=== PATIENT | female | born 1965 | race Two or more races ===

== ENCOUNTER 2023-10-01 22:18 | Emergency (ER) | payer MEDICAID, OTHER ==
[~2023-10-01] VITALS: Ht 149.9 cm; Wt 52.6 kg
[2023-10-02] MEDS ORDERED: DOCU-94 PO (01:00)
[2023-10-02 02:08] VITALS: BP 114/69; PULSE 72; RESP 16; TEMP 97.7; O2SAT 97
== END 2023-10-02 02:09 | disposition home or self-care (01) ==
LOC: ER 22:18
DX: K59.00 Constipation, unspecified (principal)
CPT/HCPCS: 74018

== ENCOUNTER 2025-05-17 14:15 | Inpatient (IN) | payer MEDICAID ==
[~2025-05-17] VITALS: Ht 147.3 cm; Wt 48.7 kg
[2025-05-17] VITALS (9 sets, daily range): BP systolic 80–98; BP diastolic 37–52; PULSE 87–103; RESP 15–16; TEMP 98.2–98.5; O2SAT 100
[~2025-05-17 14:15] MED LIST: DOCU-94 PO
--- NOTE | 2025-05-17 14:58 | ED.PDOC ---
GI ASSESSMENT HPI Comments 59 y.o female with PMHx of colon cancer, presents to the ED for a chief complaint of hematochezia x 3 weeks associated with lightheadedness and palpitations. Patient reports having radiation daily for the past 1.5 months, last session was 3 days ago but has yet to f/u with her oncologist. Patient denies any abdominal pain, nausea, vomiting, diarrhea, fever, or chills. Patient's BP read 100 systolic with a HR of 140 at rest. Chief Complaint: GI Bleed Time Seen by MD: 14:35 Reviewed Notes: Nurses Notes, Medications, Allergies Allergies: Coded Allergies: NO KNOWN ALLERGIES (Unverified , 10/01/23) Home Meds Active Scripts Docusate Sodium (Colace) 100 Mg Cap, 1 CAP PO BID, #30 CAP Prov:ALEAH DE JESUS PAC 10/02/23 Information Source: Patient Mode of Arrival: Ambulatory Timing: Weeks (3) Duration: Since onset Quality: None Stool: Blood Streaked Severity: Moderate Recent: Other (radiation x 3 days ago ) Recent Hx of: Other Pain Location: None Modifying Factors: Nothing Associated sign and symptoms: Hematochezia, Blood in Stool Past Medical History PAST MEDICAL HISTORY: Cancer (colon ) Surgical History: Denies all 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 [employer]IC History Family History Family History: Reviewed,noncontributory to illness, No family hx of Cancer, No family hx of DM, No family hx of Heart jaleel, No family hx of HTN, No family hx ofKidney jaleel, No family hx of Liver jaleel, No family hx of Lung jaleel, No family hx of Stroke Social History Smoker: Non-Smoker Alcohol: Denies ETOH Use Drugs: Denies Drug Use Lives In: Home Constitutional: denies: chills, diaphoresis, fatigue, fever, malaise, sweats, weakness, others EENTM: denies: blurred vision, double vision, ear bleeding, ear discharge, ear drainage, ear pain, ear ringing, eye pain, eye redness, hearing loss, mouth pain, mouth swelling, nasal discharge, nose bleeding, nose congestion, nose pain, photophobia, tearing, throat pain, throat swelling, voice changes, others Respiratory: denies: cough, hemoptysis, orthopnea, SOB at rest, shortness of breath, SOB with excertion, stridor, wheezing, others Cardiovascular: reports: lightheadedness, palpitations; denies: chest pain, dizzy spells, diaphoresis, Dyspnea on exertion, edema, irregular heart beat, left arm pain, PND, syncope, others Gastrointestinal: reports: rectal bleeding; denies: abdomen distended, abdominal pain, blood streaked bowels, constipated, diarrhea, dysphagia, difficulty swallowing, hematemesis, melena, nausea, poor appetite, poor fluid intake, rectal pain, vomiting, others Genitourinary: denies: abnormal vagina bleeding, burning, dyspareunia, dysuria, flank pain, frequency, hematuria, incontinence, pain, , vagina discharge, urgency, others Neurological: denies: dizziness, fainting, headache, left sided numbness, left sided weakness, numbness, paresthesia, pre-existing deficit, right sided numbness, right sided weakness, seizure, speech problems, tingling, tremors, weakness, others Musculoskeletal: denies: back pain, gout, joint pain, joint swelling, muscle pain, muscle stiffness, neck pain, others Integumetry: denies: bruises, change in color, change in hair/nails, dryness, laceration, lesions, lumps, rash, wounds, others Allergic/Immunocompromised: denies: Difficulty Healing, Frequent Infections, Hives, Itching, others Hematologic/Lymphatic: denies: anemia, blood clots, easy bleeding, easy bruising, swollen glands, others Endocrine: denies: excessive hunger, excessive sweating, excessive thirst, excessive urination, flushing, intolerance to cold, intolerance to heat, unexplained weight gain, unexplained weight loss, others Psychiatric: denies: anxiety, bipolar disorder, depression, hopeless, panic disorder, schizophrenia, sleepless, suicidal, others All Other Systems: Reviewed and Negative Physical Exam General Appearance: Moderate Distress HEENT: Normal ENT Inspection, Pharynx Normal, TMs Normal Neck: Full Range of Motion, Non-Tender, Normal, Normal Inspection Respiratory: Chest Non-Tender, Lungs Clear, No Accessory Muscle Use, No Res piratory Distress, Normal Breath Sounds Cardiovascular: No Edema, No JVD, No Murmur, No Gallop, Normal Peripheral Pulses, Tachycardia Breast Exam: Deferred Gastrointestinal: No Organomegaly, Non Tender, No Pulsatile Mass, Normal Bowel Sounds, Soft Genitalia: Deferred Pelvic: Deferred Rectal: Deferred Extremities: No calf tenderness, Normal capillary refill, Normal inspection, Normal range of motion, Non-tender, No pedal edema Musculoskeletal : Apperance: Normal Neurologic: Alert, writer technical publications II-XII nml as Tested, No Motor Deficits, Normal Affect, Normal Mood, No Sensory Deficits Cerebellar Function: Normal Reflexes: Normal Skin: Dry, Normal Color, Warm Peripheral Pulses: 3+ Radial (R), 3+ Radial (L) Lymphatic: No Adenopathy Was a procedure done? Was a procedure done?: No GI differential Dx Differential Diagnosis: Constipation, Diverticular disease, Esophagitis, Gastritis/PUD, Gastroenteritis, GI hemorrhage, UTI, Dehydration, Viral, Anemia, Esophageal Varicies X-Ray, Labs, Meds, VS Vital Signs Date Time Temp Pulse Resp B/P (MAP) Pulse Ox O2 Delivery O2 Flow Rate FiO2 05/17/25 16:27 100 Room Air* 0 21 05/17/25 16:20 103 16 100 Room Air* 0 21 05/17/25 16:19 97.7 103 16 152/99 (116) 100 97.7 05/17/25 14:30 123 05/17/25 14:18 98.8 138 16 107/56 96 98.8 Lab Test 05/17/25 14:46 Range/Units White Blood Count 6.0 4.4-10.8 10^3/uL Red Blood Count 1.46 L 4.0-5.20 10^6/uL Hemoglobin 4.8 *L 12.2-16.2 g/dL Hematocrit 14.8 L 36.0-46.0 % Mean Corpuscular Volume 101.5 H 80.0-100.0 fL Mean Corpuscular Hemoglobin 33.0 H 28.0-32.0 pg Mean Corpuscular Hemoglobin Concent 32.5 32.0-36.0 g/dL Red Cell Distribution Width 36.4 H 11.8-14.3 % Platelet Count 259 140-450 10^3/uL Mean Platelet Volume 6.5 L 6.9-10.8 fL Neutrophils (%) (Auto) 80.7 H 37.0-80.0 % Lymphocytes (%) (Auto) 6.8 L 10.0-50.0 % Monocytes (%) (Auto) 11.2 0.0-12.0 % Eosinophils (%) (Auto) 0.7 0.0-7.0 % Basophils (%) (Auto) 0.6 0.0-2.0 % Neutrophils # (Auto) 4.8 1.6-8.6 10 ^3/uL Lymphocytes # (Auto) 0.4 0.4-5.4 10 ^3/uL Monocytes # (Auto) 0.7 0-1.3 10 ^3/uL Eosinophils # (Auto) 0 0-0.8 10 ^3/uL Basophils # (Auto) 0 0-0.2 10 ^3/uL Nucleated Red Blood Cells 3.9 % Platelet Estimate Adequate Large Platelets Few Anisocytosis (manual) Moderate Macrocytosis Moderate Tear Drop Cells Few Schistocytes Few Sodium Level 139 136-145 mmol/L Potassium Level 4.2 3.5-5.1 mmol/L Chloride Level 106 98-107 mmol/L Carbon Dioxide Level 22 20-31 mmol/L Anion Gap 11 5-15 Blood Urea Nitrogen 10 9-23 mg/dL Creatinine 0.69 0.550-1.02 mg/dL Glomerular Filtration Rate Calc 101 >90 mL/min BUN/Creatinine Ratio 14.5 10.0-20.0 Serum Glucose 116 H 74-106 mg/dL Calcium Level 8.5 L 8.7-10.4 mg/dL Current Medications Medications (Trade) Dose Ordered Sig/Roni Route Start Time Stop Time Status Last Admin Sodium Chloride 1,000 ml @ 1,000 mls/hr Q1H ONCE IV 05/17/25 14:45 05/17/25 15:44 DC 05/17/25 16:02 Patient alert. Came in because of rectal bleeding. History of colon cancer that has been radiated. Vitals stable. Establish intravenous access. Was given fluids. WBC within normal limits. Hemoglobin is low. Blood transfusion. Possible radiation causing the bleeding. Explained to the patient. Continue monitoring. Time of 1ST Reevaluation: 14:54 Reevaluation 1ST: Unchanged Patient Education/Counseling: Diagnosis, Treatment, Prognosis Family Education/Counseling: No Family Present SEPSIS Sepsis Screen Date sepsis recognized/suspect: May 17, 2025 Time Sepsis recognized/suspect: 1420 Recent Procedure: No On Antibiotic Therapy: No Respiratory Rate >20: No Heart Rate >90: Yes Temp<36 C (96.8 F) or >38.3 C: No SBP <90 or MAP <65 mmHG: No New Acute Mental Status Change: No Is the patient on CPAP, BIPAP,: No Physician Orders Urinalysis (05/17/25 14:29) Electrocardigram (05/17/25 14:33) Ct Ab Pel Wo Con-No Oral Or Iv (05/17/25 14:41) Vital Signs Date Time Temp Pulse Resp B/P (MAP) Pulse Ox O2 Delivery O2 Flow Rate FiO2 05/17/25 16:27 100 Room Air* 0 21 05/17/25 16:20 103 16 100 Room Air* 0 21 05/17/25 16:19 97.7 103 16 152/99 (116) 100 97.7 05/17/25 14:30 123 05/17/25 14:18 98.8 138 16 107/56 96 98.8 Laboratory Tests Test 05/17/25 14:46 White Blood Count 6.0 10^3/uL (4.4-10.8) Medications Medications Dose Ordered Sig/Roni Route Start Time Stop Time Status Last Admin Dose Admin Sodium Chloride 1,000 ml @ 1,000 mls/hr Q1H ONCE IV 05/17/25 14:45 05/17/25 15:44 DC 05/17/25 16:02 Departure 1 Departure Time of Disposition: 16:31 Impression: Primary Impression: GI bleed Qualified Codes: K92.2 - Gastrointestinal hemorrhage, unspecified Additional Impression: Severe anemia Disposition: ADMITTED INPATIENT Admit to: Med Surg Condition: Guarded Critical Care Note Critical Care Time?: Yes (90 min-critical care time only) Stability Stability form required: No I personally scribed for NATAN GANN MD ([email or web address]) on 05/17/25 at 14:58. Electronically submitted by Janelle Angel ([facility]). NATAN GANN MD May 17, 2025 14:58
[2025-05-17 15:04] LABS: Hematocrit 14.8 % (36.0-46.0); Mean Corpuscular Hemoglobin 33.0 pg (28.0-32.0); Mean Corpuscular Volume 101.5 fL (80.0-100.0)
[2025-05-17 15:09] LABS: Nucleated Red Blood Cells % 3.9 %
[2025-05-17 15:14] LABS: Hemoglobin 4.8 g/dL (12.2-16.2)
[2025-05-17 15:16] LABS: Chloride 106 mmol/L (98-107); Potassium 4.2 mmol/L (3.5-5.1); Sodium 139 mmol/L (136-145)
[2025-05-17 15:17] LABS: Anion Gap 11 (5-15); Carbon Dioxide 22 mmol/L (20-31)
[2025-05-17 15:18] LABS: Calcium 8.5 mg/dL (8.7-10.4)
[2025-05-17 15:22] LABS: BUN/Creatinine Ratio 14.5 (10.0-20.0); Blood Urea Nitrogen 10 mg/dL (9-23); Glucose 116 mg/dL (74-106)
[2025-05-17 15:47] LABS: Anisocytosis Moderate; Macrocytosis Moderate; Tear Drop Cells FEW
--- NOTE | 2025-05-17 16:00 | DVH ---
Indication: gibleeding Technique: CT axial images of the abdomen and pelvis are obtained without contrast. Coronal and sagit todd reformats were obtained. Radiation Dose Information: CTDI volume is 5.1 mGy. Dose-length product is 253 mGy*cm Comparison: None FINDINGS: There is limited interpretation of the abdomen and pelvis without administration of intravenous contr ast. Lung bases demonstrate no pleural effusion. Adrenal glands, spleen, pancreas and liver unremarkable in shape. No CT evidence for cholelithiasis. There is no hydronephrosis / nephrolithiasis. Stomach partially distended. Small bowel loops are normal in caliber. Bowel wall thickening of the sigmoid colon with surrounding stranding. Moderate to large volume stool within the more proximal colon. Normal appendix. Abdominal aortic atherosclerotic disease. Bladder partially distended. No inguinal lymphadenopathy. Moderate bilateral sacroiliac degenerative joint disease. [id number] thoracolumbar degenerative disc disease. IMPRESSION: Limited evaluation without contrast. Sigmoidal wall colon thickening and surrounding stranding which can be seen with proctocolitis . Othe r considerations include inflammatory bowel disease. Recommend colonoscopy once acute symptoms resolv e to exclude underlying lesion / mass.
[2025-05-17] MEDS: SODIUM CHLORIDE 0.9% 1,000 ML IV ONE (16:02)
[2025-05-17 17:26] LABS: Urine Protein, UAD Negative (Negative)
[2025-05-17] MEDS ORDERED: NITROGLYCERIN 0.4 MG SL TAB SL PRN (17:45)
[2025-05-17] MEDS ORDERED: ACETAMINOPHEN 325 MG TAB PO PRN (17:45)
[2025-05-17] MEDS ORDERED: MORPHINE SULFATE INJ 2 MG/ml SYRG IV PRN ×2 (17:45)
[2025-05-17] MEDS: PANTOPRAZOLE 40 MG/10 ML VIAL INJ IV ONE ×2 (18:10→23:15)
[2025-05-17] MEDS: SODIUM CHLORIDE 0.9% 1,000 ML IV SCH (18:10)
[2025-05-17] MEDS: IRON SUCROSE COMPLEX 110 ML IV SCH (18:13)
[2025-05-17 18:26] LABS: Ferritin 179.3 ng/mL (10-291); INR 1.01 (0.9-1.15); Partial Thromboplastin Time 21.0 SEC (24.5-34.5); Prothrombin Time 10.7 sec (9.3-11.8)
[2025-05-17 18:27] LABS: Total Iron Binding Capacity 343.0 ug/dL (250-425)
[2025-05-17 18:28] LABS: Iron 36.0 ug/dL (50-170)
[2025-05-17 18:49] LABS: Alanine Aminotransferase 10.0 U/L (7-40); Alkaline Phosphatase 62.0 U/L (46-116); Bilirubin, Direct 0.2 mg/dL (<0.3); Bilirubin, Total 0.6 mg/dL (0.2-1.0)
[2025-05-17 18:56] LABS: Albumin 3.2 g/dL (3.2-4.8); Total Protein 5.0 g/dL (5.7-8.2)
--- NOTE | 2025-05-17 18:58 | DVHHPRES ---
History of Present Illness Resident Creating Document: BAY YEUNG RESIDENT History of Present Illness Alix Parks is a 59 years old female with a PMH of colorectal carcinoma diagnosed 1 year ago currently taking radiation ( more than 30 sessions) and chemotherapy (capecitabine) presented to the ED with severe rectal bleeding for past 3 weeks. Patient reported she has been having significant rectal bleeding for past 3 weeks which has been continued despite ongoing radiation and chemotherapy treatments. Patient also started experiencing feeling tired, having difficulty breathing, unable to walk due to weakness. Patient also experiencing pain when using bathroom. These symptoms have significantly impacted the daily living function so prompted her to visit ED. on my assessment patient denies fever, nausea, vomiting, chills, abdominal pain, diarrhea, constipation and other associated symptoms. PMH: Colorectal carcinoma, anemia required blood transfusion, thyroid tumor PSH: Hemithyroidectomy 5-6 years ago Family history: Grandmother colon cancer, cousin colon cancer, mother stomach cancer Social history: Lives with family. Denies smoking, alcohol and other drug abuse Allergies: No known allergies Review of Systems Review of Systems Patient seen and examined at the bedside. Patient currently feeling fatigue, tiredness and mild difficulty breathing no other symptoms at this time. We are transfusing 1 PRBC if need we will do 1 more. Continuously monitor lab. Constitutional: Yes: Weakness, Malaise Gastrointestinal: Hematochezia Allergies: Coded Allergies: NO KNOWN ALLERGIES (Unverified , 10/01/23) Medications Current Medications Medications Dose Ordered Sig/Roni Route Start Time Stop Time Status Last Admin Dose Admin Sodium Chloride 10 ml Q8HR IV 05/17/25 22:00 Sodium Chloride 1,000 ml @ 120 mls/hr Q8H20M IV 05/17/25 17:45 05/17/25 18:10 120 MLS/HR Acetaminophen/ Hydrocodone Bitart 1 tab Q4HP PRN PO 05/17/25 17:45 Ondansetron HCl 4 mg Q4HP PRN IV 05/17/25 17:45 Acetaminophen 650 mg Q6HP PRN PO 05/17/25 17:45 Morphine Sulfate 2 mg Q4HPRN PRN IV 05/17/25 17:45 Nitroglycerin 0.4 mg Q5MINP PRN SL 05/17/25 17:45 Morphine Sulfate 2 mg Q30M PRN IV 05/17/25 17:45 Iron Sucrose 110 ml @ 110 mls/hr DAILY@1200 IV 05/17/25 18:02 05/21/25 12:59 05/17/25 18:13 110 MLS/HR Pantoprazole Sodium 40 mg DAILY IV 05/18/25 10:00 Exam Vital Signs Vital Signs Date Time Temp Pulse Resp B/P (MAP) Pulse Ox O2 Delivery O2 Flow Rate FiO2 05/17/25 16:27 100 Room Air* 0 21 05/17/25 16:20 103 16 05/17/25 16:19 97.7 152/99 (116) 97.7 Exam Pt is lying on bed General Appearance: Alert, Oriented X3, Cooperative, Mild distress HEENT: Atraumatic, Mucous membranes pale Respiratory: Clear to auscultation, Normal air movement, No added sounds Cardiovascular: Regular rate, Normal S1, Normal S2, No murmurs Abdominal: Active bowel sounds, Soft, no distention, no tenderness Extremities: No edema, Normal pulses, No tenderness/swelling Skin: No Significant rash, except past surgical scars Neuro: Normal speech, sensorimotor deficits none Psych/Mental Status: Mental status NL, Mood NL Rectal exam: Rectal mass seen but no fresh blood appreciated Nurse was there as repairer and checker during examination Labs/Xrays Labs Test 05/17/25 18:29 05/17/25 18:26 05/17/25 18:16 05/17/25 17:06 Range/Units Lactic Acid Level 0.7 0.4-2.0 mmol/L Urine Color Colorless Yellow Urine Clarity Clear Clear Urine pH 5.5 5.0-9.0 Urine Specific [place] 1.005 1.001-1.035 Urine Protein Negative Negative Urine Ketones Trace Negative Urine Blood Negative Negative /uL Urine Nitrite Negative Negative Urine Bilirubin Negative Negative Urine Urobilinogen Normal Negative mg/dL Urine Leukocyte Esterase Negative Negative /uL Urine RBC None seen 0 - 4 /hpf Urine Microscopic WBC 2 0-5 /HPF Urine Squamous Epithelial Cells Few <5 /hpf Urine Bacteria None seen None Seen /hpf Urine Glucose Normal Normal mg/dL Test 05/17/25 14:46 Range/Units White Blood Count 6.0 4.4-10.8 10^3/uL Red Blood Count 1.46 L 4.0-5.20 10^6/uL Hemoglobin 4.8 *L 12.2-16.2 g/dL Hematocrit 14.8 L 36.0-46.0 % Mean Corpuscular Volume 101.5 H 80.0-100.0 fL Mean Corpuscular Hemoglobin 33.0 H 28.0-32.0 pg Mean Corpuscular Hemoglobin Concent 32.5 32.0-36.0 g/dL Red Cell Distribution Width 36.4 H 11.8-14.3 % Platelet Count 259 140-450 10^3/uL Mean Platelet Volume 6.5 L 6.9-10.8 fL Neutrophils (%) (Auto) 80.7 H 37.0-80.0 % Lymphocytes (%) (Auto) 6.8 L 10.0-50.0 % Monocytes (%) (Auto) 11.2 0.0-12.0 % Eosinophils (%) (Auto) 0.7 0.0-7.0 % Basophils (%) (Auto) 0.6 0.0-2.0 % Neutrophils # (Auto) 4.8 1.6-8.6 10 ^3/uL Lymphocytes # (Auto) 0.4 0.4-5.4 10 ^3/uL Monocytes # (Auto) 0.7 0-1.3 10 ^3/uL Eosinophils # (Auto) 0 0-0.8 10 ^3/uL Basophils # (Auto) 0 0-0.2 10 ^3/uL Nucleated Red Blood Cells 3.9 % Platelet Estimate Adequate Large Platelets Few Anisocytosis (manual) Moderate Macrocytosis Moderate Tear Drop Cells Few Schistocytes Few Reticulocyte Count (auto) 8.12 H 0.5-1.5 % Prothrombin Time 10.7 9.3-11.8 sec Prothrombin Time INR 1.01 0.9-1.15 Activated Partial Thromboplast Time 21.0 L 24.5-34.5 SEC Sodium Level 139 136-145 mmol/L Potassium Level 4.2 3.5-5.1 mmol/L Chloride Level 106 98-107 mmol/L Carbon Dioxide Level 22 20-31 mmol/L Anion Gap 11 5-15 Blood Urea Nitrogen 10 9-23 mg/dL Creatinine 0.69 0.550-1.02 mg/dL Glomerular Filtration Rate Calc 101 >90 mL/min BUN/Creatinine Ratio 14.5 10.0-20.0 Serum Glucose 116 H 74-106 mg/dL Calcium Level 8.5 L 8.7-10.4 mg/dL Iron Level 36 L 50-170 ug/dL Total Iron Binding Capacity 343 250-425 ug/dL Percent Iron Saturation 10.5 L 15-50 % Ferritin 179.3 10-291 ng/mL Total Bilirubin 0.6 0.2-1.0 mg/dL Direct Bilirubin 0.2 <0.3 mg/dL Aspartate Amino Transferase (AST) 17 13-40 U/L Alanine Aminotransferase (ALT) 10 7-40 U/L Alkaline Phosphatase 62 46-116 U/L B-Type Natriuretic Peptide 36.47 0-100 pg/mL Total Protein 5.0 L 5.7-8.2 g/dL Albumin 3.2 3.2-4.8 g/dL Vitamin B12 Level 946 H 211-911 pg/mL Folic Acid 14.99 >5.38 ng/mL SEPSIS Sepsis Screen Date sepsis recognized/suspect: May 17, 2025 Time Sepsis recognized/suspect: 1625 Recent Procedure: No On Antibiotic Therapy: No Respiratory Rate >20: No Heart Rate >90: No Temp<36 C (96.8 F) or >38.3 C: No SBP <90 or MAP <65 mmHG: No New Acute Mental Status Change: No Is the patient on CPAP, BIPAP,: No Physician Orders Electrocardigram (05/17/25 14:33) Type And Screen (05/17/25 14:41) Ct Ab Pel Wo Con-No Oral Or Iv (05/17/25 14:41) Admit (05/17/25 17:44) Allergies (05/17/25 17:44) Code Status (05/17/25 17:44) Sodium Chloride Lock (Saline Lock Ns) (05/17/25 22:00) Sodium Chloride 0.9% (05/17/25 17:45) Oxygen Per Hour (05/17/25 17:44) Hydrocodone-Acet 5/325mg Tab ([place] 5/32 (05/17/25 17:45) Ondansetron Hcl (Zofran) (05/17/25 17:45) Complete Blood Count (05/18/25 04:00) Comprehensive Metabolic Panel (05/18/25 04:00) Condition: Fair (05/17/25 17:44) Acetaminophen Tablet (Tylenol Tablet) (05/17/25 17:45) Clear Liq Diet (05/17/25 Dinner) Morphine Sulfate Injection (05/17/25 17:45) Sequential Compression Device (05/17/25 ) Nitroglycerin Sublingual (Ntrostat Subli (05/17/25 17:45) Morphine Sulfate Injection (05/17/25 17:45) Oxygen By Nasal Cannula (05/17/25 17:44) Stat Ekg For Chest Pain (05/17/25 17:44) Notify Md Of Changes From Base (05/17/25 17:44) Bike Assembler For 24 Hours (05/17/25 17:44) Emergency Dysrhythmia Protocol (05/17/25 17:44) Rhythm Strips Once Every Shift (05/17/25 17:44) Pantoprazole (Protonix) (05/18/25 10:00) Drug Screen (05/17/25 17:44) Magnesium (05/17/25 17:44) Thyroid Stimulating Hormone (05/17/25 17:44) Covid19 Antigen [place] (05/17/25 17:44) Rapid Influenza A&B (05/17/25 17:44) Iron Sucrose Complex (Venofer) (05/17/25 18:02) Vital Signs Date Time Temp Pulse Resp B/P (MAP) Pulse Ox O2 Delivery O2 Flow Rate FiO2 05/17/25 16:27 100 Room Air* 0 21 05/17/25 16:20 103 16 100 Room Air* 0 21 05/17/25 16:19 97.7 103 16 152/99 (116) 100 97.7 05/17/25 14:30 123 05/17/25 14:18 98.8 138 16 107/56 96 98.8 Laboratory Tests Test 05/17/25 14:46 05/17/25 18:16 White Blood Count 6.0 10^3/uL (4.4-10.8) Lactic Acid Level 0.7 mmol/L (0.4-2.0) Medications Medications Dose Ordered Sig/Roni Route Start Time Stop Time Status Last Admin Dose Admin Iron Sucrose 110 ml @ 110 mls/hr DAILY@1200 IV 05/17/25 18:02 05/21/25 12:59 05/17/25 18:13 110 MLS/HR Pantoprazole Sodium 40 mg ONCE ONCE IV 05/17/25 17:45 05/17/25 18:02 DC 05/17/25 18:10 40 MG Sodium Chloride 1,000 ml @ 120 mls/hr Q8H20M IV 05/17/25 17:45 05/17/25 18:10 120 MLS/HR Sodium Chloride 1,000 ml @ 1,000 mls/hr Q1H ONCE IV 05/17/25 14:45 05/17/25 15:44 DC 05/17/25 16:02 1,000 MLS/HR Assessment/Plan Assessment/Plan 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 # HX of colorectal carcinoma currently on radiotherapy and chemotherapy - admit to telemetry - continuously monitor H&H - transfers 1 PRBC, re transfuse ih H&H less than 7 - iron IVBP - iron panel, folic acid, B12 - GI consult if needed - rectal exam showed rectal mass, exophytic but no fresh blood appreciated - stool occult blood - CT abdominal pelvis showed Sigmoidal wall colon thickening and surrounding stranding which can be seen with proctocolitis - Continue following up with oncologist after discharge GI PPX: Protonix VTE ppx: SCDs Diet: clear liquids Goals of care addressed with the patient for more than 27 minutes: Full code status Case discussed with Dr. Boyce ,patient and nurse Plan discussed with: Patient My Orders Orders - BAY YEUNG RESIDENT Procedure Category Date Status Time Admit ADMIT 05/17/25 Transmitted 17:44 Allergies RAMON 05/17/25 In Process 17:44 Code Status CODE 05/17/25 Transmitted 17:44 Sodium Chloride Lock PHA 05/17/25 In Process (Saline Lock Ns) 22:00 Sodium Chloride 0.9% PHA 05/17/25 In Process 17:45 Oxygen Per Hour RT 05/17/25 Transmitted 17:44 Hydrocodone-Acet PHA 05/17/25 In Process 5/325mg Tab ([place] 17:45 Ondansetron Hcl PHA 05/17/25 In Process (Zofran) 17:45 Complete Blood Count LAB 05/18/25 Verified 04:00 Comprehensive LAB 05/18/25 Verified Metabolic Panel 04:00 Condition: Fair RAMON 05/17/25 In Process 17:44 Acetaminophen Tablet PHA 05/17/25 In Process (Tylenol Tablet) 17:45 Clear Liq Diet DIET 05/17/25 Transmitted Dinner Morphine Sulfate PHA 05/17/25 In Process Injection 17:45 Sequential RAMON 05/17/25 In Process Compression Device Nitroglycerin PHA 05/17/25 In Process Sublingual (Ntrostat 17:45 Morphine Sulfate PHA 05/17/25 In Process Injection 17:45 Oxygen By Nasal RT 05/17/25 Transmitted Cannula 17:44 Stat Ekg For Chest RAMON 05/17/25 In Process Pain 17:44 Notify Md Of Changes RAMON 05/17/25 In Process From Base 17:44 Bike Assembler For RAMON 05/17/25 In Process 24 Hours 17:44 Emergency Dysrhythmia RAMON 05/17/25 In Process Protocol 17:44 Rhythm Strips Once RAMON 05/17/25 In Process Every Shift 17:44 Pantoprazole PHA 05/18/25 In Process (Protonix) 10:00 Drug Screen LAB 05/17/25 In Process 17:44 Magnesium LAB 05/17/25 In Process 17:44 Thyroid Stimulating LAB 05/17/25 In Process Hormone 17:44 Covid19 Antigen [place] LAB 05/17/25 In Process 17:44 Rapid Influenza A&B LAB 05/17/25 In Process 17:44 Iron Sucrose Complex PHA 05/17/25 In Process (Venofer) 18:02 Date of Service: May 17, 2025 Billing Provider: CHARISSE HART MD Common Visit Codes: 85359-QOMATCA INP/OBS CARE (HIGH) Secondary Visit Codes: [id number] CARE PLAN 30 MINUTES BAY YEUNG RESIDENT May 17, 2025 18:58 CHARISSE HART MD May 26, 2025 18:40
[2025-05-17 19:12] LABS: Amphetamine Screen, Urine Neg (NEGATIVE); Barbiturate Scree,Urine Neg (NEGATIVE); Benzodiazephine Screen, Urine Neg (NEGATIVE); Cannabinoid Screen, Urine Neg (NEGATIVE); Cocaine Screen, Urine Neg (NEGATIVE); Opiate Scree,Urine Neg (NEGATIVE); Phencyclidine Screen, Urine Neg (NEGATIVE)
[2025-05-17 19:17] LABS: COVID19 ANTIGEN SOFIA FIA NEGATIVE (NEGATIVE)
[2025-05-17] MEDS: SODIUM CHLOR 0.9% PF (SALINE LOCK) 10ML VIAL/SYR IV SCH (22:15)
[2025-05-17 23:02] LABS: Hematocrit 17.8 % (36.0-46.0)
[2025-05-17 23:05] LABS: Hemoglobin 5.8 g/dL (12.2-16.2)
[2025-05-17] MEDS: SODIUM CHLORIDE 0.9% 500 ML IV ONE (23:15)
[2025-05-18] VITALS (14 sets, daily range): BP systolic 89–133; BP diastolic 44–80; PULSE 75–98; RESP 16–20; TEMP 98.1–98.6; O2SAT 96–98
--- NOTE | 2025-05-18 01:05 | DVH ---
CHEST RADIOGRAPH Indication: sob Technique: Single frontal view of the chest was obtained COMPARISON: None FINDINGS: Lines and Tubes: None Lungs: Clear Pleura: No effusion. No pneumothorax. Cardiomediastinal contours: Unremarkable Bones: Unremarkable IMPRESSION: 1. No acute disease.
[2025-05-18] MEDS: SODIUM CHLORIDE 0.9% 500 ML IV ONE (03:45)
--- NOTE | 2025-05-18 09:02 | DVHPN2 ---
Subjective History of Present Illness Alix Parks is a 59 years old female with a PMH of colorectal carcinoma diagnosed 1 year ago currently taking radiation ( more than 30 sessions) and chemotherapy (capecitabine) presented to the ED with severe rectal bleeding for past 3 weeks. Patient reported she has been having significant rectal bleeding for past 3 weeks which has been continued despite ongoing radiation and chemotherapy treatments. Patient also started experiencing feeling tired, having difficulty breathing, unable to walk due to weakness. Patient also experiencing pain when using bathroom. These symptoms have significantly impacted the daily living function so prompted her to visit ED. on my assessment patient denies fever, nausea, vomiting, chills, abdominal pain, diarrhea, constipation and other associated symptoms. Seen at bedside today, doing well,. Reviewed: H&P Changes from previous H/P or p: No Changes General: Per HPI Gastrointestinal: Hematochezia Objective Vitals Vital Signs Date Time Temp Pulse Resp B/P (MAP) Pulse Ox O2 Delivery O2 Flow Rate FiO2 05/18/25 05:40 115/80 (92) 05/18/25 05:30 98.1 94 20 98.1 05/18/25 02:46 99 05/17/25 16:27 Room Air* 0 21 Intake/Output Intake and Output 05/18/25 07:00 Intake Total 2910 ml Output Total 500 ml Balance 2410 ml Intake IV Total 1110 ml Blood Product 1200 ml Other 600 ml Output Urine Total 500 ml Exam General Appearance: Alert, Oriented X3, Cooperative, Mild distress HEENT: Atraumatic, Mucous membranes pale Respiratory: Clear to auscultation, Normal air movement, No added sounds Cardiovascular: Regular rate, Normal S1, Normal S2, No murmurs Abdominal: Active bowel sounds, Soft, no distention, no tenderness Extremities: No edema, Normal pulses, No tenderness/swelling Skin: No Significant rash, except past surgical scars Neuro: Normal speech, sensorimotor deficits none Psych/Mental Status: Mental status NL, Mood NL Rectal exam: Rectal mass seen but no fresh blood appreciated 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 Medications Current Medications Medications Dose Ordered Sig/Roni Route Start Time Stop Time Status Last Admin Dose Admin Sodium Chloride 10 ml Q8HR IV 05/17/25 22:00 05/18/25 05:34 10 ML Sodium Chloride 1,000 ml @ 120 mls/hr Q8H20M IV 05/17/25 17:45 05/18/25 08:26 120 MLS/HR Acetaminophen/ Hydrocodone Bitart 1 tab Q4HP PRN PO 05/17/25 17:45 Ondansetron HCl 4 mg Q4HP PRN IV 05/17/25 17:45 Acetaminophen 650 mg Q6HP PRN PO 05/17/25 17:45 Morphine Sulfate 2 mg Q4HPRN PRN IV 05/17/25 17:45 Nitroglycerin 0.4 mg Q5MINP PRN SL 05/17/25 17:45 Morphine Sulfate 2 mg Q30M PRN IV 05/17/25 17:45 Iron Sucrose 110 ml @ 110 mls/hr DAILY@1200 IV 05/17/25 18:02 05/21/25 12:59 05/17/25 18:13 110 MLS/HR Pantoprazole Sodium 40 mg DAILY IV 05/18/25 10:00 Laboratory Results Laboratory Tests 05/17/25 14:46 05/17/25 22:56 Chemistry Test 05/17/25 14:46 Albumin 3.2 g/dL (3.2-4.8) Calcium Level 8.5 mg/dL (8.7-10.4) L Magnesium Level 2.1 mg/dL (1.6-2.6) Total Protein 5.0 g/dL (5.7-8.2) L Coagulation Test 05/17/25 14:46 Prothrombin Time 10.7 sec (9.3-11.8) Prothrombin Time INR 1.01 (0.9-1.15) Activated Partial Thromboplast Time 21.0 SEC (24.5-34.5) L Cardiac Markers Test 05/17/25 14:46 B-Type Natriuretic Peptide 36.47 pg/mL (0-100) LFT Test 05/17/25 14:46 Alanine Aminotransferase (ALT) 10 U/L (7-40) Alkaline Phosphatase 62 U/L (46-116) Aspartate Amino Transferase (AST) 17 U/L (13-40) Direct Bilirubin 0.2 mg/dL (<0.3) Total Bilirubin 0.6 mg/dL (0.2-1.0) HgA1c, TSH Test 05/17/25 14:46 Thyroid Stimulating Hormone (TSH) 0.91 uIU/mL (0.55-4.78) Urinalysis Test 05/17/25 17:06 Urine Color Colorless (Yellow) Urine Clarity Clear (Clear) Urine pH 5.5 (5.0-9.0) Urine Specific [place] 1.005 (1.001-1.035) Urine Protein Negative (Negative) Urine Ketones Trace (Negative) Urine Blood Negative /uL (Negative) Urine Nitrite Negative (Negative) Urine Bilirubin Negative (Negative) Urine Urobilinogen Normal mg/dL (Negative) Urine Leukocyte Esterase Negative /uL (Negative) Urine RBC None seen /hpf (0 - 4) Urine Microscopic WBC 2 /HPF (0-5) Urine Squamous Epithelial Cells Few /hpf (<5) Urine Bacteria None seen /hpf (None Seen) Urine Glucose Normal mg/dL (Normal) Labs and/or images reviewed: Labs reviewed by me, Image(s) reviewed by me Assessment/Plan Assessment/Plan 05/18 - hx CA , rectal ca with radiation. 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 but right now had ABLA, low Hb required pRBC, with LGIB concern. waiting for repeat cbc for this am. --waiting for a.m. CBC repeat. We will need GI to see this case as patient continues to bleed. May need CT with IV contrast. 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 # HX of colorectal carcinoma currently on radiotherapy and chemotherapy - admit to telemetry - continuously monitor H&H - transfers 1 PRBC, re transfuse ih H&H less than 7 - iron IVBP - iron panel, folic acid, B12 - GI consult if needed - rectal exam showed rectal mass, exophytic but no fresh blood appreciated - stool occult blood - CT abdominal pelvis showed Sigmoidal wall colon thickening and surrounding stranding which can be seen with proctocolitis - Continue following up with oncologist after discharge GI PPX: Protonix VTE ppx: SCDs Diet: clear liquids Plan discussed with: Spouse Date of Service: May 18, 2025 Billing Provider: CHARISSE HART MD Common Visit Codes: [id number] INP/OBS CARE(HIGH) CHARISSE HART MD May 18, 2025 09:02
[2025-05-18] MEDS: PANTOPRAZOLE 40 MG/10 ML VIAL INJ IV SCH ×2 (09:12→21:02)
[2025-05-18 09:39] LABS: Hematocrit 30.4 % (36.0-46.0); Hemoglobin 10.3 g/dL (12.2-16.2); Mean Corpuscular Hemoglobin 31.8 pg (28.0-32.0); Mean Corpuscular Volume 93.6 fL (80.0-100.0)
[2025-05-18 09:57] LABS: Alanine Aminotransferase 10 U/L (7-40); Albumin 3.2 g/dL (3.2-4.8); Alkaline Phosphatase 62 U/L (46-116); Anion Gap 10 (5-15); Carbon Dioxide 23 mmol/L (20-31); Potassium 3.7 mmol/L (3.5-5.1); Sodium 144 mmol/L (136-145)
[2025-05-18 10:01] LABS: BUN/Creatinine Ratio 8.6 (10.0-20.0); Bilirubin, Total 1.2 mg/dL (0.2-1.0); Blood Urea Nitrogen < 5 mg/dL (9-23); Calcium 8.1 mg/dL (8.7-10.4); Chloride 111 mmol/L (98-107); Glucose 113 mg/dL (74-106); Total Protein 5.1 g/dL (5.7-8.2)
[2025-05-18 10:13] LABS: Anisocytosis Slight; Total Cells Counted 100.0 (100)
[2025-05-18 10:14] LABS: Macrocytosis Slight; Stomatocytes Few
[2025-05-18 18:37] LABS: Hematocrit 30.7 % (36.0-46.0); Hemoglobin 10.4 g/dL (12.2-16.2); Mean Corpuscular Hemoglobin 31.5 pg (28.0-32.0); Mean Corpuscular Volume 93.3 fL (80.0-100.0)
[2025-05-18 19:10] LABS: Anisocytosis Slight; Total Cells Counted 100.0 (100)
[2025-05-19] VITALS (8 sets, daily range): BP systolic 92–113; BP diastolic 53–64; PULSE 79–106; RESP 16–20; TEMP 97.7–99.7; O2SAT 97–100
[2025-05-19] MEDS: HYDROcodone-ACET 5/325MG TAB PO PRN (00:57)
[2025-05-19 07:20] LABS: Hematocrit 24.6 % (36.0-46.0); Hemoglobin 8.2 g/dL (12.2-16.2); Mean Corpuscular Hemoglobin 31.2 pg (28.0-32.0); Mean Corpuscular Volume 93.9 fL (80.0-100.0); Nucleated Red Blood Cells % 1.9 %
[2025-05-19 07:42] LABS: Alkaline Phosphatase 51 U/L (46-116); Anion Gap 10 (5-15); Carbon Dioxide 23 mmol/L (20-31); Glucose 87 mg/dL (74-106); Potassium 3.7 mmol/L (3.5-5.1)
[2025-05-19 07:43] LABS: Bilirubin, Total 0.8 mg/dL (0.2-1.0)
[2025-05-19 07:48] LABS: Chloride 112 mmol/L (98-107); Sodium 145 mmol/L (136-145)
[2025-05-19 07:49] LABS: Alanine Aminotransferase < 9 U/L (7-40); Albumin 2.7 g/dL (3.2-4.8); BUN/Creatinine Ratio 9.3 (10.0-20.0); Blood Urea Nitrogen < 5 mg/dL (9-23); Calcium 7.7 mg/dL (8.7-10.4); Total Protein 4.3 g/dL (5.7-8.2)
--- NOTE | 2025-05-19 12:58 | DVHINCON2 ---
Date of service: May 19, [address] Carmona Reason for Consultation Rectal bleeding History of Present Illness Alix Parks is a 59 years old female with a PMH of colorectal carcinoma diagnosed 1 year ago currently taking radiation ( more than 30 sessions) and chemotherapy (capecitabine) presented to the ED with severe rectal bleeding for past 3 weeks. Patient reported she has been having significant rectal bleeding for past 3 weeks which has been continued despite ongoing radiation and chemotherapy treatments. Patient also started experiencing feeling tired, having difficulty breathing, unable to walk due to weakness. Patient also experiencing pain when using bathroom. These symptoms have significantly impacted the daily living function so prompted her to visit ED. patient was found to have severe anemia with a hemoglobin of 5.8. She received 3 units PRBC and her current hemoglobin is 8.6 Past Medical History PMH: Colorectal carcinoma, anemia required blood transfusion, thyroid tumor Past Surgical History PSH: Hemithyroidectomy 5-6 years ago Family History: Colon cancer grandmother FH: stomach cancer Family History Family history: Grandmother colon cancer, cousin colon cancer, mother stomach cancer Social History Social history: Lives with family. Denies smoking, alcohol and other drug abuse Allergies: Coded Allergies: NO KNOWN ALLERGIES (Unverified , 10/01/23) Home Meds Active Scripts Docusate Sodium (Colace) 100 Mg Cap, 1 CAP PO BID, #30 CAP Prov:ALEAH DE JESUS PAC 10/02/23 Current Medications Current Medications Medications (Trade) Dose Ordered Sig/Roni Route PRN Reason Start Time Stop Time Status Last Admin Pantoprazole Sodium (Protonix) 40 mg BID IV 05/18/25 22:00 05/19/25 09:11 Vital Signs Vital Signs Date Time Temp Pulse Resp B/P (MAP) Pulse Ox O2 Delivery O2 Flow Rate FiO2 05/19/25 09:00 99.3 87 19 93/53 (66) 97 99.3 05/19/25 08:00 Room Air* 0 21 Physical Exam General Appearance: Alert, Oriented X3, Cooperative, Mild distress HEENT: Atraumatic, Mucous membranes pale Respiratory: Clear to auscultation, Normal air movement, No added sounds Cardiovascular: Regular rate, Normal S1, Normal S2, No murmurs Abdominal: Active bowel sounds, Soft, no distention, no tenderness Extremities: No edema, Normal pulses, No tenderness/swelling Skin: No Significant rash, except past surgical scars Neuro: Normal speech, sensorimotor deficits none Psych/Mental Status: Mental status NL, Mood NL Rectal exam: Rectal mass seen but no fresh blood appreciated Labs/Diagnostic Data Labs Test 05/19/25 05:58 05/18/25 18:14 05/18/25 15:10 05/18/25 09:20 Range/Units White Blood Count 2.6 L 4.4-10.8 10^3/uL Red Blood Count 2.62 L 4.0-5.20 10^6/uL Hemoglobin 8.2 #L 12.2-16.2 g/dL Hematocrit 24.6 #L 36.0-46.0 % Mean Corpuscular Volume 93.9 80.0-100.0 fL Mean Corpuscular Hemoglobin 31.2 28.0-32.0 pg Mean Corpuscular Hemoglobin Concent 33.2 32.0-36.0 g/dL Red Cell Distribution Width 21.3 H 11.8-14.3 % Platelet Count 158 140-450 10^3/uL Mean Platelet Volume 6.5 L 6.9-10.8 fL Neutrophils (%) (Auto) 69.8 37.0-80.0 % Lymphocytes (%) (Auto) 8.0 L 10.0-50.0 % Monocytes (%) (Auto) 16.5 H 0.0-12.0 % Eosinophils (%) (Auto) 5.3 0.0-7.0 % Basophils (%) (Auto) 0.4 0.0-2.0 % Neutrophils # (Auto) 1.8 1.6-8.6 10 ^3/uL Lymphocytes # (Auto) 0.2 L 0.4-5.4 10 ^3/uL Monocytes # (Auto) 0.4 0-1.3 10 ^3/uL Eosinophils # (Auto) 0.1 0-0.8 10 ^3/uL Basophils # (Auto) 0 0-0.2 10 ^3/uL Nucleated Red Blood Cells 1.9 % Sodium Level 145 136-145 mmol/L Potassium Level 3.7 3.5-5.1 mmol/L Chloride Level 112 H 98-107 mmol/L Carbon Dioxide Level 23 20-31 mmol/L Anion Gap 10 5-15 Blood Urea Nitrogen < 5 L 9-23 mg/dL Creatinine 0.54 L 0.550-1.02 mg/dL Glomerular Filtration Rate Calc 107 >90 mL/min BUN/Creatinine Ratio 9.3 L 10.0-20.0 Serum Glucose 87 74-106 mg/dL Calcium Level 7.7 L 8.7-10.4 mg/dL Total Bilirubin 0.8 0.2-1.0 mg/dL Aspartate Amino Transferase (AST) 15 13-40 U/L Alanine Aminotransferase (ALT) < 9 7-40 U/L Alkaline Phosphatase 51 46-116 U/L Total Protein 4.3 L 5.7-8.2 g/dL Albumin 2.7 L 3.2-4.8 g/dL Differential Total Cells Counted 100.0 100 Neutrophils % (Manual) 76 37.0-80.0 Band Neutrophils % (Manual) 7 Lymphocytes % (Manual) 8 L 10.0-50.0 Monocytes % (Manual) 7 0-12 Eosinophils % (Manual) 1 0-7 Basophils % (Manual) 0 0.0-2.0 Metamyelocytes % (manual) 0 Myelocytes % (Manual) 1 Promyelocytes % (Manual) 0 Blast Cells % (Manual) 0 Reactive Lymphocytes 0 Platelet Estimate Adequate Large Platelets Few Anisocytosis (manual) Slight Stool Occult Blood Positive Negative Stool Occult Blood Sample #3 Negative Macrocytosis Slight Stomatocytes Few Test 05/17/25 18:29 05/17/25 18:26 05/17/25 18:16 05/17/25 17:06 Range/Units Influenza Type A Antigen Negative Negative Influenza Type B Antigen Negative Negative SARS-CoV-2 Antigen (Rapid) Negative NEGATIVE Lactic Acid Level 0.7 0.4-2.0 mmol/L Urine Color Colorless Yellow Urine Clarity Clear Clear Urine pH 5.5 5.0-9.0 Urine Specific [place] 1.005 1.001-1.035 Urine Protein Negative Negative Urine Ketones Trace Negative Urine Blood Negative Negative /uL Urine Nitrite Negative Negative Urine Bilirubin Negative Negative Urine Urobilinogen Normal Negative mg/dL Urine Leukocyte Esterase Negative Negative /uL Urine RBC None seen 0 - 4 /hpf Urine Microscopic WBC 2 0-5 /HPF Urine Squamous Epithelial Cells Few <5 /hpf Urine Bacteria None seen None Seen /hpf Urine Glucose Normal Normal mg/dL Urine Opiates Screen Neg NEGATIVE Urine Fentanyl Screen Neg NEGATIVE Urine Barbiturates Screen Neg NEGATIVE Urine Phencyclidine Screen Neg NEGATIVE Urine Amphetamines Screen Neg NEGATIVE Urine Benzodiazepines Screen Neg NEGATIVE Urine Cocaine Screen Neg NEGATIVE Urine Cannabinoids Screen Neg NEGATIVE Test 05/17/25 14:46 Range/Units Tear Drop Cells Few Schistocytes Few Reticulocyte Count (auto) 8.12 H 0.5-1.5 % Prothrombin Time 10.7 9.3-11.8 sec Prothrombin Time INR 1.01 0.9-1.15 Activated Partial Thromboplast Time 21.0 L 24.5-34.5 SEC Magnesium Level 2.1 1.6-2.6 mg/dL Iron Level 36 L 50-170 ug/dL Total Iron Binding Capacity 343 250-425 ug/dL Percent Iron Saturation 10.5 L 15-50 % Ferritin 179.3 10-291 ng/mL Direct Bilirubin 0.2 <0.3 mg/dL B-Type Natriuretic Peptide 36.47 0-100 pg/mL Vitamin B12 Level 946 H 211-911 pg/mL Folic Acid 14.99 >5.38 ng/mL Thyroid Stimulating Hormone (TSH) 0.91 0.55-4.78 uIU/mL CT SCAN ABD PELVIS IMPRESSION: Limited evaluation without contrast. Sigmoidal wall colon thickening and surrounding stranding which can be seen with proctocolitis . Other considerations include inflammatory bowel disease. Recommend colonoscopy once acute symptoms resolve to exclude underlying lesion / mass. Problems(with codes): (1) Severe anemia (2) GI bleed (3) Constipation Plan/Recommendation Plan Patient is currently on a full liquid diet She is getting IV iron supplements Continue to monitor labs, check CEA level Supportive care for now Review patient's last colonoscopy and decide timing of a repeat sigmoidoscopy or colonoscopy pending clinical progress Once again thank you for allowing me to participate in the care of this patient Plan discussed with: Other (None) ALIZE KNUTSON MD May 19, 2025 12:58
[2025-05-19] MEDS: SODIUM CHLORIDE 0.9% 500 ML IV ONE (14:00)
[2025-05-19 15:20] LABS: Hematocrit 22.3 % (36.0-46.0); Hemoglobin 7.5 g/dL (12.2-16.2)
--- NOTE | 2025-05-19 15:40 | DVHPNRES ---
Progress Note Date Seen: May 19, 2025 Resident Creating Document: SUZANNE MILLER RESIDENT Medical Necessity Reason Pt with a Central, PICC or Fol: No Subjective Review of Systems Alix Parks is a 59 years old female with a PMH of colorectal carcinoma diagnosed 1 year ago currently taking radiation ( more than 30 sessions) and chemotherapy (capecitabine) who presented to the ED with severe rectal bleeding for past 3 weeks. Patient reported she has been having significant rectal bleeding for past 3 weeks which has continued despite ongoing radiation and chemotherapy treatments. Patient also started experiencing feeling tired, having difficulty breathing, unable to walk due to weakness. Patient also experiencing pain when using bathroom. These symptoms have significantly impacted the daily living function so prompted her to visit ED. On my assessment patient denies fever, nausea, vomiting, chills, abdominal pain, diarrhea, constipation and other associated symptoms. PMH: Colorectal carcinoma, anemia required blood transfusion, thyroid tumor PSH: Hemithyroidectomy 5-6 years ago Family history: Grandmother colon cancer, cousin colon cancer, mother stomach cancer Social history: Lives with family. Denies smoking, alcohol and other drug abuse Allergies: No known allergies Patient seen and examined at bedside. Patient is alert and oriented to time, place person and responding to all questions. Patient has generalised weakness. Eyes: No Pain, No Vision change, No Conjunctivae inflammation, No Eyelid inflammation, No Redness ENT: No Ear pain, No Ear discharge, No Nose pain, No Nose discharge, No Nose congestion, No Mouth pain, No Mouth swelling, No Throat pain, No Throat swelling Cardiovascular: No Chest Pain, No Palpitations, No Orthopnea, No Paroxysmal No Dyspnea, No Edema, No Lt Headedness Respiratory: No Cough, No Dry, No Shortness of breath, No SOB with exertion, No Wheezing, No Hemoptysis, No Pleuritic Pain, No Sputum Gastrointestinal: No Nausea, No Vomiting, No Abdominal Pain, No Diarrhea, No Constipation, No Melena, Hematochezia Genitourinary: No Dysuria, No Frequency, No Incontinence, No Hematuria, No Retention 05/19- On evaluation today, she says she feels better, although the rectal bleeding has continued. She has been transfused 3 units of PRBCs since admission. Hemoglobin this morning was 8.2 and it dropped to 7.5 later in the day. She was transitioned from clear liquids to full liquid diet and was given a 500 cc bolus of NS. GI was consulted who asked to Continue to monitor labs, check CEA level.Supportive care for now .Review patient's last colonoscopy and decide timing of a repeat sigmoidoscopy or colonoscopy pending clinical progress. Repeat order for H & H at 10:00 p.m. on 05/19/2025 was placed. Objective vital signs Vital Sign Date Time Temp Pulse Resp B/P (MAP) Pulse Ox O2 Delivery O2 Flow Rate FiO2 05/19/25 13:00 99.0 82 20 92/54 (67) 97 99.0 05/19/25 08:00 Room Air* 0 21 Total Intake and Output 05/18/25 05/18/25 05/19/25 15:00 23:00 07:00 Intake Total 110 ml 1250 ml 1400 ml Balance 110 ml 1250 ml 1400 ml medications Current Medications Medications Dose Ordered Sig/Roni Route Start Time Stop Time Status Last Admin Dose Admin Sodium Chloride 10 ml Q8HR IV 05/17/25 22:00 05/19/25 09:11 10 ML Sodium Chloride 1,000 ml @ 120 mls/hr Q8H20M IV 05/17/25 17:45 05/19/25 11:12 120 MLS/HR Acetaminophen/ Hydrocodone Bitart 1 tab Q4HP PRN PO 05/17/25 17:45 05/19/25 00:57 1 TAB Ondansetron HCl 4 mg Q4HP PRN IV 05/17/25 17:45 Acetaminophen 650 mg Q6HP PRN PO 05/17/25 17:45 Morphine Sulfate 2 mg Q4HPRN PRN IV 05/17/25 17:45 Nitroglycerin 0.4 mg Q5MINP PRN SL 05/17/25 17:45 Morphine Sulfate 2 mg Q30M PRN IV 05/17/25 17:45 Iron Sucrose 110 ml @ 110 mls/hr DAILY@1200 IV 05/17/25 18:02 05/21/25 12:59 05/19/25 11:12 110 MLS/HR Pantoprazole Sodium 40 mg BID IV 05/18/25 22:00 05/19/25 09:11 40 MG Examination General Appearance: Cooperative. Well developed. Well nourished. NAD Head Exam: Normal inspection Neck Exam: Normal inspection. Non-tender. Normal alignment Pulmonary/Respiratory: Chest non-tender. Clear bilateral breath sounds, no crackles, no wheezing. Cardiovascular/Chest: Regular rate and rhythm. No murmurs. No JVD. Peripheral Pulses: 2+ Radial (R). 2+ Radial (L). 2+ Pedal (R). 2+ Pedal (L) Abdominal Exam: Normal bowel sounds. Soft. normal abdomen, no visible veins, Nontender. No hepatospenomegaly. No masses Ankle Exam: Negative ankle edema Lower extremities: Negative lower extremity edema Neuro/Mental Status: A&O x4. Coherent. Thoughts/Psych: Normal thought pattern. Appropriate mood and affect. Good judgement and insight Rectal exam:Rectal mass seen but no fresh blood appreciated Skin Exam: Normal inspection. Normal color. Warm. Dry laboratory and microbiology Laboratory Tests 05/19/25 14:57 05/19/25 05:58 Test 05/19/25 05:58 Range/Units Serum Glucose 87 74-106 mg/dL Labs and/or images reviewed: Labs reviewed by me, Image(s) reviewed by me Problem List/Assessment/Plan Problem List/Assessment/Plan 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 HX of colorectal carcinoma currently on radiotherapy and chemotherapy - admit to telemetry - continuously monitor H&H - transferred 3 PRBC, re transfuse if H&H less than 7 - iron IVBP - iron panel, folic acid, B12 - GI consult-monitor labs, order CEA level, supportive management - rectal exam showed rectal mass, exophytic but no fresh blood appreciated - stool occult blood- positive - CT abdominal pelvis showed Sigmoidal wall colon thickening and surrounding stranding which can be seen with proctocolitis - Continue following up with oncologist after discharge GI PPX: Protonix VTE ppx: SCDs Diet: clear liquids Goals of care: Full code, discussed for >23 minutes Plan discussed with patient and spouse Plan discussed with DR Boyce Plan discussed with: Patient, Spouse My Orders My Orders Orders - SUZANNE MILLER RESIDENT Procedure Category Date Status Time Full Liq Diet DIET 05/19/25 Transmitted Lunch Hemoglobin & LAB 05/19/25 Logged Hematocrit 22:00 Dietary Evaluation Review Recommendations by RD: Protein Supplementation Comments: 1) Initiate Ensure Enlive bid 2) Encourage optimal PO intake 3) Advance to cardiac diet when medically feasible 4) Follow-up with gastroenterology and oncology 5) Continue to monitor I&O, labs, and skin integrity Expected Outcomes/Goals: 1) appetite and labs to improve 2) diet to advance 3) f/u in 3-5 days CC Plasma Assessment Blood Product Administration S: [id number] Date of Service: May 19, 2025 Billing Provider: CHARISSE HART MD Common Visit Codes: [id number] INP/OBS CARE(HIGH) SUZANNE MILLER RESIDENT May 19, 2025 15:40 CHARISSE HART MD May 26, 2025 18:24
[2025-05-19 21:59] LABS: Hemoglobin 8.4 g/dL (12.2-16.2)
[2025-05-19 22:01] LABS: Hematocrit 24.9 % (36.0-46.0)
[2025-05-20] VITALS (12 sets, daily range): BP systolic 88–107; BP diastolic 47–67; PULSE 88–106; RESP 16–18; TEMP 97.7–98.3; O2SAT 97–99
[2025-05-20 07:50] LABS: Hematocrit 20.0 % (36.0-46.0); Mean Corpuscular Hemoglobin 31.3 pg (28.0-32.0); Mean Corpuscular Volume 95.0 fL (80.0-100.0); Nucleated Red Blood Cells % 2.1 %
[2025-05-20 08:02] LABS: Potassium 3.6 mmol/L (3.5-5.1)
[2025-05-20 08:03] LABS: Hemoglobin 6.6 g/dL (12.2-16.2)
[2025-05-20 08:04] LABS: Anion Gap 9 (5-15); Carbon Dioxide 24 mmol/L (20-31)
[2025-05-20 08:09] LABS: Glucose 91 mg/dL (74-106)
[2025-05-20 08:10] LABS: BUN/Creatinine Ratio 11.6 (10.0-20.0); Blood Urea Nitrogen < 5 mg/dL (9-23); Calcium 7.3 mg/dL (8.7-10.4); Chloride 113 mmol/L (98-107); Sodium 146 mmol/L (136-145)
--- NOTE | 2025-05-20 10:44 | ECG ---
[facility] Test Date: 2025-05-17 Test Time: 14:30:55 Pat Name: ELVIA JOHNSON Department: ED Room: 0250T A Gender: F Lead Fabricator: delmar : 1965 Requested By: NATAN GANN Order Number: [id number] Reading MD: Sachin Sen Measurements Intervals [place] Rate: 123 P: 77 PA: 138 QRS: 76 QRSD: 85 T: 14 QT: 331 QTc: 474 Interpretive Statements Sinus tachycardia RSR' in V1 or V2, right VCD or RVH Baseline wander in lead(s) V3,V5 Electronically Signed On 05-22-2025 9:26:11 PDT by Sachin Sen Please click the below link to view image of tracing.
--- NOTE | 2025-05-20 14:44 | DVHPN2 ---
Progress Note Date Seen: May 20, 2025 Resident Creating Document: RILEY REINA RESIDENT Medical Necessity Reason Pt with a Central, PICC or Fol: No Subjective Review of Systems Patient seen and examined at bedside Denies any nausea or vomiting Continues to have diarrhea, last bowel movement 15 minutes ago bloody and bright Seven bowel movements in the past 24 hours all bloody Objective vital signs Vital Sign Date Time Temp Pulse Resp B/P (MAP) Pulse Ox O2 Delivery O2 Flow Rate FiO2 05/20/25 14:33 98.2 88 16 92/54 98.2 05/20/25 09:00 97 05/20/25 07:51 Room Air* 0 21 Total Intake and Output 05/19/25 05/19/25 05/20/25 15:00 23:00 07:00 Intake Total 610 ml 5750 ml 1400 ml Balance 610 ml 5750 ml 1400 ml medications Current Medications Medications Dose Ordered Sig/Roni Route Start Time Stop Time Status Last Admin Dose Admin Sodium Chloride 10 ml Q8HR IV 05/17/25 22:00 05/20/25 07:47 10 ML Sodium Chloride 1,000 ml @ 120 mls/hr Q8H20M IV 05/17/25 17:45 05/20/25 04:05 120 MLS/HR Acetaminophen/ Hydrocodone Bitart 1 tab Q4HP PRN PO 05/17/25 17:45 05/19/25 20:57 1 TAB Ondansetron HCl 4 mg Q4HP PRN IV 05/17/25 17:45 Acetaminophen 650 mg Q6HP PRN PO 05/17/25 17:45 Morphine Sulfate 2 mg Q4HPRN PRN IV 05/17/25 17:45 Nitroglycerin 0.4 mg Q5MINP PRN SL 05/17/25 17:45 Morphine Sulfate 2 mg Q30M PRN IV 05/17/25 17:45 Iron Sucrose 110 ml @ 110 mls/hr DAILY@1200 IV 05/17/25 18:02 05/21/25 12:59 05/20/25 11:08 110 MLS/HR Pantoprazole Sodium 40 mg BID IV 05/18/25 22:00 05/20/25 07:47 40 MG Examination General Appearance: Cooperative. Well developed. Well nourished. NAD. Patient looks pale. Head Exam: Normal inspection Neck Exam: Normal inspection. Non-tender. Normal alignment Pulmonary/Respiratory: Chest non-tender. Clear bilateral breath sounds, no crackles, no wheezing. Cardiovascular/Chest: Regular rate and rhythm. No murmurs. No JVD. Peripheral Pulses: 2+ Radial (R). 2+ Radial (L). 2+ Pedal (R). 2+ Pedal (L) Abdominal Exam: Normal bowel sounds. Soft. normal abdomen, no visible veins, Nontender. No hepatospenomegaly. No masses Ankle Exam: Negative ankle edema Lower extremities: Negative lower extremity edema Neuro/Mental Status: A&O x4. Coherent. Thoughts/Psych: Normal thought pattern. Appropriate mood and affect. Good judgement and insight Rectal exam (05/18/25) :Rectal mass seen but no fresh blood appreciated Skin Exam: Normal inspection. Normal color. Warm. Dry laboratory and microbiology Laboratory Tests 05/20/25 07:19 Test 05/20/25 07:19 Range/Units Serum Glucose 91 74-106 mg/dL Labs and/or images reviewed: Labs reviewed by me, Image(s) reviewed by me Problem List/Assessment/Plan Problem List/Assessment/Plan Lower GI bleed Severe anemia due to above History of colorectal carcinoma s/p chemotherapy and radiotherapy Plan: Currently on a liquid diet Receiving IV iron S/p for PRBCs Last colonoscopy February 2024 We will re-evaluate for colonoscopy tomorrow and schedule for procedure accordingly. Thank you so much for the opportunity to consult on your patient. GI team will follow the patient. In case of any questions or concerns please feel free to reach out. Plan discussed with Dr. Martinez Plan discussed with: Patient, Other (RN) Dietary Evaluation Review Recommendations by RD: Protein Supplementation Comments: 1) Initiate Ensure Enlive bid 2) Encourage optimal PO intake 3) Advance to cardiac diet when medically feasible 4) Follow-up with gastroenterology and oncology 5) Continue to monitor I&O, labs, and skin integrity Expected Outcomes/Goals: 1) appetite and labs to improve 2) diet to advance 3) f/u in 3-5 days CC Plasma Assessment Blood Product Administration S: [id number] RILEY REINA RESIDENT May 20, 2025 14:44
--- NOTE | 2025-05-20 16:34 | DVHPNRES ---
Progress Note Date Seen: May 20, 2025 Resident Creating Document: SUZANNE MILLER RESIDENT Medical Necessity Reason Pt with a Central, PICC or Fol: No Subjective Review of Systems Alix Parks is a 59 years old female with a PMH of colorectal carcinoma diagnosed 1 year ago currently taking radiation ( more than 30 sessions) and chemotherapy (capecitabine) who presented to the ED with severe rectal bleeding for past 3 weeks. Patient reported she has been having significant rectal bleeding for past 3 weeks which has continued despite ongoing radiation and chemotherapy treatments. Patient also started experiencing feeling tired, having difficulty breathing, unable to walk due to weakness. Patient also experiencing pain when using bathroom. These symptoms have significantly impacted the daily living function so prompted her to visit ED. On my assessment patient denies fever, nausea, vomiting, chills, abdominal pain, diarrhea, constipation and other associated symptoms. PMH: Colorectal carcinoma, anemia required blood transfusion, thyroid tumor PSH: Hemithyroidectomy 5-6 years ago Family history: Grandmother colon cancer, cousin colon cancer, mother stomach cancer Social history: Lives with family. Denies smoking, alcohol and other drug abuse Allergies: No known allergies Patient seen and examined at bedside. Patient is alert and oriented to time, place person and responding to all questions. Patient has generalised weakness. Eyes: No Pain, No Vision change, No Conjunctivae inflammation, No Eyelid inflammation, No Redness ENT: No Ear pain, No Ear discharge, No Nose pain, No Nose discharge, No Nose congestion, No Mouth pain, No Mouth swelling, No Throat pain, No Throat swelling Cardiovascular: No Chest Pain, No Palpitations, No Orthopnea, No Paroxysmal No Dyspnea, No Edema, No Lt Headedness Respiratory: No Cough, No Dry, No Shortness of breath, No SOB with exertion, No Wheezing, No Hemoptysis, No Pleuritic Pain, No Sputum Gastrointestinal: No Nausea, No Vomiting, No Abdominal Pain, No Diarrhea, No Constipation, No Melena, Hematochezia Genitourinary: No Dysuria, No Frequency, No Incontinence, No Hematuria, No Retention 05/19- On evaluation today, she says she feels better, although the rectal bleeding has continued. She has been transfused 3 units of PRBCs since admission. Hemoglobin this morning was 8.2 and it dropped to 7.5 later in the day. She was transitioned from clear liquids to full liquid diet and was given a 500 cc bolus of NS. GI was consulted who asked to Continue to monitor labs, check CEA level.Supportive care for now .Review patient's last colonoscopy and decide timing of a repeat sigmoidoscopy or colonoscopy pending clinical progress. Repeat order for H & H at 10:00 p.m. on 05/19/2025 was placed. 05/20- The patient was seen at bedside. Her hemoglobin this morning was 6.6, so she got transfused with another bag of PRBCs. The patient complains of ongoing per rectal bleeding which is concerning to her. Repeat GI consult was done, pending evaluation by them. Her diet was advanced from full liquid to soft mechanical diet. Objective vital signs Vital Sign Date Time Temp Pulse Resp B/P (MAP) Pulse Ox O2 Delivery O2 Flow Rate FiO2 05/20/25 14:33 98.2 88 16 92/54 98.2 05/20/25 09:00 97 05/20/25 07:51 Room Air* 0 21 Total Intake and Output 05/19/25 05/19/25 05/20/25 15:00 23:00 07:00 Intake Total 610 ml 5750 ml 1400 ml Balance 610 ml 5750 ml 1400 ml medications Current Medications Medications Dose Ordered Sig/Roni Route Start Time Stop Time Status Last Admin Dose Admin Sodium Chloride 10 ml Q8HR IV 05/17/25 22:00 05/20/25 07:47 10 ML Sodium Chloride 1,000 ml @ 120 mls/hr Q8H20M IV 05/17/25 17:45 05/20/25 04:05 120 MLS/HR Acetaminophen/ Hydrocodone Bitart 1 tab Q4HP PRN PO 05/17/25 17:45 05/19/25 20:57 1 TAB Ondansetron HCl 4 mg Q4HP PRN IV 05/17/25 17:45 Acetaminophen 650 mg Q6HP PRN PO 05/17/25 17:45 Morphine Sulfate 2 mg Q4HPRN PRN IV 05/17/25 17:45 Nitroglycerin 0.4 mg Q5MINP PRN SL 05/17/25 17:45 Morphine Sulfate 2 mg Q30M PRN IV 05/17/25 17:45 Iron Sucrose 110 ml @ 110 mls/hr DAILY@1200 IV 05/17/25 18:02 05/21/25 12:59 05/20/25 11:08 110 MLS/HR Pantoprazole Sodium 40 mg BID IV 05/18/25 22:00 05/20/25 07:47 40 MG Examination General Appearance: Cooperative. Well developed. Well nourished. NAD. Patient looks pale. Head Exam: Normal inspection Neck Exam: Normal inspection. Non-tender. Normal alignment Pulmonary/Respiratory: Chest non-tender. Clear bilateral breath sounds, no crackles, no wheezing. Cardiovascular/Chest: Regular rate and rhythm. No murmurs. No JVD. Peripheral Pulses: 2+ Radial (R). 2+ Radial (L). 2+ Pedal (R). 2+ Pedal (L) Abdominal Exam: Normal bowel sounds. Soft. normal abdomen, no visible veins, Nontender. No hepatospenomegaly. No masses Ankle Exam: Negative ankle edema Lower extremities: Negative lower extremity edema Neuro/Mental Status: A&O x4. Coherent. Thoughts/Psych: Normal thought pattern. Appropriate mood and affect. Good judgement and insight Rectal exam (05/18/25) :Rectal mass seen but no fresh blood appreciated Skin Exam: Normal inspection. Normal color. Warm. 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 HX of colorectal carcinoma currently on radiotherapy and chemotherapy - admit to telemetry - continuously monitor H&H - transferred 4 PRBC, re transfuse if H&H less than 7 - iron IVBP - iron panel, folic acid, B12 - GI consult-monitor labs, order CEA level, supportive management - rectal exam showed rectal mass, exophytic but no fresh blood appreciated - stool occult blood- positive - CT abdominal pelvis showed Sigmoidal wall colon thickening and surrounding stranding which can be seen with proctocolitis - Continue following up with oncologist after discharge GI PPX: Protonix VTE ppx: SCDs Diet: clear liquids Goals of care: Full code, discussed for >23 minutes Plan discussed with patient and spouse Plan discussed with Dr Cartwright Plan discussed with: Patient Dietary Evaluation Review Recommendations by RD: Protein Supplementation Comments: 1) Initiate Ensure Enlive bid 2) Encourage optimal PO intake 3) Advance to cardiac diet when medically feasible 4) Follow-up with gastroenterology and oncology 5) Continue to monitor I&O, labs, and skin integrity Expected Outcomes/Goals: 1) appetite and labs to improve 2) diet to advance 3) f/u in 3-5 days CC Plasma Assessment Blood Product Administration S: 0320 Date of Service: May 20, 2025 Billing Provider: LUCHO CARTWRIGHT MD Common Visit Codes: [id number] INP/OBS CARE(HIGH) SUZANNE MILLER RESIDENT May 20, 2025 16:34 LUCHO CARTWRIGHT MD May 28, 2025 20:31
[2025-05-21] VITALS (13 sets, daily range): BP systolic 90–105; BP diastolic 46–72; PULSE 83–117; RESP 15–20; TEMP 98.1–99.2; O2SAT 94–99
[2025-05-21 08:33] LABS: Hematocrit 20.8 % (36.0-46.0)
[2025-05-21 08:34] LABS: Anion Gap 8 (5-15); Carbon Dioxide 23 mmol/L (20-31)
[2025-05-21 08:39] LABS: Glucose 92 mg/dL (74-106)
[2025-05-21 08:40] LABS: BUN/Creatinine Ratio 14.3 (10.0-20.0); Blood Urea Nitrogen < 5 mg/dL (9-23); Calcium 7.1 mg/dL (8.7-10.4); Chloride 114 mmol/L (98-107); Potassium 3.3 mmol/L (3.5-5.1); Sodium 145 mmol/L (136-145)
[2025-05-21 08:43] LABS: Mean Corpuscular Hemoglobin 30.6 pg (28.0-32.0); Mean Corpuscular Volume 91.7 fL (80.0-100.0); Nucleated Red Blood Cells % 0.4 %
[2025-05-21 09:00] LABS: Hemoglobin 6.9 g/dL (12.2-16.2)
[2025-05-21 10:09] LABS: Alkaline Phosphatase 56 U/L (46-116); Bilirubin, Direct 0.3 mg/dL (<0.3); Bilirubin, Total 0.7 mg/dL (0.2-1.0)
[2025-05-21 10:19] LABS: Alanine Aminotransferase < 9 U/L (7-40); Albumin 2.4 g/dL (3.2-4.8); Total Protein 3.9 g/dL (5.7-8.2)
[2025-05-21] MEDS: POTASSIUM CHL 20MEQ/100ML 100 ML IV ONE (11:01)
[2025-05-21] MEDS: MAGNESIUM CITRATE SOLUTION 300 ML BTL PO ONE (17:23)
--- NOTE | 2025-05-21 19:34 | DVHPNRES ---
Progress Note Date Seen: May 21, 2025 Resident Creating Document: SUZANNE MILLER RESIDENT Medical Necessity Reason Pt with a Central, PICC or Fol: No Subjective Review of Systems Alix Parks is a 59 years old female with a PMH of colorectal carcinoma diagnosed 1 year ago currently taking radiation ( more than 30 sessions) and chemotherapy (capecitabine) who presented to the ED with severe rectal bleeding for past 3 weeks. Patient reported she has been having significant rectal bleeding for past 3 weeks which has continued despite ongoing radiation and chemotherapy treatments. Patient also started experiencing feeling tired, having difficulty breathing, unable to walk due to weakness. Patient also experiencing pain when using bathroom. These symptoms have significantly impacted the daily living function so prompted her to visit ED. On my assessment patient denies fever, nausea, vomiting, chills, abdominal pain, diarrhea, constipation and other associated symptoms. PMH: Colorectal carcinoma, anemia required blood transfusion, thyroid tumor PSH: Hemithyroidectomy 5-6 years ago Family history: Grandmother colon cancer, cousin colon cancer, mother stomach cancer Social history: Lives with family. Denies smoking, alcohol and other drug abuse Allergies: No known allergies Patient seen and examined at bedside. Patient is alert and oriented to time, place person and responding to all questions. Patient has generalised weakness. Eyes: No Pain, No Vision change, No Conjunctivae inflammation, No Eyelid inflammation, No Redness ENT: No Ear pain, No Ear discharge, No Nose pain, No Nose discharge, No Nose congestion, No Mouth pain, No Mouth swelling, No Throat pain, No Throat swelling Cardiovascular: No Chest Pain, No Palpitations, No Orthopnea, No Paroxysmal No Dyspnea, No Edema, No Lt Headedness Respiratory: No Cough, No Dry, No Shortness of breath, No SOB with exertion, No Wheezing, No Hemoptysis, No Pleuritic Pain, No Sputum Gastrointestinal: No Nausea, No Vomiting, No Abdominal Pain, No Diarrhea, No Constipation, No Melena, Hematochezia Genitourinary: No Dysuria, No Frequency, No Incontinence, No Hematuria, No Retention 05/19- On evaluation today, she says she feels better, although the rectal bleeding has continued. She has been transfused 3 units of PRBCs since admission. Hemoglobin this morning was 8.2 and it dropped to 7.5 later in the day. She was transitioned from clear liquids to full liquid diet and was given a 500 cc bolus of NS. GI was consulted who asked to Continue to monitor labs, check CEA level.Supportive care for now .Review patient's last colonoscopy and decide timing of a repeat sigmoidoscopy or colonoscopy pending clinical progress. Repeat order for H & H at 10:00 p.m. on 05/19/2025 was placed. 05/20- The patient was seen at bedside. Her hemoglobin this morning was 6.6, so she got transfused with another bag of PRBCs. The patient complains of ongoing per rectal bleeding which is concerning to her. Repeat GI consult was done, pending evaluation by them. Her diet was advanced from full liquid to soft mechanical diet. 05/21- the patient was seen at bedside today. Her hemoglobin was 6.9, so she was given another transfusion of PRBC. Potassium today was 3.3 so patient was given 20 mEq of potassium. She complains of continued rectal bleeding with every bowel movement. He was put on clear liquid diet and is scheduled for colonoscopy tomorrow. She will be given another bag of PRBCs later this evening as recommended by GI. Objective vital signs Vital Sign Date Time Temp Pulse Resp B/P (MAP) Pulse Ox O2 Delivery O2 Flow Rate FiO2 05/21/25 18:32 98.8 98 16 95/46 98.8 05/21/25 17:00 97 05/21/25 08:00 Room Air* 0 21 Total Intake and Output 05/20/25 05/20/25 05/21/25 15:00 23:00 07:00 Intake Total 410 ml 2500 ml 800 ml Balance 410 ml 2500 ml 800 ml medications Current Medications Medications Dose Ordered Sig/Roni Route Start Time Stop Time Status Last Admin Dose Admin Sodium Chloride 10 ml Q8HR IV 05/17/25 22:00 05/21/25 12:40 10 ML Sodium Chloride 1,000 ml @ 120 mls/hr Q8H20M IV 05/17/25 17:45 05/21/25 12:40 120 MLS/HR Acetaminophen/ Hydrocodone Bitart 1 tab Q4HP PRN PO 05/17/25 17:45 05/19/25 20:57 1 TAB Ondansetron HCl 4 mg Q4HP PRN IV 05/17/25 17:45 Acetaminophen 650 mg Q6HP PRN PO 05/17/25 17:45 Morphine Sulfate 2 mg Q4HPRN PRN IV 05/17/25 17:45 Nitroglycerin 0.4 mg Q5MINP PRN SL 05/17/25 17:45 Morphine Sulfate 2 mg Q30M PRN IV 05/17/25 17:45 Pantoprazole Sodium 40 mg BID IV 05/18/25 22:00 05/21/25 09:08 40 MG Examination General Appearance: Cooperative. Well developed. Well nourished. NAD. Patient looks pale. Head Exam: Normal inspection Neck Exam: Normal inspection. Non-tender. Normal alignment Pulmonary/Respiratory: Chest non-tender. Clear bilateral breath sounds, no crackles, no wheezing. Cardiovascular/Chest: Regular rate and rhythm. No murmurs. No JVD. Peripheral Pulses: 2+ Radial (R). 2+ Radial (L). 2+ Pedal (R). 2+ Pedal (L) Abdominal Exam: Normal bowel sounds. Soft. normal abdomen, no visible veins, Nontender. No hepatospenomegaly. No masses Ankle Exam: Negative ankle edema Lower extremities: Negative lower extremity edema Neuro/Mental Status: A&O x4. Coherent. Thoughts/Psych: Normal thought pattern. Appropriate mood and affect. Good judgement and insight Rectal exam (05/18/25) :Rectal mass seen but no fresh blood appreciated Skin Exam: Normal inspection. Normal color. Warm. 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 HX of colorectal carcinoma currently on radiotherapy and chemotherapy - admit to telemetry - continuously monitor H&H - transferred 5 PRBC, re transfuse if H&H less than 7 - iron IVBP - iron panel, folic acid, B12 - GI consult-monitor labs, order CEA level, supportive management - rectal exam showed rectal mass, exophytic but no fresh blood appreciated - stool occult blood- positive - CT abdominal pelvis showed Sigmoidal wall colon thickening and surrounding stranding which can be seen with proctocolitis - Continue following up with oncologist after discharge Hypokalemia, repleted -potassium was 3.3, given 20 mEq of potassium GI PPX: Protonix VTE ppx: SCDs Diet: clear liquids Goals of care: Full code, discussed for >23 minutes Plan discussed with patient and spouse Plan discussed with Dr Cartwright Plan discussed with: Patient, Spouse My Orders My Orders Orders - SUZANNE MILLER Procedure Category Date Status Time Type And Screen BBK 05/21/25 In Process 09:18 Dietary Evaluation Review Recommendations by RD: Protein Supplementation Comments: 1) Initiate Ensure Enlive bid 2) Encourage optimal PO intake 3) Advance to cardiac diet when medically feasible 4) Follow-up with gastroenterology and oncology 5) Continue to monitor I&O, labs, and skin integrity Expected Outcomes/Goals: 1) appetite and labs to improve 2) diet to advance 3) f/u in 3-5 days CC Plasma Assessment Blood Product Administration S: 0320 Date of Service: May 21, 2025 Billing Provider: LUCHO CARTWRIGHT MD Common Visit Codes: [id number] INP/OBS CARE(HIGH) SUZANNE MILLER RESIDENT May 21, 2025 19:34 LUCHO CARTWRIGHT MD May 28, 2025 20:32
[2025-05-22] VITALS (11 sets, daily range): BP systolic 90–106; BP diastolic 47–66; PULSE 69–109; RESP 14–18; TEMP 98.2–98.8; O2SAT 95–100
[2025-05-22] MEDS: MAGNESIUM CITRATE SOLUTION 300 ML BTL PO ONE (05:22)
[2025-05-22] MEDS ORDERED: MAGNESIUM CITRATE SOLUTION 300 ML BTL PO ONE (06:00)
[2025-05-22 08:30] LABS: Hematocrit 31.3 % (36.0-46.0); Hemoglobin 10.3 g/dL (12.2-16.2); Mean Corpuscular Hemoglobin 29.2 pg (28.0-32.0); Mean Corpuscular Volume 88.7 fL (80.0-100.0); Nucleated Red Blood Cells % 0.7 %
[2025-05-22 08:46] LABS: Alkaline Phosphatase 73 U/L (46-116); Anion Gap 10 (5-15); Carbon Dioxide 21 mmol/L (20-31); Glucose 99 mg/dL (74-106); Potassium 3.5 mmol/L (3.5-5.1); Sodium 145 mmol/L (136-145)
[2025-05-22 08:48] LABS: Alanine Aminotransferase < 9 U/L (7-40); BUN/Creatinine Ratio 13.5 (10.0-20.0); Blood Urea Nitrogen < 5 mg/dL (9-23); Calcium 7.7 mg/dL (8.7-10.4); Chloride 114 mmol/L (98-107)
[2025-05-22 08:49] LABS: Albumin 2.9 g/dL (3.2-4.8); Total Protein 4.7 g/dL (5.7-8.2)
[2025-05-22 08:53] LABS: Bilirubin, Total 1.2 mg/dL (0.2-1.0)
--- NOTE | 2025-05-22 09:42 | DVH ---
RIGHT Upper Extremity Venous Duplex Clinical History: edema Comparison: None Findings: Duplex Doppler evaluation of the venous system of the RIGHT lower neck and upper extremity including color Doppler and spectral/pulsed waveform analysis was performed. The internal jugular vein demonstrates appropriate compressibility and waveform variability. The subclavian vein is patent on color Doppler evaluation without intraluminal thrombus and demonstra dariana waveform variability. The visualized portion of the brachiocephalic vein is patent on color Doppler evaluation without intr aluminal thrombus and demonstrates waveform variability. The axillary vein demonstrates appropriate compressibility and waveform variability. The brachial veins demonstrate appropriate compressibility and patency on Doppler evaluation. The basilic vein demonstrates appropriate compressibility and patency on Doppler evaluation. Thrombus in the right cephalic vein. Impression: Superficial thrombus in the right cephalic vein If clinical concern/symptoms persist or worsen, short-interval follow-up study is suggested.
[2025-05-22] MEDS ORDERED: LIDOCAINE 2% (LOCAL ANESTH.) PF 5ml SDV ONE (13:13)
[2025-05-22] MEDS ORDERED: MIDAZOLAM HCL 2MG/2ML 2ml VIAL (1mg/ml) ONE (13:13)
[2025-05-22] MEDS ORDERED: GLYCOPYRROLATE 0.2 MG/ML 1ML VIAL ONE (13:13)
[2025-05-22] MEDS ORDERED: KETAMINE 50mg/ML 10ml Vial 10 ML ONE (13:13)
[2025-05-22] MEDS ORDERED: PROPOFOL 10 MG/ML 20 ML IV ONE (13:13)
[2025-05-22] MEDS ORDERED: ONDANSETRON HCL 4 MG/2 ML VIAL ONE (13:13)
[2025-05-22] MEDS ORDERED: HYDROmorphone HCL 2 MG/ML VL/or syr IV PRN (13:45)
--- NOTE | 2025-05-22 13:47 | DVHOP2 ---
Operative Report DATE OF OPERATION: 05/22/25 PROCEDURE: Incomplete colonoscopy/sigmoidoscopy with biopsy PREOPERATIVE INDICATION: The patient is a 59 -year-old female undergoing colonoscopy for history of colorectal cancer complaining of rectal bleeding S/P 6 units PRBC POSTOPERATIVE DIAGNOSES: 1. Patient had a narrowed ulcerated partially obstructing circumferential rectosigmoid mass with the distal margin at about 10 cm above the anal verge and I could not advance the colonoscope beyond this area There was formed stool stuck within the narrowed lumen and the colonoscope could not be advanced safely beyond this area. Biopsies were obtained from the distal edge of the mass 2. One to 2+ engorged internal hemorrhoids and some excoriation of the perianal area PROCEDURE PERFORMED BY: Alize Martinez M.D. SCOPE: Olympus videocolonoscope. ASA CLASS: 3. PREOPERATIVE MEDICATIONS: Luis Eduardo fuller, Dr. Membreno PROCEDURE IN DETAIL: After obtaining an informed consent, the patient was placed on left lateral decubitus position. She was then sedated with the above medications. A rectal examination was performed that was normal. The colonoscope was then passed through the anus into the rectosigmoid . Patient had a circumferential ulcerated partially obstructing narrowed masslike area with the distal edge at about 10 cm above the anal verge. There was brown stool stuck within the narrowed lumen Biopsies were obtained from the distal edge of the masslike area. There was no active visible vessel or spurting of blood noted On retroflexion and straight on view patient had 2+ engorged internal hemorrhoids which could also contributed to recent bleeding colonoscope was then withdrawn. The patient tolerated the procedure well without difficulty. WITHDRAWAL TIME: Not applicable QUALITY OF THE PREP: Eastern Bowel Prep score: Not applicable COMPLICATIONS : None SPECIMENS: Rectosigmoid mass biopsies DISPOSITION: Transfer back to the floor Stable PLAN: 1. Recommend surgical consult to consider low anterior resection worsens diverting colostomy 2. Pt is followed at [facility] and she told me that they are planning to put a P ort-A-Cath and give her another 16 weeks of chemo before considering surgery 3. However I am concerned because of recurrent bleeding and partially obstructive symptoms that patient may not be able to wait for any further chemotherapy or that much length of 4. Discussion needs to be ongoing with her oncologist Dr. Cha at [facility] and also surgical consult evaluate patient or refer back to [facility] for surgery 5. Start clear liquid diet and consider IV Clinimix 1 L per 24 hours ALIZE MARTINEZ MD May 22, 2025 13:47
[2025-05-22] MEDS: HYDROCORTISONE ACET 25 MG RECTAL SUPP PR SCH (13:51)
--- NOTE | 2025-05-22 15:11 | DVHPNRES ---
Progress Note Date Seen: May 22, 2025 Resident Creating Document: SUZANNE MILLER RESIDENT Medical Necessity Reason Pt with a Central, PICC or Fol: No Subjective Review of Systems Alix Parks is a 59 years old female with a PMH of colorectal carcinoma diagnosed 1 year ago currently taking radiation ( more than 30 sessions) and chemotherapy (capecitabine) who presented to the ED with severe rectal bleeding for past 3 weeks. Patient reported she has been having significant rectal bleeding for past 3 weeks which has continued despite ongoing radiation and chemotherapy treatments. Patient also started experiencing feeling tired, having difficulty breathing, unable to walk due to weakness. Patient also experiencing pain when using bathroom. These symptoms have significantly impacted the daily living function so prompted her to visit ED. On my assessment patient denies fever, nausea, vomiting, chills, abdominal pain, diarrhea, constipation and other associated symptoms. PMH: Colorectal carcinoma, anemia required blood transfusion, thyroid tumor PSH: Hemithyroidectomy 5-6 years ago Family history: Grandmother colon cancer, cousin colon cancer, mother stomach cancer Social history: Lives with family. Denies smoking, alcohol and other drug abuse Allergies: No known allergies Patient seen and examined at bedside. Patient is alert and oriented to time, place person and responding to all questions. Patient has generalised weakness. Eyes: No Pain, No Vision change, No Conjunctivae inflammation, No Eyelid inflammation, No Redness ENT: No Ear pain, No Ear discharge, No Nose pain, No Nose discharge, No Nose congestion, No Mouth pain, No Mouth swelling, No Throat pain, No Throat swelling Cardiovascular: No Chest Pain, No Palpitations, No Orthopnea, No Paroxysmal No Dyspnea, No Edema, No Lt Headedness Respiratory: No Cough, No Dry, No Shortness of breath, No SOB with exertion, No Wheezing, No Hemoptysis, No Pleuritic Pain, No Sputum Gastrointestinal: No Nausea, No Vomiting, No Abdominal Pain, No Diarrhea, No Constipation, No Melena, Hematochezia Genitourinary: No Dysuria, No Frequency, No Incontinence, No Hematuria, No Retention 05/19- On evaluation today, she says she feels better, although the rectal bleeding has continued. She has been transfused 3 units of PRBCs since admission. Hemoglobin this morning was 8.2 and it dropped to 7.5 later in the day. She was transitioned from clear liquids to full liquid diet and was given a 500 cc bolus of NS. GI was consulted who asked to Continue to monitor labs, check CEA level.Supportive care for now .Review patient's last colonoscopy and decide timing of a repeat sigmoidoscopy or colonoscopy pending clinical progress. Repeat order for H & H at 10:00 p.m. on 05/19/2025 was placed. 05/20- The patient was seen at bedside. Her hemoglobin this morning was 6.6, so she got transfused with another bag of PRBCs. The patient complains of ongoing per rectal bleeding which is concerning to her. Repeat GI consult was done, pending evaluation by them. Her diet was advanced from full liquid to soft mechanical diet. 05/21- the patient was seen at bedside today. Her hemoglobin was 6.9, so she was given another transfusion of PRBC. Potassium today was 3.3 so patient was given 20 mEq of potassium. She complains of continued rectal bleeding with every bowel movement. He was put on clear liquid diet and is scheduled for colonoscopy tomorrow. She will be given another bag of PRBCs later this evening as recommended by GI. 05/22- patient was seen at bedside today. Her hemoglobin today was 10.3. The patient went for colonoscopy today but it could not be completed as there was a narrowed ulcerated partially obstructing circumferential rectosigmoid mass with the distal margin at about 10 cm above the anal verge. Surgical consult was ordered by GI. Patient had swelling, redness and pain at the site of transfusion and was found to have a superficial thrombus in right cephalic vein. Objective vital signs Vital Sign Date Time Temp Pulse Resp B/P (MAP) Pulse Ox O2 Delivery O2 Flow Rate FiO2 05/22/25 13:00 98.6 93 17 106/62 (77) 98 98.6 05/21/25 19:39 Room Air* 0 21 Total Intake and Output 05/21/25 05/21/25 05/22/25 15:00 23:00 07:00 Intake Total 1450 ml 1230 ml Balance 1450 ml 1230 ml medications Current Medications Medications Dose Ordered Sig/Roni Route Start Time Stop Time Status Last Admin Dose Admin Sodium Chloride 10 ml Q8HR IV 05/17/25 22:00 05/22/25 05:22 10 ML Sodium Chloride 1,000 ml @ 120 mls/hr Q8H20M IV 05/17/25 17:45 05/22/25 05:24 120 MLS/HR Acetaminophen/ Hydrocodone Bitart 1 tab Q4HP PRN PO 05/17/25 17:45 05/21/25 21:16 1 TAB Ondansetron HCl 4 mg Q4HP PRN IV 05/17/25 17:45 Acetaminophen 650 mg Q6HP PRN PO 05/17/25 17:45 Morphine Sulfate 2 mg Q4HPRN PRN IV 05/17/25 17:45 Nitroglycerin 0.4 mg Q5MINP PRN SL 05/17/25 17:45 Morphine Sulfate 2 mg Q30M PRN IV 05/17/25 17:45 Pantoprazole Sodium 40 mg BID IV 05/18/25 22:00 05/22/25 09:10 40 MG Hydrocortisone Acetate 25 mg Q12HR WI 05/22/25 13:51 Examination General Appearance: Cooperative. Well developed. Well nourished. NAD. Patient looks pale. Head Exam: Normal inspection Neck Exam: Normal inspection. Non-tender. Normal alignment Pulmonary/Respiratory: Chest non-tender. Clear bilateral breath sounds, no crackles, no wheezing. Cardiovascular/Chest: Regular rate and rhythm. No murmurs. No JVD. Peripheral Pulses: 2+ Radial (R). 2+ Radial (L). 2+ Pedal (R). 2+ Pedal (L) Abdominal Exam: Normal bowel sounds. Soft. normal abdomen, no visible veins, Nontender. No hepatospenomegaly. No masses Ankle Exam: Negative ankle edema Lower extremities: Negative lower extremity edema Neuro/Mental Status: A&O x4. Coherent. Thoughts/Psych: Normal thought pattern. Appropriate mood and affect. Good judgement and insight Rectal exam (05/18/25) :Rectal mass seen but no fresh blood appreciated Skin Exam: Normal inspection. Normal color. Warm. 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 HX of colorectal carcinoma currently on radiotherapy and chemotherapy - admit to telemetry - continuously monitor H&H - transferred 6 PRBC, re transfuse if H&H less than 7 - iron IVBP - iron panel, folic acid, B12 - GI consult-monitor labs, order CEA level, supportive management - rectal exam showed rectal mass, exophytic but no fresh blood appreciated - stool occult blood- positive - CT abdominal pelvis showed Sigmoidal wall colon thickening and surrounding stranding which can be seen with proctocolitis - Continue following up with oncologist after discharge - surgical consult Hypokalemia, repleted -potassium was 3.3, given 20 mEq of potassium GI PPX: Protonix VTE ppx: SCDs Diet: clear liquids Goals of care: Full code, discussed for >23 minutes Plan discussed with patient and spouse Plan discussed with Dr Cartwright Plan discussed with: Patient My Orders My Orders Orders - SUZANNE MILLER Procedure Category Date Status Time Rt Upper Dvt US 05/22/25 Resulted 06:26 Dietary Evaluation Review Recommendations by RD: Protein Supplementation Comments: 1) Initiate Ensure Enlive bid 2) Encourage optimal PO intake 3) Advance to cardiac diet when medically feasible 4) Follow-up with gastroenterology and oncology 5) Continue to monitor I&O, labs, and skin integrity Expected Outcomes/Goals: 1) appetite and labs to improve 2) diet to advance 3) f/u in 3-5 days CC Plasma Assessment Blood Product Administration S: 0320 Date of Service: May 22, 2025 Billing Provider: LUCHO CARTWRIGHT MD Common Visit Codes: [id number] INP/OBS CARE(HIGH) SUZANNE MILLER May 22, 2025 15:11 LUCHO CARTWRIGHT MD May 28, 2025 20:32
--- NOTE | 2025-05-22 18:18 | DVHINCON2 ---
Consultation - Surgical Date Seen: May 22, 2025 Referring Physician Reason for Consultation Rectal ulcerated mass causing rectal bleeding and partial obstruction History of Present Illness History of Present Illness Mrs. Parks is a 59-year-old female who has been admitted to the hospital for the last 5 days, admission on 05/17. She has a diagnosis of rectal cancer currently undergoing neoadjuvant chemoradiation. Patient completed 6 weeks of treatment composed of 30 radiation and capecitabine. The 3 week kina post neoadjuvant commencement patient started having rectal bleeding with defecation. She had presented to the ED on 1 prior occasion where she got transfused and sent home. These occasions he is admitted for the same reason of rectal bleeding which started last Tuesday with every bowel movement. She was feeling weak at home and decided to come into the ED. Today she underwent colonoscopy with Dr. Martinez and she was not able to transverse the mass with the colonoscope. Per her dictation she was only able to advance the scope approximately 10 cm before encountering the mass, which she describes as ulcerated, biopsies were taken. Since admission to the hospital she has gotten 6 units transfused. I was consulted for the possibility of diversion due to possible impending obstruction and continued bleeding from the mass. Patient also states that on her colonoscopy a year ago when they discovered the mass the lumber bearer was not able to transverse the mass either. Her oncologist is at [facility]. Surgeon is Dr. Maria L Alvarez Past Medical/Surgical History Past Medical/Surgical History PMH: Colorectal carcinoma, anemia required blood transfusion, thyroid tumor PSH: Hemithyroidectomy 5-6 years ago Family history: Grandmother colon cancer, cousin colon cancer, mother stomach cancer Social history: Lives with family. Denies smoking, alcohol and other drug abuse Allergies and medications Allergies: Coded Allergies: NO KNOWN ALLERGIES (Unverified , 10/01/23) Home Meds Active Scripts Docusate Sodium (Colace) 100 Mg Cap, 1 CAP PO BID, #30 CAP Prov:KINA DE JESUS PAC 10/02/23 Review of systems Review of Systems: Deferred Examination Vital signs Vital Signs Date Time Temp Pulse Resp B/P (MAP) Pulse Ox O2 Delivery O2 Flow Rate FiO2 05/22/25 16:56 98.6 69 17 98/55 (69) 99 98.6 05/22/25 14:09 Room Air 0 100 Medications Current Medications Medications (Trade) Dose Ordered Sig/Roni Route PRN Reason Start Time Stop Time Status Last Admin Hydromorphone HCl (Dilaudid Injection) 0.5 mg Q10M PRN IV SEVERE PAIN (7-10 PAIN SCALE) 05/22/25 13:45 05/22/25 14:26 DC Hydrocortisone Acetate (Anucort-Hc Suppository) 25 mg Q12HR MD 05/22/25 13:51 Laboratory Labs Test 05/22/25 07:37 05/21/25 07:39 05/18/25 18:14 05/18/25 15:10 Range/Units White Blood Count 3.8 #L 4.4-10.8 10^3/uL Red Blood Count 3.53 L 4.0-5.20 10^6/uL Hemoglobin 10.3 #L 12.2-16.2 g/dL Hematocrit 31.3 #L 36.0-46.0 % Mean Corpuscular Volume 88.7 80.0-100.0 fL Mean Corpuscular Hemoglobin 29.2 28.0-32.0 pg Mean Corpuscular Hemoglobin Concent 33.0 32.0-36.0 g/dL Red Cell Distribution Width 18.6 H 11.8-14.3 % Platelet Count 144 140-450 10^3/uL Mean Platelet Volume 6.4 L 6.9-10.8 fL Neutrophils (%) (Auto) 72.8 37.0-80.0 % Lymphocytes (%) (Auto) 7.4 L 10.0-50.0 % Monocytes (%) (Auto) 16.1 H 0.0-12.0 % Eosinophils (%) (Auto) 3.3 0.0-7.0 % Basophils (%) (Auto) 0.4 0.0-2.0 % Neutrophils # (Auto) 2.7 1.6-8.6 10 ^3/uL Lymphocytes # (Auto) 0.3 L 0.4-5.4 10 ^3/uL Monocytes # (Auto) 0.6 0-1.3 10 ^3/uL Eosinophils # (Auto) 0.1 0-0.8 10 ^3/uL Basophils # (Auto) 0 0-0.2 10 ^3/uL Nucleated Red Blood Cells 0.7 % Sodium Level 145 136-145 mmol/L Potassium Level 3.5 3.5-5.1 mmol/L Chloride Level 114 H 98-107 mmol/L Carbon Dioxide Level 21 20-31 mmol/L Anion Gap 10 5-15 Blood Urea Nitrogen < 5 L 9-23 mg/dL Creatinine 0.37 L 0.550-1.02 mg/dL Glomerular Filtration Rate Calc 117 >90 mL/min BUN/Creatinine Ratio 13.5 10.0-20.0 Serum Glucose 99 74-106 mg/dL Calcium Level 7.7 L 8.7-10.4 mg/dL Total Bilirubin 1.2 H 0.2-1.0 mg/dL Aspartate Amino Transferase (AST) 14 13-40 U/L Alanine Aminotransferase (ALT) < 9 7-40 U/L Alkaline Phosphatase 73 46-116 U/L Total Protein 4.7 L 5.7-8.2 g/dL Albumin 2.9 L 3.2-4.8 g/dL Magnesium Level 2.0 1.6-2.6 mg/dL Direct Bilirubin 0.3 <0.3 mg/dL Differential Total Cells Counted 100.0 100 Neutrophils % (Manual) 76 37.0-80.0 Band Neutrophils % (Manual) 7 Lymphocytes % (Manual) 8 L 10.0-50.0 Monocytes % (Manual) 7 0-12 Eosinophils % (Manual) 1 0-7 Basophils % (Manual) 0 0.0-2.0 Metamyelocytes % (manual) 0 Myelocytes % (Manual) 1 Promyelocytes % (Manual) 0 Blast Cells % (Manual) 0 Reactive Lymphocytes 0 Platelet Estimate Adequate Large Platelets Few Anisocytosis (manual) Slight Stool Occult Blood Positive Negative Stool Occult Blood Sample #3 Negative Test 05/18/25 09:20 05/17/25 18:29 05/17/25 18:26 05/17/25 18:16 Range/Units Macrocytosis Slight Stomatocytes Few Influenza Type A Antigen Negative Negative Influenza Type B Antigen Negative Negative SARS-CoV-2 Antigen (Rapid) Negative NEGATIVE Lactic Acid Level 0.7 0.4-2.0 mmol/L Test 05/17/25 17:06 05/17/25 14:46 Range/Units Urine Color Colorless Yellow Urine Clarity Clear Clear Urine pH 5.5 5.0-9.0 Urine Specific [place] 1.005 1.001-1.035 Urine Protein Negative Negative Urine Ketones Trace Negative Urine Blood Negative Negative /uL Urine Nitrite Negative Negative Urine Bilirubin Negative Negative Urine Urobilinogen Normal Negative mg/dL Urine Leukocyte Esterase Negative Negative /uL Urine RBC None seen 0 - 4 /hpf Urine Microscopic WBC 2 0-5 /HPF Urine Squamous Epithelial Cells Few <5 /hpf Urine Bacteria None seen None Seen /hpf Urine Glucose Normal Normal mg/dL Urine Opiates Screen Neg NEGATIVE Urine Fentanyl Screen Neg NEGATIVE Urine Barbiturates Screen Neg NEGATIVE Urine Phencyclidine Screen Neg NEGATIVE Urine Amphetamines Screen Neg NEGATIVE Urine Benzodiazepines Screen Neg NEGATIVE Urine Cocaine Screen Neg NEGATIVE Urine Cannabinoids Screen Neg NEGATIVE Tear Drop Cells Few Schistocytes Few Reticulocyte Count (auto) 8.12 H 0.5-1.5 % Prothrombin Time 10.7 9.3-11.8 sec Prothrombin Time INR 1.01 0.9-1.15 Activated Partial Thromboplast Time 21.0 L 24.5-34.5 SEC Iron Level 36 L 50-170 ug/dL Total Iron Binding Capacity 343 250-425 ug/dL Percent Iron Saturation 10.5 L 15-50 % Ferritin 179.3 10-291 ng/mL B-Type Natriuretic Peptide 36.47 0-100 pg/mL Vitamin B12 Level 946 H 211-911 pg/mL Folic Acid 14.99 >5.38 ng/mL Thyroid Stimulating Hormone (TSH) 0.91 0.55-4.78 uIU/mL Examination: GENERAL:Normal, ABDOMEN:Normal (Nondistended, soft, depressible, nontender), Any Other System: (Rectal: Mass palpated anteriorly at approximately 9-10 cm from anal verge, no gross blood, tone intact) Problem List/Assessment/Plan Problems: (1) Rectal adenocarcinoma (2) GI bleed Assessment and Plan Mrs. Parks is a 59-year-old female who has an active diagnosis of rectal cancer, diagnosed a year ago, and who presented to the ED due to rectal bleeding since last Tuesday. She has required 6 units of blood since admission. Colonoscopy today by Dr. Martinez showed a mass at approximately 10 cm from the anal verge ulcerated, that was not an able to be transverse by the scope. I was consulted for possible palliative diversion due to the possible pending obstruction and continue rectal bleeding. I discussed the possibilities with the patient and family, and also explained that I wanted to touch base with the care team from [facility]. 1. Okay for clear liquid diet 2. We will further discuss possibilities with the patient tomorrow, she may benefit from diversion Plan discussed with Plan discussed with: Patient, Spouse, Daughter Visit Coding Surgery Date of Service if different f: May 22, 2025 Billing Provider: ANN WRIGHT MD Surgery Visit Codes: [id number] - INP CONSULT <110 MIN ANN WRIGHT MD May 22, 2025 18:18
[2025-05-23] VITALS (7 sets, daily range): BP systolic 95–102; BP diastolic 53–58; PULSE 84–104; RESP 16–17; TEMP 97.7–100; O2SAT 96–99
[2025-05-23 07:32] LABS: Potassium 3.7 mmol/L (3.5-5.1); Sodium 142 mmol/L (136-145)
[2025-05-23 07:33] LABS: Anion Gap 9 (5-15); Carbon Dioxide 23 mmol/L (20-31)
[2025-05-23 07:37] LABS: Hematocrit 23.6 % (36.0-46.0); Hemoglobin 7.9 g/dL (12.2-16.2); Mean Corpuscular Hemoglobin 30.0 pg (28.0-32.0); Mean Corpuscular Volume 89.0 fL (80.0-100.0); Nucleated Red Blood Cells % 0.1 %
[2025-05-23 07:38] LABS: Glucose 85 mg/dL (74-106)
[2025-05-23 07:41] LABS: BUN/Creatinine Ratio 12.8 (10.0-20.0); Blood Urea Nitrogen < 5 mg/dL (9-23); Calcium 7.1 mg/dL (8.7-10.4); Chloride 110 mmol/L (98-107)
--- NOTE | 2025-05-23 12:40 | DVHPN2 ---
Progress Note Date Seen: May 23, 2025 Resident Creating Document: RILEY REINA RESIDENT Medical Necessity Reason Pt with a Central, PICC or Fol: No Subjective Review of Systems Patient seen and examined at bedside S/p colonoscopy/sigmoidoscopy which was incomplete Notes having 2 bowel movements today which were bloody, bright red blood Denies any nausea or vomiting Tolerating clear liquid diet Objective vital signs Vital Sign Date Time Temp Pulse Resp B/P (MAP) Pulse Ox O2 Delivery O2 Flow Rate FiO2 05/23/25 09:00 98.1 91 16 95/53 (67) 98 98.1 05/23/25 08:00 Room Air* 0 21 Total Intake and Output 05/22/25 05/22/25 05/23/25 15:00 23:00 07:00 Intake Total 100 ml 0 ml 500 ml Balance 100 ml 0 ml 500 ml medications Current Medications Medications Dose Ordered Sig/Roni Route Start Time Stop Time Status Last Admin Dose Admin Sodium Chloride 10 ml Q8HR IV 05/17/25 22:00 05/23/25 05:13 10 ML Sodium Chloride 1,000 ml @ 120 mls/hr Q8H20M IV 05/17/25 17:45 05/23/25 06:53 120 MLS/HR Acetaminophen/ Hydrocodone Bitart 1 tab Q4HP PRN PO 05/17/25 17:45 05/23/25 10:01 1 TAB Ondansetron HCl 4 mg Q4HP PRN IV 05/17/25 17:45 Acetaminophen 650 mg Q6HP PRN PO 05/17/25 17:45 Morphine Sulfate 2 mg Q4HPRN PRN IV 05/17/25 17:45 Nitroglycerin 0.4 mg Q5MINP PRN SL 05/17/25 17:45 Morphine Sulfate 2 mg Q30M PRN IV 05/17/25 17:45 Pantoprazole Sodium 40 mg BID IV 05/18/25 22:00 05/23/25 09:48 40 MG Hydrocortisone Acetate 25 mg Q12HR AL 05/22/25 13:51 05/23/25 10:01 25 MG Examination General Appearance: Cooperative. Well developed. Well nourished. NAD. Patient looks pale. Pulmonary/Respiratory: Equal bilateral air entry Abdominal Exam: Normal bowel sounds. Soft. normal abdomen, no visible veins, Nontender. No hepatospenomegaly. No masses Neuro/Mental Status: A&O x4. Coherent. Thoughts/Psych: Normal thought pattern. Appropriate mood and affect. Good judgement and insight Rectal exam (05/18/25) :Rectal mass seen but no fresh blood appreciated Skin Exam: Normal inspection. Normal color. Warm. Dry laboratory and microbiology Laboratory Tests 05/23/25 06:41 Test 05/23/25 06:41 Range/Units Serum Glucose 85 74-106 mg/dL Problem List/Assessment/Plan Problem List/Assessment/Plan Lower GI bleed One to 2+ engorged internal hemorrhoids Severe anemia due to above History of colorectal carcinoma s/p chemotherapy and radiotherapy Rectal cancer with bowel obstruction Plan: Currently on a liquid diet Receiving IV iron S/p 6 PRBCs , transfuse as necessary to keep hemoglobin above 7 Last colonoscopy February 2024 Colonoscopy showed a narrowed ulcerated partially obstructing circumferential rectosigmoid mass with the distal margin at about 10 cm above the anal verge b eyond which the scope could not be advanced. There was formed stool stuck within the narrowed lumen in the colonoscope could not be advanced safely beyond this area. Biopsies were taken. One to 2+ engorged internal hemorrhoids and some excoriation of the perianal area. Patient will benefit from surgical intervention, surgical consult place and discussion held with Dr. Mehta as well as patient's oncologist Dr. Rocha Patient [place] [facility] [place], patient is at risk of impending bowel obstruction as well as requiring PRBC, may not be stable for discharge in might require surgical intervention within this hospitalization. Thank you so much for the opportunity to consult on your patient. GI team will follow the patient. In case of any questions or concerns please feel free to reach out. Plan discussed with Dr. Martinez Plan discussed with: Patient, Other (RN) My Orders My Orders Orders - RILEY REINA RESIDENT Procedure Category Date Status Time Propofol (Diprivan) PHA 05/22/25 In Process 13:13 Dietary Evaluation Review Recommendations by RD: Protein Supplementation Comments: 1) Initiate Ensure Enlive bid 2) Encourage optimal PO intake 3) Advance to cardiac diet when medically feasible 4) Follow-up with gastroenterology and oncology 5) Continue to monitor I&O, labs, and skin integrity Expected Outcomes/Goals: 1) appetite and labs to improve 2) diet to advance 3) f/u in 3-5 days CC Plasma Assessment Blood Product Administration S: 0320 RILEY REINA RESIDENT May 23, 2025 12:40
--- NOTE | 2025-05-23 12:49 | DVHPN2 ---
Progress Note - Surgical Date Seen: May 23, 2025 Post op day Post op day: 0 Subjective Patient reports: No new complaints (Patient is still having rectal bleeding with bowel movements.) Review of Systems: Deferred Objective Vital signs Vital Sign Date Time Temp Pulse Resp B/P (MAP) Pulse Ox O2 Delivery O2 Flow Rate FiO2 05/23/25 09:00 98.1 91 16 95/53 (67) 98 98.1 05/23/25 08:00 Room Air* 0 21 Total Intake and Output 05/22/25 05/22/25 05/23/25 15:00 23:00 07:00 Intake Total 100 ml 0 ml 500 ml Balance 100 ml 0 ml 500 ml Medications Current Medications Medications Dose Ordered Sig/Roni Route Start Time Stop Time Status Last Admin Dose Admin Sodium Chloride 10 ml Q8HR IV 05/17/25 22:00 05/23/25 05:13 10 ML Sodium Chloride 1,000 ml @ 120 mls/hr Q8H20M IV 05/17/25 17:45 05/23/25 06:53 120 MLS/HR Acetaminophen/ Hydrocodone Bitart 1 tab Q4HP PRN PO 05/17/25 17:45 05/23/25 10:01 1 TAB Ondansetron HCl 4 mg Q4HP PRN IV 05/17/25 17:45 Acetaminophen 650 mg Q6HP PRN PO 05/17/25 17:45 Morphine Sulfate 2 mg Q4HPRN PRN IV 05/17/25 17:45 Nitroglycerin 0.4 mg Q5MINP PRN SL 05/17/25 17:45 Morphine Sulfate 2 mg Q30M PRN IV 05/17/25 17:45 Pantoprazole Sodium 40 mg BID IV 05/18/25 22:00 05/23/25 09:48 40 MG Hydrocortisone Acetate 25 mg Q12HR ND 05/22/25 13:51 05/23/25 10:01 25 MG Laboratory Laboratory Tests 05/23/25 06:41 Test 05/23/25 06:41 Range/Units Serum Glucose 85 74-106 mg/dL Examination: GENERAL:Normal, ABDOMEN:Normal (Flat, soft, depressible, nontender) Labs and/or images reviewed: Labs reviewed by me (Hemoglobin 7.9 from 10.3) Problem List/Assessment/Plan Assessment and Plan Mrs. Parks is a 59-year-old female who has an active diagnosis of rectal cancer x1yr ago, and who presented to the ED due to rectal bleeding since last Tuesday. She has required 6 units of blood since admission. Colonoscopy (05/22) by Dr. Martinez showed a mass at approximately 10 cm from the anal verge ulcerated, that was not an able to be transverse by the scope. I was consulted for possible palliative diversion due to the possible pending obstruction and continued rectal bleeding. Interval: After blood transfusion yesterday her hemoglobin level was 10.3, this morning hemoglobin level is 7.9, patient states that she continues to have rectal bleeding with every bowel movement. I discussed with the patient and family members the reasons why a surgery of this nature becomes urgent and/or emergent. Those reasons are impending or developing bowel obstruction and or bleeding from the mass requiring multiple transfusions. I also discussed the case with my colleague Dr. Jose and he also agrees that the patient requires surgical intervention sooner rather than later. For this reason I offered surgery, low anterior resection and I also mentioned the possibilities of getting her transferred back to her surgeon at [facility] versus doing the surgery here. Patient and family want to get the surgery done here at this hospital with me and Dr. Jose. We will plan for possible LAR, next week possibly Tuesday or Tuesday. 1. Possible surgery next Tuesday or Tuesday 2. Continue transfusions as needed 3. Colace 100 mg t.i.d. to soften stools 4. Nutrition labs: Pre albumin/albumin 5. Please start the patient on TPN as nutritional adjunct prior to surgery 6. Maintain the patient on a full liquid diet, and supplement with ensure 7. She would need bowel prep the day prior to surgery, I will order those when the time comes. 8. CEA level ordered My Orders My Orders Orders - ANN WRIGHT MD Procedure Category Date Status Time Carcinoembryonic LAB 05/23/25 Transmitted Antigen 12:34 * Surgical Consult CONS 05/23/25 Transmitted Plan discussed with Plan discussed with: Patient Visit Coding Surgery Date of Service if different f: May 23, 2025 Billing Provider: ANN WRIGHT MD Surgery Visit Codes: [id number] INP/OBS CARE(HIGH) ANN WRIGHT MD May 23, 2025 12:49
[2025-05-23] MEDS ORDERED: TPN PER PHARMACY 0 ML IV SCH (17:15)
--- NOTE | 2025-05-23 18:12 | DVHPNRES ---
Progress Note Date Seen: May 23, 2025 Resident Creating Document: SUZANNE MILLER RESIDENT Medical Necessity Reason Pt with a Central, PICC or Fol: No Subjective Review of Systems Alix Parks is a 59 years old female with a PMH of colorectal carcinoma diagnosed 1 year ago currently taking radiation ( more than 30 sessions) and chemotherapy (capecitabine) who presented to the ED with severe rectal bleeding for past 3 weeks. Patient reported she has been having significant rectal bleeding for past 3 weeks which has continued despite ongoing radiation and chemotherapy treatments. Patient also started experiencing feeling tired, having difficulty breathing, unable to walk due to weakness. Patient also experiencing pain when using bathroom. These symptoms have significantly impacted the daily living function so prompted her to visit ED. On my assessment patient denies fever, nausea, vomiting, chills, abdominal pain, diarrhea, constipation and other associated symptoms. PMH: Colorectal carcinoma, anemia required blood transfusion, thyroid tumor PSH: Hemithyroidectomy 5-6 years ago Family history: Grandmother colon cancer, cousin colon cancer, mother stomach cancer Social history: Lives with family. Denies smoking, alcohol and other drug abuse Allergies: No known allergies Patient seen and examined at bedside. Patient is alert and oriented to time, place person and responding to all questions. Patient has generalised weakness. Eyes: No Pain, No Vision change, No Conjunctivae inflammation, No Eyelid inflammation, No Redness ENT: No Ear pain, No Ear discharge, No Nose pain, No Nose discharge, No Nose congestion, No Mouth pain, No Mouth swelling, No Throat pain, No Throat swelling Cardiovascular: No Chest Pain, No Palpitations, No Orthopnea, No Paroxysmal No Dyspnea, No Edema, No Lt Headedness Respiratory: No Cough, No Dry, No Shortness of breath, No SOB with exertion, No Wheezing, No Hemoptysis, No Pleuritic Pain, No Sputum Gastrointestinal: No Nausea, No Vomiting, No Abdominal Pain, No Diarrhea, No Constipation, No Melena, Hematochezia Genitourinary: No Dysuria, No Frequency, No Incontinence, No Hematuria, No Retention 05/19- On evaluation today, she says she feels better, although the rectal bleeding has continued. She has been transfused 3 units of PRBCs since admission. Hemoglobin this morning was 8.2 and it dropped to 7.5 later in the day. She was transitioned from clear liquids to full liquid diet and was given a 500 cc bolus of NS. GI was consulted who asked to Continue to monitor labs, check CEA level.Supportive care for now .Review patient's last colonoscopy and decide timing of a repeat sigmoidoscopy or colonoscopy pending clinical progress. Repeat order for H & H at 10:00 p.m. on 05/19/2025 was placed. 05/20- The patient was seen at bedside. Her hemoglobin this morning was 6.6, so she got transfused with another bag of PRBCs. The patient complains of ongoing per rectal bleeding which is concerning to her. Repeat GI consult was done, pending evaluation by them. Her diet was advanced from full liquid to soft mechanical diet. 05/21- the patient was seen at bedside today. Her hemoglobin was 6.9, so she was given another transfusion of PRBC. Potassium today was 3.3 so patient was given 20 mEq of potassium. She complains of continued rectal bleeding with every bowel movement. He was put on clear liquid diet and is scheduled for colonoscopy tomorrow. She will be given another bag of PRBCs later this evening as recommended by GI. 05/22- patient was seen at bedside today. Her hemoglobin today was 10.3. The patient went for colonoscopy today but it could not be completed as there was a narrowed ulcerated partially obstructing circumferential rectosigmoid mass with the distal margin at about 10 cm above the anal verge. Surgical consult was ordered by GI. Patient had swelling, redness and pain at the site of transfusion and was found to have a superficial thrombus in right cephalic vein. 05/23- patient was seen at bedside today. Her hemoglobin today was 7.9. Surgery saw the patient and discussed the possibility of a possible diversion surgery and low anterior resection on Tuesday or Tuesday. The patient agreed to this. We were asked to continue transfusion if hemoglobin goes below 7. Colace t.i.d. was added along with Clinimix for nutrition via PICC line. We will continue with full liquid diet and supplement with ensure. Objective vital signs Vital Sign Date Time Temp Pulse Resp B/P (MAP) Pulse Ox O2 Delivery O2 Flow Rate FiO2 05/23/25 17:00 97.7 90 17 97/56 (70) 98 97.7 05/23/25 08:00 Room Air* 0 21 Total Intake and Output 905/22/25 05/23/25 15:00 23:00 07:00 Intake Total 100 ml 0 ml 500 ml Balance 100 ml 0 ml 500 ml medications Current Medications Medications Dose Ordered Sig/Roni Route Start Time Stop Time Status Last Admin Dose Admin Sodium Chloride 10 ml Q8HR IV 05/17/25 22:00 05/23/25 15:59 10 ML Sodium Chloride 1,000 ml @ 120 mls/hr Q8H20M IV 05/17/25 17:45 05/23/25 15:59 120 MLS/HR Acetaminophen/ Hydrocodone Bitart 1 tab Q4HP PRN PO 05/17/25 17:45 05/23/25 10:01 1 TAB Ondansetron HCl 4 mg Q4HP PRN IV 05/17/25 17:45 Acetaminophen 650 mg Q6HP PRN PO 05/17/25 17:45 Morphine Sulfate 2 mg Q4HPRN PRN IV 05/17/25 17:45 Nitroglycerin 0.4 mg Q5MINP PRN SL 05/17/25 17:45 Morphine Sulfate 2 mg Q30M PRN IV 05/17/25 17:45 Pantoprazole Sodium 40 mg BID IV 05/18/25 22:00 05/23/25 09:48 40 MG Hydrocortisone Acetate 25 mg Q12HR TX 05/22/25 13:51 05/23/25 10:01 25 MG Amino Acids 0 ml @ 0 mls/hr PER PHARMACY IV 05/23/25 17:15 Amino Acids/ Electrolytes/ Dextrose 1,000 ml @ 42 mls/hr DAILY@2200 IV 05/23/25 22:00 Diagnostic Test (Pha) 1 strip Q6HR 05/24/25 00:00 Insulin Human Regular FOLLOW SLIDING SCALE Q6HR SC 05/24/25 00:00 Dextrose 50 ml UD IV 05/23/25 22:00 Examination General Appearance: Cooperative. Well developed. Well nourished. NAD. Patient looks pale. Head Exam: Normal inspection Neck Exam: Normal inspection. Non-tender. Normal alignment Pulmonary/Respiratory: Chest non-tender. Clear bilateral breath sounds, no crackles, no wheezing. Cardiovascular/Chest: Regular rate and rhythm. No murmurs. No JVD. Peripheral Pulses: 2+ Radial (R). 2+ Radial (L). 2+ Pedal (R). 2+ Pedal (L) Abdominal Exam: Normal bowel sounds. Soft. normal abdomen, no visible veins, Nontender. No hepatospenomegaly. No masses Ankle Exam: Negative ankle edema Lower extremities: Negative lower extremity edema Neuro/Mental Status: A&O x4. Coherent. Thoughts/Psych: Normal thought pattern. Appropriate mood and affect. Good judgement and insight Rectal exam (05/18/25) :Rectal mass seen but no fresh blood appreciated Skin Exam: Normal inspection. Normal color. Warm. 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 HX of colorectal carcinoma currently on radiotherapy and chemotherapy - admit to telemetry - continuously monitor H&H - transferred 6 PRBC, re transfuse if H&H less than 7 - iron IVBP - iron panel, folic acid, B12 - GI consult-monitor labs, order CEA level, supportive management - rectal exam showed rectal mass, exophytic but no fresh blood appreciated - stool occult blood- positive - CT abdominal pelvis showed Sigmoidal wall colon thickening and surrounding stranding which can be seen with proctocolitis - Continue following up with oncologist after discharge - surgical consult-possible diversion surgery and next tuesday or tuesday Hypokalemia, repleted -potassium was 3.3, given 20 mEq of potassium GI PPX: Protonix VTE ppx: SCDs Diet: clear liquids Goals of care: Full code, discussed for >23 minutes Plan discussed with patient and spouse Plan discussed with Dr Cartwright Plan discussed with: Patient My Orders My Orders Orders - SUZANNE MILLER RESIDENT Procedure Category Date Status Time Prothrombin Time W/ LAB 05/23/25 Logged INR 17:29 * Picc Line Consult CONS 05/23/25 Transmitted 17:30 Dietary Evaluation Review Recommendations by RD: Protein Supplementation Comments: 1) Initiate Ensure Enlive bid 2) Encourage optimal PO intake 3) Advance to cardiac diet when medically feasible 4) Follow-up with gastroenterology and oncology 5) Continue to monitor I&O, labs, and skin integrity Expected Outcomes/Goals: 1) appetite and labs to improve 2) diet to advance 3) f/u in 3-5 days CC Plasma Assessment Blood Product Administration S: [id number] Date of Service: May 23, 2025 Billing Provider: LUHCO CARTWRIGHT MD Common Visit Codes: [id number] INP/OBS CARE(HIGH) STEPHON MILLERRODOLFO RENAE RESIDENT May 23, 2025 18:12 LUCHO CARTWRIGHT MD May 28, 2025 20:33
[2025-05-23 19:30] LABS: INR 1.06 (0.9-1.15); Prothrombin Time 11.2 sec (9.3-11.8)
[2025-05-23] MEDS: DOCUSATE SOD 100 MG CAP PO SCH (21:55)
[2025-05-23] MEDS ORDERED: DEXTROSE (50%) 50ML SYRG IV SCH (22:00)
[2025-05-23] MEDS: AMINO ACID INFUSION IN D10W 1,000 ML IV SCH (22:27)
[2025-05-24] VITALS (13 sets, daily range): BP systolic 90–111; BP diastolic 50–66; PULSE 73–107; RESP 15–18; TEMP 97.1–100.4; O2SAT 18–99
[2025-05-24] MEDS: InsuLIN REG 1unit/0.01ml Soln (100units/ml) SC SCH
[2025-05-24] MEDS: ACCU-CHEK COMFORT CURVE STRIP VI SCH
[2025-05-24 07:07] LABS: Hematocrit 21.5 % (36.0-46.0); Hemoglobin 7.2 g/dL (12.2-16.2); Mean Corpuscular Hemoglobin 29.8 pg (28.0-32.0); Mean Corpuscular Volume 89.6 fL (80.0-100.0); Nucleated Red Blood Cells % 0.1 %
[2025-05-24 07:24] LABS: Alkaline Phosphatase 55 U/L (46-116); Anion Gap 8 (5-15); Carbon Dioxide 25 mmol/L (20-31); Magnesium 2.3 mg/dL (1.6-2.6); Sodium 144 mmol/L (136-145)
[2025-05-24 07:25] LABS: Bilirubin, Total 0.4 mg/dL (0.2-1.0)
[2025-05-24 07:27] LABS: Alanine Aminotransferase < 9 U/L (7-40); Albumin 2.4 g/dL (3.2-4.8); BUN/Creatinine Ratio 13.9 (10.0-20.0); Blood Urea Nitrogen < 5 mg/dL (9-23); Calcium 6.9 mg/dL (8.7-10.4); Chloride 111 mmol/L (98-107); Glucose 113 mg/dL (74-106); Potassium 3.4 mmol/L (3.5-5.1); Total Protein 3.9 g/dL (5.7-8.2)
[2025-05-24] MEDS ORDERED: POTASSIUM CHL 20MEQ/100ML 100 ML IV ONE (09:15)
--- NOTE | 2025-05-24 09:59 | DVHPN2 ---
Progress Note Date Seen: May 24, 2025 Resident Creating Document: RILEY REINA RESIDENT Medical Necessity Reason Pt with a Central, PICC or Fol: No Subjective Review of Systems Patient seen and examined at bedside Denies any nausea or vomiting Last bowel movement at 9:30 a.m. which was soft and bloody Notes having 5 bowel movements in the past 24 hours Objective vital signs Vital Sign Date Time Temp Pulse Resp B/P (MAP) Pulse Ox O2 Delivery O2 Flow Rate FiO2 05/24/25 09:00 98.4 94 16 91/58 (69) 97 98.4 05/23/25 20:00 Room Air* 0 21 Total Intake and Output 05/23/25 05/23/25 05/24/25 15:00 23:00 07:00 Intake Total 700 ml 1300 ml Balance 700 ml 1300 ml medications Current Medications Medications Dose Ordered Sig/Roni Route Start Time Stop Time Status Last Admin Dose Admin Sodium Chloride 10 ml Q8HR IV 05/17/25 22:00 05/24/25 06:08 10 ML Sodium Chloride 1,000 ml @ 120 mls/hr Q8H20M IV 05/17/25 17:45 05/23/25 23:54 120 MLS/HR Acetaminophen/ Hydrocodone Bitart 1 tab Q4HP PRN PO 05/17/25 17:45 05/23/25 10:01 1 TAB Ondansetron HCl 4 mg Q4HP PRN IV 05/17/25 17:45 Acetaminophen 650 mg Q6HP PRN PO 05/17/25 17:45 Morphine Sulfate 2 mg Q4HPRN PRN IV 05/17/25 17:45 Nitroglycerin 0.4 mg Q5MINP PRN SL 05/17/25 17:45 Morphine Sulfate 2 mg Q30M PRN IV 05/17/25 17:45 Pantoprazole Sodium 40 mg BID IV 05/18/25 22:00 05/23/25 21:55 40 MG Hydrocortisone Acetate [address] 05/22/25 13:51 05/23/25 21:55 25 MG Amino Acids 0 ml @ 0 mls/hr PER PHARMACY IV 05/23/25 17:15 Amino Acids/ Electrolytes/ Dextrose 1,000 ml @ 42 mls/hr DAILY@2200 IV 05/23/25 22:00 05/23/25 22:27 42 MLS/HR Diagnostic Test (Pha) 1 strip Q6HR 05/24/25 00:00 05/24/25 06:08 1 STRIP Insulin Human Regular FOLLOW SLIDING SCALE Q6HR SC 05/24/25 00:00 Dextrose 50 ml UD IV 05/23/25 22:00 Docusate Sodium 100 mg TID PO 05/23/25 22:00 05/24/25 06:20 100 MG Examination General Appearance: Cooperative. Well developed. Well nourished. NAD. Patient looks pale. Pulmonary/Respiratory: Equal bilateral air entry Abdominal Exam: Normal bowel sounds. Soft. normal abdomen, no visible veins, Nontender. No hepatospenomegaly. No masses Neuro/Mental Status: A&O x4. Coherent. Thoughts/Psych: Normal thought pattern. Appropriate mood and affect. Good judgement and insight Rectal exam (05/18/25) :Rectal mass seen but no fresh blood appreciated Skin Exam: Normal inspection. Normal color. Warm. Dry laboratory and microbiology Laboratory Tests 05/24/25 06:20 Test 05/24/25 06:20 Range/Units Serum Glucose 113 H 74-106 mg/dL Labs and/or images reviewed: Labs reviewed by me, Image(s) reviewed by me Problem List/Assessment/Plan Problem List/Assessment/Plan Lower GI bleed One to 2+ engorged internal hemorrhoids Severe anemia due to above History of colorectal carcinoma s/p chemotherapy and radiotherapy Rectal cancer with bowel obstruction Plan: Currently on a liquid diet Receiving IV iron S/p 6 PRBCs , transfuse as necessary to keep hemoglobin above 7 Last colonoscopy February 2024 Colonoscopy showed a narrowed ulcerated partially obstructing circumferential rectosigmoid mass with the distal margin at about 10 cm above the anal verge b eyond which the scope could not be advanced. There was formed stool stuck within the narrowed lumen in the colonoscope could not be advanced safely beyond this area. Biopsies were taken. One to 2+ engorged internal hemorrhoids and some excoriation of the perianal area. Patient will benefit from surgical intervention, surgical consult place and discussion held with Dr. Mehta as well as patient's oncologist Dr. Rocha Patient has surgical plan with her surgeon at [facility], however, patient is at risk of impending bowel obstruction as well as requiring PRBC, may not be stable for discharge in might require surgical intervention within this hospitalization. Ensure 250 mL t.i.d. with meals Thank you so much for the opportunity to consult on your patient. GI team will follow the patient. In case of any questions or concerns please feel free to reach out. Plan discussed with Dr. Martinez Plan discussed with: Patient, Other (RN) My Orders My Orders Orders - RILEY REINA Procedure Category Date Status Time Tpn Per Pharmacy RAMON 05/23/25 In Process 12:39 Tpn Per Pharmacy PHA 05/23/25 In Process 17:15 Amino Acid Infusion PHA 05/23/25 In Process In D10w (Clinimix 4. 22:00 Tpn Per Pharmacy RAMON 05/23/25 In Process 22:00 Glucose Blood PHA 05/24/25 In Process (Accu-Chek Comfort 00:00 Insulin R (Human) PHA 05/24/25 In Process (Insulin R) 00:00 Dextrose 50% Syringe PHA 05/23/25 In Process 22:00 Dietary Evaluation Review Recommendations by RD: Protein Supplementation Comments: 1) Initiate Ensure Enlive bid 2) Encourage optimal PO intake 3) Advance to cardiac diet when medically feasible 4) Follow-up with gastroenterology and oncology 5) Continue to monitor I&O, labs, and skin integrity Expected Outcomes/Goals: 1) appetite and labs to improve 2) diet to advance 3) f/u in 3-5 days CC Plasma Assessment Blood Product Administration S: [id number] RILEY REINA RESIDENT May 24, 2025 09:59
[2025-05-24] MEDS: LIDOCAINE 1% (LOCAL ANESTH.) PF 5ml SDV ID ONE (11:30)
--- NOTE | 2025-05-24 12:15 | DVH ---
EXAM: XY CHEST XRAY 1 VIEW Indication: fever and sob Technique: Single frontal view of the chest was obtained Comparison: XY CHEST XRAY 1 VIEW on DOS: 05/18/25 FINDINGS: Lines and Tubes: Left PICC tip projects over superior vena cava. Lungs: No focal consolidation. Pleura: No effusion. No pneumothorax. Cardiomediastinal contours: Unremarkable Bones: No acute osseous abnormality. IMPRESSION: No acute cardiopulmonary disease.
--- NOTE | 2025-05-24 12:24 | DVHPN2 ---
Progress Note - Dictate Date Seen: May 24, 2025 Medical Necessity Reason Pt with a Central, PICC or Fol: No vital signs Vital Sign Date Time Temp Pulse Resp B/P (MAP) Pulse Ox O2 Delivery O2 Flow Rate FiO2 05/24/25 12:15 98.7 91 18 90/52 98.7 05/24/25 09:00 97 05/24/25 08:00 Room Air* 0 21 Total Intake and Output 05/23/25 05/23/25 05/24/25 15:00 23:00 07:00 Intake Total 700 ml 1300 ml Balance 700 ml 1300 ml medications Current Medications Medications Dose Ordered Sig/Roni Route Start Time Stop Time Status Last Admin Dose Admin Sodium Chloride 10 ml Q8HR IV 05/17/25 22:00 05/24/25 06:08 10 ML Sodium Chloride 1,000 ml @ 120 mls/hr Q8H20M IV 05/17/25 17:45 05/24/25 10:37 120 MLS/HR Acetaminophen/ Hydrocodone Bitart 1 tab Q4HP PRN PO 05/17/25 17:45 05/23/25 10:01 1 TAB Ondansetron HCl 4 mg Q4HP PRN IV 05/17/25 17:45 Acetaminophen 650 mg Q6HP PRN PO 05/17/25 17:45 Morphine Sulfate 2 mg Q4HPRN PRN IV 05/17/25 17:45 Nitroglycerin 0.4 mg Q5MINP PRN SL 05/17/25 17:45 Morphine Sulfate 2 mg Q30M PRN IV 05/17/25 17:45 Pantoprazole Sodium 40 mg BID IV 05/18/25 22:00 05/24/25 10:36 40 MG Hydrocortisone Acetate 25 mg Q12HR NM 05/22/25 13:51 05/24/25 10:36 25 MG Amino Acids 0 ml @ 0 mls/hr PER PHARMACY IV 05/23/25 17:15 Amino Acids/ Electrolytes/ Dextrose 1,000 ml @ 42 mls/hr DAILY@2200 IV 05/23/25 22:00 05/23/25 22:27 42 MLS/HR Diagnostic Test (Pha) 1 strip Q6HR 05/24/25 00:00 05/24/25 06:08 1 STRIP Insulin Human Regular FOLLOW SLIDING SCALE Q6HR SC 05/24/25 00:00 Dextrose 50 ml UD IV 05/23/25 22:00 Docusate Sodium 100 mg TID PO 05/23/25 22:00 05/24/25 06:20 100 MG Enteral Nutritional Formula 240 ml TIDWM PO 05/24/25 12:00 Ceftriaxone Sodium 50 ml @ 100 mls/hr DAILY@09 IV 05/25/25 09:00 Metronidazole 100 ml @ 100 mls/hr Q8HR IV 05/24/25 14:00 laboratory and microbiology Laboratory Tests 05/24/25 06:20 Test 05/24/25 06:20 Range/Units Serum Glucose 113 H 74-106 mg/dL Problems(with codes): (1) CMV colitis (2) Rectal adenocarcinoma (3) Constipation (4) Severe anemia (5) GI bleed Prognosis PLAN I will start this patient on IV acyclovir as I was notified by pathologist that the rectosigmoid biopsies and ulceration were positive for CMV colitis with ulceration She did have a focal epithelial atypia Dietary Evaluation Review Recommendations by RD: Protein Supplementation Comments: 1) Initiate Ensure Enlive bid 2) Encourage optimal PO intake 3) Advance to cardiac diet when medically feasible 4) Follow-up with gastroenterology and oncology 5) Continue to monitor I&O, labs, and skin integrity Expected Outcomes/Goals: 1) appetite and labs to improve 2) diet to advance 3) f/u in 3-5 days Plan discussed with: Patient, Other (Dr Coburn and Dr Bryan Escamilla) CC Plasma Assessment Blood Product Administration S: [id number] ALIZE KNUTSON MD May 24, 2025 12:24
[2025-05-24] MEDS: CALCIUM GLUC 1,000mg/50ml-NS 50 ML IV ONE (13:02)
[2025-05-24] MEDS: Ensure HIGH Protein Chocolate 8oz Bottle PO SCH (13:02)
[2025-05-24 13:07] LABS: Urine Protein, UAD Negative (Negative)
[2025-05-24 13:19] LABS: COVID19 ANTIGEN SOFIA FIA NEGATIVE (NEGATIVE)
--- NOTE | 2025-05-24 13:24 | DVHPNRES ---
Progress Note Date Seen: May 24, 2025 Resident Creating Document: SUZANNE MILLER RESIDENT Medical Necessity Reason Pt with a Central, PICC or Fol: No Subjective Review of Systems Alix Parks is a 59 years old female with a PMH of colorectal carcinoma diagnosed 1 year ago currently taking radiation ( more than 30 sessions) and chemotherapy (capecitabine) who presented to the ED with severe rectal bleeding for past 3 weeks. Patient reported she has been having significant rectal bleeding for past 3 weeks which has continued despite ongoing radiation and chemotherapy treatments. Patient also started experiencing feeling tired, having difficulty breathing, unable to walk due to weakness. Patient also experiencing pain when using bathroom. These symptoms have significantly impacted the daily living function so prompted her to visit ED. On my assessment patient denies fever, nausea, vomiting, chills, abdominal pain, diarrhea, constipation and other associated symptoms. PMH: Colorectal carcinoma, anemia required blood transfusion, thyroid tumor PSH: Hemithyroidectomy 5-6 years ago Family history: Grandmother colon cancer, cousin colon cancer, mother stomach cancer Social history: Lives with family. Denies smoking, alcohol and other drug abuse Allergies: No known allergies Patient seen and examined at bedside. Patient is alert and oriented to time, place person and responding to all questions. Patient has generalised weakness. Eyes: No Pain, No Vision change, No Conjunctivae inflammation, No Eyelid inflammation, No Redness ENT: No Ear pain, No Ear discharge, No Nose pain, No Nose discharge, No Nose congestion, No Mouth pain, No Mouth swelling, No Throat pain, No Throat swelling Cardiovascular: No Chest Pain, No Palpitations, No Orthopnea, No Paroxysmal No Dyspnea, No Edema, No Lt Headedness Respiratory: No Cough, No Dry, No Shortness of breath, No SOB with exertion, No Wheezing, No Hemoptysis, No Pleuritic Pain, No Sputum Gastrointestinal: No Nausea, No Vomiting, No Abdominal Pain, No Diarrhea, No Constipation, No Melena, Hematochezia Genitourinary: No Dysuria, No Frequency, No Incontinence, No Hematuria, No Retention 05/19- On evaluation today, she says she feels better, although the rectal bleeding has continued. She has been transfused 3 units of PRBCs since admission. Hemoglobin this morning was 8.2 and it dropped to 7.5 later in the day. She was transitioned from clear liquids to full liquid diet and was given a 500 cc bolus of NS. GI was consulted who asked to Continue to monitor labs, check CEA level.Supportive care for now .Review patient's last colonoscopy and decide timing of a repeat sigmoidoscopy or colonoscopy pending clinical progress. Repeat order for H & H at 10:00 p.m. on 05/19/2025 was placed. 05/20- The patient was seen at bedside. Her hemoglobin this morning was 6.6, so she got transfused with another bag of PRBCs. The patient complains of ongoing per rectal bleeding which is concerning to her. Repeat GI consult was done, pending evaluation by them. Her diet was advanced from full liquid to soft mechanical diet. 05/21- the patient was seen at bedside today. Her hemoglobin was 6.9, so she was given another transfusion of PRBC. Potassium today was 3.3 so patient was given 20 mEq of potassium. She complains of continued rectal bleeding with every bowel movement. He was put on clear liquid diet and is scheduled for colonoscopy tomorrow. She will be given another bag of PRBCs later this evening as recommended by GI. 05/22- patient was seen at bedside today. Her hemoglobin today was 10.3. The patient went for colonoscopy today but it could not be completed as there was a narrowed ulcerated partially obstructing circumferential rectosigmoid mass with the distal margin at about 10 cm above the anal verge. Surgical consult was ordered by GI. Patient had swelling, redness and pain at the site of transfusion and was found to have a superficial thrombus in right cephalic vein. 05/23- patient was seen at bedside today. Her hemoglobin today was 7.9. Surgery saw the patient and discussed the possibility of a possible diversion surgery and low anterior resection on Tuesday or Tuesday. The patient agreed to this. We were asked to continue transfusion if hemoglobin goes below 7. Colace t.i.d. was added along with Clinimix for nutrition via PICC line. We will continue with full liquid diet and supplement with ensure. 05/24- patient was seen at bedside today. Her hemoglobin today was 7.2, another PRBC transfusion was ordered for her. She was started on ensure. She had a few fever spikes yesterday, so repeat UA, urine culture, COVID, influenza, chest x- ray were ordered and she was started on ceftriaxone and Flagyl. 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 Objective vital signs Vital Sign Date Time Temp Pulse Resp B/P (MAP) Pulse Ox O2 Delivery O2 Flow Rate FiO2 05/24/25 12:15 98.7 91 18 90/52 98.7 05/24/25 09:00 97 05/24/25 08:00 Room Air* 0 21 Total Intake and Output 05/23/25 05/23/25 05/24/25 15:00 23:00 07:00 Intake Total 700 ml 1300 ml Balance 700 ml 1300 ml medications Current Medications Medications Dose Ordered Sig/Roni Route Start Time Stop Time Status Last Admin Dose Admin Sodium Chloride 10 ml Q8HR IV 05/17/25 22:00 05/24/25 06:08 10 ML Sodium Chloride 1,000 ml @ 120 mls/hr Q8H20M IV 05/17/25 17:45 05/24/25 10:37 120 MLS/HR Acetaminophen/ Hydrocodone Bitart 1 tab Q4HP PRN PO 05/17/25 17:45 05/23/25 10:01 1 TAB Ondansetron HCl 4 mg Q4HP PRN IV 05/17/25 17:45 Acetaminophen 650 mg Q6HP PRN PO 05/17/25 17:45 Morphine Sulfate 2 mg Q4HPRN PRN IV 05/17/25 17:45 Nitroglycerin 0.4 mg Q5MINP PRN SL 05/17/25 17:45 Morphine Sulfate 2 mg Q30M PRN IV 05/17/25 17:45 Pantoprazole Sodium 40 mg BID IV 05/18/25 22:00 05/24/25 10:36 40 MG Hydrocortisone Acetate 25 mg Q12HR CO 05/22/25 13:51 05/24/25 10:36 25 MG Amino Acids 0 ml @ 0 mls/hr PER PHARMACY IV 05/23/25 17:15 Amino Acids/ Electrolytes/ Dextrose 1,000 ml @ 42 mls/hr DAILY@2200 IV 05/23/25 22:00 05/23/25 22:27 42 MLS/HR Diagnostic Test (Pha) 1 strip Q6HR 05/24/25 00:00 05/24/25 13:03 1 STRIP Insulin Human Regular FOLLOW SLIDING SCALE Q6HR SC 05/24/25 00:00 05/24/25 11:45 2 UNITS Dextrose 50 ml UD IV 05/23/25 22:00 Docusate Sodium 100 mg TID PO 05/23/25 22:00 05/24/25 06:20 100 MG Enteral Nutritional Formula 240 ml TIDWM PO 05/24/25 12:00 05/24/25 13:02 240 ML Ceftriaxone Sodium 50 ml @ 100 mls/hr DAILY@09 IV 05/25/25 09:00 Metronidazole 100 ml @ 100 mls/hr Q8HR IV 05/24/25 14:00 Acyclovir Sodium 500 mg/Dextrose 110 ml @ 110 mls/hr Q8HR IV 05/24/25 14:00 UNV Sodium Chloride 10 ml QSHIFT@,22 IV 05/24/25 22:00 Examination General Appearance: Cooperative. Well developed. Well nourished. NAD. Patient looks pale. Head Exam: Normal inspection Neck Exam: Normal inspection. Non-tender. Normal alignment Pulmonary/Respiratory: Chest non-tender. Clear bilateral breath sounds, no crackles, no wheezing. Cardiovascular/Chest: Regular rate and rhythm. No murmurs. No JVD. Peripheral Pulses: 2+ Radial (R). 2+ Radial (L). 2+ Pedal (R). 2+ Pedal (L) Abdominal Exam: Normal bowel sounds. Soft. normal abdomen, no visible veins, Nontender. No hepatospenomegaly. No masses Ankle Exam: Negative ankle edema Lower extremities: Negative lower extremity edema Neuro/Mental Status: A&O x4. Coherent. Thoughts/Psych: Normal thought pattern. Appropriate mood and affect. Good judgement and insight Rectal exam (05/18/25) :Rectal mass seen but no fresh blood appreciated Skin Exam: Normal inspection. Normal color. Warm. 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 - continuously monitor H&H - transfused 7 PRBC, re transfuse if H&H less than 7 - iron IVBP - iron panel, folic acid, B12 - GI consult-monitor labs, order CEA level, supportive management - rectal exam showed rectal mass, exophytic but no fresh blood appreciated - stool occult blood- positive - CT abdominal pelvis showed Sigmoidal wall colon thickening and surrounding stranding which can be seen with proctocolitis - Continue following up with oncologist after discharge - surgical consult-possible diversion surgery and next tuesday or tuesday - patient to be started on iv acyclovir as per GI Hypokalemia, repleted -potassium was 3.3, given 20 mEq of potassium GI PPX: Protonix VTE ppx: SCDs Diet: clear liquids Goals of care: Full code, discussed for >23 minutes Plan discussed with patient Plan discussed with Dr Cartwright Plan discussed with: Patient My Orders My Orders Orders - SUZANNE MILLER RESIDENT Procedure Category Date Status Time * Picc Line Consult CONS 05/23/25 Transmitted 17:30 Full Liq Diet DIET 05/23/25 Transmitted Dinner Docusate Sodium PHA 05/23/25 In Process Capsule (Colace 22:00 Blood Culture TERESA 05/24/25 In Process 06:55 Nursing Protocol Picc [facility] 05/24/25 In Process 12:58 Change Dressing Prn [facility] 05/24/25 In Process 12:58 PICC BD 05/24/25 Transmitted 12:58 Sodium Chloride Lock PHA 05/24/25 In Process (Saline Lock Ns) 22:00 Do Not Use Picc For [facility] 05/24/25 In Process Blood Cult 12:58 May Draw Blood From [facility] 05/24/25 In Process Picc 12:58 Ok To Use Picc [facility] 05/24/25 In Process 12:58 Change Picc Dressing [facility] 05/24/25 In Process Q7 Days 12:58 Us Guided Vascular US 05/24/25 Logged Access 12:58 Dietary Evaluation Review Recommendations by RD: Protein Supplementation Comments: 1) Initiate Ensure Enlive bid 2) Encourage optimal PO intake 3) Advance to cardiac diet when medically feasible 4) Follow-up with gastroenterology and oncology 5) Continue to monitor I&O, labs, and skin integrity Expected Outcomes/Goals: 1) appetite and labs to improve 2) diet to advance 3) f/u in 3-5 days CC Plasma Assessment Blood Product Administration S: [id number] Date of Service: May 24, 2025 Billing Provider: LUCHO CARTWRIGHT MD Common Visit Codes: [id number] INP/OBS CARE(HIGH) SUZANNE MILLER RESIDENT May 24, 2025 13:24 LUCHO CARTWRIGHT MD May 28, 2025 20:34
--- NOTE | 2025-05-24 14:02 | DVHINCON2 ---
Date of service: May 24, 2025 Family History: Colon cancer grandmother FH: stomach cancer Allergies: Coded Allergies: NO KNOWN ALLERGIES (Unverified , 10/01/23) Home Meds Active Scripts Docusate Sodium (Colace) 100 Mg Cap, 1 CAP PO BID, #30 CAP Prov:ALEAH DE JESUS PAC 10/02/23 Current Medications Current Medications Medications (Trade) Dose Ordered Sig/Roin Route PRN Reason Start Time Stop Time Status Last Admin Amino Acids 0 ml @ 0 mls/hr PER PHARMACY IV 05/23/25 17:15 Amino Acids/ Electrolytes/ Dextrose 1,000 ml @ 42 mls/hr DAILY@2200 IV 05/23/25 22:00 05/24/25 21:59 05/23/25 22:27 Diagnostic Test (Pha) (Accu-Chek Comfort Curve T) 1 strip Q6HR 05/24/25 00:00 05/24/25 13:03 Insulin Human Regular (InsuLIN R) FOLLOW SLIDING SCALE Q6HR SC 05/24/25 00:00 05/24/25 11:45 Dextrose 50 ml UD IV 05/23/25 22:00 Docusate Sodium (Colace Capsule) 100 mg TID PO 05/23/25 22:00 05/24/25 06:20 Enteral Nutritional Formula (Ensure High Protein) 240 ml TIDWM PO 05/24/25 12:00 05/24/25 13:02 Ceftriaxone Sodium 50 ml @ 100 mls/hr DAILY@09 IV 05/25/25 09:00 Metronidazole 100 ml @ 100 mls/hr Q8HR IV 05/24/25 14:00 Enteral Nutritional Formula (Ensure High Protein) 240 ml BIDWM PO 05/24/25 18:00 05/24/25 11:43 DC Acyclovir Sodium 500 mg/Dextrose 110 ml @ 110 mls/hr Q8HR IV 05/24/25 14:00 UNV Sodium Chloride (Saline Lock Ns) 10 ml QSHIFT@10,22 IV 05/24/25 22:00 Fat Emulsion Intravenous 50 ml/ Potassium Acetate 40 meq/Calcium Gluconate 4.65 meq/Multivitamins 10 ml/Chromium/ Copper/Manganese/ Zinc 1 ml/Amino Acids/Dextrose 891 ml @ 37 mls/hr Q24H5M IV 05/24/25 22:00 05/25/25 21:59 Vital Signs Vital Signs Date Time Temp Pulse Resp B/P (MAP) Pulse Ox O2 Delivery O2 Flow Rate FiO2 05/24/25 13:20 98.2 93 15 105/65 (78) 98 98.2 05/24/25 08:00 Room Air* 0 21 Labs/Diagnostic Data Labs Test 05/24/25 12:45 05/24/25 12:15 05/24/25 11:38 05/24/25 06:20 Range/Units Urine Color Colorless Yellow Urine Clarity Clear Clear Urine pH 7.5 5.0-9.0 Urine Specific Garner 1.006 1.001-1.035 Urine Protein Negative Negative Urine Ketones Negative Negative Urine Blood Negative Negative /uL Urine Nitrite Negative Negative Urine Bilirubin Negative Negative Urine Urobilinogen Normal Negative mg/dL Urine Leukocyte Esterase Negative Negative /uL Urine RBC 1 0 - 4 /hpf Urine Microscopic WBC 4 0-5 /HPF Urine Squamous Epithelial Cells None seen <5 /hpf Urine Bacteria Few H None Seen /hpf Urine Glucose Normal Normal mg/dL Influenza Type A Antigen Negative Negative Influenza Type B Antigen Negative Negative SARS-CoV-2 Antigen (Rapid) Negative NEGATIVE POC Glucose 132 H 70-106 mg/dl White Blood Count 3.2 L 4.4-10.8 10^3/uL Red Blood Count 2.40 L 4.0-5.20 10^6/uL Hemoglobin 7.2 L 12.2-16.2 g/dL Hematocrit 21.5 L 36.0-46.0 % Mean Corpuscular Volume 89.6 80.0-100.0 fL Mean Corpuscular Hemoglobin 29.8 28.0-32.0 pg Mean Corpuscular Hemoglobin Concent 33.2 32.0-36.0 g/dL Red Cell Distribution Width 20.7 H 11.8-14.3 % Platelet Count 156 140-450 10^3/uL Mean Platelet Volume 6.4 L 6.9-10.8 fL Neutrophils (%) (Auto) 76.2 37.0-80.0 % Lymphocytes (%) (Auto) 6.5 L 10.0-50.0 % Monocytes (%) (Auto) 13.9 H 0.0-12.0 % Eosinophils (%) (Auto) 2.9 0.0-7.0 % Basophils (%) (Auto) 0.5 0.0-2.0 % Neutrophils # (Auto) 2.4 1.6-8.6 10 ^3/uL Lymphocytes # (Auto) 0.2 L 0.4-5.4 10 ^3/uL Monocytes # (Auto) 0.4 0-1.3 10 ^3/uL Eosinophils # (Auto) 0.1 0-0.8 10 ^3/uL Basophils # (Auto) 0 0-0.2 10 ^3/uL Nucleated Red Blood Cells 0.1 % Sodium Level 144 136-145 mmol/L Potassium Level 3.4 L 3.5-5.1 mmol/L Chloride Level 111 H 98-107 mmol/L Carbon Dioxide Level 25 20-31 mmol/L Anion Gap 8 5-15 Blood Urea Nitrogen < 5 L 9-23 mg/dL Creatinine 0.36 L 0.550-1.02 mg/dL Glomerular Filtration Rate Calc 118 >90 mL/min BUN/Creatinine Ratio 13.9 10.0-20.0 Serum Glucose 113 H 74-106 mg/dL Calcium Level 6.9 L 8.7-10.4 mg/dL Phosphorus Level 1.4 L 2.4-5.1 mg/dL Magnesium Level 2.3 1.6-2.6 mg/dL Total Bilirubin 0.4 0.2-1.0 mg/dL Aspartate Amino Transferase (AST) 11 L 13-40 U/L Alanine Aminotransferase (ALT) < 9 7-40 U/L Alkaline Phosphatase 55 46-116 U/L Total Protein 3.9 L 5.7-8.2 g/dL Albumin 2.4 L 3.2-4.8 g/dL Prealbumin 5.7 L 10.0-40.0 md/dL Triglycerides Level 87 < 150 mg/dL Test 05/23/25 18:55 05/23/25 06:41 05/21/25 07:39 05/18/25 18:14 Range/Units Prothrombin Time 11.2 9.3-11.8 sec Prothrombin Time INR 1.06 0.9-1.15 Carcinoembryonic Antigen 0.55 <=5.0 ng/mL Direct Bilirubin 0.3 <0.3 mg/dL Differential Total Cells Counted 100.0 100 Neutrophils % (Manual) 76 37.0-80.0 Band Neutrophils % (Manual) 7 Lymphocytes % (Manual) 8 L 10.0-50.0 Monocytes % (Manual) 7 0-12 Eosinophils % (Manual) 1 0-7 Basophils % (Manual) 0 0.0-2.0 Metamyelocytes % (manual) 0 Myelocytes % (Manual) 1 Promyelocytes % (Manual) 0 Blast Cells % (Manual) 0 Reactive Lymphocytes 0 Platelet Estimate Adequate Large Platelets Few Anisocytosis (manual) Slight Test 05/18/25 15:10 05/18/25 09:20 05/17/25 18:16 05/17/25 17:06 Range/Units Stool Occult Blood Positive Negative Stool Occult Blood Sample #3 Negative Macrocytosis Slight Stomatocytes Few Lactic Acid Level 0.7 0.4-2.0 mmol/L Urine Opiates Screen Neg NEGATIVE Urine Fentanyl Screen Neg NEGATIVE Urine Barbiturates Screen Neg NEGATIVE Urine Phencyclidine Screen Neg NEGATIVE Urine Amphetamines Screen Neg NEGATIVE Urine Benzodiazepines Screen Neg NEGATIVE Urine Cocaine Screen Neg NEGATIVE Urine Cannabinoids Screen Neg NEGATIVE Test 05/17/25 14:46 Range/Units Tear Drop Cells Few Schistocytes Few Reticulocyte Count (auto) 8.12 H 0.5-1.5 % Activated Partial Thromboplast Time 21.0 L 24.5-34.5 SEC Iron Level 36 L 50-170 ug/dL Total Iron Binding Capacity 343 250-425 ug/dL Percent Iron Saturation 10.5 L 15-50 % Ferritin 179.3 10-291 ng/mL B-Type Natriuretic Peptide 36.47 0-100 pg/mL Vitamin B12 Level 946 H 211-911 pg/mL Folic Acid 14.99 >5.38 ng/mL Thyroid Stimulating Hormone (TSH) 0.91 0.55-4.78 uIU/mL Assessment REQUESTED BY DR BARRIENTOS TO ASSIST AT OPERATION, SHE HAS A BIOPSY PROVEN CANCER ,REPORTED BY COLONOSCOPY TO RESIDE AT 10 CM FROM ANAL VERGE, SHE COMPLETED NEOADJUVANT RADIATION TREATMENTS AND PO CHEMOTHERAPY AND NOW SHE IS ADMITTED DUE TO PROFUSE RECTAL BLEEDING AND EVIDENCE OF SEVERE PROCTITIS. DUE TO THE BLEEDING I AGREE WITH THAT SHE NEEDS AN OPERATION DURING THIS HOSPITALIZATION, I HAVE EXPLAINED TO PT. AND HER THAT I WILL BE ASSISTING AND THAT SHE WILL MOST LIKELY NEED A COLOSTOMY; IF NOT PERMANENT INCASE OF ABDOMINO-PERINEAL RESECTION) THAN A TEMPORARY ONE FOR DIVERSION TO PROTECT A LOW ANTERIOR RESECTION ANASTOMOSIS, THESE DECISIONS WILL DEPEND ON THE INTRAOPERATIVE FINDINGS. RISKS AND COM,PLICATIONS EXPLAINED AND QUESTIONS ANSWERED Plan discussed with: Patient, Spouse RICHIE FLORES MD May 24, 2025 14:02
[2025-05-24] MEDS: POTASSIUM PHOSPHATE 22 MEQ in SODIUM CHL 0.9% 100 ML IV ONE (14:28)
[2025-05-24] MEDS: ACYCLOVIR SOD 50MG/ML 500 MG in D5W 5% 100 ML IV SCH (15:18)
[2025-05-24] MEDS ORDERED: Ensure HIGH Protein Chocolate 8oz Bottle PO SCH (18:00)
[2025-05-24] MEDS: TPN PER PHARMACY IV NR (21:31)
[2025-05-24] MEDS: SODIUM CHLOR 0.9% PF (SALINE LOCK) 10ML VIAL/SYR IV SCH (22:29)
[2025-05-25] VITALS (8 sets, daily range): BP systolic 98–122; BP diastolic 54–70; PULSE 82–104; RESP 16–20; TEMP 97.9–98.4; O2SAT 96–99
[2025-05-25 06:53] LABS: Hemoglobin 8.2 g/dL (12.2-16.2)
[2025-05-25 06:56] LABS: Hematocrit 24.8 % (36.0-46.0); Mean Corpuscular Hemoglobin 30.3 pg (28.0-32.0); Mean Corpuscular Volume 91.0 fL (80.0-100.0); Nucleated Red Blood Cells % 0.3 %
[2025-05-25 07:10] LABS: Alkaline Phosphatase 52 U/L (46-116); Anion Gap 6 (5-15); BUN/Creatinine Ratio 20.0 (10.0-20.0); Carbon Dioxide 25 mmol/L (20-31); Magnesium 2.2 mg/dL (1.6-2.6); Potassium 3.8 mmol/L (3.5-5.1); Sodium 144 mmol/L (136-145)
[2025-05-25 07:11] LABS: Bilirubin, Total 0.4 mg/dL (0.2-1.0)
[2025-05-25 07:17] LABS: Alanine Aminotransferase < 9 U/L (7-40); Albumin 2.4 g/dL (3.2-4.8); Blood Urea Nitrogen 6 mg/dL (9-23); Calcium 6.9 mg/dL (8.7-10.4); Chloride 113 mmol/L (98-107); Glucose 118 mg/dL (74-106); Total Protein 4.1 g/dL (5.7-8.2)
--- NOTE | 2025-05-25 11:29 | DVHPNRES ---
Progress Note Date Seen: May 25, 2025 Resident Creating Document: SUZANNE MILLER RESIDENT Medical Necessity Reason Pt with a Central, PICC or Fol: No Subjective Review of Systems Alix Parks is a 59 years old female with a PMH of colorectal carcinoma diagnosed 1 year ago currently taking radiation ( more than 30 sessions) and chemotherapy (capecitabine) who presented to the ED with severe rectal bleeding for past 3 weeks. Patient reported she has been having significant rectal bleeding for past 3 weeks which has continued despite ongoing radiation and chemotherapy treatments. Patient also started experiencing feeling tired, having difficulty breathing, unable to walk due to weakness. Patient also experiencing pain when using bathroom. These symptoms have significantly impacted the daily living function so prompted her to visit ED. On my assessment patient denies fever, nausea, vomiting, chills, abdominal pain, diarrhea, constipation and other associated symptoms. PMH: Colorectal carcinoma, anemia required blood transfusion, thyroid tumor PSH: Hemithyroidectomy 5-6 years ago Family history: Grandmother colon cancer, cousin colon cancer, mother stomach cancer Social history: Lives with family. Denies smoking, alcohol and other drug abuse Allergies: No known allergies Patient seen and examined at bedside. Patient is alert and oriented to time, place person and responding to all questions. Patient has generalised weakness. Eyes: No Pain, No Vision change, No Conjunctivae inflammation, No Eyelid inflammation, No Redness ENT: No Ear pain, No Ear discharge, No Nose pain, No Nose discharge, No Nose congestion, No Mouth pain, No Mouth swelling, No Throat pain, No Throat swelling Cardiovascular: No Chest Pain, No Palpitations, No Orthopnea, No Paroxysmal No Dyspnea, No Edema, No Lt Headedness Respiratory: No Cough, No Dry, No Shortness of breath, No SOB with exertion, No Wheezing, No Hemoptysis, No Pleuritic Pain, No Sputum Gastrointestinal: No Nausea, No Vomiting, No Abdominal Pain, No Diarrhea, No Constipation, No Melena, Hematochezia Genitourinary: No Dysuria, No Frequency, No Incontinence, No Hematuria, No Retention 05/19- On evaluation today, she says she feels better, although the rectal bleeding has continued. She has been transfused 3 units of PRBCs since admission. Hemoglobin this morning was 8.2 and it dropped to 7.5 later in the day. She was transitioned from clear liquids to full liquid diet and was given a 500 cc bolus of NS. GI was consulted who asked to Continue to monitor labs, check CEA level.Supportive care for now .Review patient's last colonoscopy and decide timing of a repeat sigmoidoscopy or colonoscopy pending clinical progress. Repeat order for H & H at 10:00 p.m. on 05/19/2025 was placed. 05/20- The patient was seen at bedside. Her hemoglobin this morning was 6.6, so she got transfused with another bag of PRBCs. The patient complains of ongoing per rectal bleeding which is concerning to her. Repeat GI consult was done, pending evaluation by them. Her diet was advanced from full liquid to soft mechanical diet. 05/21- the patient was seen at bedside today. Her hemoglobin was 6.9, so she was given another transfusion of PRBC. Potassium today was 3.3 so patient was given 20 mEq of potassium. She complains of continued rectal bleeding with every bowel movement. He was put on clear liquid diet and is scheduled for colonoscopy tomorrow. She will be given another bag of PRBCs later this evening as recommended by GI. 05/22- patient was seen at bedside today. Her hemoglobin today was 10.3. The patient went for colonoscopy today but it could not be completed as there was a narrowed ulcerated partially obstructing circumferential rectosigmoid mass with the distal margin at about 10 cm above the anal verge. Surgical consult was ordered by GI. Patient had swelling, redness and pain at the site of transfusion and was found to have a superficial thrombus in right cephalic vein. 05/23- patient was seen at bedside today. Her hemoglobin today was 7.9. Surgery saw the patient and discussed the possibility of a possible diversion surgery and low anterior resection on Tuesday or Tuesday. The patient agreed to this. We were asked to continue transfusion if hemoglobin goes below 7. Colace t.i.d. was added along with Clinimix for nutrition via PICC line. We will continue with full liquid diet and supplement with ensure. 05/24- patient was seen at bedside today. Her hemoglobin today was 7.2, another PRBC transfusion was ordered for her. She was started on ensure. She had a few fever spikes yesterday, so repeat UA, urine culture, COVID, influenza, chest x- ray were ordered and she was started on ceftriaxone and Flagyl. 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 05/25- the patient was seen at bedside today. Her hemoglobin today was 8.2. 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 Preliminary Blood culture showed no growth in the first 24 hours. No fever spikes yesterday. Pending surgical procedure on Tuesday/Tuesday. Preliminary urine culture showed no growth after 24 hours. Objective vital signs Vital Sign Date Time Temp Pulse Resp B/P (MAP) Pulse Ox O2 Delivery O2 Flow Rate FiO2 05/25/25 09:31 98.4 102 16 99/60 (73) 98 98.4 05/25/25 08:08 Room Air* 0 21 Total Intake and Output 05/24/25 05/24/25 05/25/25 15:00 23:00 07:00 Intake Total 700 ml 1225 ml 500 ml Balance 700 ml 1225 ml 500 ml medications Current Medications Medications Dose Ordered Sig/Roni Route Start Time Stop Time Status Last Admin Dose Admin Sodium Chloride 1,000 ml @ 120 mls/hr Q8H20M IV 05/17/25 17:45 05/25/25 09:42 120 MLS/HR Acetaminophen/ Hydrocodone Bitart 1 tab Q4HP PRN PO 05/17/25 17:45 05/24/25 21:29 1 TAB Ondansetron HCl 4 mg Q4HP PRN IV 05/17/25 17:45 Acetaminophen 650 mg Q6HP PRN PO 05/17/25 17:45 Morphine Sulfate 2 mg Q4HPRN PRN IV 05/17/25 17:45 Nitroglycerin 0.4 mg Q5MINP PRN SL 05/17/25 17:45 Morphine Sulfate 2 mg Q30M PRN IV 05/17/25 17:45 Pantoprazole Sodium 40 mg BID IV 05/18/25 22:00 05/25/25 09:39 40 MG Hydrocortisone Acetate 25 mg Q12HR MI 05/22/25 13:51 05/25/25 09:48 25 MG Amino Acids 0 ml @ 0 mls/hr PER PHARMACY IV 05/23/25 17:15 Diagnostic Test (Pha) 1 strip Q6HR 05/24/25 00:00 05/25/25 05:18 1 STRIP Insulin Human Regular FOLLOW SLIDING SCALE Q6HR SC 05/24/25 00:00 05/24/25 23:36 2 UNITS Dextrose 50 ml UD IV 05/23/25 22:00 Docusate Sodium 100 mg TID PO 05/23/25 22:00 05/25/25 05:18 100 MG Enteral Nutritional Formula 240 ml TIDWM PO 05/24/25 12:00 05/25/25 09:25 240 ML Ceftriaxone Sodium 50 ml @ 100 mls/hr DAILY@09 IV 05/25/25 09:00 05/25/25 09:39 100 MLS/HR Metronidazole 100 ml @ 100 mls/hr Q8HR IV 05/24/25 14:00 05/25/25 05:17 100 MLS/HR Acyclovir Sodium 500 mg/Dextrose 110 ml @ 110 mls/hr Q8HR IV 05/24/25 14:00 05/25/25 05:18 110 MLS/HR Sodium Chloride 10 ml QSHIFT@10,22 IV 05/24/25 22:00 05/25/25 09:42 10 ML Fat Emulsion Intravenous 50 ml/ Potassium Acetate 20 meq/Calcium Gluconate 4.65 meq/Multivitamins 10 ml/Chromium/ Copper/Manganese/ Zinc 1 ml/ Potassium Phosphate 30 meq/ Amino Acids/ Dextrose 887.8182 ml @ 37 mls/hr Q24H IV 05/24/25 22:00 05/25/25 21:59 05/24/25 21:31 37 MLS/HR Examination General Appearance: Cooperative. Well developed. Well nourished. NAD. Patient looks pale. Head Exam: Normal inspection Neck Exam: Normal inspection. Non-tender. Normal alignment Pulmonary/Respiratory: Chest non-tender. Clear bilateral breath sounds, no crackles, no wheezing. Cardiovascular/Chest: Regular rate and rhythm. No murmurs. No JVD. Peripheral Pulses: 2+ Radial (R). 2+ Radial (L). 2+ Pedal (R). 2+ Pedal (L) Abdominal Exam: Normal bowel sounds. Soft. normal abdomen, no visible veins, Nontender. No hepatospenomegaly. No masses Ankle Exam: Negative ankle edema Lower extremities: Negative lower extremity edema Neuro/Mental Status: A&O x4. Coherent. Thoughts/Psych: Normal thought pattern. Appropriate mood and affect. Good judgement and insight Rectal exam (05/18/25) :Rectal mass seen but no fresh blood appreciated Skin Exam: Normal inspection. Normal color. Warm. Dry laboratory and microbiology Laboratory Tests 05/25/25 06:13 Test 05/25/25 06:13 Range/Units Serum Glucose 118 H 74-106 mg/dL Microbiology Date/Time Source Procedure Growth Status 05/24/25 12:45 Voided Urine Urine Culture - Preliminary Resulted 05/24/25 08:34 Blood Blood Culture - Preliminary NO GROWTH AFTER 24 HOURS OF INCUBATION. 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 - continuously monitor H&H - transfused 7 PRBCs, re transfuse if Hemoglobin less than 7 - iron IVBP - iron panel, folic acid, B12 - GI consult-monitor labs, order CEA level, supportive management - rectal exam showed rectal mass, exophytic but no fresh blood appreciated - stool occult blood- positive - CT abdominal pelvis showed Sigmoidal wall colon thickening and surrounding stranding which can be seen with proctocolitis - Continue following up with oncologist after discharge - surgical consult-possible diversion surgery and low anterior resection next tuesday or tuesday - patient started on iv acyclovir as per GI Hypokalemia, repleted -potassium was 3.3, given 20 mEq of potassium GI PPX: Protonix VTE ppx: SCDs Diet: clear liquids Goals of care: Full code, discussed for >23 minutes Plan discussed with patient Plan discussed with Dr Cartwright Plan discussed with: Patient My Orders My Orders Orders - SUZANNE MILLER RESIDENT Procedure Category Date Status Time Nursing Protocol Picc RAMON 05/24/25 In Process 12:58 Change Dressing Prn [facility] 05/24/25 In Process 12:58 PICC BD 05/24/25 Transmitted 12:58 Sodium Chloride Lock PHA 05/24/25 In Process (Saline Lock Ns) 22:00 Do Not Use Picc For [facility] 05/24/25 In Process Blood Cult 12:58 May Draw Blood From [facility] 05/24/25 In Process Picc 12:58 Ok To Use Picc RAMON 05/24/25 In Process 12:58 Change Picc Dressing RAMON 05/24/25 In Process Q7 Days 12:58 Dietary Evaluation Review Recommendations by RD: Protein Supplementation Comments: 1) Initiate Ensure Enlive bid 2) Encourage optimal PO intake 3) Advance to cardiac diet when medically feasible 4) Follow-up with gastroenterology and oncology 5) Continue to monitor I&O, labs, and skin integrity Expected Outcomes/Goals: 1) appetite and labs to improve 2) diet to advance 3) f/u in 3-5 days CC Plasma Assessment Blood Product Administration S: [id number] Date of Service: May 25, 2025 Billing Provider: LUCHO CARTWRIGHT MD Common Visit Codes: [id number] INP/OBS CARE(HIGH) SUZANNE MILLER RESIDENT May 25, 2025 11:29 LUCHO CARTWRIGHT MD May 28, 2025 20:34
[2025-05-25] MEDS: CALCIUM GLUC 1,000mg/50ml-NS 50 ML IV ONE ×2 (11:44→13:40)
[2025-05-25] MEDS: POTASSIUM PHOSPHATE 22 MEQ in SODIUM CHL 0.9% 100 ML IV ONE (12:32)
--- NOTE | 2025-05-25 21:48 | DVHPN2 ---
Progress Note - Dictate Date Seen: May 25, 2025 Medical Necessity Reason Pt with a Central, PICC or Fol: No Subjective No new complaints Her hemoglobin today was 8.2. 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 Preliminary Blood culture showed no growth in the first 24 hours. No fever spikes yesterday. Preliminary urine culture showed no growth after 24 hours. vital signs Vital Sign Date Time Temp Pulse Resp B/P (MAP) Pulse Ox O2 Delivery O2 Flow Rate FiO2 05/25/25 21:00 98.1 102 18 122/70 (87) 99 98.1 05/25/25 08:08 Room Air* 0 21 Total Intake and Output 05/24/25 05/24/25 05/25/25 15:00 23:00 07:00 Intake Total 700 ml 1225 ml 500 ml Balance 700 ml 1225 ml 500 ml medications Current Medications Medications Dose Ordered Sig/Roni Route Start Time Stop Time Status Last Admin Dose Admin Sodium Chloride 1,000 ml @ 120 mls/hr Q8H20M IV 05/17/25 17:45 05/25/25 17:32 120 MLS/HR Acetaminophen/ Hydrocodone Bitart 1 tab Q4HP PRN PO 05/17/25 17:45 05/24/25 21:29 1 TAB Ondansetron HCl 4 mg Q4HP PRN IV 05/17/25 17:45 Acetaminophen 650 mg Q6HP PRN PO 05/17/25 17:45 Morphine Sulfate 2 mg Q4HPRN PRN IV 05/17/25 17:45 Nitroglycerin 0.4 mg Q5MINP PRN SL 05/17/25 17:45 Morphine Sulfate 2 mg Q30M PRN IV 05/17/25 17:45 Pantoprazole Sodium 40 mg BID IV 05/18/25 22:00 05/25/25 09:39 40 MG Hydrocortisone Acetate 25 mg Q12HR TN 05/22/25 13:51 05/25/25 09:48 25 MG Amino Acids 0 ml @ 0 mls/hr PER PHARMACY IV 05/23/25 17:15 Diagnostic Test (Pha) 1 strip Q6HR 05/24/25 00:00 05/25/25 17:31 1 STRIP Insulin Human Regular FOLLOW SLIDING SCALE Q6HR SC 05/24/25 00:00 05/25/25 17:31 2 UNITS Dextrose 50 ml UD IV 05/23/25 22:00 Docusate Sodium 100 mg TID PO 05/23/25 22:00 05/25/25 14:30 100 MG Enteral Nutritional Formula 240 ml TIDWM PO 05/24/25 12:00 05/25/25 17:32 240 ML Ceftriaxone Sodium 50 ml @ 100 mls/hr DAILY@09 IV 05/25/25 09:00 05/25/25 09:39 100 MLS/HR Metronidazole 100 ml @ 100 mls/hr Q8HR IV 05/24/25 14:00 05/25/25 14:31 100 MLS/HR Acyclovir Sodium 500 mg/Dextrose 110 ml @ 110 mls/hr Q8HR IV 05/24/25 14:00 05/25/25 16:01 110 MLS/HR Sodium Chloride 10 ml QSHIFT@10,22 IV 05/24/25 22:00 05/25/25 09:42 10 ML Fat Emulsion Intravenous 50 ml/ Potassium Acetate 20 meq/Calcium Gluconate 4.65 meq/Multivitamins 10 ml/Chromium/ Copper/Manganese/ Zinc 1 ml/ Potassium Phosphate 30 meq/ Amino Acids/ Dextrose 887.8182 ml @ 37 mls/hr Q24H IV 05/24/25 22:00 05/25/25 21:59 05/24/25 21:31 37 MLS/HR Fat Emulsion Intravenous 50 ml/ Potassium Phosphate 48.4 meq/Multivitamins 10 ml/Chromium/ Copper/Manganese/ Zinc 1 ml/Amino Acids/Dextrose 872 ml @ 36 mls/hr [id number] IV 05/25/25 22:00 05/26/25 21:59 objective General Appearance: Cooperative. Well developed. Well nourished. NAD. Patient looks pale. Pulmonary/Respiratory: Equal bilateral air entry Abdominal Exam: Normal bowel sounds. Soft. normal abdomen, no visible veins, Nontender. No hepatospenomegaly. No masses Neuro/Mental Status: A&O x4. Coherent. Thoughts/Psych: Normal thought pattern. Appropriate mood and affect. Good judgement and insight Rectal exam (05/18/25) :Rectal mass seen but no fresh blood appreciated Skin Exam: Normal inspection. Normal color. Warm. Dry laboratory and microbiology Laboratory Tests 05/25/25 06:13 Test 05/25/25 06:13 Range/Units Serum Glucose 118 H 74-106 mg/dL Problems(with codes): (1) Colon cancer (2) CMV colitis (3) Constipation (4) Severe anemia (5) GI bleed Prognosis PLAN Monitor labs, keep hemoglobin above seven Continue IV iron Review previous records and pathology; my rectosigmoid biopsies did not confirm malignancy but were positive for CMV Discussed with Dr. Cha CT abdominal pelvis showed Sigmoidal wall colon thickening and surrounding stranding which can be seen with proctocolitis Surgical consult on board; -possible diversion surgery and low anterior resection next tuesday or tuesday - patient started on iv acyclovir ;IV Abx Dietary Evaluation Review Recommendations by RD: Protein Supplementation Comments: 1) Initiate Ensure Enlive bid 2) Encourage optimal PO intake 3) Advance to cardiac diet when medically feasible 4) Follow-up with gastroenterology and oncology 5) Continue to monitor I&O, labs, and skin integrity Expected Outcomes/Goals: 1) appetite and labs to improve 2) diet to advance 3) f/u in 3-5 days Plan discussed with: Patient (Dr Coburn), Other CC Plasma Assessment Blood Product Administration S: [id number] ALIZE KNUTSON MD May 25, 2025 21:48
[2025-05-25] MEDS: TPN PER PHARMACY IV NR (21:59)
[2025-05-26] VITALS (8 sets, daily range): BP systolic 106–124; BP diastolic 51–70; PULSE 88–101; RESP 16–18; TEMP 97.8–98.4; O2SAT 96–99
[2025-05-26] MEDS: ACYCLOVIR SOD 50MG/ML 500 MG in D5W 5% 100 ML IV SCH (00:11)
[2025-05-26 06:02] LABS: Hematocrit 24.7 % (36.0-46.0); Hemoglobin 8.1 g/dL (12.2-16.2); Mean Corpuscular Hemoglobin 30.5 pg (28.0-32.0); Mean Corpuscular Volume 92.9 fL (80.0-100.0); Nucleated Red Blood Cells % 0.4 %
[2025-05-26 06:06] LABS: Alkaline Phosphatase 51 U/L (46-116); Anion Gap 8 (5-15); Carbon Dioxide 23 mmol/L (20-31); Magnesium 2.0 mg/dL (1.6-2.6); Potassium 3.8 mmol/L (3.5-5.1); Sodium 144 mmol/L (136-145)
[2025-05-26 06:07] LABS: Bilirubin, Total 0.3 mg/dL (0.2-1.0)
[2025-05-26 06:09] LABS: Alanine Aminotransferase < 9 U/L (7-40); Albumin 2.5 g/dL (3.2-4.8); BUN/Creatinine Ratio 15.2 (10.0-20.0); Blood Urea Nitrogen < 5 mg/dL (9-23); Calcium 7.0 mg/dL (8.7-10.4); Chloride 113 mmol/L (98-107); Glucose 118 mg/dL (74-106); Total Protein 4.3 g/dL (5.7-8.2)
--- NOTE | 2025-05-26 10:58 | DVHPN2 ---
Progress Note - Surgical Date Seen: May 26, 2025 Post op day Post op day: 0 Subjective Patient reports: Feels better (Patient feeling good although still requiring intermittent blood transfusions) Review of Systems: Deferred Objective Vital signs Vital Sign Date Time Temp Pulse Resp B/P (MAP) Pulse Ox O2 Delivery O2 Flow Rate FiO2 05/26/25 09:00 98.1 88 16 106/66 (79) 98 98.1 05/26/25 08:10 Room Air* 0 21 Total Intake and Output 05/25/25 05/25/25 05/26/25 15:00 23:00 07:00 Intake Total 270 ml 1127 ml 752 ml Balance 270 ml 1127 ml 752 ml Medications Current Medications Medications Dose Ordered Sig/Orni Route Start Time Stop Time Status Last Admin Dose Admin Sodium Chloride 1,000 ml @ 120 mls/hr Q8H20M IV 05/17/25 17:45 05/26/25 10:14 120 MLS/HR Acetaminophen/ Hydrocodone Bitart 1 tab Q4HP PRN PO 05/17/25 17:45 05/24/25 21:29 1 TAB Ondansetron HCl 4 mg Q4HP PRN IV 05/17/25 17:45 Acetaminophen 650 mg Q6HP PRN PO 05/17/25 17:45 Morphine Sulfate 2 mg Q4HPRN PRN IV 05/17/25 17:45 Nitroglycerin 0.4 mg Q5MINP PRN SL 05/17/25 17:45 Morphine Sulfate 2 mg Q30M PRN IV 05/17/25 17:45 Pantoprazole Sodium 40 mg BID IV 05/18/25 22:00 05/26/25 10:04 40 MG Hydrocortisone Acetate 25 mg Q12HR CO 05/22/25 13:51 05/25/25 22:21 25 MG Amino Acids 0 ml @ 0 mls/hr PER PHARMACY IV 05/23/25 17:15 Diagnostic Test (Pha) 1 strip Q6HR 05/24/25 00:00 05/26/25 06:00 1 STRIP Insulin Human Regular FOLLOW SLIDING SCALE Q6HR SC 05/24/25 00:00 05/25/25 17:31 2 UNITS Dextrose 50 ml UD IV 05/23/25 22:00 Docusate Sodium 100 mg TID PO 05/23/25 22:00 05/26/25 05:40 100 MG Enteral Nutritional Formula 240 ml TIDWM PO 05/24/25 12:00 05/26/25 08:25 240 ML Ceftriaxone Sodium 50 ml @ 100 mls/hr DAILY@09 IV 05/25/25 09:00 05/26/25 08:25 100 MLS/HR Metronidazole 100 ml @ 100 mls/hr Q8HR IV 05/24/25 14:00 05/26/25 05:40 100 MLS/HR Sodium Chloride 10 ml QSHIFT@10,22 IV 05/24/25 22:00 05/26/25 10:04 10 ML Fat Emulsion Intravenous 50 ml/ Potassium Phosphate 48.4 meq/Multivitamins 10 ml/Chromium/ Copper/Manganese/ Zinc 1 ml/Amino Acids/Dextrose 872 ml @ 36 mls/hr [id number] IV 05/25/25 22:00 05/26/25 21:59 05/25/25 21:59 36 MLS/HR Acyclovir Sodium 500 mg/Dextrose 110 ml @ 110 mls/hr Q8H IV 05/26/25 00:15 05/26/25 10:05 110 MLS/HR Fat Emulsion Intravenous 50 ml/ Potassium Phosphate 48.4 meq/Magnesium Sulfate 4 meq/ Multivitamins 10 ml/Chromium/ Copper/Manganese/ Zinc 1 ml/Amino Acids/Dextrose 873 ml @ 36 mls/hr [id number] IV 05/26/25 22:00 05/27/25 22:14 Calcium Gluconate/ Sodium Chloride 50 ml @ 100 mls/hr Q30M IV 05/26/25 10:15 05/26/25 11:14 Laboratory Laboratory Tests 05/26/25 05:29 Test 05/26/25 05:29 Range/Units Serum Glucose 118 H 74-106 mg/dL Microbiology Date/Time Source Procedure Growth Status 05/24/25 12:45 Voided Urine Urine Culture - Preliminary Resulted 05/24/25 08:34 Blood Blood Culture - Preliminary NO GROWTH AFTER 48 HOURS OF INCUBATION. Resulted Examination: GENERAL:Normal, ABDOMEN:Normal (Soft, nondistended, depressible, nontender) Labs and/or images reviewed: Labs reviewed by me (Hemoglobin level 8.2 this morning) Problem List/Assessment/Plan Assessment and Plan Mrs. Parks is a 59-year-old female who has an active diagnosis of rectal cancer x1yr ago, and who presented to the ED due to rectal bleeding since last Tuesday. She has required 6 units of blood since admission. Colonoscopy (05/22) by Dr. Martinez showed a mass at approximately 10 cm from the anal verge ulcerated, that was not an able to be transverse by the scope. I was consulted for possible palliative diversion due to the possible pending obstruction and continued rectal bleeding. Interval: Discussed the proposed surgery with the patient, low anterior resection versus abdominoperineal resection with an end-colostomy. Also willing to detail that if a successful low anterior resection were to happen colostomy could possibly be reversed in the future. But if she required a abdominal perineal resection colostomy will be permanent. Procedure, risks, benefits, complications, alternatives discussed. Patient agrees with the proposed planned and she also wants to undergo surgery here instead of in [facility]. 1. Scheduled for OR on Tuesday 2. Tomorrow (05/27) she will need to be on a clear liquid diet until 10:00 p.m., after 10:00 p.m. she needs to be placed NPO 3. Mechanical bowel prep starting tomorrow a.m., 1 gal of GoLYTELY 4. We will add antibiotic bowel prep for tomorrow: Neomycin plus erythromycin, we will add the scheduled times 5. Continue transfusions as needed 6. Colace 100 mg t.i.d. to soften stools 7. Please start the patient on TPN as nutritional adjunct prior to surgery Plan discussed with Plan discussed with: Patient Visit Coding Surgery Date of Service if different f: May 26, 2025 Billing Provider: ANN WIRGHT MD Surgery Visit Codes: [id number] INP/OBS CARE(HIGH) ANN WRIGHT MD May 26, 2025 10:58
[2025-05-26] MEDS: CALCIUM GLUC 1,000mg/50ml-NS 50 ML IV SCH (11:47)
--- NOTE | 2025-05-26 13:01 | DVHPNRES ---
Progress Note Date Seen: May 26, 2025 Resident Creating Document: GEMINI SAVAGE RESIDENT Medical Necessity Reason Pt with a Central, PICC or Fol: No Subjective Review of Systems Patient is seen today at bedside. Labs and chart reviewed. Patient's hemoglobin level stable with a 8.1. Patient reported feeling better. Surgery recommendation reviewed and appreciated. Patient is due for surgical intervention -low anterior resection versus abdominoperineal resection with an end-colostomy on Tuesday. As per surgery details of the surgical plan was discussed with the patient. Patient was seen by Gastroenterology, as per Gastroenterology rectosigmoid biopsy revealed positive for CMV. Patient is on IV acyclovir. Objective vital signs Vital Sign Date Time Temp Pulse Resp B/P (MAP) Pulse Ox O2 Delivery O2 Flow Rate FiO2 05/26/25 09:00 98.1 88 16 106/66 (79) 98 98.1 05/26/25 08:10 Room Air* 0 21 Total Intake and Output 05/25/25 05/25/25 05/26/25 15:00 23:00 07:00 Intake Total 270 ml 1127 ml 752 ml Balance 270 ml 1127 ml 752 ml medications Current Medications Medications Dose Ordered Sig/Roni Route Start Time Stop Time Status Last Admin Dose Admin Sodium Chloride 1,000 ml @ 120 mls/hr Q8H20M IV 05/17/25 17:45 05/26/25 10:14 120 MLS/HR Acetaminophen/ Hydrocodone Bitart 1 tab Q4HP PRN PO 05/17/25 17:45 05/24/25 21:29 1 TAB Ondansetron HCl 4 mg Q4HP PRN IV 05/17/25 17:45 Acetaminophen 650 mg Q6HP PRN PO 05/17/25 17:45 Morphine Sulfate 2 mg Q4HPRN PRN IV 05/17/25 17:45 Nitroglycerin 0.4 mg Q5MINP PRN SL 05/17/25 17:45 Morphine Sulfate 2 mg Q30M PRN IV 05/17/25 17:45 Pantoprazole Sodium 40 mg BID IV 05/18/25 22:00 05/26/25 10:04 40 MG Hydrocortisone Acetate 25 mg Q12HR LA 05/22/25 13:51 05/25/25 22:21 25 MG Amino Acids 0 ml @ 0 mls/hr PER PHARMACY IV 05/23/25 17:15 Diagnostic Test (Pha) 1 strip Q6HR 05/24/25 00:00 05/26/25 11:40 1 STRIP Insulin Human Regular FOLLOW SLIDING SCALE Q6HR SC 05/24/25 00:00 05/26/25 11:39 2 UNITS Dextrose 50 ml UD IV 05/23/25 22:00 Docusate Sodium 100 mg TID PO 05/23/25 22:00 05/26/25 05:40 100 MG Enteral Nutritional Formula 240 ml TIDWM PO 05/24/25 12:00 05/26/25 11:49 240 ML Ceftriaxone Sodium 50 ml @ 100 mls/hr DAILY@09 IV 05/25/25 09:00 05/26/25 08:25 100 MLS/HR Metronidazole 100 ml @ 100 mls/hr Q8HR IV 05/24/25 14:00 05/26/25 05:40 100 MLS/HR Sodium Chloride 10 ml QSHIFT@10,22 IV 05/24/25 22:00 05/26/25 10:04 10 ML Fat Emulsion Intravenous 50 ml/ Potassium Phosphate 48.4 meq/Multivitamins 10 ml/Chromium/ Copper/Manganese/ Zinc 1 ml/Amino Acids/Dextrose 872 ml @ 36 mls/hr [id number] IV 05/25/25 22:00 05/26/25 21:59 05/25/25 21:59 36 MLS/HR Acyclovir Sodium 500 mg/Dextrose 110 ml @ 110 mls/hr Q8H IV 05/26/25 00:15 05/26/25 10:05 110 MLS/HR Fat Emulsion Intravenous 50 ml/ Potassium Phosphate 48.4 meq/Magnesium Sulfate 4 meq/ Multivitamins 10 ml/Chromium/ Copper/Manganese/ Zinc 1 ml/Amino Acids/Dextrose 873 ml @ 36 mls/hr [id number] IV 05/26/25 22:00 05/27/25 22:14 Examination General Appearance: Cooperative. Well developed. Well nourished. NAD. Patient looks pale. Head Exam: Normal inspection Neck Exam: Normal inspection. Non-tender. Normal alignment Pulmonary/Respiratory: Chest non-tender. Clear bilateral breath sounds, no crackles, no wheezing. Cardiovascular/Chest: Regular rate and rhythm. No murmurs. No JVD. Peripheral Pulses: 2+ Radial (R). 2+ Radial (L). 2+ Pedal (R). 2+ Pedal (L) Abdominal Exam: Normal bowel sounds. Soft. normal abdomen, no visible veins, Nontender. No hepatospenomegaly. No masses Ankle Exam: Negative ankle edema Lower extremities: Negative lower extremity edema Neuro/Mental Status: A&O x4. Coherent. Thoughts/Psych: Normal thought pattern. Appropriate mood and affect. Good judgement and insight Rectal exam (05/18/25) :Rectal mass seen but no fresh blood appreciated Skin Exam: Normal inspection. Normal color. Warm. Dry laboratory and microbiology Laboratory Tests 05/26/25 05:29 Test 05/26/25 05:29 Range/Units Serum Glucose 118 H 74-106 mg/dL Microbiology Date/Time Source Procedure Growth Status 05/24/25 12:45 Voided Urine Urine Culture - Preliminary Resulted 05/24/25 08:34 Blood Blood Culture - Preliminary NO GROWTH AFTER 48 HOURS OF INCUBATION. Resulted Problem List/Assessment/Plan Problem List/Assessment/Plan Problem List/Assessment/Plan- Patient is due for surgical intervention -low anterior resection versus abdominoperineal resection with an end-colostomy on Tuesday. As per surgery details of the surgical plan was discussed with the patient. Patient was seen by Gastroenterology, as per Gastroenterology r ectosigmoid biopsy revealed positive for CMV. Patient is on IV acyclovir. 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 -patient was started on acyclovir by GI - rectal exam showed rectal mass, exophytic but no fresh blood appreciated - stool occult blood- positive - CT abdominal pelvis showed Sigmoidal wall colon thickening and surrounding stranding which can be seen with proctocolitis - Continue following up with oncologist after discharge - surgical consult-possible diversion surgery and low anterior resection next tuesday Hypokalemia, repleted -monitor BMP GI PPX: Protonix VTE ppx: SCDs Diet: clear liquids Goals of care: Full code, discussed for >23 minutes Plan discussed with patient Plan discussed with Dr Cartwright Plan discussed with: Patient, Other (RN) Dietary Evaluation Review Recommendations by RD: Protein Supplementation Comments: 1) Initiate Ensure Enlive bid 2) Encourage optimal PO intake 3) Advance to cardiac diet when medically feasible 4) Follow-up with gastroenterology and oncology 5) Continue to monitor I&O, labs, and skin integrity Expected Outcomes/Goals: 1) appetite and labs to improve 2) diet to advance 3) f/u in 3-5 days CC Plasma Assessment Blood Product Administration S: [id number] Date of Service: May 26, 2025 Billing Provider: LUCHO CARTWRIGHT MD Common Visit Codes: [id number] INP/OBS CARE(HIGH) GEMINI SAVAGE RESIDENT May 26, 2025 13:01 LUCHO CARTWRIGHT MD May 28, 2025 20:35
[2025-05-26] MEDS: POTASSIUM PHOSPHATE 22 MEQ in SODIUM CHL 0.9% 100 ML IV ONE (13:03)
--- NOTE | 2025-05-26 21:22 | DVHPN2 ---
Progress Note - Dictate Date Seen: May 26, 2025 Medical Necessity Reason Pt with a Central, PICC or Fol: No Subjective No new complaints, in better spirits She states she has a low cancer and is now willing for surgery Her hemoglobin today was 8.1 She was started on IV acyclovir yesterday after the diagnosis of CMV colitis was made on rectosigmoid ulcerated area biopsies CEA level normal at 0.55 No clear-cut malignancy was identified on the biopsy sites but there was some cellular atypia. Preliminary Blood culture showed no growth in the first 24 hours. No fever spikes yesterday. Preliminary urine culture showed no growth after 24 hours. vital signs Vital Sign Date Time Temp Pulse Resp B/P (MAP) Pulse Ox O2 Delivery O2 Flow Rate FiO2 05/26/25 16:52 98.4 95 16 122/66 (84) 99 98.4 05/26/25 08:10 Room Air* 0 21 Total Intake and Output 05/25/25 05/25/25 05/26/25 14:59 22:59 06:59 Intake Total 270 ml 1127 ml 752 ml Balance 270 ml 1127 ml 752 ml medications Current Medications Medications Dose Ordered Sig/Roni Route Start Time Stop Time Status Last Admin Dose Admin Sodium Chloride 1,000 ml @ 120 mls/hr Q8H20M IV 05/17/25 17:45 05/26/25 17:26 120 MLS/HR Ondansetron HCl 4 mg Q4HP PRN IV 05/17/25 17:45 Acetaminophen 650 mg Q6HP PRN PO 05/17/25 17:45 Nitroglycerin 0.4 mg Q5MINP PRN SL 05/17/25 17:45 Pantoprazole Sodium 40 mg BID IV 05/18/25 22:00 05/26/25 10:04 40 MG Hydrocortisone Acetate 25 mg Q12HR MS 05/22/25 13:51 05/25/25 22:21 25 MG Amino Acids 0 ml @ 0 mls/hr PER PHARMACY IV 05/23/25 17:15 Diagnostic Test (Pha) 1 strip Q6HR 05/24/25 00:00 05/26/25 17:25 1 STRIP Insulin Human Regular FOLLOW SLIDING SCALE Q6HR SC 05/24/25 00:00 05/26/25 11:39 2 UNITS Dextrose 50 ml UD IV 05/23/25 22:00 Docusate Sodium 100 mg TID PO 05/23/25 22:00 05/26/25 05:40 100 MG Enteral Nutritional Formula 240 ml TIDWM PO 05/24/25 12:00 05/26/25 17:25 240 ML Ceftriaxone Sodium 50 ml @ 100 mls/hr DAILY@09 IV 05/25/25 09:00 05/26/25 08:25 100 MLS/HR Metronidazole 100 ml @ 100 mls/hr Q8HR IV 05/24/25 14:00 05/26/25 14:40 100 MLS/HR Sodium Chloride 10 ml QSHIFT@10,22 IV 05/24/25 22:00 05/26/25 10:04 10 ML Fat Emulsion Intravenous 50 ml/ Potassium Phosphate 48.4 meq/Multivitamins 10 ml/Chromium/ Copper/Manganese/ Zinc 1 ml/Amino Acids/Dextrose 872 ml @ 36 mls/hr [id number] IV 05/25/25 22:00 05/26/25 21:59 05/25/25 21:59 36 MLS/HR Acyclovir Sodium 500 mg/Dextrose 110 ml @ 110 mls/hr Q8H IV 05/26/25 00:15 05/26/25 16:04 110 MLS/HR Fat Emulsion Intravenous 50 ml/ Potassium Phosphate 48.4 meq/Magnesium Sulfate 4 meq/ Multivitamins 10 ml/Chromium/ Copper/Manganese/ Zinc 1 ml/Amino Acids/Dextrose 873 ml @ 36 mls/hr [id number] IV 05/26/25 22:00 05/27/25 22:14 Neomycin Sulfate 1,000 mg TID PO 05/27/25 20:00 UNV Erythromycin 1,000 mg TID PO 05/27/25 20:00 UNV objective General Appearance: Cooperative. Well developed. Well nourished. NAD. Patient looks pale. Pulmonary/Respiratory: Equal bilateral air entry Abdominal Exam: Normal bowel sounds. Soft. normal abdomen, no visible veins, Nontender. No hepatospenomegaly. No masses Neuro/Mental Status: A&O x4. Coherent. Thoughts/Psych: Normal thought pattern. Appropriate mood and affect. Good judgement and insight Rectal exam (05/18/25) :Rectal mass seen but no fresh blood appreciated Skin Exam: Normal inspection. Normal color. Warm. Dry laboratory and microbiology Laboratory Tests 05/26/25 05:29 Test 05/26/25 05:29 Range/Units Serum Glucose 118 H 74-106 mg/dL Problems(with codes): (1) Cancer of rectosigmoid (colon) (2) Colon cancer (3) CMV colitis (4) Rectal adenocarcinoma Prognosis PLAN As per surgical consult: 1. Scheduled for OR on Tuesday 2. Tomorrow (05/27) she will need to be on a clear liquid diet until 10:00 p.m., after 10:00 p.m. she needs to be placed NPO 3. Mechanical bowel prep starting tomorrow a.m., 1 gal of GoLYTELY 4. We will add antibiotic bowel prep for tomorrow: Neomycin plus erythromycin, we will add the scheduled times 5. Continue transfusions as needed 6. Colace 100 mg t.i.d. to soften stools 7. Please start the patient on TPN as nutritional adjunct prior to surgery Dietary Evaluation Review Recommendations by RD: Protein Supplementation Comments: 1) Initiate Ensure Enlive bid 2) Encourage optimal PO intake 3) Advance to cardiac diet when medically feasible 4) Follow-up with gastroenterology and oncology 5) Continue to monitor I&O, labs, and skin integrity Expected Outcomes/Goals: 1) appetite and labs to improve 2) diet to advance 3) f/u in 3-5 days Plan discussed with: Patient, Spouse CC Plasma Assessment Blood Product Administration S: [id number] LAIZE KNUTSON MD May 26, 2025 21:22
[2025-05-26] MEDS: [UNRECOGNIZED DRUG - OTHER] IV NR (21:40)
[2025-05-26] MEDS: FAT EMULSION IV NR (21:40)
[2025-05-26] MEDS: POTASSIUM PHOSPHATE IV NR (21:40)
[2025-05-26] MEDS: MAGNESIUM SULF IV NR (21:40)
[2025-05-27] VITALS (8 sets, daily range): BP systolic 110–129; BP diastolic 64–80; PULSE 90–104; RESP 16–18; TEMP 98–98.9; O2SAT 95–99
[2025-05-27 04:44] LABS: Urine Protein, UAD Normal (Negative)
[2025-05-27] MEDS: GOLYTELY 4L KIT PO ONE (05:28)
--- NOTE | 2025-05-27 06:00 | DVH ---
CHEST RADIOGRAPH Indication: Procedure Technique: Single frontal view of the chest was obtained COMPARISON: XY CHEST XRAY 1 VIEW on DOS: 05/24/25, XY CHEST XRAY 1 VIEW on DOS: 05/18/25 FINDINGS: Lines and Tubes: Left PICC in satisfactory position overlying the superior vena cava. Lungs: Clear Pleura: No effusion. No pneumothorax. Cardiomediastinal contours: Unremarkable Bones: Unremarkable IMPRESSION: No acute disease.
[2025-05-27 07:30] LABS: Hematocrit 26.4 % (36.0-46.0); Hemoglobin 8.8 g/dL (12.2-16.2); Mean Corpuscular Hemoglobin 30.9 pg (28.0-32.0); Mean Corpuscular Volume 92.7 fL (80.0-100.0); Nucleated Red Blood Cells % 0.5 %
[2025-05-27 07:43] LABS: INR 1.03 (0.9-1.15); Partial Thromboplastin Time 26.0 SEC (24.5-34.5); Prothrombin Time 10.9 sec (9.3-11.8)
[2025-05-27 07:58] LABS: Alkaline Phosphatase 57 U/L (46-116); Anion Gap 10 (5-15); Carbon Dioxide 22 mmol/L (20-31); Glucose 101 mg/dL (74-106); Magnesium 2.2 mg/dL (1.6-2.6); Potassium 4.0 mmol/L (3.5-5.1); Sodium 144 mmol/L (136-145)
[2025-05-27 07:59] LABS: Bilirubin, Total 0.3 mg/dL (0.2-1.0)
[2025-05-27 08:07] LABS: Alanine Aminotransferase < 9 U/L (7-40); Albumin 3.0 g/dL (3.2-4.8); BUN/Creatinine Ratio 17.9 (10.0-20.0); Blood Urea Nitrogen < 5 mg/dL (9-23); Calcium 7.7 mg/dL (8.7-10.4); Chloride 112 mmol/L (98-107); Total Protein 5.0 g/dL (5.7-8.2)
[2025-05-27] MEDS: POTASSIUM PHOSPHATE 22 MEQ in SODIUM CHL 0.9% 100 ML IV ONE (11:41)
--- NOTE | 2025-05-27 12:50 | DVHPN2 ---
Progress Note - Surgical Date Seen: May 27, 2025 Post op day Post op day: 0 Subjective Patient reports: No new complaints (Patient feeling well without any complaints states that she has not had anymore bloody bowel movements) Review of Systems: Deferred Objective Vital signs Vital Sign Date Time Temp Pulse Resp B/P (MAP) Pulse Ox O2 Delivery O2 Flow Rate FiO2 05/27/25 09:29 98.0 91 16 129/74 (92) 97 98.0 05/26/25 20:00 Room Air* 0 21 Total Intake and Output 05/26/25 05/26/25 05/27/25 15:00 23:00 07:00 Intake Total 380 ml 1700 ml 2347.2 ml Balance 380 ml 1700 ml 2347.2 ml Medications Current Medications Medications Dose Ordered Sig/Roni Route Start Time Stop Time Status Last Admin Dose Admin Sodium Chloride 1,000 ml @ 120 mls/hr Q8H20M IV 05/17/25 17:45 05/27/25 03:28 120 MLS/HR Ondansetron HCl 4 mg Q4HP PRN IV 05/17/25 17:45 Acetaminophen 650 mg Q6HP PRN PO 05/17/25 17:45 Nitroglycerin 0.4 mg Q5MINP PRN SL 05/17/25 17:45 Pantoprazole Sodium 40 mg BID IV 05/18/25 22:00 05/27/25 10:02 40 MG Hydrocortisone Acetate 25 mg Q12HR RI 05/22/25 13:51 05/26/25 21:32 25 MG Amino Acids 0 ml @ 0 mls/hr PER PHARMACY IV 05/23/25 17:15 Diagnostic Test (Pha) 1 strip Q6HR 05/24/25 00:00 05/27/25 11:41 1 STRIP Insulin Human Regular FOLLOW SLIDING SCALE Q6HR SC 05/24/25 00:00 05/26/25 11:39 2 UNITS Dextrose 50 ml UD IV 05/23/25 22:00 Docusate Sodium 100 mg TID PO 05/23/25 22:00 05/27/25 05:28 100 MG Enteral Nutritional Formula 240 ml TIDWM PO 05/24/25 12:00 05/27/25 11:41 240 ML Ceftriaxone Sodium 50 ml @ 100 mls/hr DAILY@09 IV 05/25/25 09:00 05/27/25 10:02 100 MLS/HR Metronidazole 100 ml @ 100 mls/hr Q8HR IV 05/24/25 14:00 05/27/25 05:28 100 MLS/HR Sodium Chloride 10 ml QSHIFT@,22 IV 05/24/25 22:00 05/27/25 10:02 10 ML Acyclovir Sodium 500 mg/Dextrose 110 ml @ 110 mls/hr Q8H IV 05/26/25 00:15 05/27/25 08:24 110 MLS/HR Fat Emulsion Intravenous 50 ml/ Potassium Phosphate 48.4 meq/Magnesium Sulfate 4 meq/ Multivitamins 10 ml/Chromium/ Copper/Manganese/ Zinc 1 ml/Amino Acids/Dextrose 873 ml @ 36 mls/hr [id number] IV 05/26/25 22:00 05/27/25 22:14 05/26/25 21:40 36 MLS/HR Neomycin Sulfate 1,000 mg TID PO 05/27/25 20:00 UNV Erythromycin 1,000 mg TID@, PO 05/27/25 20:00 05/28/25 01:00 Neomycin Sulfate 1,000 mg TID@0000,1999,2099 PO 05/27/25 20:00 05/28/25 01:00 Fat Emulsion Intravenous 50 ml/ Potassium Acetate 10 meq/Potassium Phosphate 44 meq/ Multivitamins 10 ml/Chromium/ Copper/Manganese/ Zinc 1 ml/Amino Acids/Dextrose 876 ml @ 37 mls/hr [id number] IV 05/27/25 22:00 05/28/25 21:59 Laboratory Laboratory Tests 05/27/25 07:00 Test 05/27/25 07:00 Range/Units Serum Glucose 101 74-106 mg/dL Microbiology Date/Time Source Procedure Growth Status 05/24/25 12:45 Voided Urine Urine Culture - Final Complete 05/24/25 08:34 Blood Blood Culture - Preliminary NO GROWTH AFTER 72 HOURS OF INCUBATION. Resulted Examination: GENERAL:Normal, ABDOMEN:Normal (Flat, soft, depressible, nontender abdominoplasty scar well healed) Labs and/or images reviewed: Labs reviewed by me Problem List/Assessment/Plan Assessment and Plan Mrs. Parks is a 59-year-old female who has an active diagnosis of rectal cancer x1yr ago, and who presented to the ED due to rectal bleeding since last Tuesday. She has required 6 units of blood since admission. Colonoscopy (05/22) by Dr. Martinez showed a mass at approximately 10 cm from the anal verge ulcerated, that was not an able to be transverse by the scope. I was consulted for possible palliative diversion due to the possible pending obstruction and continued rectal bleeding. Interval: Discussed the proposed surgery with the patient, low anterior resection versus abdominoperineal resection with an end-colostomy. Also willing to detail that if a successful low anterior resection were to happen colostomy could possibly be reversed in the future. But if she required a abdominal perineal resection colostomy will be permanent. Procedure, risks, benefits, complications, alternatives discussed. Patient agrees with the proposed planned and she also wants to undergo surgery here instead of in [facility]. No further questions today, we will plan to proceed with surgery as planned tomorrow. 1. Scheduled for OR on Tuesday 2. clear liquid diet until 10:00 p.m., after 10:00 p.m. she needs to be placed NPO 3. Mechanical bowel prep starting tomorrow a.m., 1 gal of GoLYTELY 4. We will add antibiotic bowel prep for tomorrow: Neomycin plus erythromycin, at 8:00 p.m./9:00 p.m. and 12:00 p.m. 5. Continue transfusions as needed 6. Colace 100 mg t.i.d. to soften stools 7. Please start the patient on TPN as nutritional adjunct prior to surgery My Orders My Orders Orders - ANN WRIGHT MD Procedure Category Date Status Time Erythromycin Tablet PHA 05/27/25 In Process 20:00 Clear Liq Diet DIET 05/27/25 Transmitted Breakfast Npo Except For RAMON 05/27/25 In Process Medications 22:00 Npo (Nothing By DIET 05/28/25 Transmitted Mouth) Diet Breakfast Neomycin Sulfate PHA 05/27/25 In Process Tablet (Neomycin 20:00 Obtain Consent For: ORDERS 05/27/25 Transmitted 12:45 Obtain Consent For RAMON 05/27/25 In Process Anesthesia 12:45 Plan discussed with Plan discussed with: Patient Visit Coding Surgery Date of Service if different f: May 27, 2025 Billing Provider: ANN WRIGHT MD Surgery Visit Codes: [id number] INP/OBS CARE(HIGH) ANN WRIGHT MD May 27, 2025 12:50
--- NOTE | 2025-05-27 14:28 | DVHPN2 ---
Progress Note Date Seen: May 27, 2025 Resident Creating Document: RILEY REINA RESIDENT Medical Necessity Reason Pt with a Central, PICC or Fol: No Subjective Review of Systems Patient seen and examined at bedside Last bowel movement today, nonbloody Notes having multiple bowel movements over the last 24 hours Scheduled for surgery tomorrow Objective vital signs Vital Sign Date Time Temp Pulse Resp B/P (MAP) Pulse Ox O2 Delivery O2 Flow Rate FiO2 05/27/25 12:54 98.7 100 16 128/77 (94) 99 98.7 05/26/25 20:00 Room Air* 0 21 Total Intake and Output 05/26/25 05/26/25 05/27/25 15:00 23:00 07:00 Intake Total 380 ml 1700 ml 2347.2 ml Balance 380 ml 1700 ml 2347.2 ml medications Current Medications Medications Dose Ordered Sig/Roni Route Start Time Stop Time Status Last Admin Dose Admin Sodium Chloride 1,000 ml @ 120 mls/hr Q8H20M IV 05/17/25 17:45 05/27/25 03:28 120 MLS/HR Ondansetron HCl 4 mg Q4HP PRN IV 05/17/25 17:45 Acetaminophen 650 mg Q6HP PRN PO 05/17/25 17:45 Nitroglycerin 0.4 mg Q5MINP PRN SL 05/17/25 17:45 Pantoprazole Sodium 40 mg BID IV 05/18/25 22:00 05/27/25 10:02 40 MG Hydrocortisone Acetate 25 mg Q12HR KS 05/22/25 13:51 05/26/25 21:32 25 MG Amino Acids 0 ml @ 0 mls/hr PER PHARMACY IV 05/23/25 17:15 Diagnostic Test (Pha) 1 strip Q6HR 05/24/25 00:00 05/27/25 11:41 1 STRIP Insulin Human Regular FOLLOW SLIDING SCALE Q6HR SC 05/24/25 00:00 05/26/25 11:39 2 UNITS Dextrose 50 ml UD IV 05/23/25 22:00 Docusate Sodium 100 mg TID PO 05/23/25 22:00 05/27/25 14:18 100 MG Enteral Nutritional Formula 240 ml TIDWM PO 05/24/25 12:00 05/27/25 11:41 240 ML Ceftriaxone Sodium 50 ml @ 100 mls/hr DAILY@09 IV 05/25/25 09:00 05/27/25 10:02 100 MLS/HR Metronidazole 100 ml @ 100 mls/hr Q8HR IV 05/24/25 14:00 05/27/25 14:18 100 MLS/HR Sodium Chloride 10 ml QSHIFT@10,22 IV 05/24/25 22:00 05/27/25 10:02 10 ML Acyclovir Sodium 500 mg/Dextrose 110 ml @ 110 mls/hr Q8H IV 05/26/25 00:15 05/27/25 08:24 110 MLS/HR Fat Emulsion Intravenous 50 ml/ Potassium Phosphate 48.4 meq/Magnesium Sulfate 4 meq/ Multivitamins 10 ml/Chromium/ Copper/Manganese/ Zinc 1 ml/Amino Acids/Dextrose 873 ml @ 36 mls/hr [id number] IV 05/26/25 22:00 05/27/25 22:14 05/26/25 21:40 36 MLS/HR Neomycin Sulfate 1,000 mg TID PO 05/27/25 20:00 UNV Erythromycin 1,000 mg TID@0000,1999,2099 PO 05/27/25 20:00 05/28/25 01:00 Neomycin Sulfate 1,000 mg TID@0000,1999,2099 PO 05/27/25 20:00 05/28/25 01:00 Fat Emulsion Intravenous 50 ml/ Potassium Acetate 10 meq/Potassium Phosphate 44 meq/ Multivitamins 10 ml/Chromium/ Copper/Manganese/ Zinc 1 ml/Amino Acids/Dextrose 876 ml @ 37 mls/hr [id number] IV 05/27/25 22:00 05/28/25 21:59 Examination General Appearance: Cooperative. Well developed. Well nourished. NAD. Patient looks pale. Pulmonary/Respiratory: Equal bilateral air Cardiovascular/Chest: Regular rate and rhythm. No murmurs. No JVD. Abdominal Exam: Lower abdominal tenderness. Normal bowel sounds. Soft. normal abdomen, no visible veins, No hepatospenomegaly. No masses Ankle Exam: Negative ankle edema Neuro/Mental Status: A&O x4. Coherent. Thoughts/Psych: Normal thought pattern. Appropriate mood and affect. Good judgement and insight Rectal exam (05/18/25) :Rectal mass seen but no fresh blood appreciated Skin Exam: Normal inspection. Normal color. Warm. Dry laboratory and microbiology Laboratory Tests 05/27/25 07:00 Test 05/27/25 07:00 Range/Units Serum Glucose 101 74-106 mg/dL Microbiology Date/Time Source Procedure Growth Status 05/24/25 12:45 Voided Urine Urine Culture - Final Complete 05/24/25 08:34 Blood Blood Culture - Preliminary NO GROWTH AFTER 72 HOURS OF INCUBATION. Resulted Labs and/or images reviewed: Labs reviewed by me, Image(s) reviewed by me Problem List/Assessment/Plan Problem List/Assessment/Plan Lower GI bleed One to 2+ engorged internal hemorrhoids Severe anemia due to above History of colorectal carcinoma s/p chemotherapy and radiotherapy Rectal cancer with bowel obstruction Plan: Scheduled for surgery tomorrow on 05/28/2025 On clear liquid diet NPO after 10:00 p.m. Continue TPN Receiving IV iron S/p 6 PRBCs , transfuse as necessary to keep hemoglobin above 7 Last colonoscopy February 2024 Colonoscopy showed a narrowed ulcerated partially obstructing circumferential rectosigmoid mass with the distal margin at about 10 cm above the anal verge b eyond which the scope could not be advanced. There was formed stool stuck within the narrowed lumen in the colonoscope could not be advanced safely beyond this area. Biopsies were taken. One to 2+ engorged internal hemorrhoids and some excoriation of the perianal area. Patient will benefit from surgical intervention, surgical consult place and discussion held with Dr. Mehta as well as patient's oncologist Dr. Rocha Patient has surgical plan with her surgeon at [facility], however, patient is at risk of impending bowel obstruction as well as requiring PRBC, may not be stable for discharge in might require surgical intervention within this hospitalization. Ensure 250 mL t.i.d. with meals Thank you so much for the opportunity to consult on your patient. GI team will follow the patient. In case of any questions or concerns please feel free to reach out. Plan discussed with Dr. Martinez Plan discussed with: Patient, Other (RN) My Orders My Orders Orders - RILEY REINA RESIDENT Procedure Category Date Status Time Amino Acid PHA 05/27/25 In Process Infusion... W/Fat 22:00 Comprehensive LAB 05/28/25 Verified Metabolic Panel 04:00 Phosphorus LAB 05/28/25 Verified 04:00 Magnesium LAB 05/28/25 Verified 04:00 Tpn Per Pharmacy RAMON 05/27/25 In Process 22:00 Dietary Evaluation Review Recommendations by RD: Protein Supplementation Comments: 1) Initiate Ensure Enlive bid 2) Encourage optimal PO intake 3) Advance to cardiac diet when medically feasible 4) Follow-up with gastroenterology and oncology 5) Continue to monitor I&O, labs, and skin integrity Expected Outcomes/Goals: 1) appetite and labs to improve 2) diet to advance 3) f/u in 3-5 days CC Plasma Assessment Blood Product Administration S: [id number] RILEY REINA RESIDENT May 27, 2025 14:28
--- NOTE | 2025-05-27 14:47 | DVHPNRES ---
Progress Note Date Seen: May 27, 2025 Resident Creating Document: SHE JASON Medical Necessity Reason Pt with a Central, PICC or Fol: No Subjective Review of Systems Alix Parks is a 59 years old female with a PMH of colorectal carcinoma diagnosed 1 year ago currently taking radiation ( more than 30 sessions) and chemotherapy (capecitabine) who presented to the ED with severe rectal bleeding for past 3 weeks. Patient reported she has been having significant rectal bleeding for past 3 weeks which has continued despite ongoing radiation and chemotherapy treatments. Patient also started experiencing feeling tired, having difficulty breathing, unable to walk due to weakness. Patient also experiencing pain when using bathroom. These symptoms have significantly impacted the daily living function so prompted her to visit ED. On my assessment patient denies fever, nausea, vomiting, chills, abdominal pain, diarrhea, constipation and other associated symptoms. PMH: Colorectal carcinoma, anemia required blood transfusion, thyroid tumor PSH: Hemithyroidectomy 5-6 years ago Family history: Grandmother colon cancer, cousin colon cancer, mother stomach cancer Social history: Lives with family. Denies smoking, alcohol and other drug abuse Allergies: No known allergies Patient seen and examined at bedside. Patient is alert and oriented to time, place person and responding to all questions. Patient has generalised weakness. Eyes: No Pain, No Vision change, No Conjunctivae inflammation, No Eyelid inflammation, No Redness ENT: No Ear pain, No Ear discharge, No Nose pain, No Nose discharge, No Nose congestion, No Mouth pain, No Mouth swelling, No Throat pain, No Throat swelling Cardiovascular: No Chest Pain, No Palpitations, No Orthopnea, No Paroxysmal No Dyspnea, No Edema, No Lt Headedness Respiratory: No Cough, No Dry, No Shortness of breath, No SOB with exertion, No Wheezing, No Hemoptysis, No Pleuritic Pain, No Sputum Gastrointestinal: No Nausea, No Vomiting, No Abdominal Pain, No Diarrhea, No Constipation, No Melena, Hematochezia Genitourinary: No Dysuria, No Frequency, No Incontinence, No Hematuria, No Retention 05/19- On evaluation today, she says she feels better, although the rectal bleeding has continued. She has been transfused 3 units of PRBCs since admission. Hemoglobin this morning was 8.2 and it dropped to 7.5 later in the day. She was transitioned from clear liquids to full liquid diet and was given a 500 cc bolus of NS. GI was consulted who asked to Continue to monitor labs, check CEA level.Supportive care for now .Review patient's last colonoscopy and decide timing of a repeat sigmoidoscopy or colonoscopy pending clinical progress. Repeat order for H & H at 10:00 p.m. on 05/19/2025 was placed. 05/20- The patient was seen at bedside. Her hemoglobin this morning was 6.6, so she got transfused with another bag of PRBCs. The patient complains of ongoing per rectal bleeding which is concerning to her. Repeat GI consult was done, pending evaluation by them. Her diet was advanced from full liquid to soft mechanical diet. 05/21- the patient was seen at bedside today. Her hemoglobin was 6.9, so she was given another transfusion of PRBC. Potassium today was 3.3 so patient was given 20 mEq of potassium. She complains of continued rectal bleeding with every bowel movement. He was put on clear liquid diet and is scheduled for colonoscopy tomorrow. She will be given another bag of PRBCs later this evening as recommended by GI. 05/22- patient was seen at bedside today. Her hemoglobin today was 10.3. The patient went for colonoscopy today but it could not be completed as there was a narrowed ulcerated partially obstructing circumferential rectosigmoid mass with the distal margin at about 10 cm above the anal verge. Surgical consult was ordered by GI. Patient had swelling, redness and pain at the site of transfusion and was found to have a superficial thrombus in right cephalic vein. 05/23- patient was seen at bedside today. Her hemoglobin today was 7.9. Surgery saw the patient and discussed the possibility of a possible diversion surgery and low anterior resection on Tuesday or Tuesday. The patient agreed to this. We were asked to continue transfusion if hemoglobin goes below 7. Colace t.i.d. was added along with Clinimix for nutrition via PICC line. We will continue with full liquid diet and supplement with ensure. 05/24- patient was seen at bedside today. Her hemoglobin today was 7.2, another PRBC transfusion was ordered for her. She was started on ensure. She had a few fever spikes yesterday, so repeat UA, urine culture, COVID, influenza, chest x- ray were ordered and she was started on ceftriaxone and Flagyl. 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 05/25- the patient was seen at bedside today. Her hemoglobin today was 8.2. 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 Preliminary Blood culture showed no growth in the first 24 hours. No fever spikes yesterday. Pending surgical procedure on Tuesday/Tuesday. Preliminary urine culture showed no growth after 24 hours. 05/26- Patient is seen today at bedside. Labs and chart reviewed. Patient's hemoglobin level stable with a 8.1. Patient reported feeling better. Surgery recommendation reviewed and appreciated. Patient is due for surgical intervention -low anterior resection versus abdominoperineal resection with an end-colostomy on Tuesday. As per surgery details of the surgical plan was discussed with the patient. Patient was seen by Gastroenterology, as per Gastroenterology rectosigmoid biopsy revealed positive for CMV. Patient is on IV acyclovir. 05/27- Patient is seen today at bedside. Labs and chart reviewed. Patient's hemoglobin level stable with a 8.8. Patient reported feeling better. As of this morning, the patient continues to experience rectal bleeding. Surgical intervention is scheduled for tomorrow. The patient will remain NPO after midnight in preparation for the procedure. Laboratory tests have been ordered and are scheduled for tomorrow morning. Objective vital signs Vital Sign Date Time Temp Pulse Resp B/P (MAP) Pulse Ox O2 Delivery O2 Flow Rate FiO2 05/27/25 12:54 98.7 100 16 128/77 (94) 99 98.7 05/26/25 20:00 Room Air* 0 21 Total Intake and Output 05/26/25 05/26/25 05/27/25 15:00 23:00 07:00 Intake Total 380 ml 1700 ml 2347.2 ml Balance 380 ml 1700 ml 2347.2 ml medications Current Medications Medications Dose Ordered Sig/Roni Route Start Time Stop Time Status Last Admin Dose Admin Sodium Chloride 1,000 ml @ 120 mls/hr Q8H20M IV 05/17/25 17:45 05/27/25 03:28 120 MLS/HR Ondansetron HCl 4 mg Q4HP PRN IV 05/17/25 17:45 Acetaminophen 650 mg Q6HP PRN PO 05/17/25 17:45 Nitroglycerin 0.4 mg Q5MINP PRN SL 05/17/25 17:45 Pantoprazole Sodium 40 mg BID IV 05/18/25 22:00 05/27/25 10:02 40 MG Hydrocortisone Acetate 25 mg Q12HR VA 05/22/25 13:51 05/26/25 21:32 25 MG Amino Acids 0 ml @ 0 mls/hr PER PHARMACY IV 05/23/25 17:15 Diagnostic Test (Pha) 1 strip Q6HR 05/24/25 00:00 05/27/25 11:41 1 STRIP Insulin Human Regular FOLLOW SLIDING SCALE Q6HR SC 05/24/25 00:00 05/26/25 11:39 2 UNITS Dextrose 50 ml UD IV 05/23/25 22:00 Docusate Sodium 100 mg TID PO 05/23/25 22:00 05/27/25 14:18 100 MG Enteral Nutritional Formula 240 ml TIDWM PO 05/24/25 12:00 05/27/25 11:41 240 ML Ceftriaxone Sodium 50 ml @ 100 mls/hr DAILY@09 IV 05/25/25 09:00 05/27/25 10:02 100 MLS/HR Metronidazole 100 ml @ 100 mls/hr Q8HR IV 05/24/25 14:00 05/27/25 14:18 100 MLS/HR Sodium Chloride 10 ml QSHIFT@10,22 IV 05/24/25 22:00 05/27/25 10:02 10 ML Acyclovir Sodium 500 mg/Dextrose 110 ml @ 110 mls/hr Q8H IV 05/26/25 00:15 05/27/25 08:24 110 MLS/HR Fat Emulsion Intravenous 50 ml/ Potassium Phosphate 48.4 meq/Magnesium Sulfate 4 meq/ Multivitamins 10 ml/Chromium/ Copper/Manganese/ Zinc 1 ml/Amino Acids/Dextrose 873 ml @ 36 mls/hr [id number] IV 05/26/25 22:00 05/27/25 22:14 05/26/25 21:40 36 MLS/HR Neomycin Sulfate 1,000 mg TID PO 05/27/25 20:00 UNV Erythromycin 1,000 mg TID@0000,2000,2100 PO 05/27/25 20:00 05/28/25 01:00 Neomycin Sulfate 1,000 mg TID@0000,1999,2100 PO 05/27/25 20:00 05/28/25 01:00 Fat Emulsion Intravenous 50 ml/ Potassium Acetate 10 meq/Potassium Phosphate 44 meq/ Multivitamins 10 ml/Chromium/ Copper/Manganese/ Zinc 1 ml/Amino Acids/Dextrose 876 ml @ 37 mls/hr [id number] IV 05/27/25 22:00 05/28/25 21:59 Examination General Appearance: Cooperative. Well developed. Well nourished. NAD. Patient looks pale. Head Exam: Normal inspection Neck Exam: Normal inspection. Non-tender. Normal alignment Pulmonary/Respiratory: Chest non-tender. Clear bilateral breath sounds, no crackles, no wheezing. Cardiovascular/Chest: Regular rate and rhythm. No murmurs. No JVD. Peripheral Pulses: 2+ Radial (R). 2+ Radial (L). 2+ Pedal (R). 2+ Pedal (L) Abdominal Exam: Lower abdominal tenderness. Normal bowel sounds. Soft. normal abdomen, no visible veins, No hepatospenomegaly. No masses Ankle Exam: Negative ankle edema Lower extremities: Negative lower extremity edema Neuro/Mental Status: A&O x4. Coherent. Thoughts/Psych: Normal thought pattern. Appropriate mood and affect. Good judgement and insight Rectal exam (05/18/25) :Rectal mass seen but no fresh blood appreciated Skin Exam: Normal inspection. Normal color. Warm. Dry laboratory and microbiology Laboratory Tests 05/27/25 07:00 Test 05/27/25 07:00 Range/Units Serum Glucose 101 74-106 mg/dL Microbiology Date/Time Source Procedure Growth Status 05/24/25 12:45 Voided Urine Urine Culture - Final Complete 05/24/25 08:34 Blood Blood Culture - Preliminary NO GROWTH AFTER 72 HOURS OF INCUBATION. 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 - continuously monitor H&H - transfused 7 PRBCs, re transfuse if Hemoglobin less than 7 - iron IVBP - iron panel, folic acid, B12 - GI consult-monitor labs, order CEA level, supportive management - rectal exam showed rectal mass, exophytic but no fresh blood appreciated - stool occult blood- positive - CT abdominal pelvis showed Sigmoidal wall colon thickening and surrounding stranding which can be seen with proctocolitis - Continue following up with oncologist after discharge - surgical consult-possible diversion surgery and low anterior resection this Tuesday (05/28/25) - patient started on iv acyclovir as per GI Hypokalemia, repleted -potassium was 3.3, given 20 mEq of potassium GI PPX: Protonix VTE ppx: SCDs Diet: clear liquids Goals of care: Full code, discussed for >27 minutes on 05/27/25 Plan discussed with patient Plan discussed with Dr. Cartwright Plan discussed with: Patient My Orders My Orders Orders - SHE JASON Procedure Category Date Status Time Complete Blood Count LAB 05/28/25 Verified 04:00 Basic Metabolic Panel LAB 05/28/25 Verified 04:00 Dietary Evaluation Review Recommendations by RD: Protein Supplementation Comments: 1) Initiate Ensure Enlive bid 2) Encourage optimal PO intake 3) Advance to cardiac diet when medically feasible 4) Follow-up with gastroenterology and oncology 5) Continue to monitor I&O, labs, and skin integrity Expected Outcomes/Goals: 1) appetite and labs to improve 2) diet to advance 3) f/u in 3-5 days CC Plasma Assessment Blood Product Administration S: [id number] Date of Service: May 27, 2025 Billing Provider: LUCHO CARTWRIGHT MD Common Visit Codes: [id number] INP/OBS CARE(HIGH) SHE JASON May 27, 2025 14:47 MARY CARMEN LEACH May 27, 2025 20:36 LUCHO CARTWRIGHT MD May 28, 2025 20:35
[2025-05-27] MEDS ORDERED: SODIUM CHLORIDE 0.9% 1,000 ML IV SCH (15:00)
[2025-05-27] MEDS: NEOMYCIN SULFATE 500 MG TAB PO SCH (20:00)
[2025-05-27] MEDS ORDERED: NEOMYCIN SULFATE 500 MG TAB PO SCH (20:00)
[2025-05-27] MEDS: TPN PER PHARMACY IV NR (22:05)
[2025-05-27] MEDS: SODIUM CHLORIDE 0.9% 1,000 ML IV SCH (22:06)
[2025-05-28] MEDS: ONDANSETRON HCL 4 MG/2 ML VIAL IV PRN (00:11)
[2025-05-28 00:51] VITALS: BP 135/67; PULSE 106; RESP 18; TEMP 98.2; O2SAT 99
[2025-05-28 04:35] VITALS: BP 121/73; PULSE 100; RESP 18; TEMP 98; O2SAT 99
[2025-05-28 07:20] LABS: Hematocrit 31.1 % (36.0-46.0); Hemoglobin 10.4 g/dL (12.2-16.2); Mean Corpuscular Hemoglobin 30.9 pg (28.0-32.0); Mean Corpuscular Volume 92.4 fL (80.0-100.0); Nucleated Red Blood Cells % 0.1 %
[2025-05-28] MEDS ORDERED: fentaNYL CITRATE 100 MCG/2 ML VL ONE ×2 (07:28→08:27)
[2025-05-28] MEDS ORDERED: fentaNYL CITRATE 5 ML ONE (07:28)
[2025-05-28] MEDS ORDERED: MIDAZOLAM HCL 2MG/2ML 2ml VIAL (1mg/ml) ONE (07:28)
[2025-05-28] MEDS ORDERED: HYDROmorphone HCL 2 MG/ML VL/or syr ONE (07:30)
[2025-05-28 07:31] LABS: Alanine Aminotransferase 15 U/L (7-40); Alkaline Phosphatase 72 U/L (46-116); Anion Gap 12 (5-15); Carbon Dioxide 23 mmol/L (20-31); Chloride 106 mmol/L (98-107); Sodium 141 mmol/L (136-145)
[2025-05-28 07:33] LABS: Albumin 3.4 g/dL (3.2-4.8); Magnesium 2.2 mg/dL (1.6-2.6)
[2025-05-28 07:34] LABS: Bilirubin, Total 0.6 mg/dL (0.2-1.0)
[2025-05-28 07:35] LABS: BUN/Creatinine Ratio 12.5 (10.0-20.0); Blood Urea Nitrogen < 5 mg/dL (9-23); Calcium 8.2 mg/dL (8.7-10.4); Glucose 116 mg/dL (74-106); Potassium 3.3 mmol/L (3.5-5.1); Total Protein 5.6 g/dL (5.7-8.2)
[2025-05-28] MEDS: BUPIVACAINE 0.25% INJ 50ML VIAL ONE (08:22)
[2025-05-28] MEDS ORDERED: PROPOFOL 10 MG/ML 20 ML IV ONE (08:27)
[2025-05-28] MEDS: POTASSIUM PHOSPHATE 44 MEQ in D5W 5% 250 ML IV ONE (10:00)
[2025-05-28] MEDS ORDERED: POTASSIUM CHLORIDE 40 MEQ, LIDOCAINE 1% (LOCAL ANESTH.) 4 ML in SODIUM CHL 0.9% 250 ML IV ONE (10:00)
--- NOTE | 2025-05-28 10:35 | DVHPN2 ---
Progress Note Date Seen: May 28, 2025 Resident Creating Document: RILEY REINA RESIDENT Medical Necessity Reason Pt with a Central, PICC or Fol: No Subjective Review of Systems S/p ex lap, low anterior resection and colostomy Objective vital signs Vital Sign Date Time Temp Pulse Resp B/P (MAP) Pulse Ox O2 Delivery O2 Flow Rate FiO2 05/28/25 04:35 98.0 100 18 121/73 (89) 99 98.0 05/27/25 20:00 Room Air* 0 21 Total Intake and Output 05/27/25 05/27/25 05/28/25 15:00 23:00 07:00 Intake Total 265 ml 2140 ml 600 ml Balance 265 ml 2140 ml 600 ml medications Current Medications Medications Dose Ordered Sig/Roni Route Start Time Stop Time Status Last Admin Dose Admin Ondansetron HCl 4 mg Q4HP PRN IV 05/17/25 17:45 05/28/25 00:11 4 MG Pantoprazole Sodium 40 mg BID IV 05/18/25 22:00 05/27/25 22:05 40 MG Hydrocortisone Acetate 25 mg Q12HR TN 05/22/25 13:51 05/26/25 21:32 25 MG Amino Acids 0 ml @ 0 mls/hr PER PHARMACY IV 05/23/25 17:15 Diagnostic Test (Pha) 1 strip Q6HR 05/24/25 00:00 05/28/25 06:17 1 STRIP Insulin Human Regular FOLLOW SLIDING SCALE Q6HR SC 05/24/25 00:00 05/27/25 17:49 2 UNITS Dextrose 50 ml UD IV 05/23/25 22:00 Docusate Sodium 100 mg TID PO 05/23/25 22:00 05/27/25 22:05 100 MG Enteral Nutritional Formula 240 ml TIDWM PO 05/24/25 12:00 05/27/25 17:44 240 ML Ceftriaxone Sodium 50 ml @ 100 mls/hr DAILY@09 IV 05/25/25 09:00 05/27/25 10:02 100 MLS/HR Metronidazole 100 ml @ 100 mls/hr Q8HR IV 05/24/25 14:00 05/28/25 07:46 Sodium Chloride 10 ml QSHIFT@ IV 05/24/25 22:00 05/27/25 22:06 10 ML Acyclovir Sodium 500 mg/Dextrose 110 ml @ 110 mls/hr Q8H IV 05/26/25 00:15 05/28/25 00:14 110 MLS/HR Neomycin Sulfate 1,000 mg TID PO 05/27/25 20:00 UNV Fat Emulsion Intravenous 50 ml/ Potassium Acetate 10 meq/Potassium Phosphate 44 meq/ Multivitamins 10 ml/Chromium/ Copper/Manganese/ Zinc 1 ml/Amino Acids/Dextrose 876 ml @ 37 mls/hr [id number] IV 05/27/25 22:00 05/28/25 21:59 Sodium Chloride 1,000 ml @ 50 mls/hr Q20H IV 05/27/25 20:00 05/27/25 22:06 50 MLS/HR Fat Emulsion Intravenous 50 ml/ Potassium Acetate 20 meq/Potassium Phosphate 44 meq/ Multivitamins 10 ml/Chromium/ Copper/Manganese/ Zinc 1 ml/Amino Acids/Dextrose 881 ml @ 37 mls/hr [id number] IV 05/28/25 22:00 05/29/25 21:59 Examination General Appearance: Cooperative. Well developed. Well nourished. NAD. Patient looks pale. Pulmonary/Respiratory: Equal bilateral air Cardiovascular/Chest: Regular rate and rhythm. No murmurs. No JVD. Abdominal Exam: In abdominal binder, unable to assess Ankle Exam: Negative ankle edema Thoughts/Psych: Normal thought pattern. Appropriate mood and affect. Good judgement and insight Rectal exam (05/18/25) :Rectal mass seen but no fresh blood appreciated Skin Exam: Normal inspection. Normal color. Warm. Dry laboratory and microbiology Laboratory Tests 05/28/25 06:16 Test 05/28/25 06:16 Range/Units Serum Glucose 116 H 74-106 mg/dL Microbiology Date/Time Source Procedure Growth Status 05/24/25 12:45 Voided Urine Urine Culture - Final Complete 05/24/25 08:34 Blood Blood Culture - Preliminary NO GROWTH AFTER 72 HOURS OF INCUBATION. Resulted Labs and/or images reviewed: Labs reviewed by me, Image(s) reviewed by me Problem List/Assessment/Plan Problem List/Assessment/Plan Lower GI bleed One to 2+ engorged internal hemorrhoids Severe anemia due to above History of colorectal carcinoma s/p chemotherapy and radiotherapy Rectal cancer with bowel obstruction Plan: S/p ex lap Continue postoperative care Continue TPN Receiving IV iron S/p 6 PRBCs , transfuse as necessary to keep hemoglobin above 7 Last colonoscopy February 2024 Colonoscopy showed a narrowed ulcerated partially obstructing circumferential rectosigmoid mass with the distal margin at about 10 cm above the anal verge b eyond which the scope could not be advanced. There was formed stool stuck within the narrowed lumen in the colonoscope could not be advanced safely beyond this area. Biopsies were taken. One to 2+ engorged internal hemorrhoids and some excoriation of the perianal area. Patient will benefit from surgical intervention, surgical consult place and discussion held with Dr. Mehta as well as patient's oncologist Dr. Rocha Patient has surgical plan with her surgeon at [facility], however, patient is at risk of impending bowel obstruction as well as requiring PRBC, may not be stable for discharge in might require surgical intervention within this hospitalization. Ensure 250 mL t.i.d. with meals Thank you so much for the opportunity to consult on your patient. GI team will follow the patient. In case of any questions or concerns please feel free to reach out. Plan discussed with Dr. Martinez Plan discussed with: Other (RN) My Orders My Orders Orders - RILEY REINA RESIDENT Procedure Category Date Status Time Amino Acid PHA 05/28/25 In Process Infusion... W/Fat 22:00 Potassium Phosphate PHA 05/28/25 In Process 10:00 Comprehensive LAB 05/29/25 Verified Metabolic Panel 04:00 Magnesium LAB 05/29/25 Verified 04:00 Phosphorus LAB 05/29/25 Verified 04:00 Tpn Per Pharmacy [facility] 05/28/25 In Process 09:53 Dietary Evaluation Review Recommendations by RD: Protein Supplementation Comments: 1) Initiate Ensure Enlive bid 2) Encourage optimal PO intake 3) Advance to cardiac diet when medically feasible 4) Follow-up with gastroenterology and oncology 5) Continue to monitor I&O, labs, and skin integrity Expected Outcomes/Goals: 1) appetite and labs to improve 2) diet to advance 3) f/u in 3-5 days CC Plasma Assessment Blood Product Administration S: [id number] RILEY REINA RESIDENT May 28, 2025 10:35
[2025-05-28 11:20] VITALS: PULSE 108; RESP 8; O2SAT 99
[2025-05-28] MEDS: KETOROLAC TROMETH 30 MG/ML 1ML VIAL IV ONE (12:00)
[2025-05-28] MEDS ORDERED: hydrALAZINE HCL 20 MG/ML VL IV PRN (12:00)
[2025-05-28] MEDS ORDERED: ONDANSETRON HCL 4 MG/2 ML VIAL IV PRN (12:00)
[2025-05-28] MEDS ORDERED: MIDAZOLAM HCL 2MG/2ML 2ml VIAL (1mg/ml) IV PRN (12:00)
[2025-05-28] MEDS ORDERED: MORPHINE SULFATE 4 MG/ML SYR/VIAL IV PRN (12:00)
[2025-05-28 12:06] LABS: Hematocrit 28.3 % (36.0-46.0); Hemoglobin 9.0 g/dL (12.2-16.2); Mean Corpuscular Hemoglobin 30.4 pg (28.0-32.0); Mean Corpuscular Volume 96.3 fL (80.0-100.0); Nucleated Red Blood Cells % 0.2 %
[2025-05-28 12:11] LABS: Potassium 3.8 mmol/L (3.5-5.1); Sodium 140 mmol/L (136-145)
[2025-05-28 12:12] LABS: Anion Gap 8 (5-15); Carbon Dioxide 23 mmol/L (20-31)
[2025-05-28 12:13] LABS: Calcium 7.3 mg/dL (8.7-10.4); Chloride 109 mmol/L (98-107)
[2025-05-28 12:18] LABS: BUN/Creatinine Ratio 14.3 (10.0-20.0); Blood Urea Nitrogen < 5 mg/dL (9-23); Glucose 190 mg/dL (74-106)
--- NOTE | 2025-05-28 12:32 | DVHOP2 ---
Operative Report - 2 Report Details Date: 05/28/25 Preop Diagnosis: Bleeding rectal adenocarcinoma Postop Diagnosis: Same Surgeon: MD Aleksandar Fernandez MD Energy Specialist: Will Lloyd NP Anesthesiologist: Dr. Mcfarlane Anesthesia: General Drains: 19 Albanian round channel drained Consent: The patient was informed of the risks and benefits of the procedure. These include but are not limited to complications of anesthesia, postoperative infection, incomplete relief of symptoms, recurrence of symptoms, damage to blood vessels, nerves and tendons, deep venous thrombosis, pulmonary embolism and possible need for repeat surgery in the future. Complications: Minimal stool spillage from rectal stump Estimated Blood Loss: 250 mL Findings: Rectosigmoid mass, liver implants above segments 2 and 3, redundant sigmoid colon Indications for Surgery: Bleeding rectal mass requiring multiple transfusions Name of Procedure Performed Exploratory laparotomy, low anterior resection, and colostomy Procedure Details Procedure Details: Upon arrival to to the operating room the patient was transferred to the operating table and placed an end in the lithotomy position with arms extended. General endotracheal anesthesia was induced. Time-out was observed. I then directed my attention to the anal area, and I performed a rigid proctoscopy. Mass was seen at about the 9-10 cm kina. Patient was then placed in the supine position with the right arm tucked left arm extended. Patient was prepped and draped in the standard sterile surgical fashion with chlorhexidine, Ioban was placed. I then performed a curvilinear infraumbilical incision and carried it down to fascia. Then I grasped the umbilical stalk and walk down to its base with Truman clamp. Once at the base I gained entry to the peritoneal cavity with Freddy technique. I then placed a fascial retention suture with 0 Vicryl in [id number] fashion. Peritoneal cavity was insufflated to 15 mmHg with toleration. I then introduced the 30 degree camera and surveyed the peritoneal cavity. I noted 2 metastatic implants and on the left dome of the liver, around segments 2 and 3, pictures taken. I did not notice any other implants anywhere in the peritoneal cavity. I then directed my attention to the pelvic area, patient was placed in the Trendelenburg position. Patient had very redundant transverse and sigmoid colon that was very dilated and make it hard to see. This was coupled to her cavity not distending well due to a previous abdominoplasty surgery. The decision was to convert to an open procedure. I then proceeded to make a infraumbilical midline incision from the umbilicus to the pubis. Incision was carried down to fascia, once at fascia I scored a small segment with cautery and through the small opening I was able to place my finger within the peritoneal cavity and then open the entire fascia over my finger. Once in the cavity we used retractors to expose the low pelvic area, small bowel was also swept up and into the right upper quadrant. Sponges were placed to adequately expose our working area. We then proceeded to inspect the sigmoid colon and walk it down to the rectosigmoid junction. Mass was felt right at the rectosigmoid junction/peritoneal reflexion. We then proceeded to open the peritoneum at the base of the mesosigmoid on the right side and then on the left side. At this point we identified our proximal transection site which was about 5 cm proximal to the mass. We then made a mesenteric rent immediately below the bowel. We then transected proximal to the mass with a 75. GARIMA blue load. We then held the distal sigmoid with Paty right at the staple line and used it as retraction. We elevated the distal sigmoid/rectum and started dissecting the mesocolon from the retroperitoneum both bluntly and with cautery. We immediately encountered the HERMINIA and IMV. They were both ligated with 0 Vicryl and transected. We continued our dissection posteriorly on the mesorectum until we reached 5 cm past the mass. At this point we started working our way around the rectum laterally, both on the left and right side. Once the lateral aspects of the rectum were free to the same length of the posterior aspect, we then started our anterior dissection in the same fashion. At this point we had the rectum and mesorectum completely free from surrounding attachments circumferentially. At this point we utilized 3 loads of 60 mm blue Endo-GARIMA to transect the rectum distally. We had some minor stool spillage from the left lateral aspect of the rectal stump. The specimen was passed for pathology. The opening in the rectal stump was closed full-thickness, with 2 0 Monocryl. We then placed a marking rectal stump stitch of 2-0 Prolene. Area was irrigated copiously and suctioned. During the dissection we protected both the ureters the entire way. This concluded the total mesorectal excision of the procedure. We then placed a 19 Albanian Justo drain in the pelvis exiting out of the right lower quadrant, and secured in place with a 2-0 nylon. We then identified the sigmoid colon proximally, it was very redundant and we decided to do a almost total sigmoid resection, for better fitting of the colostomy. We then 1st identified the vascular pedicle to the sigmoid, we suture ligated it with a 0 Vicryl and transected it. We then made a proximal sigmoid mesenteric rent approximately 2-3 cm distal to the descending sigmoid junction. We then used a 60 mm Endo-GARIMA blue load to transect the sigmoid. Sigmoid was passed for pathology. We then identified the area in the left lower quadrant that will be better suited for the colostomy site, colon reached the site tension-free and without twisting. We then made the for skin incision and carried down to fascia, fascia was opened, and was able to accommodate 2 fingerbreadths easily. Colon was brought out of the peritoneal cavity through the ostomy site, it was tension-free and without twisting. Colon and ostomy site were covered with a blue towel. We then proceeded to close the midline fascia. This was done with a running 1 PDS x2, tied at the center. Midline incision was then irrigated. Skin was closed with wilfredo. We then covered the midline incision with a clean blue towel. And proceeded to mature the colostomy. This was done with Brooking technique in the 4 quadrants with 3-0 Vicryl. We then placed additional 3-0 Vicryl in between the Brooking stitches. At the end the procedure colostomy had pink mucosa, and without tension. Ostomy appliance was placed over ostomy. Midline wound was dressed with 4 x 4 gauze and Tegaderm. Before the closure of the abdomen and at the end of the procedure all counts were complete and correct. Patient tolerated the procedure well and was transferred to PACU in stable condition. Specimen: Sigmoid colon and rectum Condition Stable Disposition Still a Patient ANN WRIGHT MD May 28, 2025 12:32
[2025-05-28] MEDS: HYDROmorphone HCL 2 MG/ML VL/or syr IV PRN (12:40)
[2025-05-28] MEDS: POVIDONE IODINE 10 % TOPICAL OINT 30GM TOP ONE (12:45)
[2025-05-28] MEDS ORDERED: MORPHINE SULFATE 10 MG/5 ML ORAL SOLN GT PRN ×2 (12:45)
[2025-05-28] MEDS: KETOROLAC TROMETH 30 MG/ML 1ML VIAL IV SCH (14:00)
--- NOTE | 2025-05-28 14:21 | DVH ---
CHEST RADIOGRAPH Indication: Confirm NG Tube Placement Technique: XY CHEST PORTABLE COMPARISON: 05/25/2025 FINDINGS: Nasogastric tube projects towards stomach. Left PICC line tip projects over the SVC. The cardiac silhouette is unremarkable. The lungs demonstrate left lower lobe/ retrocardiac airspace opacification. The pulmonary vasculature is prominent. There is no pleural effusion. There is no pneu mothorax. IMPRESSION: Left lower lobe / retrocardiac airspace opacification
[2025-05-28 16:51] VITALS: BP 120/62; PULSE 99; RESP 17; TEMP 98; O2SAT 98
[2025-05-28] MEDS: ACETAMINOPHEN 650 mg PER 20.3 mL UD GT SCH (18:00)
--- NOTE | 2025-05-28 18:06 | DVHPNRES ---
Progress Note Date Seen: May 28, 2025 Resident Creating Document: SHE JASON Medical Necessity Reason Pt with a Central, PICC or Fol: No Subjective Review of Systems Alix Parks is a 59 years old female with a PMH of colorectal carcinoma diagnosed 1 year ago currently taking radiation ( more than 30 sessions) and chemotherapy (capecitabine) who presented to the ED with severe rectal bleeding for past 3 weeks. Patient reported she has been having significant rectal bleeding for past 3 weeks which has continued despite ongoing radiation and chemotherapy treatments. Patient also started experiencing feeling tired, having difficulty breathing, unable to walk due to weakness. Patient also experiencing pain when using bathroom. These symptoms have significantly impacted the daily living function so prompted her to visit ED. On my assessment patient denies fever, nausea, vomiting, chills, abdominal pain, diarrhea, constipation and other associated symptoms. PMH: Colorectal carcinoma, anemia required blood transfusion, thyroid tumor PSH: Hemithyroidectomy 5-6 years ago Family history: Grandmother colon cancer, cousin colon cancer, mother stomach cancer Social history: Lives with family. Denies smoking, alcohol and other drug abuse Allergies: No known allergies Patient seen and examined at bedside. Patient is alert and oriented to time, place person and responding to all questions. Patient has generalised weakness. Eyes: No Pain, No Vision change, No Conjunctivae inflammation, No Eyelid inflammation, No Redness ENT: No Ear pain, No Ear discharge, No Nose pain, No Nose discharge, No Nose congestion, No Mouth pain, No Mouth swelling, No Throat pain, No Throat swelling Cardiovascular: No Chest Pain, No Palpitations, No Orthopnea, No Paroxysmal No Dyspnea, No Edema, No Lt Headedness Respiratory: No Cough, No Dry, No Shortness of breath, No SOB with exertion, No Wheezing, No Hemoptysis, No Pleuritic Pain, No Sputum Gastrointestinal: No Nausea, No Vomiting, No Abdominal Pain, No Diarrhea, No Constipation, No Melena, Hematochezia Genitourinary: No Dysuria, No Frequency, No Incontinence, No Hematuria, No Retention 05/19- On evaluation today, she says she feels better, although the rectal bleeding has continued. She has been transfused 3 units of PRBCs since admission. Hemoglobin this morning was 8.2 and it dropped to 7.5 later in the day. She was transitioned from clear liquids to full liquid diet and was given a 500 cc bolus of NS. GI was consulted who asked to Continue to monitor labs, check CEA level.Supportive care for now .Review patient's last colonoscopy and decide timing of a repeat sigmoidoscopy or colonoscopy pending clinical progress. Repeat order for H & H at 10:00 p.m. on 05/19/2025 was placed. 05/20- The patient was seen at bedside. Her hemoglobin this morning was 6.6, so she got transfused with another bag of PRBCs. The patient complains of ongoing per rectal bleeding which is concerning to her. Repeat GI consult was done, pending evaluation by them. Her diet was advanced from full liquid to soft mechanical diet. 05/21- the patient was seen at bedside today. Her hemoglobin was 6.9, so she was given another transfusion of PRBC. Potassium today was 3.3 so patient was given 20 mEq of potassium. She complains of continued rectal bleeding with every bowel movement. He was put on clear liquid diet and is scheduled for colonoscopy tomorrow. She will be given another bag of PRBCs later this evening as recommended by GI. 05/22- patient was seen at bedside today. Her hemoglobin today was 10.3. The patient went for colonoscopy today but it could not be completed as there was a narrowed ulcerated partially obstructing circumferential rectosigmoid mass with the distal margin at about 10 cm above the anal verge. Surgical consult was ordered by GI. Patient had swelling, redness and pain at the site of transfusion and was found to have a superficial thrombus in right cephalic vein. 05/23- patient was seen at bedside today. Her hemoglobin today was 7.9. Surgery saw the patient and discussed the possibility of a possible diversion surgery and low anterior resection on Tuesday or Tuesday. The patient agreed to this. We were asked to continue transfusion if hemoglobin goes below 7. Colace t.i.d. was added along with Clinimix for nutrition via PICC line. We will continue with full liquid diet and supplement with ensure. 05/24- patient was seen at bedside today. Her hemoglobin today was 7.2, another PRBC transfusion was ordered for her. She was started on ensure. She had a few fever spikes yesterday, so repeat UA, urine culture, COVID, influenza, chest x- ray were ordered and she was started on ceftriaxone and Flagyl. 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 05/25- the patient was seen at bedside today. Her hemoglobin today was 8.2. 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 Preliminary Blood culture showed no growth in the first 24 hours. No fever spikes yesterday. Pending surgical procedure on Tuesday/Tuesday. Preliminary urine culture showed no growth after 24 hours. 05/26- Patient is seen today at bedside. Labs and chart reviewed. Patient's hemoglobin level stable with a 8.1. Patient reported feeling better. Surgery recommendation reviewed and appreciated. Patient is due for surgical intervention -low anterior resection versus abdominoperineal resection with an end-colostomy on Tuesday. As per surgery details of the surgical plan was discussed with the patient. Patient was seen by Gastroenterology, as per Gastroenterology rectosigmoid biopsy revealed positive for CMV. Patient is on IV acyclovir. 05/27- Patient is seen today at bedside. Labs and chart reviewed. Patient's hemoglobin level stable with a 8.8. Patient reported feeling better. As of this morning, the patient continues to experience rectal bleeding. Surgical intervention is scheduled for tomorrow. The patient will remain NPO after midnight in preparation for the procedure. Laboratory tests have been ordered and are scheduled for tomorrow morning. 05/28- Patient is seen today at bedside. Labs and chart reviewed. Patient's hemoglobin level stable with a 9.0. Patient has completed exploratory laparotomy, low anterior resection, and colostomy. Monitoring is ongoing for post-surgical recovery and potential complications Objective vital signs Vital Sign Date Time Temp Pulse Resp B/P (MAP) Pulse Ox O2 Delivery O2 Flow Rate FiO2 05/28/25 16:51 98.0 99 17 120/62 (81) 98 98.0 05/28/25 11:55 Room Air 0 94 Total Intake and Output 05/27/25 05/27/25 05/28/25 15:00 23:00 07:00 Intake Total 265 ml 2140 ml 600 ml Balance 265 ml 2140 ml 600 ml medications Current Medications Medications Dose Ordered Sig/Roni Route Start Time Stop Time Status Last Admin Dose Admin Ondansetron HCl 4 mg Q4HP PRN IV 05/17/25 17:45 05/28/25 00:11 4 MG Amino Acids 0 ml @ 0 mls/hr PER PHARMACY IV 05/23/25 17:15 Diagnostic Test (Pha) 1 strip Q6HR 05/24/25 00:00 05/28/25 06:17 1 STRIP Insulin Human Regular FOLLOW SLIDING SCALE Q6HR SC 05/24/25 00:00 05/27/25 17:49 2 UNITS Dextrose 50 ml UD IV 05/23/25 22:00 Ceftriaxone Sodium 50 ml @ 100 mls/hr DAILY@09 IV 05/25/25 09:00 05/27/25 10:02 100 MLS/HR Metronidazole 100 ml @ 100 mls/hr Q8HR IV 05/24/25 14:00 05/28/25 15:31 100 MLS/HR Sodium Chloride 10 ml QSHIFT@,22 IV 05/24/25 22:00 05/27/25 22:06 10 ML Acyclovir Sodium 500 mg/Dextrose 110 ml @ 110 mls/hr Q8H IV 05/26/25 00:15 05/28/25 00:14 110 MLS/HR Neomycin Sulfate 1,000 mg TID PO 05/27/25 20:00 UNV Fat Emulsion Intravenous 50 ml/ Potassium Acetate 10 meq/Potassium Phosphate 44 meq/ Multivitamins 10 ml/Chromium/ Copper/Manganese/ Zinc 1 ml/Amino Acids/Dextrose 876 ml @ 37 mls/hr [id number] IV 05/27/25 22:00 05/28/25 21:59 Sodium Chloride 1,000 ml @ 50 mls/hr Q20H IV 05/27/25 20:00 05/27/25 22:06 50 MLS/HR Fat Emulsion Intravenous 50 ml/ Potassium Acetate 20 meq/Potassium Phosphate 44 meq/ Multivitamins 10 ml/Chromium/ Copper/Manganese/ Zinc 1 ml/Amino Acids/Dextrose 881 ml @ 37 mls/hr [id number] IV 05/28/25 22:00 05/29/25 21:59 Acetaminophen 650 mg Q6HR GT 05/28/25 18:00 Ketorolac Tromethamine 15 mg Q8HR IV 05/28/25 14:00 06/02/25 08:00 Morphine Sulfate 20 mg Q4HP PRN GT 05/28/25 12:45 Morphine Sulfate 10 mg Q4HP PRN GT 05/28/25 12:45 Pantoprazole Sodium 40 mg DAILY IV 05/29/25 10:00 UNV laboratory and microbiology Laboratory Tests 05/28/25 11:39 Test 05/28/25 11:39 Range/Units Serum Glucose 190 H 74-106 mg/dL Microbiology Date/Time Source Procedure Growth Status 05/24/25 12:45 Voided Urine Urine Culture - Final Complete 05/24/25 08:34 Blood Blood Culture - Preliminary NO GROWTH AFTER 72 HOURS OF INCUBATION. Resulted Labs and/or images reviewed: Labs reviewed by me, Image(s) reviewed by me Problem List/Assessment/Plan Problem List/Assessment/Plan Problem List/Assessment/Plan- Patient is due for surgical intervention -low anterior resection versus abdominoperineal resection with an end-colostomy on Tuesday. As per surgery details of the surgical plan was discussed with the patient. Patient was seen by Gastroenterology, as per Gastroenterology r ectosigmoid biopsy revealed positive for CMV. Patient is on IV acyclovir. 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 - continuously monitor H&H - transfused 7 PRBCs, re transfuse if Hemoglobin less than 7 - iron IVBP - iron panel, folic acid, B12 - GI consult-monitor labs, order CEA level, supportive management - rectal exam showed rectal mass, exophytic but no fresh blood appreciated - stool occult blood- positive - CT abdominal pelvis showed Sigmoidal wall colon thickening and surrounding stranding which can be seen with proctocolitis - Continue following up with oncologist after discharge - surgical consult-possible diversion surgery and low anterior resection this Tuesday (05/28/25) - patient started on iv acyclovir as per GI Hypokalemia, repleted -potassium was 3.3, given 20 mEq of potassium GI PPX: Protonix VTE ppx: SCDs Diet: clear liquids Goals of care: Full code, discussed for >16 minutes on 05/28/25 Plan discussed with patient Plan discussed with Dr. Cartwright Plan discussed with: Patient My Orders My Orders Orders - SHE JASON RESIDENT Procedure Category Date Status Time Chest Portable XY 05/28/25 Resulted 13:40 Basic Metabolic Panel LAB 05/29/25 Verified 04:00 Dietary Evaluation Review Recommendations by RD: Protein Supplementation Comments: 1) Initiate Ensure Enlive bid 2) Encourage optimal PO intake 3) Advance to cardiac diet when medically feasible 4) Follow-up with gastroenterology and oncology 5) Continue to monitor I&O, labs, and skin integrity Expected Outcomes/Goals: 1) appetite and labs to improve 2) diet to advance 3) f/u in 3-5 days CC Plasma Assessment Blood Product Administration S: [id number] Date of Service: May 28, 2025 Billing Provider: LUCHO CARTWRIGHT MD Common Visit Codes: [id number] INP/OBS CARE(HIGH) SHE JASON RESIDENT May 28, 2025 18:06 LUCHO CARTWRIGHT MD May 28, 2025 20:36
--- NOTE | 2025-05-28 19:04 | DVH ---
CHEST RADIOGRAPH Indication: confirm NGT placement Technique: Single frontal view of the chest was obtained COMPARISON: XY CHEST PORTABLE on DOS: 05/28/25, XY CHEST XRAY 1 VIEW on DOS: 05/27/25, XY CHEST XRAY 1 VIEW on DOS: 05/24/25, XY CHEST XRAY 1 VIEW on DOS: 05/18/25 FINDINGS: Lines and Tubes: Enteric catheter in satisfactory position left PICC in satisfactory position. Lungs: Patchy bilateral airspace disease. Pleura: No effusion. No pneumothorax. Cardiomediastinal contours: Unremarkable Bones: Unremarkable IMPRESSION: Nasogastric tube in satisfactory position.
[2025-05-28 20:00] VITALS: PULSE 103
[2025-05-28 21:00] VITALS: BP 102/60; PULSE 96; RESP 19; TEMP 98.2; O2SAT 99
[2025-05-28] MEDS: TPN PER PHARMACY IV NR (22:24)
[2025-05-29] VITALS (8 sets, daily range): BP systolic 107–113; BP diastolic 57–69; PULSE 89–102; RESP 17–20; TEMP 97.6–98.4; O2SAT 96–99
[2025-05-29 06:06] LABS: Hematocrit 25.1 % (36.0-46.0); Hemoglobin 8.5 g/dL (12.2-16.2); Mean Corpuscular Hemoglobin 31.2 pg (28.0-32.0); Mean Corpuscular Volume 92.4 fL (80.0-100.0); Nucleated Red Blood Cells % 0.0 %
[2025-05-29 06:20] LABS: Alanine Aminotransferase 16 U/L (7-40); Alkaline Phosphatase 52 U/L (46-116); Anion Gap 8 (5-15); BUN/Creatinine Ratio 17.5 (10.0-20.0); Carbon Dioxide 24 mmol/L (20-31); Magnesium 1.9 mg/dL (1.6-2.6); Potassium 4.3 mmol/L (3.5-5.1); Sodium 142 mmol/L (136-145)
[2025-05-29 06:21] LABS: Bilirubin, Total 0.4 mg/dL (0.2-1.0)
[2025-05-29 06:23] LABS: Albumin 2.6 g/dL (3.2-4.8); Blood Urea Nitrogen 7 mg/dL (9-23); Calcium 7.8 mg/dL (8.7-10.4); Chloride 110 mmol/L (98-107); Glucose 184 mg/dL (74-106); Total Protein 4.3 g/dL (5.7-8.2)
--- NOTE | 2025-05-29 09:51 | DVHPN2 ---
Progress Note - Surgical Date Seen: May 29, 2025 Post op day Post op day: 1 Subjective Patient reports: Feels worse (Patient had an some post surgical pain although managing with the pain medications. She feels bloated.) Review of Systems: Deferred Objective Vital signs Vital Sign Date Time Temp Pulse Resp B/P (MAP) Pulse Ox O2 Delivery O2 Flow Rate FiO2 05/29/25 09:00 98.3 96 17 107/57 (74) 97 98.3 05/28/25 20:01 Room Air* 0 21 Total Intake and Output 05/28/25 05/28/25 05/29/25 15:00 23:00 07:00 Intake Total 100 ml 0 ml 310 ml Output Total 100 ml 350 ml 1550 ml Balance 0 ml -350 ml -1240 ml Medications Current Medications Medications Dose Ordered Sig/Rnoi Route Start Time Stop Time Status Last Admin Dose Admin Ondansetron HCl 4 mg Q4HP PRN IV 05/17/25 17:45 05/28/25 00:11 4 MG Amino Acids 0 ml @ 0 mls/hr PER PHARMACY IV 05/23/25 17:15 Diagnostic Test (Pha) 1 strip Q6HR 05/24/25 00:00 05/29/25 05:29 1 STRIP Insulin Human Regular FOLLOW SLIDING SCALE Q6HR SC 05/24/25 00:00 05/29/25 05:41 4 UNITS Dextrose 50 ml UD IV 05/23/25 22:00 Ceftriaxone Sodium 50 ml @ 100 mls/hr DAILY@09 IV 05/25/25 09:00 05/27/25 10:02 100 MLS/HR Metronidazole 100 ml @ 100 mls/hr Q8HR IV 05/24/25 14:00 05/29/25 05:22 100 MLS/HR Sodium Chloride 10 ml QSHIFT@10,22 IV 05/24/25 22:00 05/28/25 22:24 10 ML Acyclovir Sodium 500 mg/Dextrose 110 ml @ 110 mls/hr Q8H IV 05/26/25 00:15 05/29/25 08:38 110 MLS/HR Neomycin Sulfate 1,000 mg TID PO 05/27/25 20:00 UNV Sodium Chloride 1,000 ml @ 50 mls/hr Q20H IV 05/27/25 20:00 05/27/25 22:06 50 MLS/HR Fat Emulsion Intravenous 50 ml/ Potassium Acetate 20 meq/Potassium Phosphate 44 meq/ Multivitamins 10 ml/Chromium/ Copper/Manganese/ Zinc 1 ml/Amino Acids/Dextrose 881 ml @ 37 mls/hr [id number] IV 05/28/25 22:00 05/29/25 21:59 05/28/25 22:24 37 MLS/HR Acetaminophen 650 mg Q6HR GT 05/28/25 18:00 Ketorolac Tromethamine 15 mg Q8HR IV 05/28/25 14:00 06/02/25 08:00 05/28/25 22:24 15 MG Morphine Sulfate 20 mg Q4HP PRN GT 05/28/25 12:45 Morphine Sulfate 10 mg Q4HP PRN GT 05/28/25 12:45 Pantoprazole Sodium 40 mg DAILY IV 05/29/25 10:00 Fat Emulsion Intravenous 100 ml/Sodium Phosphate 10 meq/ Potassium Acetate 10 meq/Potassium Phosphate 22 meq/ Magnesium Sulfate 8 meq/ Multivitamins 10 ml/Chromium/ Copper/Manganese/ Zinc 1 ml/Insulin Human Regular 5 units/Amino Acids/ Dextrose 975.55 ml @ 41 mls/hr [id number] IV 05/29/25 22:00 05/30/25 21:59 Laboratory Laboratory Tests 05/29/25 05:46 Test 05/29/25 05:46 Range/Units Serum Glucose 184 H 74-106 mg/dL Microbiology Date/Time Source Procedure Growth Status 05/24/25 12:45 Voided Urine Urine Culture - Final Complete 05/24/25 08:34 Blood Blood Culture - Final NO GROWTH AFTER 5 DAYS OF INCUBATION. Complete Examination: GENERAL:Normal, ABDOMEN:Abnormal (Mild distention, left lower quadrant ostomy with pink mucosa and minimal stool in the bag, midline wound with wilfredo in place no surrounding signs of infection. Right lower quadrant drain with serosanguineous output (100 mL) since placement) Labs and/or images reviewed: Labs reviewed by me (White count at 7.2, hemoglobin 8 0.5 from 9) Problem List/Assessment/Plan Assessment and Plan Mrs. Parks is a 59-year-old female who has an active diagnosis of rectal cancer x1yr ago, and who presented to the ED due to rectal bleeding since last Tuesday. She has required 6 units of blood since admission. Colonoscopy (05/22) by Dr. Martinez showed a mass at approximately 10 cm from the anal verge ulcerated, that was not an able to be transverse by the scope. I was consulted for possible palliative diversion due to the possible pending obstruction and continued rectal bleeding. 05/30: Exploratory laparotomy, low anterior resection, end colostomy Interval: Patient is currently postop day 1 from the above-mentioned surgery, she feels slightly bloated, having pain but adequately controlled with medications. Given that she is bloated we will keep her on NG tube to low intermittent suction. We will discontinue the Tapia, she needs to be out of bed and ambulate. When in bed she needs to do incentive spirometry. 1. NPO except for medications and ice chips 2. NG tube to low intermittent suctioned, NG tube can be clamped for medication administration, clamped for 30 minutes after the medication has been given 3. Drain stripping and emptying once per shift, please document output in the ins and outs 4. Continue transfusions as needed 5. Colace 100 mg t.i.d. to soften stools 6. Continue TPN 7. A.m. labs 8. DC Tapia 9. Out of bed and ambulate 10. Pain control: Tylenol 650 mg p.o. every 6 hours, Toradol 15 mg IV every 8 hours, morphine 10 mg via NG every 4 hours p.r.n. moderate, morphine 20 mg via NG every 4 hours p.r.n. severe, we will add Dilaudid 0.5 mg IV prn breakthrough pain 11. Continue ceftriaxone and Flagyl for 48 hours following the surgery My Orders My Orders Orders - ANN WRIGHT MD Procedure Category Date Status Time Acetaminophen PHA 05/28/25 In Process Solution Oral 18:00 Ketorolac Injection PHA 05/28/25 In Process (Toradol Injection) 14:00 Morphine Oral Soln PHA 05/28/25 In Process 12:45 Morphine Oral Soln PHA 05/28/25 In Process 12:45 Ng To Lis RAMON 05/28/25 In Process 19:40 Plan discussed with Plan discussed with: Patient Visit Coding Surgery Date of Service if different f: May 29, 2025 Billing Provider: ANN WRIGHT MD Surgery Visit Codes: [id number] INP/OBS CARE(HIGH) ANN WRIGHT MD May 29, 2025 09:51
[2025-05-29] MEDS: PANTOPRAZOLE 40 MG/10 ML VIAL INJ IV SCH (10:52)
[2025-05-29] MEDS: HYDROmorphone HCL 2 MG/ML VL/or syr IV PRN (11:07)
[2025-05-29] MEDS ORDERED: MORPHINE SULFATE 4 MG/ML SYR/VIAL IV PRN (11:15)
[2025-05-29] MEDS: SODIUM PHOSPHATES 40 MEQ in D5W 5% 250 ML IV ONE (12:21)
--- NOTE | 2025-05-29 14:00 | DVHPN2 ---
Progress Note Date Seen: May 29, 2025 Resident Creating Document: RILEY REINA RESIDENT Medical Necessity Reason Pt with a Central, PICC or Fol: No Subjective Review of Systems Patient seen and examined at bedside Notes some incisional pain 6/10 Denies any nausea or vomiting Unable to pass gas Continues on TPN 10 cc serosanguineous drainage in the YESSENIA drain Ostomy with minimal brownish output NG tube 400 cc dark black output Objective vital signs Vital Sign Date Time Temp Pulse Resp B/P (MAP) Pulse Ox O2 Delivery O2 Flow Rate FiO2 05/29/25 13:00 98.4 102 17 107/59 (75) 97 98.4 05/29/25 08:15 Room Air* 0 21 Total Intake and Output 05/28/25 05/28/25 05/29/25 15:00 23:00 07:00 Intake Total 100 ml 0 ml 310 ml Output Total 100 ml 350 ml 1550 ml Balance 0 ml -350 ml -1240 ml medications Current Medications Medications Dose Ordered Sig/Roni Route Start Time Stop Time Status Last Admin Dose Admin Ondansetron HCl 4 mg Q4HP PRN IV 05/17/25 17:45 05/28/25 00:11 4 MG Amino Acids 0 ml @ 0 mls/hr PER PHARMACY IV 05/23/25 17:15 Diagnostic Test (Pha) 1 strip Q6HR 05/24/25 00:00 05/29/25 12:23 1 STRIP Insulin Human Regular FOLLOW SLIDING SCALE Q6HR SC 05/24/25 00:00 05/29/25 12:25 2 UNITS Dextrose 50 ml UD IV 05/23/25 22:00 Ceftriaxone Sodium 50 ml @ 100 mls/hr DAILY@09 IV 05/25/25 09:00 05/29/25 10:52 100 MLS/HR Metronidazole 100 ml @ 100 mls/hr Q8HR IV 05/24/25 14:00 05/29/25 05:22 100 MLS/HR Sodium Chloride 10 ml QSHIFT@10,22 IV 05/24/25 22:00 05/29/25 10:52 10 ML Acyclovir Sodium 500 mg/Dextrose 110 ml @ 110 mls/hr Q8H IV 05/26/25 00:15 05/29/25 08:38 110 MLS/HR Neomycin Sulfate 1,000 mg TID PO 05/27/25 20:00 UNV Sodium Chloride 1,000 ml @ 50 mls/hr Q20H IV 05/27/25 20:00 05/29/25 12:32 50 MLS/HR Fat Emulsion Intravenous 50 ml/ Potassium Acetate 20 meq/Potassium Phosphate 44 meq/ Multivitamins 10 ml/Chromium/ Copper/Manganese/ Zinc 1 ml/Amino Acids/Dextrose 881 ml @ 37 mls/hr [id number] IV 05/28/25 22:00 05/29/25 21:59 05/28/25 22:24 37 MLS/HR Acetaminophen 650 mg Q6HR GT 05/28/25 18:00 05/29/25 12:33 650 MG Ketorolac Tromethamine 15 mg Q8HR IV 05/28/25 14:00 06/02/25 08:00 05/28/25 22:24 15 MG Morphine Sulfate 20 mg Q4HP PRN GT 05/28/25 12:45 Pantoprazole Sodium 40 mg DAILY IV 05/29/25 10:00 05/29/25 10:52 40 MG Fat Emulsion Intravenous 100 ml/Sodium Phosphate 10 meq/ Potassium Acetate 10 meq/Potassium Phosphate 22 meq/ Magnesium Sulfate 8 meq/ Multivitamins 10 ml/Chromium/ Copper/Manganese/ Zinc 1 ml/Insulin Human Regular 5 units/Amino Acids/ Dextrose 975.55 ml @ 41 mls/hr [id number] IV 05/29/25 22:00 05/30/25 21:59 Hydromorphone HCl 0.5 mg Q6HPRN PRN IV 05/29/25 10:00 05/29/25 11:07 0.5 MG Morphine Sulfate 10 mg Q4HPRN PRN IV 05/29/25 11:15 Examination General Appearance: Cooperative. Well developed. Well nourished. NAD. Patient looks pale. Pulmonary/Respiratory: Equal bilateral air Cardiovascular/Chest: Regular rate and rhythm. No murmurs. No JVD. Abdominal Exam: In abdominal binder, soft, weakly positive bowel sounds. Ankle Exam: Negative ankle edema Thoughts/Psych: Normal thought pattern. Appropriate mood and affect. Good judgement and insight Rectal exam (05/18/25) :Rectal mass seen but no fresh blood appreciated Skin Exam: Normal inspection. Normal color. Warm. Dry laboratory and microbiology Laboratory Tests 05/29/25 05:46 Test 05/29/25 05:46 Range/Units Serum Glucose 184 H 74-106 mg/dL Microbiology Date/Time Source Procedure Growth Status 05/24/25 12:45 Voided Urine Urine Culture - Final Complete 05/24/25 08:34 Blood Blood Culture - Final NO GROWTH AFTER 5 DAYS OF INCUBATION. Complete Labs and/or images reviewed: Labs reviewed by me, Image(s) reviewed by me Problem List/Assessment/Plan Problem List/Assessment/Plan Lower GI bleed One to 2+ engorged internal hemorrhoids Severe anemia due to above History of colorectal carcinoma s/p chemotherapy and radiotherapy Rectal cancer with bowel obstruction Plan: S/p ex lap Continue postoperative care Continue TPN Receiving IV iron S/p 6 PRBCs , transfuse as necessary to keep hemoglobin above 7 Last colonoscopy February 2024 Colonoscopy showed a narrowed ulcerated partially obstructing circumferential rectosigmoid mass with the distal margin at about 10 cm above the anal verge b eyond which the scope could not be advanced. There was formed stool stuck within the narrowed lumen in the colonoscope could not be advanced safely beyond this area. Biopsies were taken. One to 2+ engorged internal hemorrhoids and some excoriation of the perianal area. Patient will benefit from surgical intervention, surgical consult place and discussion held with Dr. Mehta as well as patient's oncologist Dr. Rocha Patient has surgical plan with her surgeon at [facility] [place], however, patient is at risk of impending bowel obstruction as well as requiring PRBC, may not be stable for discharge in might require surgical intervention within this hospitalization. Ensure 250 mL t.i.d. with meals Thank you so much for the opportunity to consult on your patient. GI team will follow the patient. In case of any questions or concerns please feel free to reach out. Plan discussed with Dr. Martinez Plan discussed with: Patient, Spouse, Other (RN) My Orders My Orders Orders - RILEY REINA RESIDENT Procedure Category Date Status Time Chest Portable XY 05/28/25 Resulted 16:32 Amino Acid PHA 05/29/25 In Process Infusion... W/Fat 22:00 Comprehensive LAB 05/30/25 Verified Metabolic Panel 04:00 Magnesium LAB 05/30/25 Verified 04:00 Phosphorus LAB 05/30/25 Verified 04:00 Tpn Per Pharmacy RAMON 05/29/25 In Process 22:00 Sodium Phosphates PHA 05/29/25 In Process 08:45 Dietary Evaluation Review Recommendations by RD: Protein Supplementation Comments: 1) Initiate Ensure Enlive bid 2) Encourage optimal PO intake 3) Advance to cardiac diet when medically feasible 4) Follow-up with gastroenterology and oncology 5) Continue to monitor I&O, labs, and skin integrity Expected Outcomes/Goals: 1) appetite and labs to improve 2) diet to advance 3) f/u in 3-5 days CC Plasma Assessment Blood Product Administration S: [id number] RILEY REINA RESIDENT May 29, 2025 14:00
--- NOTE | 2025-05-29 17:04 | DVHPNRES ---
Progress Note Date Seen: May 29, 2025 Resident Creating Document: SHE JASON Medical Necessity Reason Pt with a Central, PICC or Fol: No Subjective Review of Systems Alix Parks is a 59 years old female with a PMH of colorectal carcinoma diagnosed 1 year ago currently taking radiation ( more than 30 sessions) and chemotherapy (capecitabine) who presented to the ED with severe rectal bleeding for past 3 weeks. Patient reported she has been having significant rectal bleeding for past 3 weeks which has continued despite ongoing radiation and chemotherapy treatments. Patient also started experiencing feeling tired, having difficulty breathing, unable to walk due to weakness. Patient also experiencing pain when using bathroom. These symptoms have significantly impacted the daily living function so prompted her to visit ED. On my assessment patient denies fever, nausea, vomiting, chills, abdominal pain, diarrhea, constipation and other associated symptoms. PMH: Colorectal carcinoma, anemia required blood transfusion, thyroid tumor PSH: Hemithyroidectomy 5-6 years ago Family history: Grandmother colon cancer, cousin colon cancer, mother stomach cancer Social history: Lives with family. Denies smoking, alcohol and other drug abuse Allergies: No known allergies Patient seen and examined at bedside. Patient is alert and oriented to time, place person and responding to all questions. Patient has generalised weakness. Eyes: No Pain, No Vision change, No Conjunctivae inflammation, No Eyelid inflammation, No Redness ENT: No Ear pain, No Ear discharge, No Nose pain, No Nose discharge, No Nose congestion, No Mouth pain, No Mouth swelling, No Throat pain, No Throat swelling Cardiovascular: No Chest Pain, No Palpitations, No Orthopnea, No Paroxysmal No Dyspnea, No Edema, No Lt Headedness Respiratory: No Cough, No Dry, No Shortness of breath, No SOB with exertion, No Wheezing, No Hemoptysis, No Pleuritic Pain, No Sputum Gastrointestinal: No Nausea, No Vomiting, No Abdominal Pain, No Diarrhea, No Constipation, No Melena, Hematochezia Genitourinary: No Dysuria, No Frequency, No Incontinence, No Hematuria, No Retention 05/19- On evaluation today, she says she feels better, although the rectal bleeding has continued. She has been transfused 3 units of PRBCs since admission. Hemoglobin this morning was 8.2 and it dropped to 7.5 later in the day. She was transitioned from clear liquids to full liquid diet and was given a 500 cc bolus of NS. GI was consulted who asked to Continue to monitor labs, check CEA level.Supportive care for now .Review patient's last colonoscopy and decide timing of a repeat sigmoidoscopy or colonoscopy pending clinical progress. Repeat order for H & H at 10:00 p.m. on 05/19/2025 was placed. 05/20- The patient was seen at bedside. Her hemoglobin this morning was 6.6, so she got transfused with another bag of PRBCs. The patient complains of ongoing per rectal bleeding which is concerning to her. Repeat GI consult was done, pending evaluation by them. Her diet was advanced from full liquid to soft mechanical diet. 05/21- the patient was seen at bedside today. Her hemoglobin was 6.9, so she was given another transfusion of PRBC. Potassium today was 3.3 so patient was given 20 mEq of potassium. She complains of continued rectal bleeding with every bowel movement. He was put on clear liquid diet and is scheduled for colonoscopy tomorrow. She will be given another bag of PRBCs later this evening as recommended by GI. 05/22- patient was seen at bedside today. Her hemoglobin today was 10.3. The patient went for colonoscopy today but it could not be completed as there was a narrowed ulcerated partially obstructing circumferential rectosigmoid mass with the distal margin at about 10 cm above the anal verge. Surgical consult was ordered by GI. Patient had swelling, redness and pain at the site of transfusion and was found to have a superficial thrombus in right cephalic vein. 05/23- patient was seen at bedside today. Her hemoglobin today was 7.9. Surgery saw the patient and discussed the possibility of a possible diversion surgery and low anterior resection on Tuesday or Tuesday. The patient agreed to this. We were asked to continue transfusion if hemoglobin goes below 7. Colace t.i.d. was added along with Clinimix for nutrition via PICC line. We will continue with full liquid diet and supplement with ensure. 05/24- patient was seen at bedside today. Her hemoglobin today was 7.2, another PRBC transfusion was ordered for her. She was started on ensure. She had a few fever spikes yesterday, so repeat UA, urine culture, COVID, influenza, chest x- ray were ordered and she was started on ceftriaxone and Flagyl. 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 05/25- the patient was seen at bedside today. Her hemoglobin today was 8.2. 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 Preliminary Blood culture showed no growth in the first 24 hours. No fever spikes yesterday. Pending surgical procedure on Tuesday/Tuesday. Preliminary urine culture showed no growth after 24 hours. 05/26- Patient is seen today at bedside. Labs and chart reviewed. Patient's hemoglobin level stable with a 8.1. Patient reported feeling better. Surgery recommendation reviewed and appreciated. Patient is due for surgical intervention -low anterior resection versus abdominoperineal resection with an end-colostomy on Tuesday. As per surgery details of the surgical plan was discussed with the patient. Patient was seen by Gastroenterology, as per Gastroenterology rectosigmoid biopsy revealed positive for CMV. Patient is on IV acyclovir. 05/27- Patient is seen today at bedside. Labs and chart reviewed. Patient's hemoglobin level stable with a 8.8. Patient reported feeling better. As of this morning, the patient continues to experience rectal bleeding. Surgical intervention is scheduled for tomorrow. The patient will remain NPO after midnight in preparation for the procedure. Laboratory tests have been ordered and are scheduled for tomorrow morning. 05/28- Patient is seen today at bedside. Labs and chart reviewed. Patient's hemoglobin level stable with a 9.0. Patient has completed exploratory laparotomy, low anterior resection, and colostomy. Monitoring is ongoing for post-surgical recovery and potential complications 05/29- Patient is seen today at bedside. Patient is currently postoperative day 1. The patient reports feeling slightly bloated and is experiencing pain, which is adequately controlled with medications. Due to the bloating, a NG tube was placed to low intermittent suction for decompression. Patient is encouraged to begin early ambulation. Approximately 10 mL of sanguineous drainage noted. Colostomy bag was placed. The patient tolerated the procedure well without any complaints of pain. Objective vital signs Vital Sign Date Time Temp Pulse Resp B/P (MAP) Pulse Ox O2 Delivery O2 Flow Rate FiO2 05/29/25 13:00 98.4 102 17 107/59 (75) 97 98.4 05/29/25 08:15 Room Air* 0 21 Total Intake and Output 05/28/25 05/28/25 05/29/25 15:00 23:00 07:00 Intake Total 100 ml 0 ml 310 ml Output Total 100 ml 350 ml 1550 ml Balance 0 ml -350 ml -1240 ml medications Current Medications Medications Dose Ordered Sig/Roni Route Start Time Stop Time Status Last Admin Dose Admin Ondansetron HCl 4 mg Q4HP PRN IV 05/17/25 17:45 05/28/25 00:11 4 MG Amino Acids 0 ml @ 0 mls/hr PER PHARMACY IV 05/23/25 17:15 Diagnostic Test (Pha) 1 strip Q6HR 05/24/25 00:00 05/29/25 12:23 1 STRIP Insulin Human Regular FOLLOW SLIDING SCALE Q6HR SC 05/24/25 00:00 05/29/25 12:25 2 UNITS Dextrose 50 ml UD IV 05/23/25 22:00 Ceftriaxone Sodium 50 ml @ 100 mls/hr DAILY@09 IV 05/25/25 09:00 05/29/25 10:52 100 MLS/HR Metronidazole 100 ml @ 100 mls/hr Q8HR IV 05/24/25 14:00 05/29/25 14:16 100 MLS/HR Sodium Chloride 10 ml QSHIFT@10,22 IV 05/24/25 22:00 05/29/25 10:52 10 ML Acyclovir Sodium 500 mg/Dextrose 110 ml @ 110 mls/hr Q8H IV 05/26/25 00:15 05/29/25 15:56 110 MLS/HR Neomycin Sulfate 1,000 mg TID PO 05/27/25 20:00 UNV Sodium Chloride 1,000 ml @ 50 mls/hr Q20H IV 05/27/25 20:00 05/29/25 12:32 50 MLS/HR Fat Emulsion Intravenous 50 ml/ Potassium Acetate 20 meq/Potassium Phosphate 44 meq/ Multivitamins 10 ml/Chromium/ Copper/Manganese/ Zinc 1 ml/Amino Acids/Dextrose 881 ml @ 37 mls/hr [id number] IV 05/28/25 22:00 05/29/25 21:59 05/28/25 22:24 37 MLS/HR Acetaminophen 650 mg Q6HR GT 05/28/25 18:00 05/29/25 12:33 650 MG Ketorolac Tromethamine 15 mg Q8HR IV 05/28/25 14:00 06/02/25 08:00 05/29/25 14:22 15 MG Morphine Sulfate 20 mg Q4HP PRN GT 05/28/25 12:45 Pantoprazole Sodium 40 mg DAILY IV 05/29/25 10:00 05/29/25 10:52 40 MG Fat Emulsion Intravenous 100 ml/Sodium Phosphate 10 meq/ Potassium Acetate 10 meq/Potassium Phosphate 22 meq/ Magnesium Sulfate 8 meq/ Multivitamins 10 ml/Chromium/ Copper/Manganese/ Zinc 1 ml/Insulin Human Regular 5 units/Amino Acids/ Dextrose 975.55 ml @ 41 mls/hr [id number] IV 05/29/25 22:00 05/30/25 21:59 Hydromorphone HCl 0.5 mg Q6HPRN PRN IV 05/29/25 10:00 05/29/25 11:07 0.5 MG Morphine Sulfate 10 mg Q4HPRN PRN IV 05/29/25 11:15 Examination General Appearance: Cooperative. Well developed. Well nourished. NAD. Patient looks pale. Head Exam: Normal inspection Neck Exam: Normal inspection. Non-tender. Normal alignment Pulmonary/Respiratory: Chest non-tender. Clear bilateral breath sounds, no crackles, no wheezing. Cardiovascular/Chest: Regular rate and rhythm. No murmurs. No JVD. Peripheral Pulses: 2+ Radial (R). 2+ Radial (L). 2+ Pedal (R). 2+ Pedal (L) Abdominal Exam: Lower abdominal tenderness. Normal bowel sounds. Soft. normal abdomen, no visible veins, No hepatospenomegaly. No masses Ankle Exam: Negative ankle edema Lower extremities: Negative lower extremity edema Neuro/Mental Status: A&O x4. Coherent. Thoughts/Psych: Normal thought pattern. Appropriate mood and affect. Good judgement and insight Rectal exam (05/18/25) :Rectal mass seen but no fresh blood appreciated Skin Exam: Normal inspection. Normal color. Warm. Dry laboratory and microbiology Laboratory Tests 05/29/25 05:46 Test 05/29/25 05:46 Range/Units Serum Glucose 184 H 74-106 mg/dL Microbiology Date/Time Source Procedure Growth Status 05/24/25 12:45 Voided Urine Urine Culture - Final Complete 05/24/25 08:34 Blood Blood Culture - Final NO GROWTH AFTER 5 DAYS OF INCUBATION. Complete Labs and/or images reviewed: Labs reviewed by me, Image(s) reviewed by me Problem List/Assessment/Plan Problem List/Assessment/Plan Problem List/Assessment/Plan- Patient is due for surgical intervention -low anterior resection versus abdominoperineal resection with an end-colostomy on Tuesday. As per surgery details of the surgical plan was discussed with the patient. Patient was seen by Gastroenterology, as per Gastroenterology r ectosigmoid biopsy revealed positive for CMV. Patient is on IV acyclovir. 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 - continuously monitor H&H - transfused 7 PRBCs, re transfuse if Hemoglobin less than 7 - iron IVBP - iron panel, folic acid, B12 - GI consult-monitor labs, order CEA level, supportive management - rectal exam showed rectal mass, exophytic but no fresh blood appreciated - stool occult blood- positive - CT abdominal pelvis showed Sigmoidal wall colon thickening and surrounding stranding which can be seen with proctocolitis - Continue following up with oncologist after discharge - surgical consult-possible diversion surgery and low anterior resection on 05/28/25 - patient started on iv acyclovir as per GI Hypokalemia, repleted -potassium was 3.3, given 20 mEq of potassium GI PPX: Protonix VTE ppx: SCDs Diet: clear liquids Goals of care: Full code, discussed for >16 minutes on 05/29/25 Plan discussed with patient Plan discussed with Dr. Cartwright Plan discussed with: Patient My Orders My Orders Orders - SHE JASON RESIDENT Procedure Category Date Status Time Morphine Sulfate PHA 05/29/25 In Process Injection 11:15 Complete Blood Count LAB 05/30/25 Verified 04:00 Basic Metabolic Panel LAB 05/30/25 Verified 04:00 Dietary Evaluation Review Recommendations by RD: Protein Supplementation Comments: 1) Initiate Ensure Enlive bid 2) Encourage optimal PO intake 3) Advance to cardiac diet when medically feasible 4) Follow-up with gastroenterology and oncology 5) Continue to monitor I&O, labs, and skin integrity Expected Outcomes/Goals: 1) appetite and labs to improve 2) diet to advance 3) f/u in 3-5 days CC Plasma Assessment Blood Product Administration S: [id number] Date of Service: May 29, 2025 Billing Provider: LUCHO CARTWRIGHT MD Common Visit Codes: [id number] INP/OBS CARE(HIGH) ERENSHE RESIDENT May 29, 2025 17:04 LUCHO CARTWRIGHT MD Jun 01, 2025 00:19
[2025-05-29] MEDS: TPN PER PHARMACY IV NR (21:39)
[2025-05-30] VITALS (8 sets, daily range): BP systolic 101–115; BP diastolic 53–60; PULSE 96–106; RESP 16–18; TEMP 97.3–100.1; O2SAT 96–98
[2025-05-30] MEDS ORDERED: HYDROmorphone HCL 2 MG/ML VL/or syr IV PRN (07:45)
[2025-05-30 08:27] LABS: Hematocrit 24.2 % (36.0-46.0); Hemoglobin 7.9 g/dL (12.2-16.2); Mean Corpuscular Hemoglobin 30.5 pg (28.0-32.0); Mean Corpuscular Volume 93.8 fL (80.0-100.0); Nucleated Red Blood Cells % 0.0 %
[2025-05-30 08:57] LABS: Alanine Aminotransferase 11 U/L (7-40); Alkaline Phosphatase 50 U/L (46-116); Anion Gap 7 (5-15); BUN/Creatinine Ratio 27.3 (10.0-20.0); Carbon Dioxide 25 mmol/L (20-31); Magnesium 2.0 mg/dL (1.6-2.6)
[2025-05-30 09:09] LABS: Albumin 2.5 g/dL (3.2-4.8); Bilirubin, Total 0.3 mg/dL (0.2-1.0); Blood Urea Nitrogen 9 mg/dL (9-23); Calcium 7.4 mg/dL (8.7-10.4); Chloride 109 mmol/L (98-107); Glucose 120 mg/dL (74-106); Potassium 3.6 mmol/L (3.5-5.1); Sodium 141 mmol/L (136-145); Total Protein 4.4 g/dL (5.7-8.2)
--- NOTE | 2025-05-30 09:21 | DVHPN2 ---
Progress Note Date Seen: May 30, 2025 Resident Creating Document: RILEY REINA RESIDENT Medical Necessity Reason Pt with a Central, PICC or Fol: No Subjective Review of Systems Patient seen and examined at bedside No bowel movement, no flatus 350 cc dark green NG tube output Soft and nondistended abdomen Denies any nausea or vomiting Objective vital signs Vital Sign Date Time Temp Pulse Resp B/P (MAP) Pulse Ox O2 Delivery O2 Flow Rate FiO2 05/30/25 09:00 98.2 106 18 115/58 (77) 97 98.2 05/29/25 20:00 Room Air* 0 21 Total Intake and Output 05/29/25 05/29/25 05/30/25 15:00 23:00 07:00 Intake Total 160 ml 1201 ml 100 ml Output Total 10 ml 1451 ml Balance 150 ml -250 ml 100 ml medications Current Medications Medications Dose Ordered Sig/Roni Route Start Time Stop Time Status Last Admin Dose Admin Ondansetron HCl 4 mg Q4HP PRN IV 05/17/25 17:45 05/28/25 00:11 4 MG Amino Acids 0 ml @ 0 mls/hr PER PHARMACY IV 05/23/25 17:15 Diagnostic Test (Pha) 1 strip Q6HR 05/24/25 00:00 05/30/25 05:58 1 STRIP Insulin Human Regular FOLLOW SLIDING SCALE Q6HR SC 05/24/25 00:00 05/29/25 17:25 4 UNITS Dextrose 50 ml UD IV 05/23/25 22:00 Ceftriaxone Sodium 50 ml @ 100 mls/hr DAILY@09 IV 05/25/25 09:00 05/29/25 10:52 100 MLS/HR Metronidazole 100 ml @ 100 mls/hr Q8HR IV 05/24/25 14:00 05/30/25 05:44 100 MLS/HR Sodium Chloride 10 ml QSHIFT@10,22 IV 05/24/25 22:00 05/29/25 21:11 10 ML Acyclovir Sodium 500 mg/Dextrose 110 ml @ 110 mls/hr Q8H IV 05/26/25 00:15 05/30/25 01:12 110 MLS/HR Neomycin Sulfate 1,000 mg TID PO 05/27/25 20:00 UNV Sodium Chloride 1,000 ml @ 50 mls/hr Q20H IV 05/27/25 20:00 05/29/25 12:32 50 MLS/HR Acetaminophen 650 mg Q6HR GT 05/28/25 18:00 05/30/25 01:12 650 MG Pantoprazole Sodium 40 mg DAILY IV 05/29/25 10:00 05/29/25 10:52 40 MG Fat Emulsion Intravenous 100 ml/Sodium Phosphate 10 meq/ Potassium Acetate 10 meq/Potassium Phosphate 22 meq/ Magnesium Sulfate 8 meq/ Multivitamins 10 ml/Chromium/ Copper/Manganese/ Zinc 1 ml/Insulin Human Regular 5 units/Amino Acids/ Dextrose 975.55 ml @ 41 mls/hr [id number] IV 05/29/25 22:00 05/30/25 21:59 05/29/25 21:39 41 MLS/HR Hydromorphone HCl 0.5 mg Q4HPRN PRN IV 05/30/25 07:45 Ketorolac Tromethamine 15 mg Q6HPRN PRN IV 05/30/25 07:45 06/04/25 07:44 Examination General Appearance: Cooperative. Well developed. Well nourished. NAD. Patient looks pale. Pulmonary/Respiratory: Equal bilateral air Cardiovascular/Chest: Regular rate and rhythm. No murmurs. No JVD. Abdominal Exam: In abdominal binder, soft, weakly positive bowel sounds. Ankle Exam: Negative ankle edema Thoughts/Psych: Normal thought pattern. Appropriate mood and affect. Good judgement and insight Rectal exam (05/18/25) :Rectal mass seen but no fresh blood appreciated Skin Exam: Normal inspection. Normal color. Warm. Dry laboratory and microbiology Laboratory Tests 05/30/25 08:07 Test 05/30/25 08:07 Range/Units Serum Glucose 120 H 74-106 mg/dL Microbiology Date/Time Source Procedure Growth Status 05/24/25 12:45 Voided Urine Urine Culture - Final Complete 05/24/25 08:34 Blood Blood Culture - Final NO GROWTH AFTER 5 DAYS OF INCUBATION. Complete Labs and/or images reviewed: Labs reviewed by me, Image(s) reviewed by me Problem List/Assessment/Plan Problem List/Assessment/Plan Lower GI bleed One to 2+ engorged internal hemorrhoids Severe anemia due to above History of colorectal carcinoma s/p chemotherapy and radiotherapy Rectal cancer with bowel obstruction Plan: Encourage ambulation q.4 hours, clamp NG tube transiently if that is limiting ambulation. S/p ex lap Continue postoperative care Continue TPN Receiving IV iron S/p 6 PRBCs , transfuse as necessary to keep hemoglobin above 7 Last colonoscopy February 2024 Colonoscopy showed a narrowed ulcerated partially obstructing circumferential rectosigmoid mass with the distal margin at about 10 cm above the anal verge b eyond which the scope could not be advanced. There was formed stool stuck within the narrowed lumen in the colonoscope could not be advanced safely beyond this area. Biopsies were taken. One to 2+ engorged internal hemorrhoids and some excoriation of the perianal area. Patient will benefit from surgical intervention, surgical consult place and discussion held with Dr. Mehta as well as patient's oncologist Dr. Rocha Patient has surgical plan with her surgeon at [facility], however, patient is at risk of impending bowel obstruction as well as requiring PRBC, may not be stable for discharge in might require surgical intervention within this hospitalization. Ensure 250 mL t.i.d. with meals Thank you so much for the opportunity to consult on your patient. GI team will follow the patient. In case of any questions or concerns please feel free to reach out. Plan discussed with Dr. Martinez Plan discussed with: Patient, Other (RN) Dietary Evaluation Review Recommendations by RD: Protein Supplementation Comments: 1) Initiate Ensure Enlive bid 2) Encourage optimal PO intake 3) Advance to cardiac diet when medically feasible 4) Follow-up with gastroenterology and oncology 5) Continue to monitor I&O, labs, and skin integrity Expected Outcomes/Goals: 1) appetite and labs to improve 2) diet to advance 3) f/u in 3-5 days CC Plasma Assessment Blood Product Administration S: [id number] RILEY REINA RESIDENT May 30, 2025 09:21
[2025-05-30] MEDS: POTASSIUM PHOSPHATE 26.4 MEQ in SODIUM CHL 0.9% 100 ML IV ONE (14:26)
[2025-05-30] MEDS: KETOROLAC TROMETH 30 MG/ML 1ML VIAL IV PRN (14:37)
--- NOTE | 2025-05-30 14:41 | DVHPN2 ---
Progress Note - Surgical Date Seen: May 30, 2025 Post op day Post op day: 2 Subjective Patient reports: Feels better (Not bloated, abdominal pain manageable with pain meds, producing stool through colostomy, not ambulated much.) Review of Systems: Deferred Objective Vital signs Vital Sign Date Time Temp Pulse Resp B/P (MAP) Pulse Ox O2 Delivery O2 Flow Rate FiO2 05/30/25 13:00 99.1 102 18 109/60 (76) 98 99.1 05/30/25 08:00 Room Air* 0 21 Total Intake and Output 05/29/25 05/29/25 05/30/25 15:00 23:00 07:00 Intake Total 160 ml 1201 ml 100 ml Output Total 10 ml 1451 ml Balance 150 ml -250 ml 100 ml Medications Current Medications Medications Dose Ordered Sig/Roni Route Start Time Stop Time Status Last Admin Dose Admin Ondansetron HCl 4 mg Q4HP PRN IV 05/17/25 17:45 05/28/25 00:11 4 MG Amino Acids 0 ml @ 0 mls/hr PER PHARMACY IV 05/23/25 17:15 Diagnostic Test (Pha) 1 strip Q6HR 05/24/25 00:00 05/30/25 12:07 1 STRIP Insulin Human Regular FOLLOW SLIDING SCALE Q6HR SC 05/24/25 00:00 05/29/25 17:25 4 UNITS Dextrose 50 ml UD IV 05/23/25 22:00 Ceftriaxone Sodium 50 ml @ 100 mls/hr DAILY@09 IV 05/25/25 09:00 05/30/25 12:07 100 MLS/HR Metronidazole 100 ml @ 100 mls/hr Q8HR IV 05/24/25 14:00 05/30/25 14:26 100 MLS/HR Sodium Chloride 10 ml QSHIFT@10,22 IV 05/24/25 22:00 05/30/25 10:05 10 ML Acyclovir Sodium 500 mg/Dextrose 110 ml @ 110 mls/hr Q8H IV 05/26/25 00:15 05/30/25 10:03 110 MLS/HR Neomycin Sulfate 1,000 mg TID PO 05/27/25 20:00 UNV Sodium Chloride 1,000 ml @ 50 mls/hr Q20H IV 05/27/25 20:00 05/29/25 12:32 50 MLS/HR Acetaminophen 650 mg Q6HR GT 05/28/25 18:00 05/30/25 01:12 650 MG Pantoprazole Sodium 40 mg DAILY IV 05/29/25 10:00 05/30/25 10:05 40 MG Fat Emulsion Intravenous 100 ml/Sodium Phosphate 10 meq/ Potassium Acetate 10 meq/Potassium Phosphate 22 meq/ Magnesium Sulfate 8 meq/ Multivitamins 10 ml/Chromium/ Copper/Manganese/ Zinc 1 ml/Insulin Human Regular 5 units/Amino Acids/ Dextrose 975.55 ml @ 41 mls/hr [id number] IV 05/29/25 22:00 05/30/25 21:59 05/29/25 21:39 41 MLS/HR Hydromorphone HCl 0.5 mg Q4HPRN PRN IV 05/30/25 07:45 Ketorolac Tromethamine 15 mg Q6HPRN PRN IV 05/30/25 07:45 06/04/25 07:44 Fat Emulsion Intravenous 150 ml/Sodium Phosphate 10 meq/ Potassium Acetate 20 meq/Potassium Phosphate 22 meq/ Magnesium Sulfate 8 meq/ Multivitamins 10 ml/Chromium/ Copper/Manganese/ Zinc 1 ml/Amino Acids/Dextrose 1,130.5 ml @ 48 mls/hr [id number] IV 05/30/25 22:00 05/31/25 21:59 Laboratory Laboratory Tests 05/30/25 08:07 Test 05/30/25 08:07 Range/Units Serum Glucose 120 H 74-106 mg/dL Microbiology Date/Time Source Procedure Growth Status 05/24/25 12:45 Voided Urine Urine Culture - Final Complete 05/24/25 08:34 Blood Blood Culture - Final NO GROWTH AFTER 5 DAYS OF INCUBATION. Complete Examination: GENERAL:Normal, ABDOMEN:Abnormal (Nondistended, midline wound with wilfredo in place and without signs of infection, left lower quadrant colostomy with pink mucosa and stool in bag, right lower quadrant drain with minimal serosanguineous output.) Labs and/or images reviewed: Labs reviewed by me (No leukocytosis) Problem List/Assessment/Plan Assessment and Plan Mrs. Parks is a 59-year-old female who has an active diagnosis of rectal cancer x1yr ago, and who presented to the ED due to rectal bleeding since last Tuesday. She has required 6 units of blood since admission. Colonoscopy (05/22) by Dr. Martinez showed a mass at approximately 10 cm from the anal verge ulcerated, that was not an able to be transverse by the scope. I was consulted for possible palliative diversion due to the possible pending obstruction and continued rectal bleeding. 05/30: Exploratory laparotomy, low anterior resection, end colostomy. 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 Patient feeling much better today, some abdominal pain but manageable with p.o. pain meds, not bloated, ostomy producing, has ambulated some, not much out of the NG tube. We will discontinue NG tube today and start her on a clear liquid diet. 1. Okay for clear liquid diet 2. Discontinue NG tube 3. Drain stripping and emptying once per shift, please document output in the ins and outs 4. Continue transfusions as needed 5. Colace 100 mg t.i.d. to soften stools 6. Continue TPN 7. A.m. labs 8. Out of bed and ambulate 11. Pain control: Tylenol 650 mg p.o. every 6 hours, Toradol 15 mg IV every 8 hours, morphine 10 mg via NG every 4 hours p.r.n. moderate, morphine 20 mg via NG every 4 hours p.r.n. severe, we will add Dilaudid 0.5 mg IV prn breakthrough pain 12. Continue ceftriaxone and Flagyl for 48 hours following the surgery My Orders My Orders Orders - ANN WRIGHT MD Procedure Category Date Status Time Clear Liq Diet DIET 05/30/25 Transmitted Dinner Plan discussed with Plan discussed with: Patient, Spouse, Daughter Visit Coding Surgery Date of Service if different f: May 30, 2025 Billing Provider: ANN WRIGHT MD Surgery Visit Codes: [id number] INP/OBS CARE(HIGH) ANN WRIGHT MD May 30, 2025 14:41
--- NOTE | 2025-05-30 15:25 | DVHPNRES ---
Progress Note Date Seen: May 30, 2025 Resident Creating Document: SHE JASON Medical Necessity Reason Pt with a Central, PICC or Fol: No Subjective Review of Systems Alix Parks is a 59 years old female with a PMH of colorectal carcinoma diagnosed 1 year ago currently taking radiation ( more than 30 sessions) and chemotherapy (capecitabine) who presented to the ED with severe rectal bleeding for past 3 weeks. Patient reported she has been having significant rectal bleeding for past 3 weeks which has continued despite ongoing radiation and chemotherapy treatments. Patient also started experiencing feeling tired, having difficulty breathing, unable to walk due to weakness. Patient also experiencing pain when using bathroom. These symptoms have significantly impacted the daily living function so prompted her to visit ED. On my assessment patient denies fever, nausea, vomiting, chills, abdominal pain, diarrhea, constipation and other associated symptoms. PMH: Colorectal carcinoma, anemia required blood transfusion, thyroid tumor PSH: Hemithyroidectomy 5-6 years ago Family history: Grandmother colon cancer, cousin colon cancer, mother stomach cancer Social history: Lives with family. Denies smoking, alcohol and other drug abuse Allergies: No known allergies Patient seen and examined at bedside. Patient is alert and oriented to time, place person and responding to all questions. Patient has generalised weakness. Eyes: No Pain, No Vision change, No Conjunctivae inflammation, No Eyelid inflammation, No Redness ENT: No Ear pain, No Ear discharge, No Nose pain, No Nose discharge, No Nose congestion, No Mouth pain, No Mouth swelling, No Throat pain, No Throat swelling Cardiovascular: No Chest Pain, No Palpitations, No Orthopnea, No Paroxysmal No Dyspnea, No Edema, No Lt Headedness Respiratory: No Cough, No Dry, No Shortness of breath, No SOB with exertion, No Wheezing, No Hemoptysis, No Pleuritic Pain, No Sputum Gastrointestinal: No Nausea, No Vomiting, No Abdominal Pain, No Diarrhea, No Constipation, No Melena, Hematochezia Genitourinary: No Dysuria, No Frequency, No Incontinence, No Hematuria, No Retention 05/19- On evaluation today, she says she feels better, although the rectal bleeding has continued. She has been transfused 3 units of PRBCs since admission. Hemoglobin this morning was 8.2 and it dropped to 7.5 later in the day. She was transitioned from clear liquids to full liquid diet and was given a 500 cc bolus of NS. GI was consulted who asked to Continue to monitor labs, check CEA level.Supportive care for now .Review patient's last colonoscopy and decide timing of a repeat sigmoidoscopy or colonoscopy pending clinical progress. Repeat order for H & H at 10:00 p.m. on 05/19/2025 was placed. 05/20- The patient was seen at bedside. Her hemoglobin this morning was 6.6, so she got transfused with another bag of PRBCs. The patient complains of ongoing per rectal bleeding which is concerning to her. Repeat GI consult was done, pending evaluation by them. Her diet was advanced from full liquid to soft mechanical diet. 05/21- the patient was seen at bedside today. Her hemoglobin was 6.9, so she was given another transfusion of PRBC. Potassium today was 3.3 so patient was given 20 mEq of potassium. She complains of continued rectal bleeding with every bowel movement. He was put on clear liquid diet and is scheduled for colonoscopy tomorrow. She will be given another bag of PRBCs later this evening as recommended by GI. 05/22- patient was seen at bedside today. Her hemoglobin today was 10.3. The patient went for colonoscopy today but it could not be completed as there was a narrowed ulcerated partially obstructing circumferential rectosigmoid mass with the distal margin at about 10 cm above the anal verge. Surgical consult was ordered by GI. Patient had swelling, redness and pain at the site of transfusion and was found to have a superficial thrombus in right cephalic vein. 05/23- patient was seen at bedside today. Her hemoglobin today was 7.9. Surgery saw the patient and discussed the possibility of a possible diversion surgery and low anterior resection on Tuesday or Tuesday. The patient agreed to this. We were asked to continue transfusion if hemoglobin goes below 7. Colace t.i.d. was added along with Clinimix for nutrition via PICC line. We will continue with full liquid diet and supplement with ensure. 05/24- patient was seen at bedside today. Her hemoglobin today was 7.2, another PRBC transfusion was ordered for her. She was started on ensure. She had a few fever spikes yesterday, so repeat UA, urine culture, COVID, influenza, chest x- ray were ordered and she was started on ceftriaxone and Flagyl. 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 05/25- the patient was seen at bedside today. Her hemoglobin today was 8.2. 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 Preliminary Blood culture showed no growth in the first 24 hours. No fever spikes yesterday. Pending surgical procedure on Tuesday/Tuesday. Preliminary urine culture showed no growth after 24 hours. 05/26- Patient is seen today at bedside. Labs and chart reviewed. Patient's hemoglobin level stable with a 8.1. Patient reported feeling better. Surgery recommendation reviewed and appreciated. Patient is due for surgical intervention -low anterior resection versus abdominoperineal resection with an end-colostomy on Tuesday. As per surgery details of the surgical plan was discussed with the patient. Patient was seen by Gastroenterology, as per Gastroenterology rectosigmoid biopsy revealed positive for CMV. Patient is on IV acyclovir. 05/27- Patient is seen today at bedside. Labs and chart reviewed. Patient's hemoglobin level stable with a 8.8. Patient reported feeling better. As of this morning, the patient continues to experience rectal bleeding. Surgical intervention is scheduled for tomorrow. The patient will remain NPO after midnight in preparation for the procedure. Laboratory tests have been ordered and are scheduled for tomorrow morning. 05/28- Patient is seen today at bedside. Labs and chart reviewed. Patient's hemoglobin level stable with a 9.0. Patient has completed exploratory laparotomy, low anterior resection, and colostomy. Monitoring is ongoing for post-surgical recovery and potential complications 05/29- Patient is seen today at bedside. Patient is currently postoperative day 1. The patient reports feeling slightly bloated and is experiencing pain, which is adequately controlled with medications. Due to the bloating, a NG tube was placed to low intermittent suction for decompression. Patient is encouraged to begin early ambulation. Approximately 10 mL of sanguineous drainage noted. Colostomy bag was placed. The patient tolerated the procedure well without any complaints of pain. 05/30- Patient is seen today at bedside. Patient is currently postoperative day 2. Patient feeling much better today, some abdominal pain but not bloated, ostomy producing, has ambulated some, not much out of the NG tube. We will discontinue NG tube today and start her on a clear liquid diet. Objective vital signs Vital Sign Date Time Temp Pulse Resp B/P (MAP) Pulse Ox O2 Delivery O2 Flow Rate FiO2 05/30/25 13:00 99.1 102 18 109/60 (76) 98 99.1 05/30/25 08:00 Room Air* 0 21 Total Intake and Output 05/29/25 05/29/25 05/30/25 15:00 23:00 07:00 Intake Total 160 ml 1201 ml 100 ml Output Total 10 ml 1451 ml Balance 150 ml -250 ml 100 ml medications Current Medications Medications Dose Ordered Sig/Roni Route Start Time Stop Time Status Last Admin Dose Admin Ondansetron HCl 4 mg Q4HP PRN IV 05/17/25 17:45 05/28/25 00:11 4 MG Amino Acids 0 ml @ 0 mls/hr PER PHARMACY IV 05/23/25 17:15 Diagnostic Test (Pha) 1 strip Q6HR 05/24/25 00:00 05/30/25 12:07 1 STRIP Insulin Human Regular FOLLOW SLIDING SCALE Q6HR SC 05/24/25 00:00 05/29/25 17:25 4 UNITS Dextrose 50 ml UD IV 05/23/25 22:00 Ceftriaxone Sodium 50 ml @ 100 mls/hr DAILY@09 IV 05/25/25 09:00 05/30/25 12:07 100 MLS/HR Metronidazole 100 ml @ 100 mls/hr Q8HR IV 05/24/25 14:00 05/30/25 14:26 100 MLS/HR Sodium Chloride 10 ml QSHIFT@10,22 IV 05/24/25 22:00 05/30/25 10:05 10 ML Acyclovir Sodium 500 mg/Dextrose 110 ml @ 110 mls/hr Q8H IV 05/26/25 00:15 05/30/25 10:03 110 MLS/HR Neomycin Sulfate 1,000 mg TID PO 05/27/25 20:00 UNV Sodium Chloride 1,000 ml @ 50 mls/hr Q20H IV 05/27/25 20:00 05/29/25 12:32 50 MLS/HR Acetaminophen 650 mg Q6HR GT 05/28/25 18:00 05/30/25 01:12 650 MG Pantoprazole Sodium 40 mg DAILY IV 05/29/25 10:00 05/30/25 10:05 40 MG Fat Emulsion Intravenous 100 ml/Sodium Phosphate 10 meq/ Potassium Acetate 10 meq/Potassium Phosphate 22 meq/ Magnesium Sulfate 8 meq/ Multivitamins 10 ml/Chromium/ Copper/Manganese/ Zinc 1 ml/Insulin Human Regular 5 units/Amino Acids/ Dextrose 975.55 ml @ 41 mls/hr [id number] IV 05/29/25 22:00 05/30/25 21:59 05/29/25 21:39 41 MLS/HR Hydromorphone HCl 0.5 mg Q4HPRN PRN IV 05/30/25 07:45 Ketorolac Tromethamine 15 mg Q6HPRN PRN IV 05/30/25 07:45 06/04/25 07:44 05/30/25 14:37 15 MG Fat Emulsion Intravenous 150 ml/Sodium Phosphate 10 meq/ Potassium Acetate 20 meq/Potassium Phosphate 22 meq/ Magnesium Sulfate 8 meq/ Multivitamins 10 ml/Chromium/ Copper/Manganese/ Zinc 1 ml/Amino Acids/Dextrose 1,130.5 ml @ 48 mls/hr [id number] IV 05/30/25 22:00 05/31/25 21:59 Examination General Appearance: Cooperative. Well developed. Well nourished. NAD. Patient looks pale. Head Exam: Normal inspection Neck Exam: Normal inspection. Non-tender. Normal alignment Pulmonary/Respiratory: Chest non-tender. Clear bilateral breath sounds, no crackles, no wheezing. Cardiovascular/Chest: Regular rate and rhythm. No murmurs. No JVD. Peripheral Pulses: 2+ Radial (R). 2+ Radial (L). 2+ Pedal (R). 2+ Pedal (L) Abdominal Exam: Lower abdominal tenderness. Normal bowel sounds. Soft. normal abdomen, no visible veins, No hepatospenomegaly. No masses Ankle Exam: Negative ankle edema Lower extremities: Negative lower extremity edema Neuro/Mental Status: A&O x4. Coherent. Thoughts/Psych: Normal thought pattern. Appropriate mood and affect. Good judgement and insight Rectal exam (05/18/25) :Rectal mass seen but no fresh blood appreciated Skin Exam: Normal inspection. Normal color. Warm. Dry laboratory and microbiology Laboratory Tests 05/30/25 08:07 Test 05/30/25 08:07 Range/Units Serum Glucose 120 H 74-106 mg/dL Microbiology Date/Time Source Procedure Growth Status 05/24/25 12:45 Voided Urine Urine Culture - Final Complete 05/24/25 08:34 Blood Blood Culture - Final NO GROWTH AFTER 5 DAYS OF INCUBATION. Complete Labs and/or images reviewed: Labs reviewed by me, Image(s) reviewed by me Problem List/Assessment/Plan Problem List/Assessment/Plan Problem List/Assessment/Plan- Patient is due for surgical intervention -low anterior resection versus abdominoperineal resection with an end-colostomy on Tuesday. As per surgery details of the surgical plan was discussed with the patient. Patient was seen by Gastroenterology, as per Gastroenterology r ectosigmoid biopsy revealed positive for CMV. Patient is on IV acyclovir. 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 - continuously monitor H&H - transfused 7 PRBCs, re transfuse if Hemoglobin less than 7 - iron IVBP - iron panel, folic acid, B12 - GI consult-monitor labs, order CEA level, supportive management - rectal exam showed rectal mass, exophytic but no fresh blood appreciated - stool occult blood- positive - CT abdominal pelvis showed Sigmoidal wall colon thickening and surrounding stranding which can be seen with proctocolitis - Continue following up with oncologist after discharge - surgical consult-possible diversion surgery and low anterior resection on 05/28/25 - patient started on iv acyclovir as per GI Hypokalemia, repleted -potassium was 3.3, given 20 mEq of potassium GI PPX: Protonix VTE ppx: SCDs Diet: clear liquids Goals of care: Full code, discussed for >16 minutes on 05/30/25 Plan discussed with patient Plan discussed with Dr. Cartwright Plan discussed with: Patient, Spouse Dietary Evaluation Review Recommendations by RD: Protein Supplementation Comments: 1) Initiate Ensure Enlive bid 2) Encourage optimal PO intake 3) Advance to cardiac diet when medically feasible 4) Follow-up with gastroenterology and oncology 5) Continue to monitor I&O, labs, and skin integrity Expected Outcomes/Goals: 1) appetite and labs to improve 2) diet to advance 3) f/u in 3-5 days CC Plasma Assessment Blood Product Administration S: [id number] Date of Service: May 30, 2025 Billing Provider: LUCHO CARTWRIGHT MD Common Visit Codes: [id number] INP/OBS CARE(HIGH) ERENSHE RESIDENT May 30, 2025 15:25 LUCHO CARTWRIGHT MD Jun 01, 2025 00:19
[2025-05-30] MEDS: TPN PER PHARMACY IV NR (22:34)
[2025-05-31] VITALS (8 sets, daily range): BP systolic 101–127; BP diastolic 55–78; PULSE 89–102; RESP 16–18; TEMP 98.2–99.6; O2SAT 96–99
[2025-05-31 05:12] LABS: Hemoglobin 7.9 g/dL (12.2-16.2); Mean Corpuscular Volume 93.4 fL (80.0-100.0); Nucleated Red Blood Cells % 0.1 %
[2025-05-31 05:15] LABS: Hematocrit 23.2 % (36.0-46.0); Mean Corpuscular Hemoglobin 31.8 pg (28.0-32.0)
[2025-05-31 05:24] LABS: Alanine Aminotransferase 12 U/L (7-40); Alkaline Phosphatase 60 U/L (46-116); Anion Gap 8 (5-15); BUN/Creatinine Ratio 23.1 (10.0-20.0); Bilirubin, Total 0.3 mg/dL (0.2-1.0); Carbon Dioxide 25 mmol/L (20-31); Magnesium 2.1 mg/dL (1.6-2.6); Potassium 3.9 mmol/L (3.5-5.1); Sodium 143 mmol/L (136-145)
[2025-05-31 05:28] LABS: Blood Urea Nitrogen 9 mg/dL (9-23); Chloride 110 mmol/L (98-107); Glucose 112 mg/dL (74-106)
[2025-05-31 05:29] LABS: Albumin 2.6 g/dL (3.2-4.8); Calcium 7.6 mg/dL (8.7-10.4); Total Protein 4.6 g/dL (5.7-8.2)
--- NOTE | 2025-05-31 10:01 | DVHPN2 ---
Progress Note - Surgical Date Seen: May 31, 2025 Post op day Post op day: 3 Subjective Patient reports: Feels better (Patient continues to feel better day by day, tolerated clear liquid diet yesterday and wants to try something more solid, states that ostomy is producing just fine, and the feeling bloated) Review of Systems: Deferred Objective Vital signs Vital Sign Date Time Temp Pulse Resp B/P (MAP) Pulse Ox O2 Delivery O2 Flow Rate FiO2 05/31/25 08:00 90 18 Room Air* 0 21 05/31/25 05:00 98.4 103/61 (75) 97 98.4 Total Intake and Output 05/30/25 05/30/25 05/31/25 15:00 23:00 07:00 Intake Total 160 ml 1100 ml 1110 ml Output Total 5 ml Balance 160 ml 1100 ml 1105 ml Medications Current Medications Medications Dose Ordered Sig/Roni Route Start Time Stop Time Status Last Admin Dose Admin Ondansetron HCl 4 mg Q4HP PRN IV 05/17/25 17:45 05/28/25 00:11 4 MG Amino Acids 0 ml @ 0 mls/hr PER PHARMACY IV 05/23/25 17:15 Diagnostic Test (Pha) 1 strip Q6HR 05/24/25 00:00 05/31/25 06:29 1 STRIP Insulin Human Regular FOLLOW SLIDING SCALE Q6HR SC 05/24/25 00:00 05/31/25 01:30 2 UNITS Dextrose 50 ml UD IV 05/23/25 22:00 Ceftriaxone Sodium 50 ml @ 100 mls/hr DAILY@09 IV 05/25/25 09:00 05/31/25 08:35 100 MLS/HR Metronidazole 100 ml @ 100 mls/hr Q8HR IV 05/24/25 14:00 05/31/25 06:18 100 MLS/HR Sodium Chloride 10 ml QSHIFT@10,22 IV 05/24/25 22:00 05/31/25 08:41 10 ML Acyclovir Sodium 500 mg/Dextrose 110 ml @ 110 mls/hr Q8H IV 05/26/25 00:15 05/31/25 08:41 110 MLS/HR Neomycin Sulfate 1,000 mg TID PO 05/27/25 20:00 UNV Sodium Chloride 1,000 ml @ 50 mls/hr Q20H IV 05/27/25 20:00 05/30/25 22:31 50 MLS/HR Acetaminophen 650 mg Q6HR GT 05/28/25 18:00 05/30/25 01:12 650 MG Pantoprazole Sodium 40 mg DAILY IV 05/29/25 10:00 05/31/25 08:34 40 MG Hydromorphone HCl 0.5 mg Q4HPRN PRN IV 05/30/25 07:45 Ketorolac Tromethamine 15 mg Q6HPRN PRN IV 05/30/25 07:45 06/04/25 07:44 05/31/25 08:40 15 MG Fat Emulsion Intravenous 150 ml/Sodium Phosphate 10 meq/ Potassium Acetate 20 meq/Potassium Phosphate 22 meq/ Magnesium Sulfate 8 meq/ Multivitamins 10 ml/Chromium/ Copper/Manganese/ Zinc 1 ml/Amino Acids/Dextrose 1,130.5 ml @ 48 mls/hr [id number] IV 05/30/25 22:00 05/31/25 21:59 05/30/25 22:34 48 MLS/HR Laboratory Laboratory Tests 05/31/25 04:38 Test 05/31/25 04:38 Range/Units Serum Glucose 112 H 74-106 mg/dL Microbiology Date/Time Source Procedure Growth Status 05/24/25 12:45 Voided Urine Urine Culture - Final Complete 05/24/25 08:34 Blood Blood Culture - Final NO GROWTH AFTER 5 DAYS OF INCUBATION. Complete Examination: GENERAL:Normal, ABDOMEN:Normal (Flat, midline incision with wilfredo in place and no surrounding signs of infection, right lower quadrant drain with minimal serosanguineous output, left lower quadrant end colostomy with pink mucosa and stool in bag, minimal erika-incisional tenderness, no rebound, no guarding) Labs and/or images reviewed: Labs reviewed by me (No leukocytosis) Problem List/Assessment/Plan Assessment and Plan Mrs. Parks is a 59-year-old female who has an active diagnosis of rectal cancer x1yr ago, and who presented to the ED due to rectal bleeding since last Tuesday. She has required 6 units of blood since admission. Colonoscopy (05/22) by Dr. Martinez showed a mass at approximately 10 cm from the anal verge ulcerated, that was not an able to be transverse by the scope. I was consulted for possible palliative diversion due to the possible pending obstruction and continued rectal bleeding. 05/30: Exploratory laparotomy, low anterior resection, end colostomy. Findings: Metastatic implants x2 on the left lobe of the liver, around segments 2 and 3 Interval: Patient is currently postop day 3 from the above-mentioned surgery. Patient feeling well this morning, tolerated clear liquid diet (will advance to soft bland), she ambulated, ostomy is producing, output from drain is reassuring. Patient hasn't required blood transfusions since the surgery. We will assess how she tolerates a solid diet, but she will likely be able to go home tomorrow. 1. Advance to soft bland diet 2. Drain stripping and emptying once per shift, please document output in the ins and outs 3. Continue transfusions as needed 4. Colace 100 mg t.i.d. to soften stools 5. May start weaning TPN as patient is tolerating more diet 6. A.m. labs 7. Out of bed and ambulate 8. Pain control: Tylenol 650 mg p.o. every 6 hours, Toradol 15 mg IV every 8 hours, morphine 10 mg via NG every 4 hours p.r.n. moderate, morphine 20 mg via NG every 4 hours p.r.n. severe, we will add Dilaudid 0.5 mg IV prn breakthrough pain 9. Continue ceftriaxone and Flagyl for 48 hours following the surgery My Orders My Orders Orders - ANN WRIGHT MD Procedure Category Date Status Time Soft Diet DIET 05/31/25 Transmitted Breakfast Plan discussed with Plan discussed with: Patient, Spouse Visit Coding Surgery Date of Service if different f: May 31, 2025 Billing Provider: ANN WRIGHT MD Surgery Visit Codes: [id number] INP/OBS CARE(HIGH) ANN WRIGHT MD May 31, 2025 10:01
[2025-05-31] MEDS ORDERED: ACETAMINOPHEN 325 MG TAB PO PRN (12:15)
--- NOTE | 2025-05-31 13:12 | DVHPNRES ---
Progress Note Date Seen: May 31, 2025 Resident Creating Document: SHE JASON Medical Necessity Reason Pt with a Central, PICC or Fol: No Subjective Review of Systems Alix Parks is a 59 years old female with a PMH of colorectal carcinoma diagnosed 1 year ago currently taking radiation ( more than 30 sessions) and chemotherapy (capecitabine) who presented to the ED with severe rectal bleeding for past 3 weeks. Patient reported she has been having significant rectal bleeding for past 3 weeks which has continued despite ongoing radiation and chemotherapy treatments. Patient also started experiencing feeling tired, having difficulty breathing, unable to walk due to weakness. Patient also experiencing pain when using bathroom. These symptoms have significantly impacted the daily living function so prompted her to visit ED. On my assessment patient denies fever, nausea, vomiting, chills, abdominal pain, diarrhea, constipation and other associated symptoms. PMH: Colorectal carcinoma, anemia required blood transfusion, thyroid tumor PSH: Hemithyroidectomy 5-6 years ago Family history: Grandmother colon cancer, cousin colon cancer, mother stomach cancer Social history: Lives with family. Denies smoking, alcohol and other drug abuse Allergies: No known allergies Patient seen and examined at bedside. Patient is alert and oriented to time, place person and responding to all questions. Patient has generalised weakness. Eyes: No Pain, No Vision change, No Conjunctivae inflammation, No Eyelid inflammation, No Redness ENT: No Ear pain, No Ear discharge, No Nose pain, No Nose discharge, No Nose congestion, No Mouth pain, No Mouth swelling, No Throat pain, No Throat swelling Cardiovascular: No Chest Pain, No Palpitations, No Orthopnea, No Paroxysmal No Dyspnea, No Edema, No Lt Headedness Respiratory: No Cough, No Dry, No Shortness of breath, No SOB with exertion, No Wheezing, No Hemoptysis, No Pleuritic Pain, No Sputum Gastrointestinal: No Nausea, No Vomiting, No Abdominal Pain, No Diarrhea, No Constipation, No Melena, Hematochezia Genitourinary: No Dysuria, No Frequency, No Incontinence, No Hematuria, No Retention 05/19- On evaluation today, she says she feels better, although the rectal bleeding has continued. She has been transfused 3 units of PRBCs since admission. Hemoglobin this morning was 8.2 and it dropped to 7.5 later in the day. She was transitioned from clear liquids to full liquid diet and was given a 500 cc bolus of NS. GI was consulted who asked to Continue to monitor labs, check CEA level.Supportive care for now .Review patient's last colonoscopy and decide timing of a repeat sigmoidoscopy or colonoscopy pending clinical progress. Repeat order for H & H at 10:00 p.m. on 05/19/2025 was placed. 05/20- The patient was seen at bedside. Her hemoglobin this morning was 6.6, so she got transfused with another bag of PRBCs. The patient complains of ongoing per rectal bleeding which is concerning to her. Repeat GI consult was done, pending evaluation by them. Her diet was advanced from full liquid to soft mechanical diet. 05/21- the patient was seen at bedside today. Her hemoglobin was 6.9, so she was given another transfusion of PRBC. Potassium today was 3.3 so patient was given 20 mEq of potassium. She complains of continued rectal bleeding with every bowel movement. He was put on clear liquid diet and is scheduled for colonoscopy tomorrow. She will be given another bag of PRBCs later this evening as recommended by GI. 05/22- patient was seen at bedside today. Her hemoglobin today was 10.3. The patient went for colonoscopy today but it could not be completed as there was a narrowed ulcerated partially obstructing circumferential rectosigmoid mass with the distal margin at about 10 cm above the anal verge. Surgical consult was ordered by GI. Patient had swelling, redness and pain at the site of transfusion and was found to have a superficial thrombus in right cephalic vein. 05/23- patient was seen at bedside today. Her hemoglobin today was 7.9. Surgery saw the patient and discussed the possibility of a possible diversion surgery and low anterior resection on Tuesday or Tuesday. The patient agreed to this. We were asked to continue transfusion if hemoglobin goes below 7. Colace t.i.d. was added along with Clinimix for nutrition via PICC line. We will continue with full liquid diet and supplement with ensure. 05/24- patient was seen at bedside today. Her hemoglobin today was 7.2, another PRBC transfusion was ordered for her. She was started on ensure. She had a few fever spikes yesterday, so repeat UA, urine culture, COVID, influenza, chest x- ray were ordered and she was started on ceftriaxone and Flagyl. 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 05/25- the patient was seen at bedside today. Her hemoglobin today was 8.2. 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 Preliminary Blood culture showed no growth in the first 24 hours. No fever spikes yesterday. Pending surgical procedure on Tuesday/Tuesday. Preliminary urine culture showed no growth after 24 hours. 05/26- Patient is seen today at bedside. Labs and chart reviewed. Patient's hemoglobin level stable with a 8.1. Patient reported feeling better. Surgery recommendation reviewed and appreciated. Patient is due for surgical intervention -low anterior resection versus abdominoperineal resection with an end-colostomy on Tuesday. As per surgery details of the surgical plan was discussed with the patient. Patient was seen by Gastroenterology, as per Gastroenterology rectosigmoid biopsy revealed positive for CMV. Patient is on IV acyclovir. 05/27- Patient is seen today at bedside. Labs and chart reviewed. Patient's hemoglobin level stable with a 8.8. Patient reported feeling better. As of this morning, the patient continues to experience rectal bleeding. Surgical intervention is scheduled for tomorrow. The patient will remain NPO after midnight in preparation for the procedure. Laboratory tests have been ordered and are scheduled for tomorrow morning. 05/28- Patient is seen today at bedside. Labs and chart reviewed. Patient's hemoglobin level stable with a 9.0. Patient has completed exploratory laparotomy, low anterior resection, and colostomy. Monitoring is ongoing for post-surgical recovery and potential complications 05/29- Patient is seen today at bedside. Patient is currently postoperative day 1. The patient reports feeling slightly bloated and is experiencing pain, which is adequately controlled with medications. Due to the bloating, a NG tube was placed to low intermittent suction for decompression. Patient is encouraged to begin early ambulation. Approximately 10 mL of sanguineous drainage noted. Colostomy bag was placed. The patient tolerated the procedure well without any complaints of pain. 05/30- Patient is seen today at bedside. Patient is currently postoperative day 2. Patient feeling much better today, some abdominal pain but not bloated, ostomy producing, has ambulated some, not much out of the NG tube. We will discontinue NG tube today and start her on a clear liquid diet. 05/31- Patient is seen today at bedside. Labs and chart reviewed. Patient continues to feel better day by day, tolerated clear liquid diet yesterday and wants to try something more solid. Patient reports abdominal pain manageable with pain meds, producing stool through colostomy. Patient complains feeling bloated. Colostomy bag placed in left lower quadrant. 5mLs sanguineous drainage from YESSENIA drain. Objective vital signs Vital Sign Date Time Temp Pulse Resp B/P (MAP) Pulse Ox O2 Delivery O2 Flow Rate FiO2 05/31/25 13:00 99.6 98 18 115/64 (81) 96 99.6 05/31/25 08:00 Room Air* 0 21 Total Intake and Output 05/30/25 05/30/25 05/31/25 15:00 23:00 07:00 Intake Total 160 ml 1100 ml 1110 ml Output Total 5 ml Balance 160 ml 1100 ml 1105 ml medications Current Medications Medications Dose Ordered Sig/Roni Route Start Time Stop Time Status Last Admin Dose Admin Ondansetron HCl 4 mg Q4HP PRN IV 05/17/25 17:45 05/28/25 00:11 4 MG Amino Acids 0 ml @ 0 mls/hr PER PHARMACY IV 05/23/25 17:15 Diagnostic Test (Pha) 1 strip Q6HR 05/24/25 00:00 05/31/25 06:29 1 STRIP Insulin Human Regular FOLLOW SLIDING SCALE Q6HR SC 05/24/25 00:00 05/31/25 01:30 2 UNITS Dextrose 50 ml UD IV 05/23/25 22:00 Ceftriaxone Sodium 50 ml @ 100 mls/hr DAILY@09 IV 05/25/25 09:00 05/31/25 08:35 100 MLS/HR Metronidazole 100 ml @ 100 mls/hr Q8HR IV 05/24/25 14:00 05/31/25 13:03 100 MLS/HR Sodium Chloride 10 ml QSHIFT@,22 IV 05/24/25 22:00 05/31/25 08:41 10 ML Acyclovir Sodium 500 mg/Dextrose 110 ml @ 110 mls/hr Q8H IV 05/26/25 00:15 05/31/25 08:41 110 MLS/HR Neomycin Sulfate 1,000 mg TID PO 05/27/25 20:00 UNV Sodium Chloride 1,000 ml @ 50 mls/hr Q20H IV 05/27/25 20:00 05/30/25 22:31 50 MLS/HR Pantoprazole Sodium 40 mg DAILY IV 05/29/25 10:00 05/31/25 08:34 40 MG Hydromorphone HCl 0.5 mg Q4HPRN PRN IV 05/30/25 07:45 Ketorolac Tromethamine 15 mg Q6HPRN PRN IV 05/30/25 07:45 06/04/25 07:44 05/31/25 08:40 15 MG Fat Emulsion Intravenous 150 ml/Sodium Phosphate 10 meq/ Potassium Acetate 20 meq/Potassium Phosphate 22 meq/ Magnesium Sulfate 8 meq/ Multivitamins 10 ml/Chromium/ Copper/Manganese/ Zinc 1 ml/Amino Acids/Dextrose 1,130.5 ml @ 48 mls/hr [id number] IV 05/30/25 22:00 05/31/25 21:59 05/30/25 22:34 48 MLS/HR Acetaminophen 650 mg Q6HP PRN PO 05/31/25 12:15 Examination General Appearance: Cooperative. Well developed. Well nourished. NAD. Patient looks pale. Head Exam: Normal inspection Neck Exam: Normal inspection. Non-tender. Normal alignment Pulmonary/Respiratory: Chest non-tender. Clear bilateral breath sounds, no crackles, no wheezing. Cardiovascular/Chest: Regular rate and rhythm. No murmurs. No JVD. Peripheral Pulses: 2+ Radial (R). 2+ Radial (L). 2+ Pedal (R). 2+ Pedal (L) Abdominal Exam: Midline vertical laparotomy scar with wilfredo present, YESSENIA drain on the right side and colostomy on the left side in place. Normal bowel sounds. Soft. normal abdomen, no visible veins, No hepatosplenomegaly. No masses Ankle Exam: Negative ankle edema Lower extremities: Negative lower extremity edema Neuro/Mental Status: A&O x4. Coherent. Thoughts/Psych: Normal thought pattern. Appropriate mood and affect. Good judgement and insight Rectal exam (05/18/25) : Rectal mass seen but no fresh blood appreciated Skin Exam: Normal inspection. Normal color. Warm. Dry laboratory and microbiology Laboratory Tests 05/31/25 04:38 Test 05/31/25 04:38 Range/Units Serum Glucose 112 H 74-106 mg/dL Microbiology Date/Time Source Procedure Growth Status 05/24/25 12:45 Voided Urine Urine Culture - Final Complete 05/24/25 08:34 Blood Blood Culture - Final NO GROWTH AFTER 5 DAYS OF INCUBATION. Complete Labs and/or images reviewed: Labs reviewed by me, Image(s) reviewed by me Problem List/Assessment/Plan Problem List/Assessment/Plan Problem List/Assessment/Plan- Patient is due for surgical intervention -low anterior resection versus abdominoperineal resection with an end-colostomy on Tuesday. As per surgery details of the surgical plan was discussed with the patient. Patient was seen by Gastroenterology, as per Gastroenterology r ectosigmoid biopsy revealed positive for CMV. Patient is on IV acyclovir. 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 - continuously monitor H&H - transfused 7 PRBCs, re transfuse if Hemoglobin less than 7 - iron IVBP - iron panel, folic acid, B12 - GI consult-monitor labs, order CEA level, supportive management - rectal exam showed rectal mass, exophytic but no fresh blood appreciated - stool occult blood- positive - CT abdominal pelvis showed Sigmoidal wall colon thickening and surrounding stranding which can be seen with proctocolitis - Continue following up with oncologist after discharge - surgical consult-possible diversion surgery and low anterior resection on 05/28/25 - patient started on iv acyclovir as per GI Hypokalemia, repleted -potassium was 3.3, given 20 mEq of potassium GI PPX: Protonix VTE ppx: SCDs Diet: Soft Goals of care: Full code, discussed for 20 minutes on 05/31/25 Plan discussed with patient Plan discussed with Dr. Todd Plan discussed with: Patient, Spouse, Other (RN) Dietary Evaluation Review Recommendations by RD: Protein Supplementation Comments: 1) Initiate Ensure Enlive bid 2) Encourage optimal PO intake 3) Advance to cardiac diet when medically feasible 4) Follow-up with gastroenterology and oncology 5) Continue to monitor I&O, labs, and skin integrity Expected Outcomes/Goals: 1) appetite and labs to improve 2) diet to advance 3) f/u in 3-5 days CC Plasma Assessment Blood Product Administration S: [id number] Date of Service: May 31, 2025 Billing Provider: KATH TODD MD Common Visit Codes: [id number] INP/OBS CARE(HIGH) Secondary Visit Codes: [id number] CARE PLAN 30 MINUTES (20 minutes) Addendum Addendum Addendum I was physically present for the morrow portions of the service provided to patient by THE RESIDENT. I have reviewed the documentation, discussed the case with resident and agree with the resident's documentation except as noted. Also the patient's clinical case was discussed with the patient's nurse. This medical document was created using an electronic medical record system with computerized dictation system. Although this document has been carefully reviewed, there might still be some phonetic and typographical errors. These areas are purely typographical due to imperfections of the software programs, and do not reflect any compromise in the patient's medical care. Late signature. SHE JASON RESIDENT May 31, 2025 13:12 KATH TODD MD Jun 03, 2025 09:25
--- NOTE | 2025-05-31 13:22 | DVHPN2 ---
Progress Note - Dictate Date Seen: May 31, 2025 Medical Necessity Reason Pt with a Central, PICC or Fol: No Subjective No new complaints, in better spirits Feels better ; hemoglobin stable at 7.9 Tolerated clear liquid diet yesterday and wants to try something more solid, states that ostomy is producing just fine, and the feeling bloated) vital signs Vital Sign Date Time Temp Pulse Resp B/P (MAP) Pulse Ox O2 Delivery O2 Flow Rate FiO2 05/31/25 13:00 99.6 98 18 115/64 (81) 96 99.6 05/31/25 08:00 Room Air* 0 21 Total Intake and Output 05/30/25 05/30/25 05/31/25 15:00 23:00 07:00 Intake Total 160 ml 1100 ml 1110 ml Output Total 5 ml Balance 160 ml 1100 ml 1105 ml medications Current Medications Medications Dose Ordered Sig/Roni Route Start Time Stop Time Status Last Admin Dose Admin Ondansetron HCl 4 mg Q4HP PRN IV 05/17/25 17:45 05/28/25 00:11 4 MG Amino Acids 0 ml @ 0 mls/hr PER PHARMACY IV 05/23/25 17:15 Diagnostic Test (Pha) 1 strip Q6HR 05/24/25 00:00 05/31/25 06:29 1 STRIP Insulin Human Regular FOLLOW SLIDING SCALE Q6HR SC 05/24/25 00:00 05/31/25 01:30 2 UNITS Dextrose 50 ml UD IV 05/23/25 22:00 Ceftriaxone Sodium 50 ml @ 100 mls/hr DAILY@09 IV 05/25/25 09:00 05/31/25 08:35 100 MLS/HR Metronidazole 100 ml @ 100 mls/hr Q8HR IV 05/24/25 14:00 05/31/25 13:03 100 MLS/HR Sodium Chloride 10 ml QSHIFT@10,22 IV 05/24/25 22:00 05/31/25 08:41 10 ML Acyclovir Sodium 500 mg/Dextrose 110 ml @ 110 mls/hr Q8H IV 05/26/25 00:15 05/31/25 08:41 110 MLS/HR Neomycin Sulfate 1,000 mg TID PO 05/27/25 20:00 UNV Sodium Chloride 1,000 ml @ 50 mls/hr Q20H IV 05/27/25 20:00 05/30/25 22:31 50 MLS/HR Pantoprazole Sodium 40 mg DAILY IV 05/29/25 10:00 05/31/25 08:34 40 MG Hydromorphone HCl 0.5 mg Q4HPRN PRN IV 05/30/25 07:45 Ketorolac Tromethamine 15 mg Q6HPRN PRN IV 05/30/25 07:45 06/04/25 07:44 05/31/25 08:40 15 MG Fat Emulsion Intravenous 150 ml/Sodium Phosphate 10 meq/ Potassium Acetate 20 meq/Potassium Phosphate 22 meq/ Magnesium Sulfate 8 meq/ Multivitamins 10 ml/Chromium/ Copper/Manganese/ Zinc 1 ml/Amino Acids/Dextrose 1,130.5 ml @ 48 mls/hr [id number] IV 05/30/25 22:00 05/31/25 21:59 05/30/25 22:34 48 MLS/HR Acetaminophen 650 mg Q6HP PRN PO 05/31/25 12:15 objective General Appearance: Cooperative. Well developed. Well nourished. NAD. Patient looks pale. Pulmonary/Respiratory: Equal bilateral air entry Abdominal Exam: Normal bowel sounds. Soft. normal abdomen, no visible veins, Nontender. No hepatospenomegaly. No masses; left-sided colostomy Neuro/Mental Status: A&O x4. Coherent. Thoughts/Psych: Normal thought pattern. Appropriate mood and affect. Good judgement and insight laboratory and microbiology Laboratory Tests 05/31/25 04:38 Test 05/31/25 04:38 Range/Units Serum Glucose 112 H 74-106 mg/dL Problems(with codes): (1) Cancer of rectosigmoid (colon) (2) Colon cancer (3) CMV colitis (4) Rectal adenocarcinoma (5) Constipation (6) Severe anemia (7) GI bleed Prognosis Plan IV fluid hydration, IV antibiotics Advance diet as recommended by surgical consult Once the patient is able to take tolerate oral intake we will discontinue TPN Await final pathology Dietary Evaluation Review Recommendations by RD: Protein Supplementation Comments: 1) Initiate Ensure Enlive bid 2) Encourage optimal PO intake 3) Advance to cardiac diet when medically feasible 4) Follow-up with gastroenterology and oncology 5) Continue to monitor I&O, labs, and skin integrity Expected Outcomes/Goals: 1) appetite and labs to improve 2) diet to advance 3) f/u in 3-5 days Plan discussed with: Other (Dr Coburn) CC Plasma Assessment Blood Product Administration S: [id number] ALIZE KNUTSON MD May 31, 2025 13:22
[2025-05-31] MEDS ORDERED: HYDROcodone-ACET 5/325MG TAB PO PRN (16:00)
[2025-05-31] MEDS ORDERED: TPN PER PHARMACY IV NR (22:00)
[2025-06-01] VITALS (8 sets, daily range): BP systolic 106–136; BP diastolic 22–73; PULSE 91–102; RESP 16–18; TEMP 97.9–98.6; O2SAT 97–99
[2025-06-01 08:20] LABS: Hematocrit 26.5 % (36.0-46.0); Hemoglobin 8.8 g/dL (12.2-16.2); Mean Corpuscular Hemoglobin 30.9 pg (28.0-32.0); Mean Corpuscular Volume 93.4 fL (80.0-100.0); Nucleated Red Blood Cells % 0.1 %
[2025-06-01 08:28] LABS: Potassium 4.1 mmol/L (3.5-5.1); Sodium 140 mmol/L (136-145)
[2025-06-01 08:29] LABS: Anion Gap 9 (5-15); Carbon Dioxide 23 mmol/L (20-31)
[2025-06-01 08:34] LABS: BUN/Creatinine Ratio 25.6 (10.0-20.0); Blood Urea Nitrogen 10 mg/dL (9-23); Calcium 7.4 mg/dL (8.7-10.4); Chloride 108 mmol/L (98-107); Glucose 106 mg/dL (74-106)
--- NOTE | 2025-06-01 10:49 | DVHPN2 ---
Progress Note - Surgical Date Seen: Jun 01, 2025 Post op day Post op day: 4 Subjective Patient reports: Other (Patient feeling a little bit nauseous this morning she also had some nausea last night and had a small emesis episode, this episode was not recorded the patient said it was approximately 300 mL. Not feeling bloated, no abdominal pain complaints.) Review of Systems: Deferred Objective Vital signs Vital Sign Date Time Temp Pulse Resp B/P (MAP) Pulse Ox O2 Delivery O2 Flow Rate FiO2 06/01/25 08:51 98.1 91 16 132/22 (58) 99 98.1 06/01/25 08:00 Room Air* 0 21 Total Intake and Output 05/31/25 05/31/25 06/01/25 15:00 23:00 07:00 Intake Total 210 ml 590 ml 1635 ml Output Total 1265 ml Balance 210 ml 590 ml 370 ml Medications Current Medications Medications Dose Ordered Sig/Roni Route Start Time Stop Time Status Last Admin Dose Admin Ondansetron HCl 4 mg Q4HP PRN IV 05/17/25 17:45 Hold 06/01/25 06:06 4 MG Ceftriaxone Sodium 50 ml @ 100 mls/hr DAILY@09 IV 05/25/25 09:00 06/01/25 10:09 100 MLS/HR Metronidazole 100 ml @ 100 mls/hr Q8HR IV 05/24/25 14:00 06/01/25 06:06 100 MLS/HR Sodium Chloride 10 ml QSHIFT@10,22 IV 05/24/25 22:00 05/31/25 22:14 10 ML Acyclovir Sodium 500 mg/Dextrose 110 ml @ 110 mls/hr Q8H IV 05/26/25 00:15 06/01/25 01:00 110 MLS/HR Neomycin Sulfate 1,000 mg TID PO 05/27/25 20:00 UNV Sodium Chloride 1,000 ml @ 50 mls/hr Q20H IV 05/27/25 20:00 06/01/25 00:00 50 MLS/HR Pantoprazole Sodium 40 mg DAILY IV 05/29/25 10:00 06/01/25 10:09 40 MG Hydromorphone HCl 0.5 mg Q4HPRN PRN IV 05/30/25 07:45 Ketorolac Tromethamine 15 mg Q6HPRN PRN IV 05/30/25 07:45 06/04/25 07:44 05/31/25 22:06 15 MG Acetaminophen 650 mg Q6HP PRN PO 05/31/25 12:15 Fat Emulsion Intravenous 150 ml/Potassium Acetate 20 meq/ Potassium Phosphate 30 meq/ Magnesium Sulfate 10 meq/ Multivitamins 10 ml/Chromium/ Copper/Manganese/ Zinc 1 ml/Amino Acids/Dextrose 1,230.3182 ml @ 51 mls/hr Q24H8M IV 05/31/25 22:00 06/01/25 21:59 Cancel Acetaminophen/ Hydrocodone Bitart 1 tab Q4HPRN PRN PO 05/31/25 16:00 UNV Metoclopramide HCl 5 mg Q8HPRN PRN IV 06/01/25 10:15 Laboratory Laboratory Tests 06/01/25 06:55 Test 06/01/25 06:55 Range/Units Serum Glucose 106 74-106 mg/dL Microbiology Date/Time Source Procedure Growth Status 05/24/25 12:45 Voided Urine Urine Culture - Final Complete 05/24/25 08:34 Blood Blood Culture - Final NO GROWTH AFTER 5 DAYS OF INCUBATION. Complete Examination: GENERAL:Normal, ABDOMEN:Normal (Nondistended, midline incision with wilfredo and without surrounding signs of infection, right lower quadrant drain with serous fluid output, ostomy with stool in bag and pink mucosa, nontender) Labs and/or images reviewed: Labs reviewed by me (No leukocytosis white count of 4 0.2 from 4.7, hemoglobin stable 8.8 from 7.9 has not required any transfusions and surgery) Problem List/Assessment/Plan Problems: (1) GI bleed (2) Cancer of rectosigmoid (colon) (3) CMV colitis Assessment and Plan Mrs. Parks is a 59-year-old female who has an active diagnosis of rectal cancer x1yr ago, and who presented to the ED due to rectal bleeding since last Tuesday. She has required 6 units of blood since admission. Colonoscopy (05/22) by Dr. Martinez showed a mass at approximately 10 cm from the anal verge ulcerated, that was not an able to be transverse by the scope. I was consulted for possible palliative diversion due to the possible pending obstruction and continued rectal bleeding. 05/30: Exploratory laparotomy, low anterior resection, end colostomy. Findings: Metastatic implants x2 on the left lobe of the liver, around segments 2 and 3 Interval: Patient is currently postop day 4 from the above-mentioned surgery. I advance patient to soft bland diet yesterday afternoon, but at night she started feeling a little bit nauseous and had a vomiting episode. She is still feeling nauseous this morning, we will put a NPO and if she starts feeling better later today she can be restarted in the clear liquid diet. We will obtain a KUB to assess for ileus. Ostomy producing stool, drain with mostly serous output and some fibrinous tissue. 1. NPO for now, okay for ice chips. 2. Drain stripping and emptying once per shift, please document output in the ins and outs 3. Continue transfusions as needed 4. Colace 100 mg t.i.d. to soften stools 5. A.m. labs 6. Out of bed and ambulate 7. Pain control: Tylenol 650 mg p.o. every 6 hours, Toradol 15 mg IV every 8 hours, morphine 10 mg via NG every 4 hours p.r.n. moderate, morphine 20 mg via NG every 4 hours p.r.n. severe, we will add Dilaudid 0.5 mg IV prn breakthrough pain 10. Continue ceftriaxone and Flagyl for 48 hours following the surgery 11. KUB My Orders My Orders Orders - ANN WRIGHT MD Procedure Category Date Status Time Kub Abdomen Single XY 06/01/25 Logged View 10:02 Npo Except Ice Chips RAMON 06/01/25 In Process 10:06 Plan discussed with Plan discussed with: Patient, Spouse Visit Coding Surgery Date of Service if different f: Jun 01, 2025 Billing Provider: Rosaura Mehta Surgery Visit Codes: [id number] INP/OBS CARE(HIGH) ANN WRIGHT MD Jun 01, 2025 10:49
--- NOTE | 2025-06-01 11:23 | DVHPNRES ---
Progress Note Date Seen: Jun 01, 2025 Resident Creating Document: SHMUEL COCHRAN RESIDENT Medical Necessity Reason Pt with a Central, PICC or Fol: No Subjective Review of Systems Alix Parks is a 59 years old female with a PMH of colorectal carcinoma diagnosed 1 year ago currently taking radiation ( more than 30 sessions) and chemotherapy (capecitabine) who presented to the ED with severe rectal bleeding for past 3 weeks. Patient reported she has been having significant rectal bleeding for past 3 weeks which has continued despite ongoing radiation and chemotherapy treatments. Patient also started experiencing feeling tired, having difficulty breathing, unable to walk due to weakness. Patient also experiencing pain when using bathroom. These symptoms have significantly impacted the daily living function so prompted her to visit ED. On my assessment patient denies fever, nausea, vomiting, chills, abdominal pain, diarrhea, constipation and other associated symptoms. PMH: Colorectal carcinoma, anemia required blood transfusion, thyroid tumor PSH: Hemithyroidectomy 5-6 years ago Family history: Grandmother colon cancer, cousin colon cancer, mother stomach cancer Social history: Lives with family. Denies smoking, alcohol and other drug abuse Allergies: No known allergies Patient seen and examined at bedside. Overnight events were reviewed. The patient reports vomiting 2 times since morning, brown in color. The was at bedside, all the questions were answered. Currently she is NPO except ice chips. Objective vital signs Vital Sign Date Time Temp Pulse Resp B/P (MAP) Pulse Ox O2 Delivery O2 Flow Rate FiO2 06/01/25 08:51 98.1 91 16 132/22 (58) 99 98.1 06/01/25 08:00 Room Air* 0 21 Total Intake and Output 05/31/25 05/31/25 06/01/25 15:00 23:00 07:00 Intake Total 210 ml 590 ml 1635 ml Output Total 1265 ml Balance 210 ml 590 ml 370 ml medications Current Medications Medications Dose Ordered Sig/Roni Route Start Time Stop Time Status Last Admin Dose Admin Ondansetron HCl 4 mg Q4HP PRN IV 05/17/25 17:45 Hold 06/01/25 06:06 4 MG Ceftriaxone Sodium 50 ml @ 100 mls/hr DAILY@09 IV 05/25/25 09:00 06/01/25 10:09 100 MLS/HR Metronidazole 100 ml @ 100 mls/hr Q8HR IV 05/24/25 14:00 06/01/25 06:06 100 MLS/HR Sodium Chloride 10 ml QSHIFT@10,22 IV 05/24/25 22:00 05/31/25 22:14 10 ML Acyclovir Sodium 500 mg/Dextrose 110 ml @ 110 mls/hr Q8H IV 05/26/25 00:15 06/01/25 01:00 110 MLS/HR Neomycin Sulfate 1,000 mg TID PO 05/27/25 20:00 UNV Sodium Chloride 1,000 ml @ 50 mls/hr Q20H IV 05/27/25 20:00 06/01/25 00:00 50 MLS/HR Pantoprazole Sodium 40 mg DAILY IV 05/29/25 10:00 06/01/25 10:09 40 MG Hydromorphone HCl 0.5 mg Q4HPRN PRN IV 05/30/25 07:45 Ketorolac Tromethamine 15 mg Q6HPRN PRN IV 05/30/25 07:45 06/04/25 07:44 05/31/25 22:06 15 MG Acetaminophen 650 mg Q6HP PRN PO 05/31/25 12:15 Fat Emulsion Intravenous 150 ml/Potassium Acetate 20 meq/ Potassium Phosphate 30 meq/ Magnesium Sulfate 10 meq/ Multivitamins 10 ml/Chromium/ Copper/Manganese/ Zinc 1 ml/Amino Acids/Dextrose 1,230.3182 ml @ 51 mls/hr Q24H8M IV 05/31/25 22:00 06/01/25 21:59 Cancel Acetaminophen/ Hydrocodone Bitart 1 tab Q4HPRN PRN PO 05/31/25 16:00 UNV Metoclopramide HCl 5 mg Q8HPRN PRN IV 06/01/25 10:15 Examination General Appearance: Cooperative. Well developed. Well nourished. NAD. Patient looks pale. Head Exam: Normal inspection Neck Exam: Normal inspection. Non-tender. Normal alignment Pulmonary/Respiratory: Chest non-tender. Clear bilateral breath sounds, no crackles, no wheezing. Cardiovascular/Chest: Regular rate and rhythm. No murmurs. No JVD. Peripheral Pulses: 2+ Radial (R). 2+ Radial (L). 2+ Pedal (R). 2+ Pedal (L) Abdominal Exam: Midline vertical laparotomy scar with wilfredo present, YESSENIA drain on the right side and colostomy on the left side in place. Normal bowel sounds. Soft. normal abdomen, no visible veins, No hepatosplenomegaly. No masses Ankle Exam: Negative ankle edema Lower extremities: Negative lower extremity edema Neuro/Mental Status: A&O x4. Coherent. Thoughts/Psych: Normal thought pattern. Appropriate mood and affect. Good judgement and insight Rectal exam (05/18/25) : Rectal mass present but no fresh blood appreciated Skin Exam: Normal inspection. Normal color. Warm. Dry laboratory and microbiology Laboratory Tests 06/01/25 06:55 Test 06/01/25 06:55 Range/Units Serum Glucose 106 74-106 mg/dL Microbiology Date/Time Source Procedure Growth Status 05/24/25 12:45 Voided Urine Urine Culture - Final Complete 05/24/25 08:34 Blood Blood Culture - Final NO GROWTH AFTER 5 DAYS OF INCUBATION. 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 Continue transfusions as noted Colace 100 mg t.i.d. to soften stools Monitor labs Encouraged to ambulate Pain management: Tylenol IV Toradol [place] Morphine Dilaudid 0.5 mg IV p.r.n. for breakthrough pain X-ray KUB on 06/01: Nonspecific bowel gas pattern, surgical drainage catheter in-situ, there is no definite evidence for pneumoperitoneum, no abnormal calcifications noted. - continuously monitor H&H - transfused 7 PRBCs, re transfuse if Hemoglobin less than 7 - iron IVBP - iron panel, folic acid, B12 - GI consult-monitor labs, order CEA level, supportive management - rectal exam showed rectal mass, exophytic but no fresh blood appreciated - stool occult blood- positive - CT abdominal pelvis showed Sigmoidal wall colon thickening and surrounding stranding which can be seen with proctocolitis - Continue following up with oncologist after discharge - patient started on iv acyclovir as per GI Hypokalemia Repleted GI PPX: Protonix VTE ppx: SCDs Diet: Soft Goals of care: Full code Plan discussed with Dr. Todd, patient and RN Plan discussed with: Patient, Other Dietary Evaluation Review Recommendations by RD: Protein Supplementation Comments: 1) Initiate Ensure Enlive bid 2) Encourage optimal PO intake 3) Advance to cardiac diet when medically feasible 4) Follow-up with gastroenterology and oncology 5) Continue to monitor I&O, labs, and skin integrity Expected Outcomes/Goals: 1) appetite and labs to improve 2) diet to advance 3) f/u in 3-5 days CC Plasma Assessment Blood Product Administration S: 0320 Addendum Addendum Addendum I was physically present for the morrow portions of the service provided to patient by THE RESIDENT. I have reviewed the documentation, discussed the case with resident and agree with the resident's documentation except as noted. Also the patient's clinical case was discussed with the patient's nurse. This medical document was created using an electronic medical record system with computerized dictation system. Although this document has been carefully reviewed, there might still be some phonetic and typographical errors. These areas are purely typographical due to imperfections of the software programs, and do not reflect any compromise in the patient's medical care. Late signature. Date of Service: Jun 01, 2025 Billing Provider: KATH TODD MD Common Visit Codes: [id number] INP/OBS CARE(HIGH) SHMUEL COCHRAN RESIDENT Jun 01, 2025 11:23 KATH TODD MD Jun 03, 2025 09:28
[2025-06-01] MEDS: METOCLOPRAMIDE HCL 5MG/ml INJ 2ml VIAL IV PRN (11:47)
--- NOTE | 2025-06-01 13:49 | DVH ---
Exam: XY KUB ABDOMEN SINGLE VIEW Indication: YESSENIA DRAIN STOMACH Comparison: CT ABD PELVIS W on DOS: 12/22/24, XY KUB ABDOMEN SINGLE VIEW on DOS: 10/01/23 Technique: 1 radiographic views of the abdomen. Findings: Nonspecific bowel-gas pattern. Surgical drainage catheter in-situ. There is no definite evidence for pneumoperitoneum. No abnormal calcifications noted. Impression: Nonspecific bowel-gas pattern.
[2025-06-02] VITALS (8 sets, daily range): BP systolic 113–135; BP diastolic 65–82; PULSE 76–105; RESP 16–18; TEMP 97.5–100.9; O2SAT 94–99
[2025-06-02 06:36] LABS: Hemoglobin 8.3 g/dL (12.2-16.2); Nucleated Red Blood Cells % 0.1 %
[2025-06-02 06:38] LABS: Hematocrit 24.6 % (36.0-46.0); Mean Corpuscular Hemoglobin 31.9 pg (28.0-32.0); Mean Corpuscular Volume 94.3 fL (80.0-100.0)
[2025-06-02 06:56] LABS: Anion Gap 8 (5-15)
[2025-06-02 07:06] LABS: BUN/Creatinine Ratio 11.1 (10.0-20.0); Blood Urea Nitrogen < 5 mg/dL (9-23); Calcium 7.7 mg/dL (8.7-10.4); Carbon Dioxide 23 mmol/L (20-31); Chloride 109 mmol/L (98-107); Glucose 87 mg/dL (74-106); Potassium 3.8 mmol/L (3.5-5.1); Sodium 140 mmol/L (136-145)
--- NOTE | 2025-06-02 11:57 | DVHPN2 ---
Progress Note - Surgical Date Seen: Jun 02, 2025 Post op day Post op day: 5 Subjective Patient reports: Feels better (Patient feeling better today, not bloated, tolerated clear liquid diet last night, advanced today to soft diet.) Review of Systems: Deferred Objective Vital signs Vital Sign Date Time Temp Pulse Resp B/P (MAP) Pulse Ox O2 Delivery O2 Flow Rate FiO2 06/02/25 08:45 99.5 96 18 126/73 (90) 97 99.5 06/02/25 08:00 Room Air* 0 21 Total Intake and Output 06/01/25 06/01/25 06/02/25 15:00 23:00 07:00 Intake Total 210 ml 200 ml 0 ml Output Total 205 ml 80 ml 350 ml Balance 5 ml 120 ml -350 ml Medications Current Medications Medications Dose Ordered Sig/Roni Route Start Time Stop Time Status Last Admin Dose Admin Ondansetron HCl 4 mg Q4HP PRN IV 05/17/25 17:45 Hold 06/01/25 06:06 4 MG Ceftriaxone Sodium 50 ml @ 100 mls/hr DAILY@09 IV 05/25/25 09:00 06/02/25 09:22 100 MLS/HR Metronidazole 100 ml @ 100 mls/hr Q8HR IV 05/24/25 14:00 06/02/25 06:30 100 MLS/HR Sodium Chloride 10 ml QSHIFT@10,22 IV 05/24/25 22:00 06/02/25 09:22 10 ML Acyclovir Sodium 500 mg/Dextrose 110 ml @ 110 mls/hr Q8H IV 05/26/25 00:15 06/02/25 10:52 110 MLS/HR Neomycin Sulfate 1,000 mg TID PO 05/27/25 20:00 UNV Sodium Chloride 1,000 ml @ 50 mls/hr Q20H IV 05/27/25 20:00 06/01/25 20:00 50 MLS/HR Pantoprazole Sodium 40 mg DAILY IV 05/29/25 10:00 06/02/25 09:21 40 MG Hydromorphone HCl 0.5 mg Q4HPRN PRN IV 05/30/25 07:45 Ketorolac Tromethamine 15 mg Q6HPRN PRN IV 05/30/25 07:45 06/04/25 07:44 05/31/25 22:06 15 MG Acetaminophen 650 mg Q6HP PRN PO 05/31/25 12:15 Fat Emulsion Intravenous 150 ml/Potassium Acetate 20 meq/ Potassium Phosphate 30 meq/ Magnesium Sulfate 10 meq/ Multivitamins 10 ml/Chromium/ Copper/Manganese/ Zinc 1 ml/Amino Acids/Dextrose 1,230.3182 ml @ 51 mls/hr Q24H8M IV 05/31/25 22:00 06/01/25 21:59 Cancel Acetaminophen/ Hydrocodone Bitart 1 tab Q4HPRN PRN PO 05/31/25 16:00 UNV Metoclopramide HCl 5 mg Q8HPRN PRN IV 06/01/25 10:15 06/01/25 11:47 5 MG Laboratory Laboratory Tests 06/02/25 04:55 Test 06/02/25 04:55 Range/Units Serum Glucose 87 74-106 mg/dL Microbiology Date/Time Source Procedure Growth Status 05/24/25 12:45 Voided Urine Urine Culture - Final Complete 05/24/25 08:34 Blood Blood Culture - Final NO GROWTH AFTER 5 DAYS OF INCUBATION. Complete Examination: GENERAL:Normal, ABDOMEN:Normal (Nondistended, soft, depressible, midline wound with wilfredo in place and without surrounding signs of infection, left lower quadrant colostomy with stool in bag, right lower quadrant drain with mostly serous output 40 mL today) Labs and/or images reviewed: Labs reviewed by me (No leukocytosis 4.3 from from 4.2, hemoglobin holding steady 8.3 from 8.8 (has not require transfusions since surgery)), Image(s) reviewed by me (KUB from yesterday just showed nonspecific bowel gas pattern) Problem List/Assessment/Plan Problems: (1) GI bleed (2) Rectal adenocarcinoma (3) CMV colitis Assessment and Plan Mrs. Parks is a 59-year-old female who has an active diagnosis of rectal cancer x1yr ago, and who presented to the ED due to rectal bleeding since last Tuesday. She has required 6 units of blood since admission. Colonoscopy (05/22) by Dr. Martinez showed a mass at approximately 10 cm from the anal verge ulcerated, that was not an able to be transverse by the scope. I was consulted for possible palliative diversion due to the possible pending obstruction and continued rectal bleeding. 05/30: Exploratory laparotomy, low anterior resection, end colostomy. Findings: Metastatic implants x2 on the left lobe of the liver, around segments 2 and 3 Interval: Patient is currently postop day 5 from the above-mentioned surgery. Patient is feeling much better today not bloated tolerated clear liquid diets last night and got advanced to soft bland today. If she continues to do well today she might be able to go home tomorrow. 1. Soft bland diet 2. Drain stripping and emptying once per shift, please document output in the ins and outs 3. Continue transfusions as needed 4. Colace 100 mg t.i.d. to soften stools 5. A.m. labs 6. Out of bed and ambulate 7. Pain control: Tylenol 650 mg p.o. every 6 hours, Toradol 15 mg IV every 8 hours, morphine 10 mg via NG every 4 hours p.r.n. moderate, morphine 20 mg via NG every 4 hours p.r.n. severe, we will add Dilaudid 0.5 mg IV prn breakthrough pain 10. Continue ceftriaxone and Flagyl for 48 hours following the surgery Plan discussed with Plan discussed with: Patient Visit Coding Surgery Date of Service if different f: Jun 02, 2025 Billing Provider: ANN WRIGHT MD Surgery Visit Codes: [id number] INP/OBS CARE(HIGH) ANN WRIGHT MD Jun 02, 2025 11:57
--- NOTE | 2025-06-02 13:16 | DVHPNRES ---
Progress Note Date Seen: Jun 02, 2025 Resident Creating Document: SHE JASON Medical Necessity Reason Pt with a Central, PICC or Fol: No Subjective Review of Systems Alix Parks is a 59 years old female with a PMH of colorectal carcinoma diagnosed 1 year ago currently taking radiation ( more than 30 sessions) and chemotherapy (capecitabine) who presented to the ED with severe rectal bleeding for past 3 weeks. Patient reported she has been having significant rectal bleeding for past 3 weeks which has continued despite ongoing radiation and chemotherapy treatments. Patient also started experiencing feeling tired, having difficulty breathing, unable to walk due to weakness. Patient also experiencing pain when using bathroom. These symptoms have significantly impacted the daily living function so prompted her to visit ED. On my assessment patient denies fever, nausea, vomiting, chills, abdominal pain, diarrhea, constipation and other associated symptoms. PMH: Colorectal carcinoma, anemia required blood transfusion, thyroid tumor PSH: Hemithyroidectomy 5-6 years ago Family history: Grandmother colon cancer, cousin colon cancer, mother stomach cancer Social history: Lives with family. Denies smoking, alcohol and other drug abuse Allergies: No known allergies Patient seen and examined at bedside. Patient is alert and oriented to time, place person and responding to all questions. Patient has generalised weakness. Eyes: No Pain, No Vision change, No Conjunctivae inflammation, No Eyelid inflammation, No Redness ENT: No Ear pain, No Ear discharge, No Nose pain, No Nose discharge, No Nose congestion, No Mouth pain, No Mouth swelling, No Throat pain, No Throat swelling Cardiovascular: No Chest Pain, No Palpitations, No Orthopnea, No Paroxysmal No Dyspnea, No Edema, No Lt Headedness Respiratory: No Cough, No Dry, No Shortness of breath, No SOB with exertion, No Wheezing, No Hemoptysis, No Pleuritic Pain, No Sputum Gastrointestinal: No Nausea, No Vomiting, No Abdominal Pain, No Diarrhea, No Constipation, No Melena, Hematochezia Genitourinary: No Dysuria, No Frequency, No Incontinence, No Hematuria, No Retention 05/19- On evaluation today, she says she feels better, although the rectal bleeding has continued. She has been transfused 3 units of PRBCs since admission. Hemoglobin this morning was 8.2 and it dropped to 7.5 later in the day. She was transitioned from clear liquids to full liquid diet and was given a 500 cc bolus of NS. GI was consulted who asked to Continue to monitor labs, check CEA level.Supportive care for now .Review patient's last colonoscopy and decide timing of a repeat sigmoidoscopy or colonoscopy pending clinical progress. Repeat order for H & H at 10:00 p.m. on 05/19/2025 was placed. 05/20- The patient was seen at bedside. Her hemoglobin this morning was 6.6, so she got transfused with another bag of PRBCs. The patient complains of ongoing per rectal bleeding which is concerning to her. Repeat GI consult was done, pending evaluation by them. Her diet was advanced from full liquid to soft mechanical diet. 05/21- the patient was seen at bedside today. Her hemoglobin was 6.9, so she was given another transfusion of PRBC. Potassium today was 3.3 so patient was given 20 mEq of potassium. She complains of continued rectal bleeding with every bowel movement. He was put on clear liquid diet and is scheduled for colonoscopy tomorrow. She will be given another bag of PRBCs later this evening as recommended by GI. 05/22- patient was seen at bedside today. Her hemoglobin today was 10.3. The patient went for colonoscopy today but it could not be completed as there was a narrowed ulcerated partially obstructing circumferential rectosigmoid mass with the distal margin at about 10 cm above the anal verge. Surgical consult was ordered by GI. Patient had swelling, redness and pain at the site of transfusion and was found to have a superficial thrombus in right cephalic vein. 05/23- patient was seen at bedside today. Her hemoglobin today was 7.9. Surgery saw the patient and discussed the possibility of a possible diversion surgery and low anterior resection on Tuesday or Tuesday. The patient agreed to this. We were asked to continue transfusion if hemoglobin goes below 7. Colace t.i.d. was added along with Clinimix for nutrition via PICC line. We will continue with full liquid diet and supplement with ensure. 05/24- patient was seen at bedside today. Her hemoglobin today was 7.2, another PRBC transfusion was ordered for her. She was started on ensure. She had a few fever spikes yesterday, so repeat UA, urine culture, COVID, influenza, chest x- ray were ordered and she was started on ceftriaxone and Flagyl. 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 05/25- the patient was seen at bedside today. Her hemoglobin today was 8.2. 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 Preliminary Blood culture showed no growth in the first 24 hours. No fever spikes yesterday. Pending surgical procedure on Tuesday/Tuesday. Preliminary urine culture showed no growth after 24 hours. 05/26- Patient is seen today at bedside. Labs and chart reviewed. Patient's hemoglobin level stable with a 8.1. Patient reported feeling better. Surgery recommendation reviewed and appreciated. Patient is due for surgical intervention -low anterior resection versus abdominoperineal resection with an end-colostomy on Tuesday. As per surgery details of the surgical plan was discussed with the patient. Patient was seen by Gastroenterology, as per Gastroenterology rectosigmoid biopsy revealed positive for CMV. Patient is on IV acyclovir. 05/27- Patient is seen today at bedside. Labs and chart reviewed. Patient's hemoglobin level stable with a 8.8. Patient reported feeling better. As of this morning, the patient continues to experience rectal bleeding. Surgical intervention is scheduled for tomorrow. The patient will remain NPO after midnight in preparation for the procedure. Laboratory tests have been ordered and are scheduled for tomorrow morning. 05/28- Patient is seen today at bedside. Labs and chart reviewed. Patient's hemoglobin level stable with a 9.0. Patient has completed exploratory laparotomy, low anterior resection, and colostomy. Monitoring is ongoing for post-surgical recovery and potential complications 05/29- Patient is seen today at bedside. Patient is currently postoperative day 1. The patient reports feeling slightly bloated and is experiencing pain, which is adequately controlled with medications. Due to the bloating, a NG tube was placed to low intermittent suction for decompression. Patient is encouraged to begin early ambulation. Approximately 10 mL of sanguineous drainage noted. Colostomy bag was placed. The patient tolerated the procedure well without any complaints of pain. 05/30- Patient is seen today at bedside. Patient is currently postoperative day 2. Patient feeling much better today, some abdominal pain but not bloated, ostomy producing, has ambulated some, not much out of the NG tube. We will discontinue NG tube today and start her on a clear liquid diet. 05/31- Patient is seen today at bedside. Labs and chart reviewed. Patient continues to feel better day by day, tolerated clear liquid diet yesterday and wants to try something more solid. Patient reports abdominal pain manageable with pain meds, producing stool through colostomy. Patient complains feeling bloated. Colostomy bag placed in left lower quadrant. 5mLs sanguineous drainage from YESSENIA drain. 06/01- Patient seen and examined at bedside. Overnight events were reviewed. The patient reports vomiting 2 times since morning, brown in color. The was at bedside, all the questions were answered. Currently she is NPO except ice chips. 06/02- Patient was seen today at bedside. Labs and chart reviewed. Patient is currently postoperative day 5. Patient continues to feel much better. she denies bloating, nausea and vomiting. Objective vital signs Vital Sign Date Time Temp Pulse Resp B/P (MAP) Pulse Ox O2 Delivery O2 Flow Rate FiO2 06/02/25 08:45 99.5 96 18 126/73 (90) 97 99.5 06/02/25 08:00 Room Air* 0 21 Total Intake and Output 06/01/25 06/01/25 06/02/25 15:00 23:00 07:00 Intake Total 210 ml 200 ml 0 ml Output Total 205 ml 80 ml 350 ml Balance 5 ml 120 ml -350 ml medications Current Medications Medications Dose Ordered Sig/Roni Route Start Time Stop Time Status Last Admin Dose Admin Ondansetron HCl 4 mg Q4HP PRN IV 05/17/25 17:45 Hold 06/01/25 06:06 4 MG Ceftriaxone Sodium 50 ml @ 100 mls/hr DAILY@09 IV 05/25/25 09:00 06/02/25 09:22 100 MLS/HR Metronidazole 100 ml @ 100 mls/hr Q8HR IV 05/24/25 14:00 06/02/25 06:30 100 MLS/HR Sodium Chloride 10 ml QSHIFT@10,22 IV 05/24/25 22:00 06/02/25 09:22 10 ML Acyclovir Sodium 500 mg/Dextrose 110 ml @ 110 mls/hr Q8H IV 05/26/25 00:15 06/02/25 10:52 110 MLS/HR Neomycin Sulfate 1,000 mg TID PO 05/27/25 20:00 UNV Sodium Chloride 1,000 ml @ 50 mls/hr Q20H IV 05/27/25 20:00 06/01/25 20:00 50 MLS/HR Pantoprazole Sodium 40 mg DAILY IV 05/29/25 10:00 06/02/25 09:21 40 MG Hydromorphone HCl 0.5 mg Q4HPRN PRN IV 05/30/25 07:45 Ketorolac Tromethamine 15 mg Q6HPRN PRN IV 05/30/25 07:45 06/04/25 07:44 05/31/25 22:06 15 MG Acetaminophen 650 mg Q6HP PRN PO 05/31/25 12:15 Fat Emulsion Intravenous 150 ml/Potassium Acetate 20 meq/ Potassium Phosphate 30 meq/ Magnesium Sulfate 10 meq/ Multivitamins 10 ml/Chromium/ Copper/Manganese/ Zinc 1 ml/Amino Acids/Dextrose 1,230.3182 ml @ 51 mls/hr Q24H8M IV 05/31/25 22:00 06/01/25 21:59 Cancel Acetaminophen/ Hydrocodone Bitart 1 tab Q4HPRN PRN PO 05/31/25 16:00 UNV Metoclopramide HCl 5 mg Q8HPRN PRN IV 06/01/25 10:15 06/01/25 11:47 5 MG Examination General Appearance: Cooperative. Well developed. Well nourished. NAD. Patient looks pale. Head Exam: Normal inspection Neck Exam: Normal inspection. Non-tender. Normal alignment Pulmonary/Respiratory: Chest non-tender. Clear bilateral breath sounds, no crackles, no wheezing. Cardiovascular/Chest: Regular rate and rhythm. No murmurs. No JVD. Peripheral Pulses: 2+ Radial (R). 2+ Radial (L). 2+ Pedal (R). 2+ Pedal (L) Abdominal Exam: Midline vertical laparotomy scar with wilfredo present, YESSENIA drain on the right side and colostomy on the left side in place. Normal bowel sounds. Soft. normal abdomen, no visible veins, No hepatospenomegaly. No masses Ankle Exam: Negative ankle edema Lower extremities: Negative lower extremity edema Neuro/Mental Status: A&O x4. Coherent. Thoughts/Psych: Normal thought pattern. Appropriate mood and affect. Good judgement and insight Skin Exam: Normal inspection. Normal color. Warm. Dry laboratory and microbiology Laboratory Tests 06/02/25 04:55 Test 06/02/25 04:55 Range/Units Serum Glucose 87 74-106 mg/dL Microbiology Date/Time Source Procedure Growth Status 05/24/25 12:45 Voided Urine Urine Culture - Final Complete 05/24/25 08:34 Blood Blood Culture - Final NO GROWTH AFTER 5 DAYS OF INCUBATION. Complete Labs and/or images reviewed: Labs reviewed by me, Image(s) reviewed by me Problem List/Assessment/Plan Problem List/Assessment/Plan Problem List/Assessment/Plan- Patient is due for surgical intervention -low anterior resection versus abdominoperineal resection with an end-colostomy on Tuesday. As per surgery details of the surgical plan was discussed with the patient. Patient was seen by Gastroenterology, as per Gastroenterology r ectosigmoid biopsy revealed positive for CMV. Patient is on IV acyclovir. 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 - continuously monitor H&H - transfused 7 PRBCs, re transfuse if Hemoglobin less than 7 - iron IVBP - iron panel, folic acid, B12 - GI consult-monitor labs, order CEA level, supportive management - rectal exam showed rectal mass, exophytic but no fresh blood appreciated - stool occult blood- positive - CT abdominal pelvis showed Sigmoidal wall colon thickening and surrounding stranding which can be seen with proctocolitis - Continue following up with oncologist after discharge - surgical consult-possible diversion surgery and low anterior resection on 05/28/25 - Post operative day 5- s/p exploratory laparotomy, lower anterior resection, colostomy - patient started on iv acyclovir as per GI Hypokalemia, repleted -potassium was 3.3, given 20 mEq of potassium GI PPX: Protonix VTE ppx: SCDs Diet: Full liquid diet Plan discussed with patient Plan discussed with Dr. Todd Plan discussed with: Patient, Other (RN) My Orders My Orders Orders - SHE JASON Procedure Category Date Status Time Complete Blood Count LAB 06/03/25 Verified 04:00 Basic Metabolic Panel LAB 06/03/25 Verified 04:00 Dietary Evaluation Review Recommendations by RD: Protein Supplementation Comments: 1) Initiate Ensure Enlive bid 2) Encourage optimal PO intake 3) Advance to cardiac diet when medically feasible 4) Follow-up with gastroenterology and oncology 5) Continue to monitor I&O, labs, and skin integrity Expected Outcomes/Goals: 1) appetite and labs to improve 2) diet to advance 3) f/u in 3-5 days CC Plasma Assessment Blood Product Administration S: [id number] Date of Service: Jun 02, 2025 Billing Provider: KATH TODD MD Common Visit Codes: [id number] INP/OBS CARE(HIGH) Addendum Addendum Addendum I was physically present for the morrow portions of the service provided to patient by THE RESIDENT. I have reviewed the documentation, discussed the case with resident and agree with the resident's documentation except as noted. Also the patient's clinical case was discussed with the patient's nurse. This medical document was created using an electronic medical record system with computerized dictation system. Although this document has been carefully reviewed, there might still be some phonetic and typographical errors. These areas are purely typographical due to imperfections of the software programs, and do not reflect any compromise in the patient's medical care. Late signature. SHE JASON Jun 02, 2025 13:16 KATH TODD MD Jun 03, 2025 09:34
[2025-06-03 00:50] VITALS: BP 124/73; PULSE 97; RESP 16; TEMP 99.6; O2SAT 98
[2025-06-03 04:38] VITALS: BP 111/58; PULSE 107; RESP 18; TEMP 99; O2SAT 96
[2025-06-03 05:39] LABS: Hematocrit 24.3 % (36.0-46.0); Hemoglobin 8.0 g/dL (12.2-16.2); Mean Corpuscular Hemoglobin 31.8 pg (28.0-32.0); Mean Corpuscular Volume 96.6 fL (80.0-100.0); Nucleated Red Blood Cells % 0.4 %
[2025-06-03 05:45] LABS: Potassium 3.7 mmol/L (3.5-5.1); Sodium 141 mmol/L (136-145)
[2025-06-03 05:46] LABS: Anion Gap 10 (5-15); Carbon Dioxide 23 mmol/L (20-31)
[2025-06-03 05:51] LABS: Glucose 100 mg/dL (74-106)
[2025-06-03 05:54] LABS: BUN/Creatinine Ratio 13.2 (10.0-20.0); Blood Urea Nitrogen < 5 mg/dL (9-23); Calcium 7.6 mg/dL (8.7-10.4); Chloride 108 mmol/L (98-107)
[2025-06-03 09:00] VITALS: BP 111/60; PULSE 98; RESP 17; TEMP 98.3; O2SAT 98
--- NOTE | 2025-06-03 10:21 | DVHPN2 ---
Progress Note - Surgical Date Seen: Jun 03, 2025 Post op day Post op day: 6 Subjective Patient reports: Feels better (Patient feeling good, nondistended, tolerated diet, no nausea, no vomiting.) Review of Systems: Deferred Objective Vital signs Vital Sign Date Time Temp Pulse Resp B/P (MAP) Pulse Ox O2 Delivery O2 Flow Rate FiO2 06/03/25 09:00 98.3 98 17 111/60 (77) 98 98.3 06/03/25 08:00 Room Air* 0 21 Total Intake and Output 06/02/25 06/02/25 06/03/25 15:00 23:00 07:00 Intake Total 200 ml 400 ml 1710 ml Output Total 40 ml 50 ml Balance 160 ml 350 ml 1710 ml Medications Current Medications Medications Dose Ordered Sig/Roni Route Start Time Stop Time Status Last Admin Dose Admin Ondansetron HCl 4 mg Q4HP PRN IV 05/17/25 17:45 Hold 06/01/25 06:06 4 MG Ceftriaxone Sodium 50 ml @ 100 mls/hr DAILY@09 IV 05/25/25 09:00 06/03/25 09:47 100 MLS/HR Metronidazole 100 ml @ 100 mls/hr Q8HR IV 05/24/25 14:00 06/03/25 05:54 100 MLS/HR Sodium Chloride 10 ml QSHIFT@10,22 IV 05/24/25 22:00 06/03/25 09:47 10 ML Acyclovir Sodium 500 mg/Dextrose 110 ml @ 110 mls/hr Q8H IV 05/26/25 00:15 06/03/25 08:27 110 MLS/HR Neomycin Sulfate 1,000 mg TID PO 05/27/25 20:00 UNV Sodium Chloride 1,000 ml @ 50 mls/hr Q20H IV 05/27/25 20:00 06/01/25 20:00 50 MLS/HR Pantoprazole Sodium 40 mg DAILY IV 05/29/25 10:00 06/03/25 09:47 40 MG Hydromorphone HCl 0.5 mg Q4HPRN PRN IV 05/30/25 07:45 Ketorolac Tromethamine 15 mg Q6HPRN PRN IV 05/30/25 07:45 06/04/25 07:44 05/31/25 22:06 15 MG Acetaminophen 650 mg Q6HP PRN PO 05/31/25 12:15 Fat Emulsion Intravenous 150 ml/Potassium Acetate 20 meq/ Potassium Phosphate 30 meq/ Magnesium Sulfate 10 meq/ Multivitamins 10 ml/Chromium/ Copper/Manganese/ Zinc 1 ml/Amino Acids/Dextrose 1,230.3182 ml @ 51 mls/hr Q24H8M IV 05/31/25 22:00 06/01/25 21:59 Cancel Acetaminophen/ Hydrocodone Bitart 1 tab Q4HPRN PRN PO 05/31/25 16:00 UNV Metoclopramide HCl 5 mg Q8HPRN PRN IV 06/01/25 10:15 06/03/25 02:39 5 MG Laboratory Laboratory Tests 06/03/25 05:06 Test 06/03/25 05:06 Range/Units Serum Glucose 100 74-106 mg/dL Microbiology Date/Time Source Procedure Growth Status 05/24/25 12:45 Voided Urine Urine Culture - Final Complete 05/24/25 08:34 Blood Blood Culture - Final NO GROWTH AFTER 5 DAYS OF INCUBATION. Complete Examination: GENERAL:Normal, ABDOMEN:Normal (Nondistended, midline incision with wilfredo in place and without surrounding signs of infection, right lower quadrant drain with serous output (90 mL in last 24 hours), left lower quadrant ostomy with mucosa pink and stool in bag, appropriate erika-incisional tenderness, no rebound, no guarding) Labs and/or images reviewed: Labs reviewed by me (No leukocytosis 4.2 from from 4.3, hemoglobin holding in the eights) Problem List/Assessment/Plan Problems: (1) GI bleed (2) Rectal adenocarcinoma (3) CMV colitis Assessment and Plan Mrs. Parks is a 59-year-old female who has an active diagnosis of rectal cancer x1yr ago, and who presented to the ED due to rectal bleeding since last Tuesday. She has required 6 units of blood since admission. Colonoscopy (05/22) by Dr. Martinez showed a mass at approximately 10 cm from the anal verge ulcerated, that was not an able to be transverse by the scope. I was consulted for possible palliative diversion due to the possible pending obstruction and continued rectal bleeding. 05/30: Exploratory laparotomy, low anterior resection, end colostomy. Findings: Metastatic implants x2 on the left lobe of the liver, around segments 2 and 3 Interval: Patient is currently postop day 6 from the above-mentioned surgery. Patient is doing well today, she continues to tolerate diet, she is ambulating, ostomy is producing, and drain with very minimal output. Also her hemoglobin level is holding, has not require any transfusion since the surgery. Patient is cleared for discharge per surgical standpoint. 1. Advance diet as tolerated, placed supplement at home with ensure or boost drinks for more protein 2. Home drain education 3. Ostomy care education 4. Ostomy supplies 5. Recommend baseline pain control for home with Tylenol and/or ibuprofen, please follow brinell tester's directions. [place] 5-325 mg 1 tablet p.o. every 6 hours p.r.n. pain severe. 6. MiraLax 1 packet daily p.r.n. constipation 7. No lifting over 10 lb for 8 weeks 8. May shower, soap and water okay to run over incision site, she will need to protect the stoma bag when showering. No swimming or bathing 9. Follow-up with Dr. Mehta at surgery [facility], 1 week post discharge for drain and staple removal Plan discussed with Plan discussed with: Patient Visit Coding Surgery Date of Service if different f: Jun 03, 2025 Billing Provider: ANN WRIGHT MD Surgery Visit Codes: [id number] INP/OBS CARE(HIGH) ANN WRIGHT MD Jun 03, 2025 10:21
[2025-06-03 13:00] VITALS: BP 116/71; PULSE 97; RESP 16; TEMP 98.4; O2SAT 100
--- NOTE | 2025-06-03 13:35 | DVHPN2 ---
Progress Note Date Seen: Jun 03, 2025 Resident Creating Document: RILEY REINA RESIDENT Medical Necessity Reason Pt with a Central, PICC or Fol: No Objective vital signs Vital Sign Date Time Temp Pulse Resp B/P (MAP) Pulse Ox O2 Delivery O2 Flow Rate FiO2 06/03/25 13:00 98.4 97 16 116/71 (86) 100 98.4 06/03/25 08:00 Room Air* 0 21 Total Intake and Output 06/02/25 06/02/25 06/03/25 15:00 23:00 07:00 Intake Total 200 ml 400 ml 1710 ml Output Total 40 ml 50 ml Balance 160 ml 350 ml 1710 ml medications Current Medications Medications Dose Ordered Sig/Roni Route Start Time Stop Time Status Last Admin Dose Admin Ondansetron HCl 4 mg Q4HP PRN IV 05/17/25 17:45 Hold 06/01/25 06:06 4 MG Ceftriaxone Sodium 50 ml @ 100 mls/hr DAILY@09 IV 05/25/25 09:00 06/03/25 09:47 100 MLS/HR Metronidazole 100 ml @ 100 mls/hr Q8HR IV 05/24/25 14:00 06/03/25 13:13 100 MLS/HR Sodium Chloride 10 ml QSHIFT@10,22 IV 05/24/25 22:00 06/03/25 09:47 10 ML Acyclovir Sodium 500 mg/Dextrose 110 ml @ 110 mls/hr Q8H IV 05/26/25 00:15 06/03/25 08:27 110 MLS/HR Neomycin Sulfate 1,000 mg TID PO 05/27/25 20:00 UNV Sodium Chloride 1,000 ml @ 50 mls/hr Q20H IV 05/27/25 20:00 06/01/25 20:00 50 MLS/HR Pantoprazole Sodium 40 mg DAILY IV 05/29/25 10:00 06/03/25 09:47 40 MG Hydromorphone HCl 0.5 mg Q4HPRN PRN IV 05/30/25 07:45 Ketorolac Tromethamine 15 mg Q6HPRN PRN IV 05/30/25 07:45 06/04/25 07:44 05/31/25 22:06 15 MG Acetaminophen 650 mg Q6HP PRN PO 05/31/25 12:15 Fat Emulsion Intravenous 150 ml/Potassium Acetate 20 meq/ Potassium Phosphate 30 meq/ Magnesium Sulfate 10 meq/ Multivitamins 10 ml/Chromium/ Copper/Manganese/ Zinc 1 ml/Amino Acids/Dextrose 1,230.3182 ml @ 51 mls/hr Q24H8M IV 05/31/25 22:00 06/01/25 21:59 Cancel Acetaminophen/ Hydrocodone Bitart 1 tab Q4HPRN PRN PO 05/31/25 16:00 UNV Metoclopramide HCl 5 mg Q8HPRN PRN IV 06/01/25 10:15 06/03/25 02:39 5 MG laboratory and microbiology Laboratory Tests 06/03/25 05:06 Test 06/03/25 05:06 Range/Units Serum Glucose 100 74-106 mg/dL Microbiology Date/Time Source Procedure Growth Status 05/24/25 12:45 Voided Urine Urine Culture - Final Complete 05/24/25 08:34 Blood Blood Culture - Final NO GROWTH AFTER 5 DAYS OF INCUBATION. Complete Problem List/Assessment/Plan Problem List/Assessment/Plan Lower GI bleed One to 2+ engorged internal hemorrhoids Severe anemia due to above History of colorectal carcinoma s/p chemotherapy and radiotherapy Rectal cancer with bowel obstruction Plan: Encourage ambulation q.4 hours, clamp NG tube transiently if that is limiting ambulation. S/p ex lap Continue postoperative care Continue TPN Receiving IV iron S/p 6 PRBCs , transfuse as necessary to keep hemoglobin above 7 Last colonoscopy February 2024 Colonoscopy showed a narrowed ulcerated partially obstructing circumferential rectosigmoid mass with the distal margin at about 10 cm above the anal verge b eyond which the scope could not be advanced. There was formed stool stuck within the narrowed lumen in the colonoscope could not be advanced safely beyond this area. Biopsies were taken. One to 2+ engorged internal hemorrhoids and some excoriation of the perianal area. Patient will benefit from surgical intervention, surgical consult place and discussion held with Dr. Mehta as well as patient's oncologist Dr. Rocha Patient has surgical plan with her surgeon at [facility], however, patient is at risk of impending bowel obstruction as well as requiring PRBC, may not be stable for discharge in might require surgical intervention within this hospitalization. Ensure 250 mL t.i.d. with meals Thank you so much for the opportunity to consult on your patient. GI team will follow the patient. In case of any questions or concerns please feel free to reach out. Plan discussed with Dr. Martinez Dietary Evaluation Review Recommendations by RD: Protein Supplementation Comments: 1) Initiate Ensure Enlive bid 2) Encourage optimal PO intake 3) Advance to cardiac diet when medically feasible 4) Follow-up with gastroenterology and oncology 5) Continue to monitor I&O, labs, and skin integrity Expected Outcomes/Goals: 1) appetite and labs to improve 2) diet to advance 3) f/u in 3-5 days CC Plasma Assessment Blood Product Administration S: 0320 RILEY REINA RESIDENT Jun 03, 2025 13:35
[2025-06-03] MEDS ORDERED: AUG875T PO (14:21)
[2025-06-03] MEDS ORDERED: DOCU-94 PO (14:21)
[2025-06-03] MEDS ORDERED: POLY33505 PO (14:21)
[2025-06-03] MEDS ORDERED: VALG450T7 PO (14:21)
--- NOTE | 2025-06-03 15:04 | DVHDSRES ---
Discharge Summary Date of Admission Resident Creating Document: SHE JASON RESIDENT May 17, 2025 at 17:44 Date of Discharge: Jun 03, 2025 Admitting Diagnosis Rectal bleeding Labs/Diagnostic Data: Laboratory Results Test 06/03/25 05:06 05/31/25 16:52 05/31/25 04:38 05/27/25 07:00 White Blood Count 4.2 10^3/uL (4.4-10.8) Red Blood Count 2.52 10^6/uL (4.0-5.20) Hemoglobin 8.0 g/dL (12.2-16.2) Hematocrit 24.3 % (36.0-46.0) Mean Corpuscular Volume 96.6 fL (80.0-100.0) Mean Corpuscular Hemoglobin 31.8 pg (28.0-32.0) Mean Corpuscular Hemoglobin Concent 32.9 g/dL (32.0-36.0) Red Cell Distribution Width 21.2 % (11.8-14.3) Platelet Count 302 10^3/uL (140-450) Mean Platelet Volume 6.0 fL (6.9-10.8) Neutrophils (%) (Auto) 76.2 % (37.0-80.0) Lymphocytes (%) (Auto) 7.0 % (10.0-50.0) Monocytes (%) (Auto) 13.0 % (0.0-12.0) Eosinophils (%) (Auto) 3.3 % (0.0-7.0) Basophils (%) (Auto) 0.5 % (0.0-2.0) Neutrophils # (Auto) 3.2 10 ^3/uL (1.6-8.6) Lymphocytes # (Auto) 0.3 10 ^3/uL (0.4-5.4) Monocytes # (Auto) 0.5 10 ^3/uL (0-1.3) Eosinophils # (Auto) 0.1 10 ^3/uL (0-0.8) Basophils # (Auto) 0 10 ^3/uL (0-0.2) Nucleated Red Blood Cells 0.4 % Sodium Level 141 mmol/L (136-145) Potassium Level 3.7 mmol/L (3.5-5.1) Chloride Level 108 mmol/L (98-107) Carbon Dioxide Level 23 mmol/L (20-31) Anion Gap 10 (5-15) Blood Urea Nitrogen < 5 mg/dL (9-23) Creatinine 0.38 mg/dL (0.550-1.02) Glomerular Filtration Rate Calc 116 mL/min (>90) BUN/Creatinine Ratio 13.2 (10.0-20.0) Serum Glucose 100 mg/dL (74-106) Calcium Level 7.6 mg/dL (8.7-10.4) POC Glucose 138 mg/dl (70-106) Phosphorus Level 2.8 mg/dL (2.4-5.1) Magnesium Level 2.1 mg/dL (1.6-2.6) Total Bilirubin 0.3 mg/dL (0.2-1.0) Aspartate Amino Transferase (AST) 13 U/L (13-40) Alanine Aminotransferase (ALT) 12 U/L (7-40) Alkaline Phosphatase 60 U/L (46-116) Total Protein 4.6 g/dL (5.7-8.2) Albumin 2.6 g/dL (3.2-4.8) Prothrombin Time 10.9 sec (9.3-11.8) Prothrombin Time INR 1.03 (0.9-1.15) Activated Partial Thromboplast Time 26.0 SEC (24.5-34.5) Beta HCG, Quantitative 5.7 mIU/mL (1.5-4.2) Test 05/27/25 04:10 05/24/25 12:45 05/24/25 12:15 05/24/25 06:20 Urine Color Colorless (Yellow) Urine Clarity Clear (Clear) Urine pH 7.0 (5.0-9.0) Urine Specific [place] 1.007 (1.001-1.035) Urine Protein Normal (Negative) Urine Ketones Negative (Negative) Urine Blood Normal /uL (Negative) Urine Nitrite Negative (Negative) Urine Bilirubin Negative (Negative) Urine Urobilinogen Normal mg/dL (Negative) Urine Leukocyte Esterase Negative /uL (Negative) Urine Glucose Normal mg/dL (Normal) Urine RBC 1 /hpf (0 - 4) Urine Microscopic WBC 4 /HPF (0-5) Urine Squamous Epithelial Cells None seen /hpf (<5) Urine Bacteria Few /hpf (None Seen) Influenza Type A Antigen Negative (Negative) Influenza Type B Antigen Negative (Negative) SARS-CoV-2 Antigen (Rapid) Negative (NEGATIVE) Prealbumin 5.7 md/dL (10.0-40.0) Triglycerides Level 87 mg/dL (< 150) Test 05/23/25 06:41 05/21/25 07:39 05/18/25 18:14 05/18/25 15:10 Carcinoembryonic Antigen 0.55 ng/mL (<=5.0) Direct Bilirubin 0.3 mg/dL (<0.3) Differential Total Cells Counted 100.0 (100) Neutrophils % (Manual) 76 (37.0-80.0) Band Neutrophils % (Manual) 7 Lymphocytes % (Manual) 8 (10.0-50.0) Monocytes % (Manual) 7 (0-12) Eosinophils % (Manual) 1 (0-7) Basophils % (Manual) 0 (0.0-2.0) Metamyelocytes % (manual) 0 Myelocytes % (Manual) 1 Promyelocytes % (Manual) 0 Blast Cells % (Manual) 0 Reactive Lymphocytes 0 Platelet Estimate Adequate Large Platelets Few Anisocytosis (manual) Slight Stool Occult Blood Positive (Negative) Stool Occult Blood Sample #3 (Negative) Test 05/18/25 09:20 05/17/25 18:16 05/17/25 17:06 05/17/25 14:46 Macrocytosis Slight Stomatocytes Few Lactic Acid Level 0.7 mmol/L (0.4-2.0) Urine Opiates Screen Neg (NEGATIVE) Urine Fentanyl Screen Neg (NEGATIVE) Urine Barbiturates Screen Neg (NEGATIVE) Urine Phencyclidine Screen Neg (NEGATIVE) Urine Amphetamines Screen Neg (NEGATIVE) Urine Benzodiazepines Screen Neg (NEGATIVE) Urine Cocaine Screen Neg (NEGATIVE) Urine Cannabinoids Screen Neg (NEGATIVE) Tear Drop Cells Few Schistocytes Few Reticulocyte Count (auto) 8.12 % (0.5-1.5) Iron Level 36 ug/dL (50-170) Total Iron Binding Capacity 343 ug/dL (250-425) Percent Iron Saturation 10.5 % (15-50) Ferritin 179.3 ng/mL (10-291) B-Type Natriuretic Peptide 36.47 pg/mL (0-100) Vitamin B12 Level 946 pg/mL (211-911) Folic Acid 14.99 ng/mL (>5.38) Thyroid Stimulating Hormone (TSH) 0.91 uIU/mL (0.55-4.78) Other Laboratory Tests 06/03/25 05:06 Brief Hx & Hospital Course: Alix Parks is a 59-year-old female with a history of colorectal carcinoma, diagnosed one year ago, currently undergoing radiation therapy (over 30 sessions) and chemotherapy with capecitabine. She presented to the emergency department with severe rectal bleeding ongoing for three weeks, accompanied by fatigue, shortness of breath, weakness, and pain during bowel movements, significantly impairing her daily functioning. She denied fever, nausea, vomiting, abdominal pain, diarrhea, constipation, and other systemic symptoms. Her past medical history includes anemia requiring transfusion and thyroid tumor status post hemithyroidectomy 56 years ago. Family history is notable for colon and stomach cancers. She does not smoke or use alcohol or drugs. On admission, the patient was found to have acute blood loss anemia likely secondary to bleeding rectal adenocarcinoma and radiation proctitis, with hemoglobin levels as low as 7.2. She received multiple PRBC transfusions and was started on nutritional support with Ensure. 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 Empiric antibiotics (ceftriaxone and metronidazole) were initiated for fever spikes, though cultures remained negative. Surgical consultation led to a planned intervention, and on 05/28, the patient underwent exploratory laparotomy, low anterior resection, and colostomy, which she tolerated well. Postoperatively, she experienced mild bloating and pain, managed with analgesics and NG tube decompression. She gradually improved, ambulated, and tolerated a clear liquid diet, which was later advanced. Her hemoglobin stabilized, and she remained afebrile with improving symptoms. She was discharged on a full liquid diet, with instructions to advance as tolerated. Pain management included Tylenol, ibuprofen, and [place] as needed. She was prescribed Augmentin for 5 days and valganciclovir for 14 days for CMV colitis. She was advised to avoid lifting over 10 lbs for 8 weeks and may shower with precautions to protect the stoma bag. The patient will follow up in the discharge clinic with Dr. Jones on Tuesday, June 10, 2025, between 1-5 PM, with Dr. Mehta in the surgery outpatient clinic in one week, and with oncologist Dr. Cha within one to two weeks for further management of colorectal cancer. Examination General Appearance: Cooperative. Well developed. Well nourished. NAD. Patient looks pale. Head Exam: Normal inspection Neck Exam: Normal inspection. Non-tender. Normal alignment Pulmonary/Respiratory: Chest non-tender. Clear bilateral breath sounds, no crackles, no wheezing. Cardiovascular/Chest: Regular rate and rhythm. No murmurs. No JVD. Peripheral Pulses: 2+ Radial (R). 2+ Radial (L). 2+ Pedal (R). 2+ Pedal (L) Abdominal Exam: Midline vertical laparotomy scar with wilfredo present, YESSENIA drain on the right side and colostomy on the left side in place. Normal bowel sounds. Soft. normal abdomen, no visible veins, No hepatospenomegaly. No masses Ankle Exam: Negative ankle edema Lower extremities: Negative lower extremity edema Neuro/Mental Status: A&O x4. Coherent. Thoughts/Psych: Normal thought pattern. Appropriate mood and affect. Good judgement and insight Skin Exam: Normal inspection. Normal color. Warm. Dry Operations or Procedures PATIENT: ALIX PARKS ACCT: [id number] UNIT: [id number] : 1965 LOC: [facility] ROOM / BED: [facility] / A AGE / SEX: 59 / F ADM STATUS: ADM IN SERVICE 1002 ORDERING PHYSICIAN: ANN WRIGHT MD PROCEDURE(s): KUB - KUB ABDOMEN SINGLE VIEW REASON: YESSENIA DRAIN STOMACH ORDER NUMBER(s): [id number], ACCESSION NUMBER(s): [id number] Exam: XY KUB ABDOMEN SINGLE VIEW Indication: YESSENIA DRAIN STOMACH Comparison: CT ABD PELVIS W on DOS: 12/22/24, XY KUB ABDOMEN SINGLE VIEW on DOS: 10/01/23 Technique: 1 radiographic views of the abdomen. Findings: Nonspecific bowel-gas pattern. Surgical drainage catheter in-situ. There is no definite evidence for pneumoperitoneum. No abnormal calcifications noted. Impression: Nonspecific bowel-gas pattern. PATIENT: ALIX PARKS ACCT: [id number] UNIT: [id number] : 1965 LOC: [facility] ROOM / BED: [address] [place] [address] AGE / SEX: 59 / F ADM STATUS: ADM IN SERVICE 163 ORDERING PHYSICIAN: RILEY REINA PROCEDURE(s): CXRP - CHEST PORTABLE REASON: confirm NGT placement ORDER NUMBER(s): [id number], ACCESSION NUMBER(s): [id number] CHEST RADIOGRAPH Indication: confirm NGT placement Technique: Single frontal view of the chest was obtained COMPARISON: XY CHEST PORTABLE on DOS: 05/28/25, XY CHEST XRAY 1 VIEW on DOS: 05/27/25, XY CHEST XRAY 1 VIEW on DOS: 05/24/25, XY CHEST XRAY 1 VIEW on DOS: 05/18/25 FINDINGS: Lines and Tubes: Enteric catheter in satisfactory position left PICC in satisfactory position. Lungs: Patchy bilateral airspace disease. Pleura: No effusion. No pneumothorax. Cardiomediastinal contours: Unremarkable Bones: Unremarkable IMPRESSION: Nasogastric tube in satisfactory position. ENT: ALIX PARKS ACCT: [id number] UNIT: [id number] : 1965 LOC: [facility] ROOM / BED: [address] [place] [address] AGE / SEX: 59 / F ADM STATUS: ADM IN SERVICE 163 ORDERING PHYSICIAN: RILEY REINA PROCEDURE(s): CXRP - CHEST PORTABLE REASON: confirm NGT placement ORDER NUMBER(s): [id number], ACCESSION NUMBER(s): [id number] CHEST RADIOGRAPH Indication: confirm NGT placement Technique: Single frontal view of the chest was obtained COMPARISON: XY CHEST PORTABLE on DOS: 05/28/25, XY CHEST XRAY 1 VIEW on DOS: 05/27/25, XY CHEST XRAY 1 VIEW on DOS: 05/24/25, XY CHEST XRAY 1 VIEW on DOS: 05/18/25 FINDINGS: Lines and Tubes: Enteric catheter in satisfactory position left PICC in satisfactory position. Lungs: Patchy bilateral airspace disease. Pleura: No effusion. No pneumothorax. Cardiomediastinal contours: Unremarkable Bones: Unremarkable IMPRESSION: Nasogastric tube in satisfactory position. - PATIENT: ALIX PARKS ACCT: [id number] UNIT: [id number] : 1965 LOC: [facility] ROOM / BED: [address] [place] [address] AGE / SEX: 59 / F ADM STATUS: ADM IN SERVICE 1340 ORDERING PHYSICIAN: SHE JASON PROCEDURE(s): CXRP - CHEST PORTABLE REASON: Confirm NG Tube Placement ORDER NUMBER(s): [id number], ACCESSION NUMBER(s): [id number] CHEST RADIOGRAPH Indication: Confirm NG Tube Placement Technique: XY CHEST PORTABLE COMPARISON: 05/25/2025 FINDINGS: Nasogastric tube projects towards stomach. Left PICC line tip projects over the SVC. The cardiac silhouette is unremarkable. The lungs demonstrate left lower lobe/ retrocardiac airspace opacification. The pulmonary vasculature is prominent. There is no pleural effusion. There is no pneumothorax. IMPRESSION: Left lower lobe / retrocardiac airspace opacification PATIENT: ALIX PARKS ACCT: [id number] UNIT: [id number] : 1965 LOC: [facility] ROOM / BED: [id number] / A AGE / SEX: 59 / F ADM STATUS: ADM IN SERVICE 0400 ORDERING PHYSICIAN: SUZANNE MILLER PROCEDURE(s): CXR1 - CHEST XRAY 1 VIEW REASON: Procedure ORDER NUMBER(s): [id number], ACCESSION NUMBER(s): [id number] CHEST RADIOGRAPH Indication: Procedure Technique: Single frontal view of the chest was obtained COMPARISON: XY CHEST XRAY 1 VIEW on DOS: 05/24/25, XY CHEST XRAY 1 VIEW on DOS: 05/18/25 FINDINGS: Lines and Tubes: Left PICC in satisfactory position overlying the superior vena cava. Lungs: Clear Pleura: No effusion. No pneumothorax. Cardiomediastinal contours: Unremarkable Bones: Unremarkable IMPRESSION: No acute disease. - PATIENT: ALIX PARKS ACCT: [id number] UNIT: [id number] : 1965 LOC: [facility] ROOM / BED: [facility]T / A AGE / SEX: 59 / F ADM STATUS: ADM IN SERVICE 1038 ORDERING PHYSICIAN: BAY YEUNG PROCEDURE(s): CXR1 - CHEST XRAY 1 VIEW REASON: fever and sob ORDER NUMBER(s): [id number], ACCESSION NUMBER(s): [id number] EXAM: XY CHEST XRAY 1 VIEW Indication: fever and sob Technique: Single frontal view of the chest was obtained Comparison: XY CHEST XRAY 1 VIEW on DOS: 05/18/25 FINDINGS: Lines and Tubes: Left PICC tip projects over superior vena cava. Lungs: No focal consolidation. Pleura: No effusion. No pneumothorax. Cardiomediastinal contours: Unremarkable Bones: No acute osseous abnormality. IMPRESSION: No acute cardiopulmonary disease. PATIENT: ALIX PARKS ACCT: [id number] UNIT: [id number] : 1965 LOC: [facility] AGE / SEX: 59 / F ADM STATUS: ADM IN SERVICE 5 ORDERING PHYSICIAN: SUZANNE MILLER RESIDENT PROCEDURE(s): RUDVT - Rt Upper DVT REASON: rule out dvt ORDER NUMBER(s): [id number], ACCESSION NUMBER(s): [id number] RIGHT Upper Extremity Venous Duplex Clinical History: edema Comparison: None Findings: Duplex Doppler evaluation of the venous system of the RIGHT lower neck and upper extremity including color Doppler and spectral/pulsed waveform analysis was performed. The internal jugular vein demonstrates appropriate compressibility and waveform variability. The subclavian vein is patent on color Doppler evaluation without intraluminal thrombus and demonstrates waveform variability. The visualized portion of the brachiocephalic vein is patent on color Doppler evaluation without intraluminal thrombus and demonstrates waveform variability. The axillary vein demonstrates appropriate compressibility and waveform variability. The brachial veins demonstrate appropriate compressibility and patency on Doppler evaluation. The basilic vein demonstrates appropriate compressibility and patency on Doppler evaluation. Thrombus in the right cephalic vein. Impression: Superficial thrombus in the right cephalic vein If clinical concern/symptoms persist or worsen, short-interval follow-up study is suggested. PATIENT: ALIX PARKS ACCT: [id number] UNIT: [id number] : 1965 LOC: [facility] ROOM / BED: [address] [place] [address] / A AGE / SEX: 59 / F ADM STATUS: ADM IN SERVICE ORDERING PHYSICIAN: NAYANA VILLEDA RESIDENT PROCEDURE(s): CXR1 - CHEST XRAY 1 VIEW REASON: sob ORDER NUMBER(s): [id number], ACCESSION NUMBER(s): [id number] CHEST RADIOGRAPH Indication: sob Technique: Single frontal view of the chest was obtained COMPARISON: None FINDINGS: Lines and Tubes: None Lungs: Clear Pleura: No effusion. No pneumothorax. Cardiomediastinal contours: Unremarkable Bones: Unremarkable IMPRESSION: 1. No acute disease. PATIENT: BRITTANEY PARKSICIA ACCT: [id number] UNIT: [id number] : 1965 LOC: ER ROOM / BED: / AGE / SEX: 59 / F ADM STATUS: REG ER SERVICE 1441 ORDERING PHYSICIAN: NATAN GANN MD PROCEDURE(s): ABPL - CT AB PEL WO CON-NO ORAL OR IV REASON: gibleeding ORDER NUMBER(s): [id number], ACCESSION NUMBER(s): [id number] Indication: gibleeding Technique: CT axial images of the abdomen and pelvis are obtained without contrast. Coronal and sagittal reformats were obtained. Radiation Dose Information: CTDI volume is 5.1 mGy. Dose-length product is 253 mGy*cm Comparison: None FINDINGS: There is limited interpretation of the abdomen and pelvis without administration of intravenous contrast. Lung bases demonstrate no pleural effusion. Adrenal glands, spleen, pancreas and liver unremarkable in shape. No CT evidence for cholelithiasis. There is no hydronephrosis / nephrolithiasis. Stomach partially distended. Small bowel loops are normal in caliber. Bowel wall thickening of the sigmoid colon with surrounding stranding. Moderate to large volume stool within the more proximal colon. Normal appendix. Abdominal aortic atherosclerotic disease. Bladder partially distended. No inguinal lymphadenopathy. Moderate bilateral sacroiliac degenerative joint disease. Dwec-gl-wjqsxrvs thoracolumbar degenerative disc disease. IMPRESSION: Limited evaluation without contrast. Sigmoidal wall colon thickening and surrounding stranding which can be seen with proctocolitis . Other considerations include inflammatory bowel disease. Recommend colonoscopy once acute symptoms resolve to exclude underlying lesion / mass. Name of Procedure Performed Exploratory laparotomy, low anterior resection, and colostomy Procedure Details Procedure Details: Upon arrival to to the operating room the patient was transferred to the operating table and placed an end in the lithotomy position with arms extended. General endotracheal anesthesia was induced. Time-out was observed. I then directed my attention to the anal area, and I performed a rigid proctoscopy. Mass was seen at about the 9-10 cm kina. Patient was then placed in the supine position with the right arm tucked left arm extended. Patient was prepped and draped in the standard sterile surgical fashion with chlorhexidine, Ioban was placed. I then performed a curvilinear infraumbilical incision and carried it down to fascia. Then I grasped the umbilical stalk and walk down to its base with Truman clamp. Once at the base I gained entry to the peritoneal cavity with Freddy technique. I then placed a fascial retention suture with 0 Vicryl in [id number] fashion. Peritoneal cavity was insufflated to 15 mmHg with toleration. I then introduced the 30 degree camera and surveyed the peritoneal cavity. I noted 2 metastatic implants and on the left dome of the liver, around segments 2 and 3, pictures taken. I did not notice any other implants anywhere in the peritoneal cavity. I then directed my attention to the pelvic area, patient was placed in the Trendelenburg position. Patient had very redundant transverse and sigmoid colon that was very dilated and make it hard to see. This was coupled to her cavity not distending well due to a previous abdominoplasty surgery. The decision was to convert to an open procedure. I then proceeded to make a infraumbilical midline incision from the umbilicus to the pubis. Incision was carried down to fascia, once at fascia I scored a small segment with cautery and through the small opening I was able to place my finger within the peritoneal cavity and then open the entire fascia over my finger. Once in the cavity we used retractors to expose the low pelvic area, small bowel was also swept up and into the right upper quadrant. Sponges were placed to adequately expose our working area. We then proceeded to inspect the sigmoid colon and walk it down to the rectosigmoid junction. Mass was felt right at the rectosigmoid junction/peritoneal reflexion. We then proceeded to open the peritoneum at the base of the mesosigmoid on the right side and then on the left side. At this point we identified our proximal transection site which was about 5 cm proximal to the mass. We then made a mesenteric rent immediately below the bowel. We then transected proximal to the mass with a 75. GARIMA blue load. We then held the distal sigmoid with [place] right at the staple line and used it as retraction. We elevated the distal sigmoid/rectum and started dissecting the mesocolon from the retroperitoneum both bluntly and with cautery. We immediately encountered the HERMINIA and IMV. They were both ligated with 0 Vicryl and transected. We continued our dissection posteriorly on the mesorectum until we reached 5 cm past the mass. At this point we started working our way around the rectum laterally, both on the left and right side. Once the lateral aspects of the rectum were free to the same length of the posterior aspect, we then started our anterior dissection in the same fashion. At this point we had the rectum and mesorectum completely free from surrounding attachments circumferentially. At this point we utilized 3 loads of 60 mm blue Endo-GARIMA to transect the rectum distally. We had some minor stool spillage from the left lateral aspect of the rectal stump. The specimen was passed for pathology. The opening in the rectal stump was closed full-thickness, with 2 0 Monocryl. We then placed a marking rectal stump stitch of 2-0 Prolene. Area was irrigated copiously and suctioned. During the dissection we protected both the ureters the entire way. This concluded the total mesorectal excision of the procedure. We then placed a 19 Thai Justo drain in the pelvis exiting out of the right lower quadrant, and secured in place with a 2-0 nylon. We then identified the sigmoid colon proximally, it was very redundant and we decided to do a almost total sigmoid resection, for better fitting of the colostomy. We then 1st identified the vascular pedicle to the sigmoid, we suture ligated it with a 0 Vicryl and transected it. We then made a proximal sigmoid mesenteric rent approximately 2-3 cm distal to the descending sigmoid junction. We then used a 60 mm Endo-GARIMA blue load to transect the sigmoid. Sigmoid was passed for pathology. We then identified the area in the left lower quadrant that will be better suited for the colostomy site, colon reached the site tension-free and without twisting. We then made the for skin incision and carried down to fascia, fascia was opened, and was able to accommodate 2 fingerbreadths easily. Colon was brought out of the peritoneal cavity through the ostomy site, it was tension-free and without twisting. Colon and ostomy site were covered with a blue towel. We then proceeded to close the midline fascia. This was done with a running 1 PDS x2, tied at the center. Midline incision was then irrigated. Skin was closed with wilfredo. We then covered the midline incision with a clean blue towel. And proceeded to mature the colostomy. This was done with Brooking technique in the 4 quadrants with 3-0 Vicryl. We then placed additional 3-0 Vicryl in between the Brooking stitches. At the end the procedure colostomy had pink mucosa, and without tension. Ostomy appliance was placed over ostomy. Midline wound was dressed with 4 x 4 gauze and Tegaderm. Before the closure of the abdomen and at the end of the procedure all counts were complete and correct. Patient tolerated the procedure well and was transferred to PACU in stable condition. Specimen: Sigmoid colon and rectum Condition Stable Disposition Still a Patient ANN WRIGHT MD May 28, 2025 12:32 DICTATED BY:ANN WRIGHT MD DICTATED DATE/TIME:05/28/25 1232 - Condition at Discharge: Stable Final Diagnosis/Problems List Bleeding rectal adenocarcinoma s/p Exploratory laparomtomy with colostomy acute blood loss anemia likely from the rectal mass/ radiation proctitis HX of colorectal carcinoma currently on radiotherapy and chemotherapy CMV colitis Discharge Disposition: Home with Health Services Discharge Instruct/Medications Diet: See Comment Diet comment: continue on full liquid diet on discharge and advance as tolerated Activity: No Restrictions, As Tolerated Follow Up/Referral: Follow up in the discharge clinic on tuesday06/10/[address] Jones ( 1-5 pm ). Follow up with Dr. Mehta in the surgery outpatient clinic in 1 week Follow up with the oncologist Dr. Cha within 1-2 weeks for further management of colorectal CA Medications: 1. Augmentin 875mg twice daily for 5 days 2. Valganciclovir 900mg twice daily for 14 days for CMV colitis 2. Ensure protein 240ml twice daily with meals for protein supplementation 3. tylenol 500 mg and ibuprofen 400mg twice daily as needed for mild to moderatre pain 4. norco 5/325 for severe pain as prescribed 5. MiraLax 1 packet daily p.r.n. constipation Scheduled Amoxicillin & Pot Clavulanate (Augmentin Tablet), 875 MG PO BID Docusate Sodium (Colace), 1 CAP PO BID Valganciclovir Hydrochloride (Valganciclovir), 900 MG PO BID Scheduled PRN Polyethylene Glycol (Miralax), 17 GM PO DAILY PRN Discharge Statement: "Patient was advised to return to the ER or call 911 if any headaches, dizziness, shortness of breath, chest pain, abdominal pain, bleeding, fevers, or worsening of medical condition. Patient was counseled about treatment plan, medications, possible side effects, patientverbalized understanding. All questions were answered to the best of my ability. 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
[2025-06-03 17:00] VITALS: BP 112/68; PULSE 99; RESP 17; TEMP 98.2; O2SAT 95
== END 2025-06-03 19:18 | disposition home health service (06) | DRG 231 ==
LOC: ER 14:15 → OVERFLOW 17:44 → TELE-EAST 05-18 06:26 → EAST 05-29 11:22
PROVIDERS: ADMIT Internal Medicine Geriatric Medicine; ATTEND Internal Medicine Geriatric Medicine
PROC: 30233N1 Transfusion of Nonautologous Red Blood Cells into Peripheral Vein, Percutaneous Approach (ICD-10-PCS; principal; 2025-05-17)
PROC: 0DBN8ZX Excision of Sigmoid Colon, Via Natural or Artificial Opening Endoscopic, Diagnostic (ICD-10-PCS; 2025-05-22)
PROC: 02HV33Z Insertion of Infusion Device into Superior Vena Cava, Percutaneous Approach (ICD-10-PCS; 2025-05-24)
PROC: B548ZZA Ultrasonography of Superior Vena Cava, Guidance (ICD-10-PCS; 2025-05-24)
PROC: 0DJD8ZZ Inspection of Lower Intestinal Tract, Via Natural or Artificial Opening Endoscopic (ICD-10-PCS; 2025-05-28)
PROC: 0D1N0Z4 Bypass Sigmoid Colon to Cutaneous, Open Approach (ICD-10-PCS; 2025-05-28)
PROC: 0DBP0ZZ Excision of Rectum, Open Approach (ICD-10-PCS; 2025-05-28)
PROC: 0D9670Z Drainage of Stomach with Drainage Device, Via Natural or Artificial Opening (ICD-10-PCS; 2025-05-29)
DX: K62.7 Radiation proctitis (principal); E44.0 Moderate protein-calorie malnutrition; K56.609 Unspecified intestinal obstruction, unspecified as to partial versus complete obstruction; K92.2 Gastrointestinal hemorrhage, unspecified; A08.39 Other viral enteritis; D62 Acute posthemorrhagic anemia; C19 Malignant neoplasm of rectosigmoid junction; Z20.822 Contact with and (suspected) exposure to COVID-19; K62.89 Other specified diseases of anus and rectum; K64.8 Other hemorrhoids; E87.6 Hypokalemia; Z53.31 Laparoscopic surgical procedure converted to open procedure; Z80.0 Family history of malignant neoplasm of digestive organs; Z68.20 Body mass index [BMI] 20.0-20.9, adult
CPT/HCPCS: 36415; 36430; 36569; 71045; 74018; 74176; 76937; 80048; 80053; 80076; 80307; 81001; 81003; 82040; 82270; 82378; 82607; 82728; 82746; 82962; 83540; 83550; 83605; 83735; 83880; 84100; 84443; 84478; 84702; 85007; 85014; 85018; 85025; 85027; 85045; 85610; 85730; 86850; 86900; 86901; 86920; 87040; 87086; 87426; 87804; 93005; 93971; 96374; 96375; 97163; 99291; G0378; J1756; J1815; J1885; J2003; J2250; J2405; J2470; J2704; J3480; J3490; J7060

== ENCOUNTER 2025-07-26 10:50 | Inpatient (IN) | payer MEDICAID ==
[~2025-07-26] VITALS: Ht 157.5 cm; Wt 49.5 kg
[~2025-07-26 10:50] MED LIST changes: +AUG875T PO; +POLY33505 PO; +VALG450T7 PO
--- NOTE | 2025-07-26 11:08 | ECG ---
[facility] Test Date: 2025-07-26 Test Time: 11:07:01 Pat Name: ELVIA JOHNSON Department: ED Room: [address] [place] [address] Gender: F Director Of Compliance: JEANETTE : 1965 Requested By: LAUREN COREAS Order Number: [id number] Reading MD: Sachin Sen Measurements Intervals Canon Rate: 106 P: 80 FL: 148 QRS: 67 QRSD: 84 T: -49 QT: 313 QTc: 416 Interpretive Statements Sinus tachycardia RSR' in V1 or V2, right VCD or RVH Electronically Signed On 07-26-2025 15:04:52 PST by Sachin Sen Please click the below link to view image of tracing.
--- NOTE | 2025-07-26 11:37 | ED.PDOC ---
History of Present Illness HPI Comments 60 y/o F presents with spouse for c/c of nonradiating, diffused abdominal pain, nausea, and vomiting. Patient endorses on sudden, unprovoked, and atraumatic onset of symptoms, this morning. Pain is a 8-9/10 in severity. She reports on vomiting 2x, already, prior to ED arrival. Denial of any bloody or bilious vomitus, diarrhea, constipation, fever, or further acute symptoms. She has an indwelling colostomy that was placed by Dr. Mehta at [facility] for colon tumors 2x months ago and last saw her surgeon on 07/22/25 without complications. Additional pertinent history of tonsillectomy and abdominoplasty and family history of cancer. Chief Complaint: Abdominal Pain Time Seen by MD: 11:10 Reviewed Notes: Nurses Notes, Medications, Allergies Allergies: Coded Allergies: NO KNOWN ALLERGIES (Unverified , 10/01/23) Home Meds Active Scripts Polyethylene Glycol (Miralax) 17 Gm/Scoop Pow, 17 GM PO DAILY PRN for 30 Days, #30 POW 0 Refills Prov:MARY CARMEN LEACH RESIDENT 06/03/25 Valganciclovir Hydrochloride (Valganciclovir) 450 Mg Tab, 900 MG PO BID for 14 Days, #56 TAB 0 Refills Prov:MARY CARMEN LEACH 06/03/25 Amoxicillin & Pot Clavulanate (AUGMENTIN TABLET) 875 Mg Tb, 875 MG PO BID for 5 Days, #10 TAB 0 Refills Prov:MARY CARMEN LEACH 06/03/25 Docusate Sodium (Colace) 100 Mg Cap, 1 CAP PO BID for 30 Days, #60 CAP Prov:MARY CARMEN LEACH RESIDENT 06/03/25 Information Source: Patient Mode of Arrival: Ambulatory Severity: Moderate Timing: Hours Duration: Since onset Prehospital treatment: None Past Medical History Past Medical History (Other): colon tumors s/p colostomy Surgical History: Tonsillectomy Surgical History (Other): abdominoplasty colostomy DIAL POLISHER History: No Pertinent DIAL POLISHER History Family History Family History: Reviewed,noncontributory to illness, No family hx of DM, No family hx of Heart jaleel, No family hx of HTN, No family hx ofKidney jaleel, No family hx of Liver jaleel, No family hx of Lung jaleel, No family hx of Stroke, Family hx of Cancer Social History Smoker: Non-Smoker Alcohol: Denies ETOH Use Drugs: Denies Drug Use Lives In: Home Constitutional: denies: chills, diaphoresis, fatigue, fever, malaise, sweats, weakness, others EENTM: denies: blurred vision, double vision, ear bleeding, ear discharge, ear drainage, ear pain, ear ringing, eye pain, eye redness, hearing loss, mouth pain, mouth swelling, nasal discharge, nose bleeding, nose congestion, nose pain, photophobia, tearing, throat pain, throat swelling, voice changes, others Respiratory: denies: cough, hemoptysis, orthopnea, SOB at rest, shortness of breath, SOB with excertion, stridor, wheezing, others Cardiovascular: denies: chest pain, dizzy spells, diaphoresis, Dyspnea on exertion, edema, irregular heart beat, left arm pain, lightheadedness, palpitations, PND, syncope, others Gastrointestinal: reports: abdominal pain, nausea, vomiting; denies: abdomen distended, blood streaked bowels, constipated, diarrhea, dysphagia, difficulty swallowing, hematemesis, melena, poor appetite, poor fluid intake, rectal bleeding, rectal pain, others Genitourinary: denies: abnormal vagina bleeding, burning, dyspareunia, dysuria, flank pain, frequency, hematuria, incontinence, pain, , vagina discharge, urgency, others Neurological: denies: dizziness, fainting, headache, left sided numbness, left sided weakness, numbness, paresthesia, pre-existing deficit, right sided numbnes s, right sided weakness, seizure, speech problems, tingling, tremors, weakness, others Musculoskeletal: denies: back pain, gout, joint pain, joint swelling, muscle pain, muscle stiffness, neck pain, others Integumetry: denies: bruises, change in color, change in hair/nails, dryness, laceration, lesions, lumps, rash, wounds, others Allergic/Immunocompromised: denies: Difficulty Healing, Frequent Infections, Hives, Itching, others Hematologic/Lymphatic: denies: anemia, blood clots, easy bleeding, easy bruising, swollen glands, others Endocrine: denies: excessive hunger, excessive sweating, excessive thirst, excessive urination, flushing, intolerance to cold, intolerance to heat, unexplained weight gain, unexplained weight loss, others Psychiatric: denies: anxiety, bipolar disorder, depression, hopeless, panic disorder, schizophrenia, sleepless, suicidal, others All Other Systems: Reviewed and Negative Physical Exam General Appearance: Moderate Distress HEENT: Normal ENT Inspection, Pharynx Normal, TMs Normal Neck: Full Range of Motion, Non-Tender, Normal, Normal Inspection Respiratory: Chest Non-Tender, Lungs Clear, No Accessory Muscle Use, No Respiratory Distress, Normal Breath Sounds Cardiovascular: No Edema, No JVD, No Murmur, No Gallop, Normal Peripheral Pulses, Regular Rate/Rhythm Breast Exam: Deferred Gastrointestinal: LLQ, No Organomegaly, No Pulsatile Mass, Normal Bowel Sounds, Soft, Tenderness, Other (Colostomy bag in place) Genitalia: Deferred Pelvic: Deferred Rectal: Deferred Extremities: No calf tenderness, Normal capillary refill, Normal inspection, Normal range of motion, Non-tender, No pedal edema Musculoskeletal : Apperance: Normal Neurologic: Alert, addiction psychiatrist II-XII nml as Tested, No Motor Deficits, Normal Affect, Normal Mood, No Sensory Deficits Cerebellar Function: Normal Reflexes: Normal Skin: Dry, Normal Color, Warm Lymphatic: No Adenopathy Was a procedure done? Was a procedure done?: No Differential Dx Considerations may include: gastritis, gastroenteritis, GERD, PUD, cholelithiasis, cholecystitis, viral, diverticulitis, splenic infarct, appendicitis, among others X-Ray, Labs, Meds, VS Vital Signs Date Time Temp Pulse Resp B/P (MAP) Pulse Ox O2 Delivery O2 Flow Rate FiO2 07/26/25 11:53 127 16 118/82 07/26/25 11:45 98.1 127 16 118/82 (94) 94 98.1 07/26/25 11:45 127 16 94 Room Air 07/26/25 10:58 98.6 116 18 113/75 99 98.6 Lab Test 07/26/25 11:41 Range/Units White Blood Count 21.2 H 4.4-10.8 10^3/uL Red Blood Count 5.12 4.0-5.20 10^6/uL Hemoglobin 15.3 12.2-16.2 g/dL Hematocrit 47.2 H 36.0-46.0 % Mean Corpuscular Volume 92.1 80.0-100.0 fL Mean Corpuscular Hemoglobin 29.8 28.0-32.0 pg Mean Corpuscular Hemoglobin Concent 32.4 32.0-36.0 g/dL Red Cell Distribution Width 15.6 H 11.8-14.3 % Platelet Count 268 140-450 10^3/uL Mean Platelet Volume 7.8 6.9-10.8 fL Neutrophils (%) (Auto) 87.8 H 37.0-80.0 % Lymphocytes (%) (Auto) 1.5 L 10.0-50.0 % Monocytes (%) (Auto) 10.6 0.0-12.0 % Eosinophils (%) (Auto) 0.0 0.0-7.0 % Basophils (%) (Auto) 0.1 0.0-2.0 % Neutrophils # (Auto) 18.6 H 1.6-8.6 10 ^3/uL Lymphocytes # (Auto) 0.3 L 0.4-5.4 10 ^3/uL Monocytes # (Auto) 2.2 H 0-1.3 10 ^3/uL Eosinophils # (Auto) 0 0-0.8 10 ^3/uL Basophils # (Auto) 0 0-0.2 10 ^3/uL Nucleated Red Blood Cells 0.1 % Prothrombin Time Pending Prothrombin Time INR Pending Activated Partial Thromboplast Time Pending Sodium Level 137 136-145 mmol/L Potassium Level 3.8 3.5-5.1 mmol/L Chloride Level 101 98-107 mmol/L Carbon Dioxide Level 22 20-31 mmol/L Anion Gap 14 5-15 Blood Urea Nitrogen 10 9-23 mg/dL Creatinine 0.63 0.550-1.02 mg/dL Glomerular Filtration Rate Calc 102 >90 mL/min BUN/Creatinine Ratio 15.9 10.0-20.0 Serum Glucose 153 H 74-106 mg/dL Hemoglobin A1c Pending Calcium Level 9.5 8.7-10.4 mg/dL Phosphorus Level Pending Magnesium Level Pending Total Bilirubin 0.8 0.2-1.0 mg/dL Aspartate Amino Transferase (AST) 19 13-40 U/L Alanine Aminotransferase (ALT) 14 7-40 U/L Alkaline Phosphatase 126 H 46-116 U/L Total Protein 7.5 5.7-8.2 g/dL Albumin 4.4 3.2-4.8 g/dL Triglycerides Level Pending Cholesterol Level Pending LDL Cholesterol Pending HDL Cholesterol Pending Lipase 21 12-53 U/L Vitamin B12 Level Pending Vitamin D 25-Hydroxy Pending Thyroid Stimulating Hormone (TSH) Pending Current Medications Medications (Trade) Dose Ordered Sig/Roni Route Start Time Stop Time Status Last Admin Ondansetron HCl (Zofran) 4 mg ONCE ONCE IV 07/26/25 11:15 07/26/25 11:16 DC 07/26/25 11:52 Morphine Sulfate 2 mg ONCE ONCE IV 07/26/25 11:15 07/26/25 11:16 DC 07/26/25 11:53 IV Hep-Lock was established. Patient was given morphine 2 mg IV push The patient was given Zofran 4 mg IV push The CBC shows an elevated white blood cell count of 21.2 The rest of the CBC is within normal limits The chemistry panel results are also within normal limits At this time, the patient is being admitted The patient is being admitted at this time A CAT scan of the abdomen and pelvis which shows: Other: The imaged lower thorax demonstrates partially imaged bilateral breast implants. No acute osseous abnormality is evident. Impression: Lower anterior resection with left lower quadrant colostomy. Moderate wall thickening of the colon proximal to the colostomy of the inflammation is compatible with an infectious and/or inflammatory process. Constipation. The patient was given Flagyl 500 mg IV piggyback Images Reviewed?: Images reviewed and evaluated by me Time of 1ST Reevaluation: 11:40 Reevaluation 1ST: Unchanged Patient Education/Counseling: Diagnosis, Treatment, Prognosis Family Education/Counseling: No Family Present SEPSIS Sepsis Screen Date sepsis recognized/suspect: Jul 26, 2025 Time Sepsis recognized/suspect: 1101 Recent Procedure: No On Antibiotic Therapy: No Respiratory Rate >20: No Heart Rate >90: Yes Temp<36 C (96.8 F) or >38.3 C: No SBP <90 or MAP <65 mmHG: No New Acute Mental Status Change: No Is the patient on CPAP, BIPAP,: No Physician Orders Ct Ab Pel Wo Con-No Oral Or Iv (07/26/25 11:13) Heplock Iv (07/26/25 11:13) Vital Signs Date Time Temp Pulse Resp B/P (MAP) Pulse Ox O2 Delivery O2 Flow Rate FiO2 07/26/25 11:53 127 16 118/82 07/26/25 11:45 98.1 127 16 118/82 (94) 94 98.1 07/26/25 11:45 127 16 94 Room Air 07/26/25 10:58 98.6 116 18 113/75 99 98.6 Laboratory Tests Test 07/26/25 11:41 White Blood Count 21.2 10^3/uL (4.4-10.8) H Medications Medications Dose Ordered Sig/Roni Route Start Time Stop Time Status Last Admin Dose Admin Morphine Sulfate 2 mg ONCE ONCE IV 07/26/25 11:15 07/26/25 11:16 DC 07/26/25 11:53 Ondansetron HCl 4 mg ONCE ONCE IV 07/26/25 11:15 07/26/25 11:16 DC 07/26/25 11:52 Departure 1 Departure Time of Disposition: 13:32 Impression: Primary Impression: Intractable abdominal pain Disposition: ADMITTED INPATIENT Admit to: Med Surg Condition: Fair Critical Care Note Critical Care Time?: No Stability Stability form required: Yes Unstable for transfer: ED Physician Assesment (Clinical assesment) Heart Score Heart Score: Heart Score Response (Comments) Value History N/A 0 EKG N/A 0 Age N/A 0 Risk Factors N/A 0 Troponin N/A 0 Total 0 I personally scribed for LAUREN COREAS MD ([email or web address]) on 07/26/25 at 11:37. Electronically submitted by Mike Trevino [email or web address]). LAUREN COREAS MD Jul 26, 2025 11:37
[2025-07-26] MEDS: ONDANSETRON HCL 4 MG/2 ML VIAL IV ONE (11:52)
[2025-07-26] MEDS: MORPHINE SULFATE 4 MG/ML SYR/VIAL IV ONE (11:53)
--- NOTE | 2025-07-26 11:58 | DVH ---
CLINICAL HISTORY: pain TECHNIQUE: CT of the abdomen and pelvis was performed without IV contrast. This exam was performed according to our departmental dose optimization program. Up-to-date CT equipment and radiation dose reduction techniques are utilized as appropriate. CTDI 5 DLP 225 COMPARISON: CT CT AB PEL WO CON-NO ORAL OR IV on DOS: 05/17/25 FINDINGS: Abdomen/Pelvis: The spleen, pancreas, adrenal glands, kidneys, gallbladder, liver, and uterus are grossly unremarkable. The bladder is not well distended therefore not well evaluated. The abdominal aorta is normal in course and caliber. There are minimal atherosclerotic calcifications. There is no free intraperitoneal air. There is trace Scattered free fluid. There is no enlarged abdominal pelvic lymph node. There has been lower anterior resection with a left lower quadrant colostomy. There is moderate wall thickening of the colon proximal to the colostomy with inflammation. There is a [id number] amount of stool in the colon. Other: The imaged lower thorax demonstrates partially imaged bilateral breast implants. No acute osseous abnormality is evident. Impression: Lower anterior resection with left lower quadrant colostomy. Moderate wall thickening of the colon proximal to the colostomy of the inflammation is compatible with an infectious and/or inflammatory process. Constipation.
[2025-07-26 12:49] LABS: Hematocrit 47.2 % (36.0-46.0); Hemoglobin 15.3 g/dL (12.2-16.2); Mean Corpuscular Hemoglobin 29.8 pg (28.0-32.0); Mean Corpuscular Volume 92.1 fL (80.0-100.0); Nucleated Red Blood Cells % 0.1 %
[2025-07-26 13:05] LABS: Alanine Aminotransferase 14 U/L (7-40); Albumin 4.4 g/dL (3.2-4.8); Alkaline Phosphatase 126 U/L (46-116); Anion Gap 14 (5-15); BUN/Creatinine Ratio 15.9 (10.0-20.0); Bilirubin, Total 0.8 mg/dL (0.2-1.0); Blood Urea Nitrogen 10 mg/dL (9-23); Calcium 9.5 mg/dL (8.7-10.4); Carbon Dioxide 22 mmol/L (20-31); Chloride 101 mmol/L (98-107); Glucose 153 mg/dL (74-106); Lipase 21 U/L (12-53); Potassium 3.8 mmol/L (3.5-5.1); Sodium 137 mmol/L (136-145); Total Protein 7.5 g/dL (5.7-8.2)
--- NOTE | 2025-07-26 13:16 | DVHHPRES ---
History of Present Illness Resident Creating Document: COLIN DE LEON History of Present Illness Alix Parks is a 60 year old female patient who presents to the ED with chief complaint of colicky diffuse abdominal pain and abdominal distension with started 3 days ago and got progressively worse, associated with fever, foamy urinem nausea and vomiting of ground coffee emesis. Per patient she believes all these symptoms were triggered by coughing. Patient reports recent diagnosis of colon adenocarcinoma, status post colectomy with colostomy placement on 05/2025, and recently saw Dr Mehta in an outpatient follow up where with no evident complications. Patient denies any other associated symptom. Past medical history: 05/2025 Adenocarcinoma of colon s/p resection and colostomy placement, thyroid nodule s/p partial thyroidectomy Surgical history: Colectomy, partial thyroidectomy Family history: Mother had gastric cancer Social history: Lives in [place] with (MARY). Denies current tobacco, alcohol and other drug abuse. Allergies: Denies Home medication: Peptobismal PAtient seen and examined at bedside. Currently no new complain. Admitted for further management. Past Medical History Per HPI Past Surgical History Per HPI Family History Per HPI Past Social History Per HPI Review of Systems Review of Systems Per HPI Allergies: Coded Allergies: NO KNOWN ALLERGIES (Unverified , 10/01/23) Medications Current Medications Medications Dose Ordered Sig/Roni Route Start Time Stop Time Status Last Admin Dose Admin Acetaminophen 325 mg Q4HP PRN PO 07/26/25 13:00 Ondansetron HCl 4 mg Q4HP PRN IV 07/26/25 13:00 Morphine Sulfate 2 mg Q4HPRN PRN IV 07/26/25 13:00 Enoxaparin Sodium 40 mg DAILY SC 07/27/25 10:00 Metronidazole 100 ml @ 100 mls/hr Q8HR IV 07/26/25 14:00 Ceftriaxone Sodium 50 ml @ 100 mls/hr DAILY@09 IV 07/27/25 09:00 Sodium Chloride 1,000 ml @ 50 mls/hr Q20H IV 07/26/25 13:00 Exam Vital Signs Vital Signs Date Time Temp Pulse Resp B/P (MAP) Pulse Ox O2 Delivery O2 Flow Rate FiO2 07/26/25 11:53 127 16 118/82 07/26/25 11:45 98.1 94 98.1 07/26/25 11:45 Room Air Exam Patient lying in bed, in no acute distress General: Lucid, cachectic, afebrile, mucosae are dry Cardiovascular: Normal S1 and S2. No murmurs, gallops or rubs Respiratory: Normal ventilation mechanics. Clear lung sounds on auscultation Abdomen: Soft, tenderness on superficial palpation in all abdomen, no rebound, induration close to colostomy bag, no organomegaly, increased bowel sounds. Colostomy bag has viable stoma with brown fecal matter, no signs of erythema of purulent discharge. MSK/skin: Mobilizes 4 limbs. Skin is dry and warm Neurological: Oriented in 3 spheres. No motor no sensitive deficits. Pupils are isocoric and reactive Labs/Xrays Labs Test 07/26/25 11:41 Range/Units White Blood Count 21.2 H 4.4-10.8 10^3/uL Red Blood Count 5.12 4.0-5.20 10^6/uL Hemoglobin 15.3 12.2-16.2 g/dL Hematocrit 47.2 H 36.0-46.0 % Mean Corpuscular Volume 92.1 80.0-100.0 fL Mean Corpuscular Hemoglobin 29.8 28.0-32.0 pg Mean Corpuscular Hemoglobin Concent 32.4 32.0-36.0 g/dL Red Cell Distribution Width 15.6 H 11.8-14.3 % Platelet Count 268 140-450 10^3/uL Mean Platelet Volume 7.8 6.9-10.8 fL Neutrophils (%) (Auto) 87.8 H 37.0-80.0 % Lymphocytes (%) (Auto) 1.5 L 10.0-50.0 % Monocytes (%) (Auto) 10.6 0.0-12.0 % Eosinophils (%) (Auto) 0.0 0.0-7.0 % Basophils (%) (Auto) 0.1 0.0-2.0 % Neutrophils # (Auto) 18.6 H 1.6-8.6 10 ^3/uL Lymphocytes # (Auto) 0.3 L 0.4-5.4 10 ^3/uL Monocytes # (Auto) 2.2 H 0-1.3 10 ^3/uL Eosinophils # (Auto) 0 0-0.8 10 ^3/uL Basophils # (Auto) 0 0-0.2 10 ^3/uL Nucleated Red Blood Cells 0.1 % Sodium Level 137 136-145 mmol/L Potassium Level 3.8 3.5-5.1 mmol/L Chloride Level 101 98-107 mmol/L Carbon Dioxide Level 22 20-31 mmol/L Anion Gap 14 5-15 Blood Urea Nitrogen 10 9-23 mg/dL Creatinine 0.63 0.550-1.02 mg/dL Glomerular Filtration Rate Calc 102 >90 mL/min BUN/Creatinine Ratio 15.9 10.0-20.0 Serum Glucose 153 H 74-106 mg/dL Calcium Level 9.5 8.7-10.4 mg/dL Total Bilirubin 0.8 0.2-1.0 mg/dL Aspartate Amino Transferase (AST) 19 13-40 U/L Alanine Aminotransferase (ALT) 14 7-40 U/L Alkaline Phosphatase 126 H 46-116 U/L Total Protein 7.5 5.7-8.2 g/dL Albumin 4.4 3.2-4.8 g/dL Lipase 21 12-53 U/L SEPSIS Sepsis Screen Date sepsis recognized/suspect: Jul 26, 2025 Time Sepsis recognized/suspect: 110 Recent Procedure: No On Antibiotic Therapy: No Respiratory Rate >20: No Heart Rate >90: Yes Temp<36 C (96.8 F) or >38.3 C: No SBP <90 or MAP <65 mmHG: No New Acute Mental Status Change: No Is the patient on CPAP, BIPAP,: No Physician Orders Ct Ab Pel Wo Con-No Oral Or Iv (07/26/25 11:13) Heplock Iv (07/26/25 11:13) Admit (07/26/25 12:56) Code Status (07/26/25 12:56) Acetaminophen Tablet (Tylenol Tablet) (07/26/25 13:00) Ondansetron Hcl (Zofran) (07/26/25 13:00) Complete Blood Count (07/27/25 04:00) Comprehensive Metabolic Panel (07/27/25 04:00) Npo (Nothing By Mouth) Diet (07/26/25 Lunch) Morphine Sulfate Injection (07/26/25 13:00) Enoxaparin Sodium (Lovenox) (07/27/25 10:00) Oxygen By Nasal Cannula (07/26/25 12:56) Stat Ekg For Chest Pain (07/26/25 12:56) Notify Md Of Changes From Base (07/26/25 12:56) Tire Servicer For 24 Hours (07/26/25 12:56) Emergency Dysrhythmia Protocol (07/26/25 12:56) Rhythm Strips Once Every Shift (07/26/25 12:56) Metronidazole 500mg/100ml (Flagyl 500mg/ (07/26/25 14:00) Ceftriaxone 1gm/50ml (Rocephin) (07/27/25 09:00) Ceftriaxone 1gm/50ml (Rocephin) (07/26/25 13:00) Sodium Chloride 0.9% (07/26/25 13:00) Sodium Chloride 0.9% (07/26/25 13:00) Blood Culture (07/26/25 12:56) Urine Bacterial Culture (07/26/25 12:56) Respiratory Culture W/ Gs (07/26/25 12:56) Mrsa Screen (07/26/25 12:56) Chest Xray 1 View (07/26/25 12:56) Vitamin D, 25-Hydroxy (07/26/25 12:56) Vitamin B12 (07/26/25 12:56) Urinalysis (07/26/25 12:56) Thyroid Stimulating Hormone (07/26/25 12:56) PTPTT (07/26/25 12:56) Phosphorus (07/26/25 12:56) Magnesium (07/26/25 12:56) Lipid Panel (07/26/25 12:56) Lactic Acid W/ Reflex Order (07/26/25 12:56) Hemoglobin A1c (07/26/25 12:56) Drug Screen (07/26/25 12:56) Echo 2d Mode Cardiac Dop (07/26/25 13:03) Vital Signs Date Time Temp Pulse Resp B/P (MAP) Pulse Ox O2 Delivery O2 Flow Rate FiO2 07/26/25 11:53 127 16 118/82 07/26/25 11:45 98.1 127 16 118/82 (94) 94 98.1 07/26/25 11:45 127 16 94 Room Air 07/26/25 10:58 98.6 116 18 113/75 99 98.6 Laboratory Tests Test 07/26/25 11:41 White Blood Count 21.2 10^3/uL (4.4-10.8) H Medications Medications Dose Ordered Sig/Roni Route Start Time Stop Time Status Last Admin Dose Admin Morphine Sulfate 2 mg ONCE ONCE IV 07/26/25 11:15 07/26/25 11:16 DC 07/26/25 11:53 2 MG Ondansetron HCl 4 mg ONCE ONCE IV 07/26/25 11:15 07/26/25 11:16 DC 07/26/25 11:52 4 MG Assessment/Plan Assessment/Plan ASSESSMENT Sepsis secondary to colitis Questionable upper GI bleed Rule out UTI History of adenocarcinoma s/p resection History of thyroid nodule s/p partial thyroidectomy Malnutrition (BMI <18) PLAN Admitted patient to telemetry Completed abdominal and pelvis CT which evidenced moderate wall thickening of colon (compatible with infection vs inflammation) and constipation Currently NPO for bowel rest, IV fluids and empiric IV antibiotics (Metronidazole and Ceftriaxone) Ordered pancultures and stool studies Ordered UA to evaluate foamy urine No obvious complication from surgery (no signs of infection on surgical site). If deemed necessary, consult Dr Mehta. Goals of care discussed with patient for over 18 minutes: Full code status Discussed plan with Dr Cartwright, patient and nurses: Currently telemetry status. On bowel rest, IV fluids, empiric IV antibiotics. Patient has poor prognosis Plan discussed with: Patient, Spouse, Other (Nurses) My Orders Orders - COLIN DE LEON RESIDENT Procedure Category Date Status Time Admit ADMIT 07/26/25 Transmitted 12:56 Code Status CODE 07/26/25 Transmitted 12:56 Acetaminophen Tablet PHA 07/26/25 In Process (Tylenol Tablet) 13:00 Ondansetron Hcl PHA 07/26/25 In Process (Zofran) 13:00 Complete Blood Count LAB 07/27/25 Verified 04:00 Comprehensive LAB 07/27/25 Verified Metabolic Panel 04:00 Npo (Nothing By DIET 07/26/25 Transmitted Mouth) Diet Lunch Morphine Sulfate PHA 07/26/25 In Process Injection 13:00 Enoxaparin Sodium PHA 07/27/25 In Process (Lovenox) 10:00 Oxygen By Nasal RT 07/26/25 Transmitted Cannula 12:56 Stat Ekg For Chest RAMON 07/26/25 In Process Pain 12:56 Notify Of Changes RAMON 07/26/25 In Process From Base 12:56 Tire Servicer For RAMON 07/26/25 In Process 24 Hours 12:56 Emergency Dysrhythmia RAMON 07/26/25 In Process Protocol 12:56 Rhythm Strips Once RAMON 07/26/25 In Process Every Shift 12:56 Metronidazole PHA 07/26/25 In Process 500mg/100ml (Flagyl 14:00 Ceftriaxone 1gm/50ml PHA 07/27/25 In Process (Rocephin) 09:00 Ceftriaxone 1gm/50ml PHA 07/26/25 In Process (Rocephin) 13:00 Sodium Chloride 0.9% PHA 07/26/25 In Process 13:00 Sodium Chloride 0.9% PHA 07/26/25 In Process 13:00 Blood Culture TERESA 07/26/25 Logged 12:56 Urine Bacterial TERESA 07/26/25 Logged Culture 12:56 Respiratory Culture TERESA 07/26/25 Logged W/ Gs 12:56 Mrsa Screen TERESA 07/26/25 Logged 12:56 Chest Xray 1 View XY 07/26/25 Taken 12:56 Vitamin D, 25-Hydroxy LAB 07/26/25 In Process 12:56 Vitamin B12 LAB 07/26/25 In Process 12:56 Urinalysis LAB 07/26/25 Logged 12:56 Thyroid Stimulating LAB 07/26/25 In Process Hormone 12:56 PTPTT LAB 07/26/25 In Process 12:56 Phosphorus LAB 07/26/25 In Process 12:56 Magnesium LAB 07/26/25 In Process 12:56 Lipid Panel LAB 07/26/25 In Process 12:56 Lactic Acid W/ Reflex LAB 07/26/25 Logged Order 12:56 Hemoglobin A1c LAB 07/26/25 In Process 12:56 Drug Screen LAB 07/26/25 Logged 12:56 Echo 2d Mode Cardiac US 07/26/25 Logged DOP 13:03 Date of Service: Jul 26, 2025 Billing Provider: LUCHO CARTWRIGHT MD Common Visit Codes: [id number] INP/OBS CARE (HIGH) Secondary Visit Codes: [id number] CARE PLAN 30 MINUTES COLIN DE LEON RESIDENT Jul 26, 2025 13:16
--- NOTE | 2025-07-26 13:33 | DVH ---
CHEST RADIOGRAPH Indication: Sepsis Technique: Single frontal view of the chest was obtained Comparison: XY CHEST PORTABLE on DOS: 05/28/25, XY CHEST PORTABLE on DOS: 05/28/25, XY CHEST XRAY 1 VIEW on DOS: 05/27/25 FINDINGS: Lines and Tubes: None Lungs: No focal consolidation. Pleura: No effusion. No pneumothorax. Cardiomediastinal contours: Unremarkable Bones: No acute osseous abnormality. IMPRESSION: 1. No acute cardiopulmonary disease. 2. Interval surgical placement of bilateral breast implants.
[2025-07-26 13:35] LABS: INR 1.26 (0.9-1.15); Partial Thromboplastin Time 30.0 SEC (24.5-34.5); Prothrombin Time 13.1 sec (9.3-11.8)
[2025-07-26 14:28] LABS: Triglycerides 82.0 mg/dL (< 150)
[2025-07-26 14:29] LABS: Magnesium 2.0 mg/dL (1.6-2.6)
[2025-07-26 14:30] LABS: Amphetamine Screen, Urine Neg (NEGATIVE); Barbiturate Scree,Urine Neg (NEGATIVE); Benzodiazephine Screen, Urine Neg (NEGATIVE); Cannabinoid Screen, Urine Neg (NEGATIVE); Cocaine Screen, Urine Neg (NEGATIVE); Opiate Scree,Urine Pos (NEGATIVE); Phencyclidine Screen, Urine Neg (NEGATIVE)
[2025-07-26 14:30] LABS: Cholesterol 168.0 mg/dL (< 200)
[2025-07-26 14:31] LABS: HDL Cholesterol 66.0 mg/dL (40-59)
[2025-07-26 14:31] LABS: Urine Protein, UAD 2+ (Negative)
[2025-07-26] MEDS: SODIUM CHLORIDE 0.9% 500 ML IV ONE (14:31)
[2025-07-26 16:00] VITALS: BP 104/59; PULSE 77; RESP 16; TEMP 97.7; O2SAT 93
[2025-07-26] MEDS: SODIUM CHLORIDE 0.9% 1,000 ML IV SCH (16:07)
[2025-07-26] MEDS: MORPHINE SULFATE INJ 2 MG/ml SYRG IV PRN (16:12)
[2025-07-26 16:20] VITALS: BP 104/59; PULSE 77; RESP 16; TEMP 97.7; O2SAT 93
[2025-07-26 17:00] VITALS: BP 98/57; PULSE 104; RESP 16; TEMP 97.9; O2SAT 96
[2025-07-26] MEDS ORDERED: ACET-1881 PO (17:09)
[2025-07-26 20:00] VITALS: PULSE 102
[2025-07-26] MEDS: MORPHINE SULFATE INJ 2 MG/ml SYRG ONE (20:53)
[2025-07-26 21:00] VITALS: BP 117/56; PULSE 106; RESP 23; TEMP 99.2; O2SAT 95
[2025-07-27] MEDS: ACETAMINOPHEN 325 MG TAB PO PRN (02:34)
[2025-07-27 04:50] LABS: Hematocrit 44.2 % (36.0-46.0); Hemoglobin 14.5 g/dL (12.2-16.2); Mean Corpuscular Hemoglobin 30.1 pg (28.0-32.0); Mean Corpuscular Volume 91.6 fL (80.0-100.0); Nucleated Red Blood Cells % 0.0 %
[2025-07-27 05:08] LABS: Alanine Aminotransferase 13 U/L (7-40); Albumin 3.5 g/dL (3.2-4.8); Alkaline Phosphatase 108 U/L (46-116); Anion Gap 13 (5-15); BUN/Creatinine Ratio 20.7 (10.0-20.0); Bilirubin, Total 0.6 mg/dL (0.2-1.0); Blood Urea Nitrogen 12 mg/dL (9-23); Carbon Dioxide 23 mmol/L (20-31); Chloride 105 mmol/L (98-107); Potassium 4.0 mmol/L (3.5-5.1); Sodium 141 mmol/L (136-145); Total Protein 5.8 g/dL (5.7-8.2)
[2025-07-27 05:16] LABS: Calcium 8.5 mg/dL (8.7-10.4); Glucose 140 mg/dL (74-106)
[2025-07-27] MEDS: ENOXAPARIN SOD 40 MG/0.4 ML SYRINGE SC SCH (09:59)
[2025-07-27 11:20] VITALS: PULSE 121; RESP 16; O2SAT 95
[2025-07-27 12:30] VITALS: BP 121/63; PULSE 121; RESP 16; TEMP 98.5; O2SAT 95
--- NOTE | 2025-07-27 15:15 | DVHSR ---
APPROVED REPORT EXAM: LIMITED Two-dimensional and M-mode echocardiogram with Doppler and color Doppler. Blood Pressure: 123/63 mmHg INDICATION SEPSIS RISK FACTORS Height: 5' 2", Weight: 96 DIMENSIONS LVDd 3.9 (3.8-5.7cm) LA (2D) 3.1 (1.9-4.0cm) Aortic Root 3.1 (2.0-3.7cm) LVDs 2.3 (2.5-4.0cm) LA (MM) (1.9-4.0cm) Aortic Cusp Exc 1.7 (1.5-2.0cm) EF (%) 70.0 (55-70%) Rt. Atrium 3.5 (1.9-4.0cm) Asc. Aorta cm IVSd 0.6 (0.7-1.1cm) RV (D) (1.8-2.4cm) PWd 0.5 (0.7-1.1cm) Mitral Valve Mitral Mitral Stenosis E wave 0.60m/s MV Mean GR. mmHg A wave 0.90m/s MV Peak GR. mmHg E/A ratio 0.7 2D MVA cm2 Aortic Valve Aortic Valve Aortic Stenosis V1 1.20m/s AO Mean GR. 4mmHg V2 1.40m/s AO Peak GR. 8mmHg LVOT Diameter 1.8 (1.8-2.4cm) Doppler EDY 2.18cm2 Other Information Quality : Technically Limited Rhythm : Tachycardia Technically limited study due to body habitus, patient with large breast implants. Conclusion Technically a good study, Normal Sinus Rythm Normal Chamber sizes. Normal Valves Left ventricular systolic performance is preserved with an EF of 65% and normal RV function. Doppler is normal No masses or vegetations dicernable. No pericardial effusion noted.
[2025-07-27 16:30] VITALS: BP 115/83; PULSE 119; RESP 20; TEMP 100.8; O2SAT 94
--- NOTE | 2025-07-27 16:46 | DVHPN2 ---
Subjective Patient is here for diffuse abdominal pain with the coffee-ground emesis and nausea and vomiting denies any diarrhea. Changes from previous H/P or p: No Changes Objective Vitals Vital Signs Date Time Temp Pulse Resp B/P (MAP) Pulse Ox O2 Delivery O2 Flow Rate FiO2 07/27/25 14:02 109 16 110/48 07/27/25 12:30 98.5 95 98.5 07/27/25 11:20 Room Air* 0 21 Intake/Output Intake and Output 07/27/25 07:00 Intake Total 662 ml Balance 662 ml Intake IV Total 662 ml Exam HEENT pupils are reactive Neck is supple CV is S1-S2 regular rate and rhythm Respiratory are clear GI positive bowel sounds Extremity no edema [employer] no motor deficit Medications Current Medications Medications Dose Ordered Sig/Roni Route Start Time Stop Time Status Last Admin Dose Admin Acetaminophen 325 mg Q4HP PRN PO 07/26/25 13:00 Ondansetron HCl 4 mg Q4HP PRN IV 07/26/25 13:00 Morphine Sulfate 2 mg Q4HPRN PRN IV 07/26/25 13:00 07/27/25 14:02 2 MG Enoxaparin Sodium 40 mg DAILY SC 07/27/25 10:00 07/27/25 09:59 40 MG Metronidazole 100 ml @ 100 mls/hr Q8HR IV 07/26/25 14:00 07/27/25 13:01 100 MLS/HR Ceftriaxone Sodium 50 ml @ 100 mls/hr DAILY@09 IV 07/27/25 09:00 07/27/25 09:50 100 MLS/HR Sodium Chloride 1,000 ml @ 50 mls/hr Q20H IV 07/26/25 13:00 07/27/25 09:50 50 MLS/HR Laboratory Results Laboratory Tests 07/27/25 04:31 Chemistry Test 07/27/25 04:31 Albumin 3.5 g/dL (3.2-4.8) Calcium Level 8.5 mg/dL (8.7-10.4) L Total Protein 5.8 g/dL (5.7-8.2) LFT Test 07/27/25 04:31 Alanine Aminotransferase (ALT) 13 U/L (7-40) Alkaline Phosphatase 108 U/L (46-116) Aspartate Amino Transferase (AST) 13 U/L (13-40) Total Bilirubin 0.6 mg/dL (0.2-1.0) Urinalysis Test 07/26/25 13:52 Urine Color Light-orange (Yellow) Urine Clarity Clear (Clear) Urine pH 6.0 (5.0-9.0) Urine Specific [place] 1.040 (1.001-1.035) Urine Protein 2+ (Negative) H Urine Ketones 2+ (Negative) H Urine Blood Trace /uL (Negative) H Urine Nitrite Negative (Negative) Urine Bilirubin 1+ (Negative) H Urine Urobilinogen 2 mg/dL (Negative) H Urine Leukocyte Esterase Negative /uL (Negative) Urine RBC 15 /hpf (0 - 4) Urine Microscopic WBC 7 /HPF (0-5) H Urine Squamous Epithelial Cells Few /hpf (<5) Urine Bacteria None seen /hpf (None Seen) Urine Hyaline Casts Few /lpf (0 - 2) Urine Mucus Few (None Seen) Urine Glucose Normal mg/dL (Normal) Microbiology Microbiology Date/Time Source Procedure Growth Status 07/26/25 22:00 Nose MRSA Screen - Final Methicillin Resistant S.aureus Complete 07/26/25 13:52 Voided Urine Urine Culture - Preliminary Resulted 07/26/25 13:49 Blood Blood Culture - Preliminary NO GROWTH AFTER 24 HOURS OF INCUBATION. Resulted Assessment/Plan Assessment/Plan 60-year-old female with a known history of adenocarcinoma of the colon status post partial resection status post colostomy, history of thyroid nodule status post partial thyroidectomy presented to the hospital with the abdominal pain nausea and vomiting found to have 1. Sepsis secondary to colitis 2. Rule out upper GI bleed 3. Urinary tract infection 4. Abdominal pain nausea and vomiting 5. Adenocarcinoma of the colon status post partial colectomy as well as colostomy 6. Malnutrition -monitor H&H, continue IV antibiotics follow up cultures. Plan discussed with: Patient My Orders Orders - VICTORINO PENDLETON MD Procedure Category Date Status Time Clear Liq Diet DIET 07/27/25 Transmitted Dinner * Surgical Consult CONS 07/27/25 Transmitted Problem List: (1) GI bleed (2) Colon cancer (3) Intractable abdominal pain Date of Service: Jul 27, 2025 Billing Provider: VICTORINO PENDLETON MD Common Visit Codes: [id number] INP/OBS CARE(HIGH) VICTORINO PENDLETON MD Jul 27, 2025 16:46
--- NOTE | 2025-07-27 17:51 | DVHINCON2 ---
Consultation - Surgical Date Seen: Jul 27, 2025 Referring Physician Reason for Consultation Abdominal pain History of Present Illness History of Present Illness Mrs. Parks is a 60-year-old female with a history of rectal cancer status post low anterior resection with end colostomy on May 28, 2025. 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 She was supposed to undergo neoadjuvant chemotherapy but due to this the cancer resection had to be done. She presents presents today to the ED with lower abdominal pain that started yesterday after eating dinner, she had several episodes of nausea and vomiting. Denies any bleeding per ostomy, ostomy is producing, although 2 days ago it did not produce anything. Denies fevers, chills, changes in urinary habits. Past Medical/Surgical History Past Medical/Surgical History Past medical history: Rectal cancer, radiation proctitis, CMV colitis, rectal bleeding Past surgical history low anterior resection on May 28, 2025 with a end colostomy Family and Social History Family and Social History ETOH/T Ob/drugs denies Allergies and medications Allergies: Coded Allergies: NO KNOWN ALLERGIES (Unverified , 10/01/23) Home Meds Active Scripts Polyethylene Glycol (Miralax) 17 Gm/Scoop Pow, 17 GM PO DAILY PRN for 30 Days, #30 POW 0 Refills Prov:MARY CARMEN LEACH RESIDENT 06/03/25 Valganciclovir Hydrochloride (Valganciclovir) 450 Mg Tab, 900 MG PO BID for 14 Days, #56 TAB 0 Refills Prov:MARY CARMEN LEACH 06/03/25 Amoxicillin & Pot Clavulanate (AUGMENTIN TABLET) 875 Mg Tb, 875 MG PO BID for 5 Days, #10 TAB 0 Refills Prov:MARY CARMEN LEACH 06/03/25 Docusate Sodium (Colace) 100 Mg Cap, 1 CAP PO BID for 30 Days, #60 CAP Prov:MARY CARMEN LEACH RESIDENT 06/03/25 Reported Medications Acetaminophen (Acetaminophen) 325 Mg Tab, 500 MG PO Q4HP PRN for MILD PAIN for 30 Days, MG 0 Refills 07/26/25 Review of systems Review of Systems: Deferred Examination Vital signs Vital Signs Date Time Temp Pulse Resp B/P (MAP) Pulse Ox O2 Delivery O2 Flow Rate FiO2 07/27/25 16:30 100.8 119 20 115/83 (94) 94 100.8 07/27/25 11:20 Room Air* 0 21 Medications Current Medications Medications (Trade) Dose Ordered Sig/Roni Route PRN Reason Start Time Stop Time Status Last Admin Enoxaparin Sodium (Lovenox) 40 mg DAILY SC 07/27/25 10:00 07/27/25 09:59 Ceftriaxone Sodium 50 ml @ 100 mls/hr DAILY@09 IV 07/27/25 09:00 07/27/25 09:50 Laboratory Labs Test 07/27/25 04:31 07/26/25 14:13 07/26/25 13:52 07/26/25 11:41 Range/Units White Blood Count 22.3 H 4.4-10.8 10^3/uL Red Blood Count 4.83 4.0-5.20 10^6/uL Hemoglobin 14.5 12.2-16.2 g/dL Hematocrit 44.2 36.0-46.0 % Mean Corpuscular Volume 91.6 80.0-100.0 fL Mean Corpuscular Hemoglobin 30.1 28.0-32.0 pg Mean Corpuscular Hemoglobin Concent 32.9 32.0-36.0 g/dL Red Cell Distribution Width 15.6 H 11.8-14.3 % Platelet Count 230 140-450 10^3/uL Mean Platelet Volume 7.2 6.9-10.8 fL Neutrophils (%) (Auto) 87.4 H 37.0-80.0 % Lymphocytes (%) (Auto) 2.6 L 10.0-50.0 % Monocytes (%) (Auto) 9.9 0.0-12.0 % Eosinophils (%) (Auto) 0.0 0.0-7.0 % Basophils (%) (Auto) 0.1 0.0-2.0 % Neutrophils # (Auto) 19.5 H 1.6-8.6 10 ^3/uL Lymphocytes # (Auto) 0.6 0.4-5.4 10 ^3/uL Monocytes # (Auto) 2.2 H 0-1.3 10 ^3/uL Eosinophils # (Auto) 0 0-0.8 10 ^3/uL Basophils # (Auto) 0 0-0.2 10 ^3/uL Nucleated Red Blood Cells 0.0 % Sodium Level 141 136-145 mmol/L Potassium Level 4.0 3.5-5.1 mmol/L Chloride Level 105 98-107 mmol/L Carbon Dioxide Level 23 20-31 mmol/L Anion Gap 13 5-15 Blood Urea Nitrogen 12 9-23 mg/dL Creatinine 0.58 0.550-1.02 mg/dL Glomerular Filtration Rate Calc 104 >90 mL/min BUN/Creatinine Ratio 20.7 H 10.0-20.0 Serum Glucose 140 H 74-106 mg/dL Calcium Level 8.5 L 8.7-10.4 mg/dL Total Bilirubin 0.6 0.2-1.0 mg/dL Aspartate Amino Transferase (AST) 13 13-40 U/L Alanine Aminotransferase (ALT) 13 7-40 U/L Alkaline Phosphatase 108 46-116 U/L Total Protein 5.8 5.7-8.2 g/dL Albumin 3.5 3.2-4.8 g/dL Lactic Acid Level 1.9 0.4-2.0 mmol/L Urine Color Light-orange Yellow Urine Clarity Clear Clear Urine pH 6.0 5.0-9.0 Urine Specific [place] 1.040 H 1.001-1.035 Urine Protein 2+ H Negative Urine Ketones 2+ H Negative Urine Blood Trace H Negative /uL Urine Nitrite Negative Negative Urine Bilirubin 1+ H Negative Urine Urobilinogen 2 H Negative mg/dL Urine Leukocyte Esterase Negative Negative /uL Urine RBC 15 0 - 4 /hpf Urine Microscopic WBC 7 H 0-5 /HPF Urine Squamous Epithelial Cells Few <5 /hpf Urine Bacteria None seen None Seen /hpf Urine Hyaline Casts Few 0 - 2 /lpf Urine Mucus Few None Seen Urine Glucose Normal Normal mg/dL Urine Opiates Screen Pos NEGATIVE Urine Fentanyl Screen Neg NEGATIVE Urine Barbiturates Screen Neg NEGATIVE Urine Phencyclidine Screen Neg NEGATIVE Urine Amphetamines Screen Neg NEGATIVE Urine Benzodiazepines Screen Neg NEGATIVE Urine Cocaine Screen Neg NEGATIVE Urine Cannabinoids Screen Neg NEGATIVE Prothrombin Time 13.1 H 9.3-11.8 sec Prothrombin Time INR 1.26 H 0.9-1.15 Activated Partial Thromboplast Time 30.0 24.5-34.5 SEC Hemoglobin A1c 4.9 <5.7 % A1C Phosphorus Level 4.1 2.4-5.1 mg/dL Magnesium Level 2.0 1.6-2.6 mg/dL Triglycerides Level 82 < 150 mg/dL Cholesterol Level 168 < 200 mg/dL LDL Cholesterol 88 < 100 mg/dL HDL Cholesterol 66 H 40-59 mg/dL Lipase 21 12-53 U/L Vitamin B12 Level 346 211-911 pg/mL Vitamin D 25-Hydroxy 42.2 30.0-100 ng/mL Thyroid Stimulating Hormone (TSH) 0.82 0.55-4.78 uIU/mL Test 07/26/25 00:56 Range/Units Stool Occult Blood Negative Negative Stool Occult Blood Sample #3 Negative Stool for White Cells Rare Microbiology Date/Time Source Procedure Growth Status 07/26/25 22:00 Nose MRSA Screen - Final Methicillin Resistant S.aureus Complete 07/26/25 13:52 Voided Urine Urine Culture - Preliminary Resulted 07/26/25 13:49 Blood Blood Culture - Preliminary NO GROWTH AFTER 24 HOURS OF INCUBATION. Resulted Examination: GENERAL:Normal (AAO x3), LUNGS:Normal (Nonlabored breathing with symmetric expansion), ABDOMEN:Abnormal (Mild distention, soft, depressible, lower abdominal mild tenderness, low midline scar healed, ostomy with pink mucosa and no production in bag) Problem List/Assessment/Plan Problems: (1) Colitis (2) Constipation Assessment and Plan Mrs. Parks is a 60-year-old female with a active history of rectal cancer status post low anterior resection with end colostomy on May 28, 2025. Her surgery was done at that time in the origin setting given that she developed radiation proctitis and CMV colitis causing a lot of rectal bleeding, she required at that time multiple blood transfusions. She is currently awaiting adjuvant chemotherapy. She presents today with what it looks like colitis (colonic wall thickening throughout) on CT scan with a lot of constipation. Patient will benefit from antibiotics and bowel regimen. 1. Stool cultures already obtained pending results 2. Continue ceftriaxone and metronidazole 3. We will let her rest today, we will likely add bowel regimen tomorrow 4. CMV antibody (ordered) Plan discussed with Plan discussed with: Patient, Spouse Visit Coding Surgery Date of Service if different f: Jul 27, 2025 Billing Provider: ANN WRIGHT MD Surgery Visit Codes: [id number] - INP CONSULT <110 MIN ANN WRIGHT MD Jul 27, 2025 17:51
[2025-07-27 20:00] VITALS: PULSE 116; RESP 16; O2SAT 93
[2025-07-27 21:00] VITALS: BP 114/58; PULSE 117; RESP 16; TEMP 98.8; O2SAT 93
[2025-07-28] VITALS (8 sets, daily range): BP systolic 111–136; BP diastolic 66–86; PULSE 93–127; RESP 16–18; TEMP 98–98.4; O2SAT 92–96
[2025-07-28] MEDS: ONDANSETRON HCL 4 MG/2 ML VIAL IV PRN (06:21)
--- NOTE | 2025-07-28 11:10 | DVH ---
Date: 07/28/2025 10:41 AM Examination: XY KUB ABDOMEN SINGLE VIEW History: Abdominal pain Comparison: XY KUB ABDOMEN SINGLE VIEW on DOS: 06/01/25, XY KUB ABDOMEN SINGLE VIEW on DOS: 10/01/23 TECHNIQUE: Frontal views of the abdomen was obtained. FINDINGS: Bowel gas pattern is unremarkable. The lung bases are unremarkable. No acute osseous abnormality identified. IMPRESSION: 1. Nonobstructive bowel gas pattern.
--- NOTE | 2025-07-28 12:11 | DVHPN2 ---
Progress Note - Surgical Date Seen: Jul 28, 2025 Post op day Post op day: 0 Subjective Patient reports: No new complaints (Patient is still having the same bloating feeling and discomfort in lower abdomen, no nausea, no vomiting, states that ostomy made some output) Review of Systems: Deferred Objective Vital signs Vital Sign Date Time Temp Pulse Resp B/P (MAP) Pulse Ox O2 Delivery O2 Flow Rate FiO2 07/28/25 09:00 98.4 104 16 111/66 (81) 92 98.4 07/28/25 08:00 Room Air* 0 21 Total Intake and Output 07/27/25 07/27/25 07/28/25 15:00 23:00 07:00 Intake Total 450 ml 310 ml 1040 ml Output Total 900 ml Balance 450 ml 310 ml 140 ml Medications Current Medications Medications Dose Ordered Sig/Roni Route Start Time Stop Time Status Last Admin Dose Admin Acetaminophen 325 mg Q4HP PRN PO 07/26/25 13:00 Ondansetron HCl 4 mg Q4HP PRN IV 07/26/25 13:00 07/28/25 06:21 4 MG Morphine Sulfate 2 mg Q4HPRN PRN IV 07/26/25 13:00 07/28/25 00:45 2 MG Enoxaparin Sodium 40 mg DAILY SC 07/27/25 10:00 07/28/25 09:35 40 MG Metronidazole 100 ml @ 100 mls/hr Q8HR IV 07/26/25 14:00 07/28/25 06:12 100 MLS/HR Ceftriaxone Sodium 50 ml @ 100 mls/hr DAILY@09 IV 07/27/25 09:00 07/28/25 09:35 100 MLS/HR Sodium Chloride 1,000 ml @ 50 mls/hr Q20H IV 07/26/25 13:00 07/27/25 09:50 50 MLS/HR Docusate Sodium 100 mg TID PO 07/28/25 14:00 UNV Polyethylene Glycol 17 gm BID PO 07/28/25 22:00 UNV Laboratory Laboratory Tests 07/27/25 04:31 Test 07/27/25 04:31 Range/Units Serum Glucose 140 H 74-106 mg/dL Microbiology Date/Time Source Procedure Growth Status 07/26/25 22:00 Nose MRSA Screen - Final Methicillin Resistant S.aureus Complete 07/26/25 13:52 Voided Urine Urine Culture - Preliminary Resulted 07/26/25 13:49 Blood Blood Culture - Preliminary NO GROWTH AFTER 24 HOURS OF INCUBATION. Resulted Examination: GENERAL:Normal (AAO x3), LUNGS:Normal (Nonlabored breathing with symmetric expansion), ABDOMEN:Normal (Lower abdominal fullness and mild tenderness, midline incision well healed, left lower quadrant ostomy with pink mucosa, no rebound, no guarding) Problem List/Assessment/Plan Problems: (1) Colitis (2) Constipation Assessment and Plan Mrs. Parks is a 60-year-old female who who has a active history of rectal cancer status post low anterior resection on May 28, 2025, currently awaiting adjuvant chemotherapy and who presented with colitis and severe constipation. Stool cultures are still pending, tolerating clear liquid diet, we will start her on aggressive bowel regimen. 1. Colace 100 mg p.o. t.i.d. 2. MiraLax 1 packet b.i.d. 3. Magnesium citrate 300 mL x1 4. Continue with ceftriaxone Flagyl My Orders My Orders Orders - ANN WRIGHT MD Procedure Category Date Status Time Cmv Igg/Igm Antibodies LAB 07/27/25 In Process 17:02 Docusate Sodium PHA 07/28/25 Logged Capsule (Colace 14:00 Polyethylene Glycol PHA 07/28/25 Logged 17g Powder (Miralax 22:00 Magnesium Citrate PHA 07/28/25 Logged Solution (Citrate Of M 11:30 Complete Blood Count LAB 07/29/25 Verified 04:00 Basic Metabolic Panel LAB 07/29/25 Verified 04:00 Magnesium LAB 07/29/25 Verified 04:00 Phosphorus LAB 07/29/25 Verified 04:00 Plan discussed with Plan discussed with: Patient Visit Coding Surgery Date of Service if different f: Jul 28, 2025 Billing Provider: ANN WRIGHT MD Surgery Visit Codes: [id number] INP/OBS CARE(HIGH) ANN WRIGHT MD Jul 28, 2025 12:11
[2025-07-28] MEDS: MAGNESIUM CITRATE SOLUTION 300 ML BTL PO ONE (12:42)
[2025-07-28] MEDS: DOCUSATE SOD 100 MG CAP PO SCH (14:00)
--- NOTE | 2025-07-28 16:13 | DVHPN2 ---
Subjective Patient is here for diffuse abdominal pain with the coffee-ground emesis and nausea and vomiting denies any diarrhea. Changes from previous H/P or p: No Changes Objective Vitals Vital Signs Date Time Temp Pulse Resp B/P (MAP) Pulse Ox O2 Delivery O2 Flow Rate FiO2 07/28/25 12:45 98.0 100 16 115/68 (84) 94 98.0 07/28/25 08:00 Room Air* 0 21 Intake/Output Intake and Output 07/28/25 07:00 Intake Total 1800 ml Output Total 900 ml Balance 900 ml Intake Oral 1250 ml IV Total 550 ml Output Urine Total 900 ml Exam HEENT pupils are reactive Neck is supple CV is S1-S2 regular rate and rhythm Respiratory are clear GI positive bowel sounds Extremity no edema [employer]IC [employer]ISTER no motor deficit Medications Current Medications Medications Dose Ordered Sig/Roni Route Start Time Stop Time Status Last Admin Dose Admin Acetaminophen 325 mg Q4HP PRN PO 07/26/25 13:00 Ondansetron HCl 4 mg Q4HP PRN IV 07/26/25 13:00 07/28/25 12:42 4 MG Morphine Sulfate 2 mg Q4HPRN PRN IV 07/26/25 13:00 07/28/25 00:45 2 MG Enoxaparin Sodium 40 mg DAILY SC 07/27/25 10:00 07/28/25 09:35 40 MG Metronidazole 100 ml @ 100 mls/hr Q8HR IV 07/26/25 14:00 07/28/25 14:00 100 MLS/HR Ceftriaxone Sodium 50 ml @ 100 mls/hr DAILY@09 IV 07/27/25 09:00 07/28/25 09:35 100 MLS/HR Sodium Chloride 1,000 ml @ 50 mls/hr Q20H IV 07/26/25 13:00 07/27/25 09:50 50 MLS/HR Docusate Sodium 100 mg TID PO 07/28/25 14:00 07/28/25 14:00 100 MG Polyethylene Glycol 17 gm BID PO 07/28/25 22:00 Laboratory Results Laboratory Tests 07/27/25 04:31 Urinalysis Test 07/26/25 13:52 Urine Color Light-orange (Yellow) Urine Clarity Clear (Clear) Urine pH 6.0 (5.0-9.0) Urine Specific [place] 1.040 (1.001-1.035) Urine Protein 2+ (Negative) H Urine Ketones 2+ (Negative) H Urine Blood Trace /uL (Negative) H Urine Nitrite Negative (Negative) Urine Bilirubin 1+ (Negative) H Urine Urobilinogen 2 mg/dL (Negative) H Urine Leukocyte Esterase Negative /uL (Negative) Urine RBC 15 /hpf (0 - 4) Urine Microscopic WBC 7 /HPF (0-5) H Urine Squamous Epithelial Cells Few /hpf (<5) Urine Bacteria None seen /hpf (None Seen) Urine Hyaline Casts Few /lpf (0 - 2) Urine Mucus Few (None Seen) Urine Glucose Normal mg/dL (Normal) Microbiology Microbiology Date/Time Source Procedure Growth Status 07/26/25 22:00 Nose MRSA Screen - Final Methicillin Resistant S.aureus Complete 07/26/25 13:52 Voided Urine Urine Culture - Final Complete 07/26/25 13:49 Blood Blood Culture - Preliminary NO GROWTH AFTER 48 HOURS OF INCUBATION. Resulted Assessment/Plan Assessment/Plan 60-year-old female with a known history of adenocarcinoma of the colon status post partial resection status post colostomy, history of thyroid nodule status post partial thyroidectomy presented to the hospital with the abdominal pain nausea and vomiting found to have 1. Sepsis secondary to colitis 2. Rule out upper GI bleed 3. Urinary tract infection 4. Abdominal pain nausea and vomiting 5. Adenocarcinoma of the colon status post partial colectomy as well as colostomy 6. Malnutrition 7. Constipation -bowel regimen -monitor H&H, continue IV antibiotics follow up cultures. Plan discussed with: Patient Date of Service: Jul 28, 2025 Billing Provider: VICTORINO PENDLETON MD Common Visit Codes: [id number] INP/OBS CARE(HIGH) VICTORINO PENDLETON MD Jul 28, 2025 16:13
[2025-07-28] MEDS: POLYETHYLENE GLYCOL 17 GM PWDR PO SCH (21:37)
[2025-07-29] VITALS (9 sets, daily range): BP systolic 109–125; BP diastolic 65–76; PULSE 93–113; RESP 17–20; TEMP 79.9–99; O2SAT 92–95
[2025-07-29] MEDS: ACETAMINOPHEN 325 MG TAB PO ONE (04:38)
[2025-07-29] MEDS: DOCUSATE SOD 100 MG CAP PO ONE (04:38)
[2025-07-29 05:41] LABS: Hematocrit 37.1 % (36.0-46.0); Hemoglobin 12.2 g/dL (12.2-16.2); Mean Corpuscular Hemoglobin 29.7 pg (28.0-32.0); Mean Corpuscular Volume 90.2 fL (80.0-100.0); Nucleated Red Blood Cells % 0.0 %
[2025-07-29 05:56] LABS: Chloride 105 mmol/L (98-107); Sodium 138 mmol/L (136-145)
[2025-07-29 05:57] LABS: Anion Gap 12 (5-15); Carbon Dioxide 21 mmol/L (20-31)
[2025-07-29 06:02] LABS: BUN/Creatinine Ratio 20.0 (10.0-20.0); Glucose 105 mg/dL (74-106)
[2025-07-29 06:03] LABS: Magnesium 2.5 mg/dL (1.6-2.6)
[2025-07-29 06:04] LABS: Blood Urea Nitrogen 7 mg/dL (9-23); Calcium 7.5 mg/dL (8.7-10.4); Potassium 2.9 mmol/L (3.5-5.1)
[2025-07-29] MEDS: POTASSIUM CHL 20 Meq TABLET PO ONE (11:47)
--- NOTE | 2025-07-29 12:23 | DVHPN2 ---
Progress Note - Surgical Date Seen: Jul 29, 2025 Post op day Post op day: 0 Subjective Patient reports: Feels better (Patient is feeling better today, less bloated and with less abdominal pain. States that a lot came out from her ostomy. She is afebrile and less tachycardic ranging from the 90s to low 100s.) Review of Systems: Deferred Objective Vital signs Vital Sign Date Time Temp Pulse Resp B/P (MAP) Pulse Ox O2 Delivery O2 Flow Rate FiO2 07/29/25 08:37 98.1 100 20 109/65 (80) 93 98.1 07/28/25 20:00 Room Air* 0 21 Total Intake and Output 07/28/25 07/28/25 07/29/25 15:00 23:00 07:00 Intake Total 250 ml 985 ml 550 ml Output Total 50 ml 1175 ml Balance 200 ml 985 ml -625 ml Medications Current Medications Medications Dose Ordered Sig/Roni Route Start Time Stop Time Status Last Admin Dose Admin Acetaminophen 325 mg Q4HP PRN PO 07/26/25 13:00 Ondansetron HCl 4 mg Q4HP PRN IV 07/26/25 13:00 07/28/25 22:35 4 MG Morphine Sulfate 2 mg Q4HPRN PRN IV 07/26/25 13:00 07/28/25 22:28 2 MG Enoxaparin Sodium 40 mg DAILY SC 07/27/25 10:00 07/29/25 08:41 40 MG Metronidazole 100 ml @ 100 mls/hr Q8HR IV 07/26/25 14:00 07/29/25 05:43 100 MLS/HR Ceftriaxone Sodium 50 ml @ 100 mls/hr DAILY@09 IV 07/27/25 09:00 07/29/25 08:40 100 MLS/HR Sodium Chloride 1,000 ml @ 50 mls/hr Q20H IV 07/26/25 13:00 07/27/25 09:50 50 MLS/HR Docusate Sodium 100 mg TID PO 07/28/25 14:00 07/29/25 05:43 100 MG Polyethylene Glycol 17 gm BID PO 07/28/25 22:00 07/28/25 21:37 17 GM Laboratory Laboratory Tests 07/29/25 05:04 Test 07/29/25 05:04 Range/Units Serum Glucose 105 74-106 mg/dL Microbiology Date/Time Source Procedure Growth Status 07/26/25 22:00 Nose MRSA Screen - Final Methicillin Resistant S.aureus Complete 07/26/25 13:52 Voided Urine Urine Culture - Final Complete 07/26/25 13:49 Blood Blood Culture - Preliminary NO GROWTH AFTER 48 HOURS OF INCUBATION. Resulted Examination: GENERAL:Normal (AAOx3), LUNGS:Normal (Nonlabored breathing with symmetric expansion), ABDOMEN:Normal (Nondistended, soft, depressible, mild suprapubic tenderness, midline incision healed, left lower quadrant ostomy with pink mucosa and stool in bag) Labs and/or images reviewed: Labs reviewed by me (Leukocytosis downtrending 13.7 from 22.3) Problem List/Assessment/Plan Assessment and Plan Mrs. Parks is a 60-year-old female who who has a active history of rectal cancer status post low anterior resection on May 28, 2025, currently awaiting adjuvant chemotherapy and who presented with colitis and severe constipation. Stool cultures are still pending, tolerating clear liquid diet, we will start her on aggressive bowel regimen. Interval: Patient feeling better today, less bloated and very productive through the ostomy. We will give another dose of magnesium citrate, patient's prefers this medication to MiraLax. 1. Colace 100 mg p.o. t.i.d. 2. MiraLax 1 packet b.i.d. 3. Magnesium citrate 300 mL x1 4. Continue with ceftriaxone Flagyl My Orders My Orders Orders - ANN WRIGHT MD Procedure Category Date Status Time Potassium Phosphate PHA 07/29/25 In Process 10:45 Magnesium Citrate PHA 07/29/25 Logged Solution (Citrate Of M 12:15 Plan discussed with Plan discussed with: Patient Visit Coding Surgery Date of Service if different f: Jul 29, 2025 Billing Provider: NAN WRIGHT MD Surgery Visit Codes: [id number] INP/OBS CARE(HIGH) ANN WRIGHT MD Jul 29, 2025 12:23
[2025-07-29] MEDS: MAGNESIUM CITRATE SOLUTION 300 ML BTL PO ONE (15:56)
[2025-07-29] MEDS: POTASSIUM PHOSPHATE 44 MEQ in D5W 5% 250 ML IV ONE (15:57)
--- NOTE | 2025-07-29 16:18 | DVHPN2 ---
Subjective Patient is here for diffuse abdominal pain with the coffee-ground emesis and nausea and vomiting denies any diarrhea. 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 Medications Current Medications Medications Dose Ordered Sig/Roni Route Start Time Stop Time Status Last Admin Dose Admin Acetaminophen 325 mg Q4HP PRN PO 07/26/25 13:00 Ondansetron HCl 4 mg Q4HP PRN IV 07/26/25 13:00 07/28/25 22:35 4 MG Morphine Sulfate 2 mg Q4HPRN PRN IV 07/26/25 13:00 07/28/25 22:28 2 MG Enoxaparin Sodium 40 mg DAILY SC 07/27/25 10:00 07/29/25 08:41 40 MG Metronidazole 100 ml @ 100 mls/hr Q8HR IV 07/26/25 14:00 07/29/25 13:03 100 MLS/HR Ceftriaxone Sodium 50 ml @ 100 mls/hr DAILY@09 IV 07/27/25 09:00 07/29/25 08:40 100 MLS/HR Sodium Chloride 1,000 ml @ 50 mls/hr Q20H IV 07/26/25 13:00 07/27/25 09:50 50 MLS/HR Docusate Sodium 100 mg TID PO 07/28/25 14:00 07/29/25 05:43 100 MG Polyethylene Glycol 17 gm BID PO 07/28/25 22:00 07/28/25 21:37 17 GM Laboratory Results Laboratory Tests 07/29/25 05:04 Chemistry Test 07/29/25 05:04 Calcium Level 7.5 mg/dL (8.7-10.4) L Magnesium Level 2.5 mg/dL (1.6-2.6) Phosphorus Level 1.9 mg/dL (2.4-5.1) L Urinalysis Test 07/26/25 13:52 Urine Color Light-orange (Yellow) Urine Clarity Clear (Clear) Urine pH 6.0 (5.0-9.0) Urine Specific [place] 1.040 (1.001-1.035) Urine Protein 2+ (Negative) H Urine Ketones 2+ (Negative) H Urine Blood Trace /uL (Negative) H Urine Nitrite Negative (Negative) Urine Bilirubin 1+ (Negative) H Urine Urobilinogen 2 mg/dL (Negative) H Urine Leukocyte Esterase Negative /uL (Negative) Urine RBC 15 /hpf (0 - 4) Urine Microscopic WBC 7 /HPF (0-5) H Urine Squamous Epithelial Cells Few /hpf (<5) Urine Bacteria None seen /hpf (None Seen) Urine Hyaline Casts Few /lpf (0 - 2) Urine Mucus Few (None Seen) Urine Glucose Normal mg/dL (Normal) Microbiology Microbiology Date/Time Source Procedure Growth Status 07/26/25 22:00 Nose MRSA Screen - Final Methicillin Resistant S.aureus Complete 07/26/25 13:52 Voided Urine Urine Culture - Final Complete 07/26/25 13:49 Blood Blood Culture - Preliminary NO GROWTH AFTER 72 HOURS OF INCUBATION. Resulted Assessment/Plan Assessment/Plan 60-year-old female with a known history of adenocarcinoma of the colon status post partial resection status post colostomy, history of thyroid nodule status post partial thyroidectomy presented to the hospital with the abdominal pain nausea and vomiting found to have 1. Sepsis secondary to colitis assuming 2. Rule out upper GI bleed 3. Urinary tract infection 4. Abdominal pain nausea and vomiting, resolved 5. Adenocarcinoma of the colon status post partial colectomy as well as colostomy 6. Malnutrition 7. Constipation -bowel regimen, follow up General surgery -monitor H&H, continue IV antibiotics , blood cultures are negative to date. Plan discussed with: Patient Problem List: (1) Cancer of rectosigmoid (colon) (2) Intractable abdominal pain (3) Colitis (4) Constipation Date of Service: Jul 29, 2025 Billing Provider: VICTORINO PENDLETON MD Common Visit Codes: [id number] INP/OBS CARE(HIGH) VICTORINO PENDLETON MD Jul 29, 2025 16:18
[2025-07-30] VITALS (9 sets, daily range): BP systolic 105–118; BP diastolic 56–67; PULSE 71–120; RESP 17–19; TEMP 97.5–99.1; O2SAT 92–97
[2025-07-30 11:44] LABS: Hematocrit 34.8 % (36.0-46.0); Hemoglobin 11.6 g/dL (12.2-16.2); Mean Corpuscular Hemoglobin 29.7 pg (28.0-32.0); Mean Corpuscular Volume 89.0 fL (80.0-100.0); Nucleated Red Blood Cells % 0.0 %
[2025-07-30] MEDS ORDERED: AUG875T PO (13:42)
[2025-07-30] MEDS ORDERED: MUPI2OIN2 EX (13:42)
[2025-07-30] MEDS ORDERED: POLY33505 PO (13:42)
--- NOTE | 2025-07-30 13:47 | DVHDS2 ---
Discharge Summary Date of Admission Jul 26, 2025 at 12:56 Date of Discharge: Jul 30, 2025 Labs/Diagnostic Data: Laboratory Results Test 07/30/25 10:54 07/29/25 05:04 07/27/25 18:48 07/27/25 04:31 White Blood Count 9.6 10^3/uL (4.4-10.8) Red Blood Count 3.91 10^6/uL (4.0-5.20) Hemoglobin 11.6 g/dL (12.2-16.2) Hematocrit 34.8 % (36.0-46.0) Mean Corpuscular Volume 89.0 fL (80.0-100.0) Mean Corpuscular Hemoglobin 29.7 pg (28.0-32.0) Mean Corpuscular Hemoglobin Concent 33.4 g/dL (32.0-36.0) Red Cell Distribution Width 15.5 % (11.8-14.3) Platelet Count 250 10^3/uL (140-450) Mean Platelet Volume 6.8 fL (6.9-10.8) Neutrophils (%) (Auto) 86.5 % (37.0-80.0) Lymphocytes (%) (Auto) 3.0 % (10.0-50.0) Monocytes (%) (Auto) 10.2 % (0.0-12.0) Eosinophils (%) (Auto) 0.2 % (0.0-7.0) Basophils (%) (Auto) 0.1 % (0.0-2.0) Neutrophils # (Auto) 8.3 10 ^3/uL (1.6-8.6) Lymphocytes # (Auto) 0.3 10 ^3/uL (0.4-5.4) Monocytes # (Auto) 1.0 10 ^3/uL (0-1.3) Eosinophils # (Auto) 0 10 ^3/uL (0-0.8) Basophils # (Auto) 0 10 ^3/uL (0-0.2) Nucleated Red Blood Cells 0.0 % Sodium Level 138 mmol/L (136-145) Potassium Level 2.9 mmol/L (3.5-5.1) Chloride Level 105 mmol/L (98-107) Carbon Dioxide Level 21 mmol/L (20-31) Anion Gap 12 (5-15) Blood Urea Nitrogen 7 mg/dL (9-23) Creatinine 0.35 mg/dL (0.550-1.02) Glomerular Filtration Rate Calc 118 mL/min (>90) BUN/Creatinine Ratio 20.0 (10.0-20.0) Serum Glucose 105 mg/dL (74-106) Calcium Level 7.5 mg/dL (8.7-10.4) Phosphorus Level 1.9 mg/dL (2.4-5.1) Magnesium Level 2.5 mg/dL (1.6-2.6) Cytomegalovirus IgG Antibody >10.00 U/mL (0.00-0.59) Cytomegalovirus IgM Antibody <30.0 AU/mL (0.0-29.9) Total Bilirubin 0.6 mg/dL (0.2-1.0) Aspartate Amino Transferase (AST) 13 U/L (13-40) Alanine Aminotransferase (ALT) 13 U/L (7-40) Alkaline Phosphatase 108 U/L (46-116) Total Protein 5.8 g/dL (5.7-8.2) Albumin 3.5 g/dL (3.2-4.8) Test 07/26/25 14:13 07/26/25 13:52 07/26/25 11:41 07/26/25 00:56 Lactic Acid Level 1.9 mmol/L (0.4-2.0) Urine Color Light-orange (Yellow) Urine Clarity Clear (Clear) Urine pH 6.0 (5.0-9.0) Urine Specific [place] 1.040 (1.001-1.035) Urine Protein 2+ (Negative) Urine Ketones 2+ (Negative) Urine Blood Trace /uL (Negative) Urine Nitrite Negative (Negative) Urine Bilirubin 1+ (Negative) Urine Urobilinogen 2 mg/dL (Negative) Urine Leukocyte Esterase Negative /uL (Negative) Urine RBC 15 /hpf (0 - 4) Urine Microscopic WBC 7 /HPF (0-5) Urine Squamous Epithelial Cells Few /hpf (<5) Urine Bacteria None seen /hpf (None Seen) Urine Hyaline Casts Few /lpf (0 - 2) Urine Mucus Few (None Seen) Urine Glucose Normal mg/dL (Normal) Urine Opiates Screen Pos (NEGATIVE) Urine Fentanyl Screen Neg (NEGATIVE) Urine Barbiturates Screen Neg (NEGATIVE) Urine Phencyclidine Screen Neg (NEGATIVE) Urine Amphetamines Screen Neg (NEGATIVE) Urine Benzodiazepines Screen Neg (NEGATIVE) Urine Cocaine Screen Neg (NEGATIVE) Urine Cannabinoids Screen Neg (NEGATIVE) Prothrombin Time 13.1 sec (9.3-11.8) Prothrombin Time INR 1.26 (0.9-1.15) Activated Partial Thromboplast Time 30.0 SEC (24.5-34.5) Hemoglobin A1c 4.9 % A1C (<5.7) Triglycerides Level 82 mg/dL (< 150) Cholesterol Level 168 mg/dL (< 200) LDL Cholesterol 88 mg/dL (< 100) HDL Cholesterol 66 mg/dL (40-59) Lipase 21 U/L (12-53) Vitamin B12 Level 346 pg/mL (211-911) Vitamin D 25-Hydroxy 42.2 ng/mL (30.0-100) Thyroid Stimulating Hormone (TSH) 0.82 uIU/mL (0.55-4.78) Stool Occult Blood Negative (Negative) Stool Occult Blood Sample #3 (Negative) Stool for White Cells Rare Other Laboratory Tests 07/30/25 10:54 07/29/25 05:04 Brief Hx & Hospital Course: 60-year-old female with a known history of adenocarcinoma of the colon status post partial resection status post colostomy, history of thyroid nodule status post partial thyroidectomy presented to the hospital with the abdominal pain nausea and vomiting found to have sepsis secondary to colitis. Patient also had constipation. Patient does have known history of adenocarcinoma of the colon status post partial colectomy status post colostomy. Patient was seen by General surgery. Patient is currently on IV antibiotics Rocephin and Flagyl which will be switched to Augmentin p.o.. Patient also has a MRSA nares, mupirocin nasal application ointment will be provided for one week. Patient is being discharged under stable condition with a close follow up as an outpatient with the PCP and General surgery. Also follow up with the Hematology Oncology as an outpatient. Condition at Discharge: Stable Final Diagnosis/Problems List 60-year-old female with a known history of adenocarcinoma of the colon status post partial resection status post colostomy, history of thyroid nodule status post partial thyroidectomy presented to the hospital with the abdominal pain nausea and vomiting found to have 1. Sepsis secondary to colitis 2. Ruled out upper GI bleed 3. Urinary tract infection 4. Abdominal pain nausea and vomiting 5. Adenocarcinoma of the colon status post partial colectomy as well as colostomy 6. Malnutrition 7. Constipation resolved Discharge Disposition: Home SNF Discharge Will this Physician continue t: No Discharge Instruct/Medications Diet: Cardiac 2g Na,low cholest Activity: No Restrictions, As Tolerated Follow Up/Referral: Follow up with the PCP in one week follow up with the general surgery in 1-2 weeks Follow up with the Hematology Oncology as an outpatient with a in 1-2 weeks. Medications: Augmentin MiraLax mupirocin nasal application as prescribed New Medications: Amoxicillin & Pot Clavulanate (Augmentin Tablet) 875 Mg Tb 875 MG PO BID for 10 Days, #20 TAB Mupirocin (Pseudomonas Fluores (Mupirocin) 2 % Oin 2 % EX BID, #1 OIN For nasal application. Continued Medications: Acetaminophen (Acetaminophen) 325 Mg Tab 500 MG PO Q4HP PRN for MILD PAIN for 30 Days, MG 0 Refills Docusate Sodium (Colace) 100 Mg Cap 1 CAP PO BID for 30 Days, #60 CAP Polyethylene Glycol (Miralax) 17 Gm/Scoop Pow 17 GM PO DAILY PRN for 30 Days, #30 POW 0 Refills (This prescription has been renewed) Valganciclovir Hydrochloride (Valganciclovir) 450 Mg Tab 900 MG PO BID for 14 Days, #56 TAB 0 Refills Discontinued Medications: Amoxicillin & Pot Clavulanate (Augmentin Tablet) 875 Mg Tb 875 MG PO BID for 5 Days, #10 TAB 0 Refills Scheduled Amoxicillin & Pot Clavulanate (Augmentin Tablet), 875 MG PO BID Amoxicillin & Pot Clavulanate (Augmentin Tablet), 875 MG PO BID Docusate Sodium (Colace), 1 CAP PO BID Mupirocin (Pseudomonas Fluores (Mupirocin), 2 % EX BID Valganciclovir Hydrochloride (Valganciclovir), 900 MG PO BID Scheduled PRN Acetaminophen (Acetaminophen), 500 MG PO Q4HP PRN for MILD PAIN, (Reported) Polyethylene Glycol (Miralax), 17 GM PO DAILY PRN Discharge Statement: "Patient was advised to return to the ER or call 911 if any headaches, dizziness, shortness of breath, chest pain, abdominal pain, bleeding, fevers, or worsening of medical condition. Patient was counseled about treatment plan, medications, possible side effects, patientverbalized understanding. All questions were answered to the best of my ability. This discharge took greater then 30 minutes in planning, reviewing documentation, counseling the patient, and discussing with other team members." ASSESSMENT ASSESSMENT Assessment 60-year-old female with a known history of adenocarcinoma of the colon status post partial resection status post colostomy, history of thyroid nodule status post partial thyroidectomy presented to the hospital with the abdominal pain nausea and vomiting found to have 1. Sepsis secondary to colitis 2. Ruled out upper GI bleed 3. Urinary tract infection 4. Abdominal pain nausea and vomiting 5. Adenocarcinoma of the colon status post partial colectomy as well as colostomy 6. Malnutrition 7. Constipation resolved Date of Service: Jul 30, 2025 Billing Provider: VICTORINO PENDLETON MD Common Visit Codes: [id number] DISCH DAY >30min VICTORINO PENDLETON MD Jul 30, 2025 13:46
--- NOTE | 2025-07-30 17:20 | DVHPN2 ---
Progress Note - Surgical Date Seen: Jul 30, 2025 Post op day Post op day: 0 Subjective Patient reports: Feels better (Feeling better today, less bloated and that is painful, tolerating liquid diet, afebrile with vital stable,) Review of Systems: Deferred Objective Vital signs Vital Sign Date Time Temp Pulse Resp B/P (MAP) Pulse Ox O2 Delivery O2 Flow Rate FiO2 07/30/25 12:37 98.2 108 18 110/67 (81) 94 98.2 07/30/25 08:30 Room Air* 0 21 Total Intake and Output 07/29/25 07/29/25 07/30/25 15:00 23:00 07:00 Intake Total 150 ml 1250 ml 700 ml Output Total 300 ml Balance 150 ml 1250 ml 400 ml Medications Current Medications Medications Dose Ordered Sig/Roni Route Start Time Stop Time Status Last Admin Dose Admin Acetaminophen 325 mg Q4HP PRN PO 07/26/25 13:00 Ondansetron HCl 4 mg Q4HP PRN IV 07/26/25 13:00 07/29/25 18:59 4 MG Morphine Sulfate 2 mg Q4HPRN PRN IV 07/26/25 13:00 07/28/25 22:28 2 MG Enoxaparin Sodium 40 mg DAILY SC 07/27/25 10:00 07/30/25 11:03 40 MG Metronidazole 100 ml @ 100 mls/hr Q8HR IV 07/26/25 14:00 07/30/25 14:33 100 MLS/HR Ceftriaxone Sodium 50 ml @ 100 mls/hr DAILY@09 IV 07/27/25 09:00 07/30/25 08:37 100 MLS/HR Sodium Chloride 1,000 ml @ 50 mls/hr Q20H IV 07/26/25 13:00 07/30/25 16:39 50 MLS/HR Docusate Sodium 100 mg TID PO 07/28/25 14:00 07/30/25 14:33 100 MG Polyethylene Glycol 17 gm BID PO 07/28/25 22:00 07/28/25 21:37 17 GM Laboratory Laboratory Tests 07/30/25 10:54 07/29/25 05:04 Test 07/29/25 05:04 Range/Units Serum Glucose 105 74-106 mg/dL Microbiology Date/Time Source Procedure Growth Status 07/26/25 22:00 Nose MRSA Screen - Final Methicillin Resistant S.aureus Complete 07/26/25 13:52 Voided Urine Urine Culture - Final Complete 07/26/25 13:49 Blood Blood Culture - Preliminary NO GROWTH AFTER 72 HOURS OF INCUBATION. Resulted Examination: GENERAL:Normal (AAOx3), LUNGS:Normal (Nonlabored breathing with symmetric expansion), ABDOMEN:Normal (Nondistended, soft, depressible, midline incision healed, ostomy with pink mucosa and stool in bag, nontender) Labs and/or images reviewed: Labs reviewed by me (No leukocytosis) Problem List/Assessment/Plan Assessment and Plan Mrs. Parks is a 60-year-old female who who has a active history of rectal cancer status post low anterior resection on May 28, 2025, currently awaiting adjuvant chemotherapy and who presented with colitis and severe constipation. Stool cultures are still pending, tolerating clear liquid diet, we will start her on aggressive bowel regimen. Interval: Patient's condition continues to improve, tolerating liquid diet will advance. CMV serology came back negative. Had 700 mL of stool output. Leukocytosis resolved. Once patient is tolerating regular diet she can get discharged, likely tomorrow. 1. Colace 100 mg p.o. t.i.d. 2. MiraLax 1 packet b.i.d. 3. Advance to full liquid diet, and then to a soft diet if tolerated. 4. Continue with ceftriaxone Flagyl My Orders My Orders Orders - ANN WRIGHT MD Procedure Category Date Status Time Full Liq Diet DIET 07/30/25 Transmitted Dinner Complete Blood Count LAB 07/31/25 Verified 04:00 Plan discussed with Plan discussed with: Patient Visit Coding Surgery Date of Service if different f: Jul 30, 2025 Billing Provider: ANN WRIGHT MD Surgery Visit Codes: [id number] INP/OBS CARE(HIGH) ANN WRIGHT MD Jul 30, 2025 17:20
[2025-07-31] VITALS (9 sets, daily range): BP systolic 97–117; BP diastolic 55–73; PULSE 103–117; RESP 16–18; TEMP 98.3–100.1; O2SAT 92–94
[2025-07-31 07:52] LABS: Hematocrit 33.2 % (36.0-46.0); Hemoglobin 11.6 g/dL (12.2-16.2); Mean Corpuscular Hemoglobin 30.8 pg (28.0-32.0); Mean Corpuscular Volume 88.4 fL (80.0-100.0); Nucleated Red Blood Cells % 0.0 %
--- NOTE | 2025-07-31 13:28 | DVHPN2 ---
Subjective PATIENT IS CURRENTLY TOLERATING CLEAR LIQUID DIET AND ADVANCE TO REGULAR ONCE TOLERATES , SHE CAN BE DISCHARGED. 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 Medications Current Medications Medications Dose Ordered Sig/Roni Route Start Time Stop Time Status Last Admin Dose Admin Acetaminophen 325 mg Q4HP PRN PO 07/26/25 13:00 07/31/25 11:17 325 MG Ondansetron HCl 4 mg Q4HP PRN IV 07/26/25 13:00 07/29/25 18:59 4 MG Morphine Sulfate 2 mg Q4HPRN PRN IV 07/26/25 13:00 07/28/25 22:28 2 MG Enoxaparin Sodium 40 mg DAILY SC 07/27/25 10:00 07/31/25 09:19 40 MG Metronidazole 100 ml @ 100 mls/hr Q8HR IV 07/26/25 14:00 07/31/25 05:58 100 MLS/HR Ceftriaxone Sodium 50 ml @ 100 mls/hr DAILY@09 IV 07/27/25 09:00 07/31/25 09:19 100 MLS/HR Sodium Chloride 1,000 ml @ 50 mls/hr Q20H IV 07/26/25 13:00 07/30/25 16:39 50 MLS/HR Docusate Sodium 100 mg TID PO 07/28/25 14:00 07/31/25 05:58 100 MG Polyethylene Glycol 17 gm BID PO 07/28/25 22:00 07/31/25 09:19 17 GM Laboratory Results Laboratory Tests 07/29/25 05:04 07/31/25 07:22 Urinalysis Test 07/26/25 13:52 Urine Color Light-orange (Yellow) Urine Clarity Clear (Clear) Urine pH 6.0 (5.0-9.0) Urine Specific [place] 1.040 (1.001-1.035) Urine Protein 2+ (Negative) H Urine Ketones 2+ (Negative) H Urine Blood Trace /uL (Negative) H Urine Nitrite Negative (Negative) Urine Bilirubin 1+ (Negative) H Urine Urobilinogen 2 mg/dL (Negative) H Urine Leukocyte Esterase Negative /uL (Negative) Urine RBC 15 /hpf (0 - 4) Urine Microscopic WBC 7 /HPF (0-5) H Urine Squamous Epithelial Cells Few /hpf (<5) Urine Bacteria None seen /hpf (None Seen) Urine Hyaline Casts Few /lpf (0 - 2) Urine Mucus Few (None Seen) Urine Glucose Normal mg/dL (Normal) Microbiology Microbiology Date/Time Source Procedure Growth Status 07/26/25 22:00 Nose MRSA Screen - Final Methicillin Resistant S.aureus Complete 07/26/25 13:52 Voided Urine Urine Culture - Final Complete 07/26/25 13:49 Blood Blood Culture - Preliminary NO GROWTH AFTER 72 HOURS OF INCUBATION. Resulted Assessment/Plan Assessment/Plan 60-year-old female with a known history of adenocarcinoma of the colon status post partial resection status post colostomy, history of thyroid nodule status post partial thyroidectomy presented to the hospital with the abdominal pain nausea and vomiting found to have 1. Sepsis secondary to colitis RESOLVED 2. RuleD out upper GI bleed 3. Urinary tract infection , TREATED 4. Abdominal pain nausea and vomiting, resolved 5. Adenocarcinoma of the colon status post partial colectomy as well as colostomy 6. Malnutrition 7. Constipation, RESOLVED -IF TOLERATED REGULAR DIET CAN BE DISCHARGED TODAY. Plan discussed with: Patient Date of Service: Jul 31, 2025 Billing Provider: VICTORINO PENDLETON MD Common Visit Codes: [id number] INP/OBS CARE(MOD) VICTORINO PENDLETON MD Jul 31, 2025 13:28
--- NOTE | 2025-07-31 13:51 | DVHPN2 ---
Progress Note - Surgical Date Seen: Jul 31, 2025 Post op day Post op day: 0 Subjective Patient reports: Feels better (No abdominal pain complaints, afebrile with vital stable) Review of Systems: Deferred Objective Vital signs Vital Sign Date Time Temp Pulse Resp B/P (MAP) Pulse Ox O2 Delivery O2 Flow Rate FiO2 07/31/25 12:33 98.3 114 18 106/73 (84) 93 98.3 07/31/25 08:30 Room Air* 0 N/A Trach Collar Total Intake and Output 07/30/25 07/30/25 07/31/25 15:00 23:00 07:00 Intake Total 50 ml 1615 ml 1000 ml Output Total 700 ml 250 ml Balance -650 ml 1365 ml 1000 ml Medications Current Medications Medications Dose Ordered Sig/Roni Route Start Time Stop Time Status Last Admin Dose Admin Acetaminophen 325 mg Q4HP PRN PO 07/26/25 13:00 07/31/25 11:17 325 MG Ondansetron HCl 4 mg Q4HP PRN IV 07/26/25 13:00 07/29/25 18:59 4 MG Morphine Sulfate 2 mg Q4HPRN PRN IV 07/26/25 13:00 07/28/25 22:28 2 MG Enoxaparin Sodium 40 mg DAILY SC 07/27/25 10:00 07/31/25 09:19 40 MG Metronidazole 100 ml @ 100 mls/hr Q8HR IV 07/26/25 14:00 07/31/25 13:29 100 MLS/HR Ceftriaxone Sodium 50 ml @ 100 mls/hr DAILY@09 IV 07/27/25 09:00 07/31/25 09:19 100 MLS/HR Sodium Chloride 1,000 ml @ 50 mls/hr Q20H IV 07/26/25 13:00 07/30/25 16:39 50 MLS/HR Docusate Sodium 100 mg TID PO 07/28/25 14:00 07/31/25 13:29 100 MG Polyethylene Glycol 17 gm BID PO 07/28/25 22:00 07/31/25 09:19 17 GM Laboratory Laboratory Tests 07/31/25 07:22 07/29/25 05:04 Test 07/29/25 05:04 Range/Units Serum Glucose 105 74-106 mg/dL Microbiology Date/Time Source Procedure Growth Status 07/26/25 22:00 Nose MRSA Screen - Final Methicillin Resistant S.aureus Complete 07/26/25 13:52 Voided Urine Urine Culture - Final Complete 07/26/25 13:49 Blood Blood Culture - Preliminary NO GROWTH AFTER 72 HOURS OF INCUBATION. Resulted Examination: GENERAL:Normal (aaoX3), LUNGS:Normal (Labored breathing with symmetric expansion), ABDOMEN:Normal (Flat, midline incision healing well, nondistended, soft, depressible, ostomy with stool in bag and with pink mucosa) Labs and/or images reviewed: Labs reviewed by me (No leukocytosis) Problem List/Assessment/Plan Assessment and Plan Mrs. Parks is a 60-year-old female who who has a active history of rectal cancer status post low anterior resection on May 28, 2025, currently awaiting adjuvant chemotherapy and who presented with colitis and severe constipation. Stool cultures are still pending, tolerating clear liquid diet, we will start her on aggressive bowel regimen. Interval: Patient tolerating soft diet. Wants to take magnesium citrate before leaving the hospital. Cleared for discharge per surgical standpoint 1. Colace 100 mg p.o. t.i.d. 2. MiraLax 1 packet b.i.d. 3. Advance to full liquid diet, and then to a soft diet if tolerated. 4. Continue with ceftriaxone Flagyl 5. Magnesium citrate x1 My Orders My Orders Orders - ANN WRIGHT MD Procedure Category Date Status Time Soft Diet DIET 07/31/25 Transmitted Lunch Magnesium Citrate PHA 07/31/25 Verified Solution (Citrate Of M 14:00 Plan discussed with Plan discussed with: Patient Visit Coding Surgery Date of Service if different f: Jul 31, 2025 Billing Provider: ANN WRIGHT MD Surgery Visit Codes: [id number] INP/OBS CARE(HIGH) ANN WRIGHT MD Jul 31, 2025 13:51
[2025-07-31] MEDS: MAGNESIUM CITRATE SOLUTION 300 ML BTL PO ONE (15:24)
== END 2025-07-31 17:17 | disposition home or self-care (01) | DRG 720 ==
LOC: ER 10:50 → OVERFLOW 12:56 → TELE-EAST 07-27 11:23
PROVIDERS: ADMIT Internal Medicine; ATTEND Internal Medicine
DX: A41.9 Sepsis, unspecified organism (principal); E46 Unspecified protein-calorie malnutrition; N39.0 Urinary tract infection, site not specified; K59.00 Constipation, unspecified; A08.39 Other viral enteritis; K62.7 Radiation proctitis; Z93.3 Colostomy status; Z90.49 Acquired absence of other specified parts of digestive tract; Z82.49 Family history of ischemic heart disease and other diseases of the circulatory system; Z80.9 Family history of malignant neoplasm, unspecified; Z79.2 Long term (current) use of antibiotics; Z79.899 Other long term (current) drug therapy; Z85.048 Personal history of other malignant neoplasm of rectum, rectosigmoid junction, and anus; Z68.1 Body mass index [BMI] 19.9 or less, adult
CPT/HCPCS: 36415; 71045; 74018; 74176; 80048; 80053; 80061; 80307; 81001; 82270; 82306; 82607; 83036; 83605; 83690; 83735; 84100; 84443; 85025; 85048; 85610; 85730; 86644; 86645; 87040; 87081; 87086; 93005; 93306; 96374; 96375; G0378; J2405; J3490; J7060